=== PATIENT | female | born 1980 ===

== ENCOUNTER 2020-03-09 04:07 | Emergency (ER) | payer MEDICAID, SELFPAY ==
[2020-03-09 04:10] VITALS: BP 115/71; PULSE 85; RESP 16; TEMP 37.2; O2SAT 99; BMI 32.3
--- NOTE | 2020-03-09 04:46 | ED.CHESTPAIN ---
HPI - Chest Pain General Chief Complaint: Weakness Stated Complaint: CHEST PAIN Time Seen by Provider: 03/09/20 04:45 Source: patient Mode of arrival: ambulatory Limitations: no limitations History of Present Illness HPI narrative: patient complaining of mid chest pain which is going on for several months tonight got worse and when she ago woke up she was feeling weak and dizzy. Patient is taking naproxen for the pain and seen by her PCP patient denies any recent illness or fever denies any sick contacts today when she woke up she has barely been able to get out of bed because of pain pain is localized in left 2nd 3rd intercostal space which increases on palpation and movements and deep breaths complaint: chest pain Onset (ago): month(s) Timing of current episode: episodic Prior episodes: Yes Onset: during rest Pain location: substernal and left chest Pain radiation: none Severity: mild Quality: tightness and sharp Relieving factors: nothing Exacerbating factors: exertion and movement Context: recent illness Treatment prior to arrival: none Risk Factors Coronary artery disease risk factors: none Related Data Allergies Allergy/AdvReac Type Severity Reaction Status Date / Time Iodinated Contrast Media Allergy Severe ANAPHYLAXIS Verified 03/09/20 04:20 [IV CONTRAST] gadobutrol [From GAD[facility]] Allergy Unknown UNKNOWN Verified 03/09/20 04:20 Review of Systems Review of Systems: REVIEW OF SYSTEMS: Pertinent positives and negatives are stated above in the history. GEN: no fevers, chills, weakness+ HEENT: no nasal congestion, sore throat, ear pain NEURO: no headache, dizziness, focal weakness PULM: no cough, shortness of breath CV: no palpitations, LE edema ABD: no abdominal pain, nausea, vomiting, diarrhea : no dysuria, urgency, frequency SKIN: no rash ROS otherwise negative x 10 PMFSH Past Medical History Medical History Anxiety Arthritis Asthma Depression Fibromyalgia Migraine Social History Social History Advance Directives: No Advance Directives Information Provided: No Physical Exam Vital Signs: Vital Signs: Last Vital Signs Temp 98.9 F 03/09/20 04:10 Pulse 85 03/09/20 04:10 Resp 16 03/09/20 04:10 BP 115/71 03/09/20 04:10 Pulse Ox 99 03/09/20 04:10 Body Mass Index 32.3 Appearance: Alert. Oriented X3. No acute distress. Eyes: Pupils equal, round and reactive to light. ENT: Pharynx normal. Neck: Normal inspection. Neck supple. CVS: Normal heart rate and rhythm. Pulses normal. Respiratory: No respiratory distress. Breath sounds normal. chest wall tenderness left 2nd and 3rd costochondral junction Abdomen: Soft and nontender. bowel sounds present no hepatosplenomegaly Skin: Skin warm and dry. Normal skin color. Normal skin turgor. Extremities: No lower extremity edema. Good range of movement Neuro: Oriented X 3. No motor deficit. No sensory deficit. MDM - Chest Pain Differential Diagnosis Differential diagnosis: Likely atypical chest pain and costochondritis Medical Records Data Attestation: I reviewed the patient's medical records. Lab Data Attestation: I reviewed the patient's lab results. Result diagrams: 03/09/20 05:12 03/09/20 05:12 Labs: Lab Results 03/09/20 Range/Units 04:50 Urine Test NEGATIVE (NEGATIVE) ECG Data ECG #1: Attestation: I personally reviewed and interpreted this ECG as follows: ECG interpretation date: 03/09/20 Interpretation: normal sinus rhythm normal intervals normal axis heart rate [address] T wave changes impression normal EKG no ischemia
[2020-03-09 05:03] LABS: Glucose Urine UA NEG (NEG); Leukocyte Esterase Urine NEG (NEG); Nitrite Urine NEG (NEG); PH 5.5 (5.0-8.0); Specific Gravity - Urine >= 1.030 (1.005-1.025); Urine Blood 2+ (NEG); Urine Ketones 5 MG/DL (NEG); Urine Protein TRACE MG/DL (NEG-TRACE)
[2020-03-09 05:05] LABS: UPreg QC Valid YES; Urine Pregnancy NEGATIVE (NEGATIVE)
[2020-03-09 05:19] LABS: Basophils Absolute Auto 0.1 X10*3/uL (0.0-0.2); Basophils Percent Auto 0.4 % (0-2); Eosinophils Absolute Auto 0.3 X10*3/uL (0.0-0.4); Eosinophils Percent Auto 2.4 % (0-4); Hematocrit 39.6 % (37-47); Imm Gran Abs Auto 0.04 X10*3/uL (0.00-0.03); Imm Gran Pct Auto 0.4 % (0.0-0.4); Lymphocytes Absolute Auto 3.3 X10*3/uL (1.2-4.9); Lymphocytes Percent Auto 29.5 % (20-40); Mean Corpuscular HGB Conc 32.8 g/dl (31.0-35.0); Mean Corpuscular Hemoglobin 29.8 pg (27.0-33.0); Mean Corpuscular Volume 90.8 fL (80-98); Mean Platelet Volume 12.4 fL (9.4-12.3); Monocytes Absolute Auto 0.6 X10*3/uL (0.1-1.2); Monocytes Percent Auto 5.5 % (2-11); Neutrophils Absolute Auto 6.9 X10*3/uL (2.0-8.3); Neutrophils Percent Auto 61.8 % (45-73); Platelet Count 248 X10*3/uL (160-400); Red Blood Count 4.36 X10*6/uL (4.20-5.50); Red Cell Distribution Width 13.4 % (11.0-16.0); White Blood Count 11.1 X10*3/uL (4.8-10.8)
[2020-03-09 05:20] LABS: MANUAL DIFF FLAG NO
[2020-03-09 05:33] LABS: COVID-19 Test Negative (Negative); IDNOW Serial# 9DD0AD1C
[2020-03-09 05:33] LABS: Appearance Urine HAZY; Color Urine DARK YELLOW
[2020-03-09 05:41] LABS: Bacteria Urine 1+ /LPF; Hyaline Casts Urine 0-2 /LPF; Mucus Urine 3+ /LPF; Squamous Epithelial Cell Urine 3+ /LPF; Uric Acid Crystals Urine TRACE /LPF
[2020-03-09 05:54] LABS: Alanine Aminotransferase 19 U/L (0-31); Alkaline Phosphatase 86 U/L (39-117); Anion Gap 13 (12-20); Aspartate Amino Transferase 18 U/L (5-31); Bilirubin Direct 0.2 mg/dL (0.0-0.5); Bilirubin Total 0.6 mg/dL (0.0-1.0); Blood Urea Nitrogen 12 mg/dL (9-16); Calcium 8.3 mg/dL (8.4-10.2); Carbon Dioxide 22 mmol/L (22-29); Chloride 106 mmol/L (96-108); Creatinine Clr Calc Pharmacy 86.5; Estimated Glomerular Filt Rate > 60; Glucose Random 110 mg/dL (60-115); Potassium 3.9 mmol/l (3.3-5.1); Sodium 137 mmol/L (135-145); Total Protein 7.4 g/dL (6.5-8.0)
[2020-03-09 05:57] LABS: Troponin-I High Sensitivity < 3.5 ng/L (<3.5-17.0)
== END 2020-03-09 07:04 | disposition home or self-care (01) ==
PROVIDERS: Emergency Provider Internal Medicine; PCP Family Medicine
DX: M94.0 Chondrocostal junction syndrome [Tietze] (principal); Z20.828 Contact with and (suspected) exposure to other viral communicable diseases
CPT/HCPCS: 36415; 80048; 80076; 81001; 81003; 81025; 84484; 85025; 87635; 93005; 99283; 99284

== ENCOUNTER 2020-03-11 20:15 | Emergency (ER) | payer MEDICAID, SELFPAY ==
[2020-03-11 20:18] VITALS: BP 123/71; PULSE 79; RESP 16; TEMP 36.8; O2SAT 99; BMI 32.3
[2020-03-11 20:38] LABS: Glucose Urine UA NEG (NEG); Leukocyte Esterase Urine NEG (NEG); Nitrite Urine NEG (NEG); Urine Blood 2+ (NEG); Urine Ketones NEG (NEG); Urine Protein NEG (NEG-TRACE)
[2020-03-11 20:39] LABS: Appearance Urine HAZY; Color Urine YELLOW
[2020-03-11 20:44] LABS: Bacteria Urine 1+ /LPF; Squamous Epithelial Cell Urine 1+ /LPF; WBC Urine 0 /HPF (0-4)
--- NOTE | 2020-03-11 22:52 | ED_ITS ---
HPI - Abdominal Pain General Chief Complaint: Abdominal Pain Stated Complaint: Chest pain Time Seen by Provider: 03/11/20 21:20 Source: patient Mode of arrival: ambulatory Limitations: no limitations History of Present Illness HPI narrative: patient was seen here 2 days ago for costochondritis comes now for left flank pain since evening today which increases on deep breath and never had any kidney stone in the past denies any urinary symptoms no hematuria denies any cough or fever or chills MD elicited complaint: flank pain Pertinent past history: none Onset (ago): hour(s) (5) Pain Consistency: constant Location: L flank Severity: mild Quality: sharp Radiation: none Exacerbating factors: movement Associated symptoms: denies other symptoms Treatments prior to arrival: NSAIDs Related Data Previous Rx's Medication Instructions Recorded naproxen 500 mg PO BID #30 tab 03/09/20 Allergies Allergy/AdvReac Type Severity Reaction Status Date / Time Iodinated Contrast Media Allergy Severe ANAPHYLAXIS Verified 03/09/20 04:20 [IV CONTRAST] gadobutrol [From [facility]] Allergy Unknown UNKNOWN Verified 03/09/20 04:20 Review of Systems Review of Systems REVIEW OF SYSTEMS: Pertinent positives and negatives are stated above in the history. GEN: no fevers, chills, fatigue HEENT: no nasal congestion, sore throat, ear pain NEURO: no headache, dizziness, focal weakness PULM: no cough, shortness of breath CV: no palpitations, LE edema ABD: no abdominal pain, nausea, vomiting, diarrhea : no dysuria, urgency, frequency SKIN: no rash ROS otherwise negative x 10 Physical Exam Vital Signs: Vital Signs: Last Vital Signs Temp 98.3 F 03/11/20 20:18 Pulse 79 03/11/20 20:18 Resp 16 03/11/20 20:18 BP 123/71 03/11/20 20:18 Pulse Ox 99 03/11/20 20:18 Body Mass Index 32.3 Appearance: Alert. Oriented X3. No acute distress. Eyes: Pupils equal, round and reactive to light. ENT: Pharynx normal. Neck: Normal inspection. Neck supple. CVS: Normal heart rate and rhythm. Pulses normal. Respiratory: No respiratory distress. Breath sounds normal. Abdomen: Soft and nontender. mild tenderness left flank area and lower ribs very sensitive to touch seems to be very superficial muscular pain, bowel sounds are present no mass palpable Skin: Skin warm and dry. Normal skin color. Normal skin turgor. Extremities: No lower extremity edema. Good range of movement Neuro: Oriented X 3. No motor deficit. No sensory deficit. MDM - Abdominal Pain Differential Diagnosis Differential diagnosis: Likely renal colic Medical Records Attestation: I reviewed the patient's medical records. Lab Data Attestation: I reviewed the patient's lab results. Labs: Lab Results 03/11/20 Range/Units 20:30 Urine Color YELLOW Urine Appearance HAZY Urine pH 7.0 (5.0-8.0) Ur Specific [place] 1.020 (1.005-1.025) Urine Protein NEG (NEG-TRACE) MG/DL Urine Glucose (UA) NEG (NEG) MG/DL Urine Ketones NEG (NEG) MG/DL Urine Blood 2+ H (NEG) Urine Nitrite NEG (NEG) Ur Leukocyte Esterase NEG (NEG) Urine RBC 5-9 H (0) /HPF Urine WBC 0 (0-4) /HPF Ur Squamous Epith Cells 1+ /LPF Urine Bacteria 1+ /LPF Discharge Plan Discharge Clinical Impression: Musculoskeletal back pain Patient Disposition: Home, Self-Care Instructions: Musculoskeletal Pain (ED) Additional Instructions: drink plenty of fluids and follow-up with PCP continue naproxen Prescriptions: No Action naproxen 500 mg tablet 500 mg PO BID Qty: 30 RF: 0 Interventions: ED Discharge Assessment Last Done: 03/11/20 23:47 Discharge Date/Time: 03/11/20 23:47 [facility] Past Medical History Medical History Anxiety Arthritis Asthma Depression Fibromyalgia Migraine Social History Social History Alcohol intake: unknown Smoking Status: Current every day smoker Advance Directives: No Advance Directives Information Provided: Yes
--- NOTE | 2020-03-11 22:59 | XR_ITS ---
EXAMINATION: XR CHEST CLINICAL INFORMATION: Left lung pain. COMPARISON: Chest x-ray 05/05/2016 TECHNIQUE: Frontal portable view of the chest was obtained. 10:58 PM FINDINGS: No significant abnormality is noted involving the heart, lungs, mediastinum, bony thorax or soft tissues. XR/XR chest 1V IMPRESSION: Unremarkable examination.
[2020-03-11] MEDS: traMADoL HCL 50 MG TABLET PO (23:06)
== END 2020-03-11 23:47 | disposition home or self-care (01) ==
PROVIDERS: Emergency Provider Internal Medicine; PCP Family Medicine
DX: R10.9 Unspecified abdominal pain (principal); M62.830 Muscle spasm of back
CPT/HCPCS: 71045; 81001; 99283

== ENCOUNTER 2020-03-13 10:19 | Outpatient (REF) | payer MEDICAID, SELFPAY ==
[2020-03-13 14:24] LABS: Urine Cytology See Pathology rpt
[2020-03-13 14:32] LABS: Hematocrit 41.3 % (37-47); Hemoglobin 13.5 g/dl (12.0-16.0); Mean Corpuscular HGB Conc 32.7 g/dl (31.0-35.0); Mean Corpuscular Hemoglobin 29.7 pg (27.0-33.0); Mean Platelet Volume 12.4 fL (9.4-12.3); Platelet Count 254 X10*3/uL (160-400); Red Blood Count 4.54 X10*6/uL (4.20-5.50); Red Cell Distribution Width 13.6 % (11.0-16.0); White Blood Count 9.7 X10*3/uL (4.8-10.8)
[2020-03-13 14:46] LABS: Estimated Average Glucose 111 mg/dL; Hemoglobin A1c % 5.5 %
[2020-03-13 15:07] LABS: Alanine Aminotransferase 16 U/L (0-31); Albumin Level 4.2 g/dL (3.5-5.0); Alkaline Phosphatase 91 U/L (39-117); Anion Gap 14 (12-20); Aspartate Amino Transferase 16 U/L (5-31); Bilirubin Direct 0.2 mg/dL (0.0-0.5); Bilirubin Total 0.4 mg/dL (0.0-1.0); Blood Urea Nitrogen 10 mg/dL (9-16); Calcium 8.6 mg/dL (8.4-10.2); Carbon Dioxide 24 mmol/L (22-29); Chloride 103 mmol/L (96-108); Cholesterol 211 mg/dL; Estimated Glomerular Filt Rate > 60; Glucose Random 92 mg/dL (60-115); HDL Cholesterol 53 mg/dL; Iron 75 mcg/dL (30-160); LDL Cholesterol Calculated 141 mg/dl; Percent Iron Saturation 21 % (15-50); Potassium 4.5 mmol/l (3.3-5.1); Sodium 136 mmol/L (135-145); Total Iron Binding Capacity 352 mcg/dL (228-428); Total Protein 7.7 g/dL (6.5-8.0); Triglycerides 86 mg/dL; Unsaturated Iron Binding 277 ug/dL
[2020-03-13 15:34] LABS: Free T4 (Free Thyroxine) 0.97 ng/dL (0.71-1.85); Thyroid Stimulating Hormone 0.98 uIU/mL (0.32-4.0); Vitamin D 25-OH Total 7.9 ng/mL (>30)
[2020-03-13 15:53] LABS: Ferritin 41 ng/mL (10-250)
[2020-03-13 16:01] LABS: Syphilis Screen Nonreactive (Nonreactive)
[2020-03-13 16:13] LABS: Folate 6.1 ng/mL (> or = 4.0); Vitamin B12 192 pg/mL (200-900)
[2020-03-16 06:38] LABS: CT PCR NOT DETECTED (Not Detect.); NG PCR NOT DETECTED (Not Detect.)
[2020-03-16 18:37] LABS: HPV mRNA E6/E7 rflx Not Detected (Not Detected)
== END 2020-03-13 10:20 | disposition home or self-care (01) ==
LOC: HO.LAB 10:19
PROVIDERS: PCP Family Medicine; Visit Provider Advanced Practice Midwife
DX: Z01.419 Encounter for gynecological examination (general) (routine) without abnormal findings (principal); N64.4 Mastodynia; F17.200 Nicotine dependence, unspecified, uncomplicated; Z87.42 Personal history of other diseases of the female genital tract; Z20.2 Contact with and (suspected) exposure to infections with a predominantly sexual mode of transmission
CPT/HCPCS: 36415; 80048; 80061; 80076; 82306; 82607; 82728; 82746; 83036; 83540; 84439; 84443; 85027; 86780; 87491; 87591; 87624; 87625; 88142

== ENCOUNTER 2020-03-13 13:05 | Outpatient (REF) | payer MEDICAID, SELFPAY ==
[2020-03-13 16:00] LABS: Syphilis Screen Nonreactive (Nonreactive)
[2020-03-15 08:46] LABS: ~Hepatitis C Antibody Nonreactive (Nonreactive)
[2020-03-15 09:33] LABS: HIV AB/AG Nonreactive (Nonreactive); HIV Num 1 0.07 S/CO (0.00-0.99); Hepatitis B Surface Antigen Negative (Negative)
== END 2020-03-13 13:06 | disposition home or self-care (01) ==
LOC: HO.LAB 13:05
PROVIDERS: PCP Family Medicine; Visit Provider Advanced Practice Midwife
DX: Z00.00 Encounter for general adult medical examination without abnormal findings (principal); R07.9 Chest pain, unspecified; Z20.2 Contact with and (suspected) exposure to infections with a predominantly sexual mode of transmission
CPT/HCPCS: 86780; 86803; 87340; 87389; 88112

== ENCOUNTER → 2020-03-18 08:06 | Outpatient (BNVA) | payer MEDICAID, SELFPAY | PROVIDERS: PCP Family Medicine; Referring Provider Family Medicine; Visit Provider Nurse Practitioner Family | DX: M22.2X2 Patellofemoral disorders, left knee (principal); M25.562 Pain in left knee; F17.200 Nicotine dependence, unspecified, uncomplicated | CPT/HCPCS: 99202 ==

== ENCOUNTER 2020-03-27 08:00 | Outpatient (REF) | payer MEDICAID, SELFPAY ==
--- NOTE | 2020-03-27 | US_ITS ---
EXAMINATION: US ABDOMEN COMPLETE CLINICAL INFORMATION: Liver disease. COMPARISON: MRI abdomen 10/29/2017. CT abdomen and pelvis 08/29/2017. Ultrasound abdomen report 02/18/2010. TECHNIQUE: Real-time imaging of the abdominal viscera. FINDINGS: PANCREAS: Normal. ABDOMINAL AORTA: The proximal, mid, and distal segments are normal in caliber. INFERIOR VENA CAVA: Visualized portions are normal. LIVER: The liver is normal in size. The liver contour is normal. Parenchymal echogenicity is normal. There is a 3.9 x 3.9 x 3.7 cm hypoechoic mass in the right lobe of the liver near the gallbladder. This appears increased in size from previous CT and MRI when this measured 3 cm. It is uncertain whether measurement differences are due to difference in modality. Old ultrasound from February 2010 is unavailable for comparison however lesion was not described in report and may not have been seen. There is no intrahepatic biliary duct dilatation seen. GALLBLADDER: There are gallstones in the gallbladder. The gallbladder is physiologically distended. Multiple mobile gallstones are present. No evidence of gallbladder wall thickening or pericholecystic fluid. COMMON BILE DUCT: Normal in caliber measuring 0.4 cm in diameter. RIGHT KIDNEY: Normal. No hydronephrosis. No renal calculi or focal parenchymal lesions. The kidney measures 10.6 cm in maximum dimension. LEFT KIDNEY: Normal. No hydronephrosis. No renal calculi or focal parenchymal lesions. The kidney measures 11.4 cm in maximum dimension. SPLEEN: Normal. The spleen measures 10.0 cm in maximum dimension. FREE FLUID: None. US/US abdomen complete IMPRESSION: 3.9 x 3.9 x 3.7 cm hypoechoic lesion in the right lobe of the liver near the gallbladder. Measurement is increased in size from previous MRI and CT most recent from 2017. Measurement differences may be due to difference in modality. Follow-up CT or MRI of the liver should be considered.
--- NOTE | 2020-03-27 08:30 | CA_ITS ---
Transthoracic Echocardiogram Patient (Last, First, Middle): Susanne Milligan, Gender: Female Date of : 1980 Age: 39 Procedure Date: 03/27/2020 Procedure Type: Transthoracic Echocardiogram Location: OP Height: 167.64 cm Weight: 90.72 kg BSA: 2.00 m2 Heart Rate: bpm BP: 110 / 62 mmHg Health Worker: Anibal MD: Lisa Wylie DO Trimmer Operator: Lawson Sebastian MD Symptoms: R07.9 UNSPECIFIED CHEST PAIN Study Quality: Good ECG Rhythm: Sinus Conclusions: - Normal study Findings Left Ventricle Normal left ventricular size, thickness, systolic function, and wall motion. The visually estimated ejection fraction is between 60-65%. Diastolic function is normal for age. Right Ventricle Normal right ventricular cavity size and systolic function. Atria Both atria are normal in size. There is no evidence of interatrial shunt. Aortic Valve Normal aortic valve structure and function. There is no aortic valve stenosis. There is no aortic valve regurgitation. Mitral Valve Normal mitral valve structure and function. There is no mitral valve regurgitation. There is no mitral valve stenosis. Pulmonic Valve The pulmonic valve is likely normal. Tricuspid Valve Normal tricuspid valve structure. There is trace tricuspid valve regurgitation. The right ventricular systolic pressure is normal. The right ventricular systolic pressure is 22 mmHg. Normal right atrial pressure. There is no evidence of pulmonary hypertension. Great Vessels All visible segments of the aorta are normal in size. The pulmonary artery was not well visualized. Venous The inferior vena cava is normal in size and collapses greater than 50% with inspiration. Pericardium/Pleural There is no evidence of pericardial effusion. Prior Study Comparison No prior study available for comparison. Measurements 2D Linear Measurements RVIDd: 2.53 RVIDd Index: 1.27 IVSd: 0.54 0.6-0.9/0.6-1.0 cm LVIDd: 4.85 3.9-5.3/4.2-5.9 cm LVIDd Index: 2.43 2.4-3.2/2.2-3.1 cm/m2 LVIDs: 2.87 2.0-3.6 cm LVPWd: 1.02 0.7-1.1 cm Ao Root: 2.40 2.1-3.5 cm LA Diam: 2.90 2.7-3.8/3.0-4.0 cm LAIDs Index: 1.45 1.5-2.3 cm/m2 LV Mass: 154.62 67-162/88-224 g LV Mass Index: 77.31 43-95/49-115 g/m2 LVOT Diam: 2.00 3.0+(-)1.3 cm 2D Systolic Function EF 4C: 52.30 >55% EF 2C: 63.30 >55% EF BiP: 57.00 >55% Mitral Valve MV Pk E: 0.83 MV PK A: 0.53 MV Decel Time: 184.00 E/A: 1.60 E'Lateral: 12.20 E'Medial: 11.20 E/E' Med: 7.40 E/E' Lat: 6.80 Aortic Valve AoV Pk Ruddy: 1.39 AoV Mn Ruddy: 1.01 AoV VTI: 0.30 AoV Pk Grad: 8.00 Aov Mn Grad: 4.00 ELAINA Cont.VTI: 2.03 LVOT LVOT Pk Ruddy: 0.96 LVOT Mn Ruddy: 0.67 LVOT VTI: 0.19 LVOT Pk Grad: 4.00 LVOT Mn Grad: 2.00 LVOT Diam: 2.00 LVOT Area: 3.14 Diastolic Function MV Pk E: 0.83 MV Pk A: 0.53 E/A: 1.60 E'Medial: 11.20 E/E' Med: 7.40 E' Laterial: 12.20 E/E' Lat: 6.80 Tricuspid Valve TR Pk Ruddy: 2.20 TR Pk Grad: 19.00 RA Press: 3.00 RVSP: 22.00 Great Vessels Aorta Ao Root-2D: 2.40 2.0-3.7 cm Ao Asc: 2.70 2.1-3.4 cm Ao Arch: 2.40 Updated in Other Vendor System with Status of Final Lawson Sebastian MD electronically signed on 03/28/2020 2:18:08 PM with status of Final
--- NOTE | 2020-03-27 09:30 | ECG_ITS ---
Hook-up date: 2020-03-27 10:05:00 Duration: 25:05:00 Test Indications: INTERM. CHEST PAIN, PALPITATIONS Medications: [id number] QRS complexes 4 Ventricular ectopics which represent <1 % of total QRS comp. * Supraventricular ectopics which represent % of total QRS comp. * Paced QRS complexs which represent % of total QRS comp. VENTRICULAR ECTOPY 4 Isolated 0 Bigeminal Cycles 0 Couplets 0 Runs 0 Beats in Runs * Beats LONGEST at * BPM at :: -- * Beats FASTEST at * BPM at :: -- SUPRAVENTRICULAR ECTOPY * Isolated * Couplets * Runs * Beats in Runs * Beats LONGEST at * BPM at :: -- * Beats FASTEST at * BPM at :: -- HEART RATES 52 MIN at 06:23:34 2020-03-28 83 AVG 139 MAX at 07:29:38 2020-03-28 LONGEST RR 1.2880 secs at 19:04:36 2020-03-27 S-T LEVELS Channel 1 - 128 mm at 10:05:00 2020-03-27 - 128 mm at 10:05:00 2020-03-27 Channel 2 - 128 mm at 10:05:00 2020-03-27 - 128 mm at 10:05:00 2020-03-27 Channel 3 - 128 mm at 02:92:41 -- - 128 mm at 02:92:41 Underlying rhythm is sinus; Average ventricular rate 83/min; range 52-139/min; Very rare, isolated ventricular ectopy; No sustained arrhythmias; Patient did not report any symptoms in the diary Referred By: Lisa Wylie Overread By: DAVI HU
== END 2020-03-27 08:01 | disposition home or self-care (01) ==
LOC: HO.US 08:00
PROVIDERS: Visit Provider Family Medicine
DX: R07.9 Chest pain, unspecified (principal); K76.9 Liver disease, unspecified
CPT/HCPCS: 76700; 93225; 93226; 93306

== ENCOUNTER 2020-04-02 05:48 | Outpatient (REF) | payer MEDICAID, SELFPAY ==
--- NOTE | 2020-04-02 10:49 | FL_ITS ---
EXAMINATION: XR FLUOROSCOPY WITH IMAGES CLINICAL INFORMATION: M22.2X2 - Patellofemoral disorders, left knee COMPARISON: MRI left knee 05/11/2018 TECHNIQUE: Fluoroscopy performed by Mary Grace Garcia NP. Fluoroscopy time: 0.3 minutes DAP: 2.02 Gycm2 Images: 3 FINDINGS: There are needles adjacent to the medial lateral aspect distal femur, mid depth. There is also a needle adjacent to medial aspect proximal tibia mid depth. There is a small round artifact, likely spot of contrast also noted on other imaging studies, overlying the images. FL/FL guidance in treatment room IMPRESSION: Fluoroscopy for pain management procedure.
== END 2020-04-02 05:49 | disposition home or self-care (01) ==
LOC: HO.RADIR 05:48
PROVIDERS: Visit Provider Anesthesiology
DX: M22.2X2 Patellofemoral disorders, left knee (principal)
CPT/HCPCS: 64454; J3300

== ENCOUNTER 2020-04-04 12:19 | Outpatient (REF) | payer MEDICAID, SELFPAY ==
--- NOTE | 2020-04-04 12:25 | MM_ITS ---
EXAMINATION: MM DIAGNOSTIC DIGITAL BREAST TOMOSYNTHESIS, BILATERAL US DIAGNOSTIC ULTRASOUND BREAST, LEFT CLINICAL INFORMATION: 39-year-old with several months pain left breast. Also having cardiac workup for symptoms. Family history breast cancer, aunt. Age 39. No prior breast imaging. The lifetime risk of breast cancer based on the Tyrer-Cuzick Model is 12%. COMPARISON: None (current study represents initial baseline exam). TECHNIQUE: Digital breast tomosynthesis is performed in both the craniocaudal and mediolateral oblique views along with computer-aided detection (CAD). Synthesized 2D images are generated from the tomosynthesis. Ultrasound left breast is targeted to the 10:00 through 12:00 position and the area of symptoms inferior left breast. Patient is able to point to area of concern at time of imaging. FINDINGS: Mammography: There are scattered areas of fibroglandular density (ACR BI-RADS breast composition Category b). The right breast is unremarkable. There is no mass or architectural abnormality. The left breast has a 4 mm circumscribed nodule anterior 11:00 position. The axilla and skin contours are unremarkable. There is no skin thickening or coarsening of the Ehsan's ligaments. Ultrasound: Ultrasound left breast demonstrates a 4 mm circumscribed hypoechoic nodule 11:00 position 6 cm from nipple with low level internal echoes. There is no associated increased through-transmission of sound or color flow. No posterior acoustic shadowing. There are no other cystic or solid masses or architectural abnormality. No focal duct ectasia. No skin thickening or edema tracking in the soft tissue planes. Management: Results are discussed with the patient at time of visit. There are no imaging findings to correspond to patient's left breast pain. Patient's symptoms should be managed based on the clinical impression. A follow-up left mammogram in 6 months is recommended to reassess the probable benign nodule anterior 11:00 position. MM/MM tomosynthesis diagnostic BI IMPRESSION: 1. No imaging findings to correspond to patient's left breast pain. Right breast unremarkable. 2. Probable benign circumscribed nodule 4 mm 11:00 position left breast. ASSESSMENT: BI-RADS 3: Probably Benign RECOMMENDATION: 1. Patient's left breast pain should be managed based on the clinical impression. 2. Diagnostic left mammography in 6 months to reassess probable benign circumscribed nodule. This patient's information was entered into a reminder system with a target due date for their next mammogram.
== END 2020-04-04 12:20 | disposition home or self-care (01) ==
LOC: HO.MAMMO 12:19
PROVIDERS: PCP Family Medicine; Visit Provider Advanced Practice Midwife
DX: N64.4 Mastodynia (principal); Z80.3 Family history of malignant neoplasm of breast
CPT/HCPCS: 76642; 77062; 77066

== ENCOUNTER → 2020-04-08 14:49 | Outpatient (BNVA) | payer MEDICAID, SELFPAY | PROVIDERS: PCP Family Medicine; Visit Provider Anesthesiology | DX: Z76.89 Persons encountering health services in other specified circumstances (principal) ==

== ENCOUNTER 2020-04-11 08:00 | Outpatient (RCR) | payer MEDICAID, SELFPAY | END 2020-05-14 14:39 | disposition other institution (70) | LOC: HO.PT 08:00 | PROVIDERS: PCP Family Medicine; Visit Provider Family Medicine | DX: M54.2 Cervicalgia (principal); M54.9 Dorsalgia, unspecified; G89.29 Other chronic pain | CPT/HCPCS: 97110; 97112; 97162 ==

== ENCOUNTER → 2020-04-16 14:31 | Outpatient (BNVA) | payer MEDICAID, SELFPAY | PROVIDERS: PCP Family Medicine; Visit Provider Internal Medicine | DX: R07.2 Precordial pain (principal); R06.02 Shortness of breath | CPT/HCPCS: 93005; 99202 ==

== ENCOUNTER 2020-04-25 11:56 | Outpatient (RCR) | payer OTHER, SELFPAY | END 2020-04-26 07:47 | disposition home or self-care (01) | LOC: HO.PAOS 11:56 | PROVIDERS: Referring Provider Anesthesiology; Visit Provider Counselor | DX: F43.21 Adjustment disorder with depressed mood (principal) | CPT/HCPCS: 90791 ==

== ENCOUNTER → 2020-05-14 08:34 | Outpatient (REF) | payer MEDICAID, SELFPAY ==
--- NOTE | 2020-05-14 08:40 | CA_ITS ---
Acquisition Time: 2020-05-14 09:38:08 Total Exercise Time: 00:06:29 Test Indications: Dyspnea Medications: CLONAZAPAM TRAMADOL BACLOFEN GABAPENTIN NAPROXEN Protocol: DEBBIE Max HR: 166 BPM 92% of Pred: 180 BPM Max BP: 164/058 mmHG Max Work Load: 7.7 METS Exercise stress test Using Debbie protocol total of 6 min 29 sec, METS 7.70 and TAPHR up to 92 %. Pt tolerated well, denies any anginal sx. No ischemic changes seen during exercise or in recovery period. Normotensive response to exercise. Test reviewed with Dr. Spence. Referred By: Tree Spence Overread By: Terence Dickinson
== END ==
LOC: HO.CARD 08:34
PROVIDERS: Visit Provider Internal Medicine
DX: R07.2 Precordial pain (principal); R06.02 Shortness of breath
CPT/HCPCS: 93017

== ENCOUNTER → 2020-05-15 15:21 | Outpatient (BNVA) | payer MEDICAID, SELFPAY | PROVIDERS: PCP Family Medicine; Visit Provider Student in an Organized Health Care Education/Training Program | DX: M25.50 Pain in unspecified joint (principal); M77.12 Lateral epicondylitis, left elbow | CPT/HCPCS: 99202 ==

== ENCOUNTER 2020-05-23 08:28 | Outpatient (REF) | payer MEDICAID, SELFPAY ==
--- NOTE | ~2020-05-23 | MR_ITS ---
EXAMINATION: MR ABDOMEN WITHOUT AND WITH CONTRAST CLINICAL INFORMATION: Increase in liver lesion size on ultrasound, follow-up. COMPARISON: Abdominal ultrasound dated 03/27/2020, MRI of the abdomen dated 10/29/2017. TECHNIQUE: MR abdomen was performed without and with use of 10 mL intravenous Gadavist gadolinium contrast. Postcontrast images are performed in multiphase dynamic sequences. Imaging was performed in 3 planes. FINDINGS: LUNG BASES: The visualized lung bases are unremarkable. LIVER: A nonenhancing, T2 hyperintense cyst is again seen anterosuperiorly in segment 4A measuring 1.0 cm (image 30, series 100). Centrally in the right lobe in segment 8, laterally adjacent to the middle hepatic vein demonstrates gradual peripheral nodular enhancement measuring up to 1.6 cm (previously 1.2 cm), (image 38, series 100). Anteromedially in segment 5 is an enhancing mass with delayed central enhancement measuring approximately 4.1 AP x 3.4 TRV x 3.7 CC cm (previously 3.3 x 2.8 x 2.9 cm), (image 75, series 100; image 7, series 11). GALLBLADDER, AND BILIARY TREE: 0.6 cm gallstone without mural thickening or pericholecystic fluid. PANCREAS: Unremarkable. SPLEEN: Normal. ADRENAL GLANDS: Normal. KIDNEYS AND URETERS: The right kidney again shows a nonenhancing, thinly septated T2 hyperintense cyst posteriorly in the upper pole measuring 1.2 cm without significant change. GASTROINTESTINAL TRACT: There is a small hiatal hernia. The remainder the stomach as well as the visualized small and large bowel are unremarkable. ABDOMINAL WALL: No significant hernia is appreciated. LYMPH NODES: No lymphadenopathy. VASCULAR: Unremarkable. OSSEOUS STRUCTURES: Marrow signal normal. MR/MR abdomen wo/w con IMPRESSION: 1. 3 hepatic lesions as detailed above. The lesion in segment 4 demonstrates features most consistent with a hepatic cyst. The lesion centrally in segment 8 demonstrates features most consistent with a hemangioma and has mildly increased in size. The lesion in segment 5 remains nonspecific, but features favor enlarging focal nodular hyperplasia. Given the interval change the repeat contrast-enhanced MRI of the abdomen in 6 months should be considered. 2. Right upper pole renal cyst demonstrates benign features. 3. Cholelithiasis without evidence for acute cholecystitis. 4. Small hiatal hernia.
== END 2020-05-23 08:29 | disposition home or self-care (01) ==
LOC: HO.MRI 08:28
PROVIDERS: Visit Provider Family Medicine
DX: K76.9 Liver disease, unspecified (principal)
CPT/HCPCS: 74183; A9585

== ENCOUNTER 2020-05-30 11:25 | Outpatient (REF) | payer MEDICAID, SELFPAY ==
[2020-05-30 13:01] LABS: MANUAL DIFF FLAG NO
[2020-05-30 13:11] LABS: Basophils Percent Auto 0.3 % (0-2); Eosinophils Absolute Auto 0.2 X10*3/uL (0.0-0.4); Eosinophils Percent Auto 2.6 % (0-4); Hematocrit 41.1 % (37-47); Hemoglobin 13.5 g/dl (12.0-16.0); Imm Gran Abs Auto 0.04 X10*3/uL (0.00-0.03); Imm Gran Pct Auto 0.4 % (0.0-0.4); Lymphocytes Absolute Auto 2.9 X10*3/uL (1.2-4.9); Lymphocytes Percent Auto 30.9 % (20-40); Mean Corpuscular HGB Conc 32.8 g/dl (31.0-35.0); Mean Corpuscular Hemoglobin 29.7 pg (27.0-33.0); Mean Corpuscular Volume 90.5 fL (80-98); Monocytes Absolute Auto 0.5 X10*3/uL (0.1-1.2); Neutrophils Absolute Auto 5.6 X10*3/uL (2.0-8.3); Neutrophils Percent Auto 60.8 % (45-73); Platelet Count 322 X10*3/uL (160-400); Red Blood Count 4.54 X10*6/uL (4.20-5.50); Red Cell Distribution Width 13.1 % (11.0-16.0); White Blood Count 9.3 X10*3/uL (4.8-10.8)
[2020-05-30 13:35] LABS: Alanine Aminotransferase 32 U/L (0-31); Alkaline Phosphatase 100 U/L (39-117); Anion Gap 12 (12-20); Aspartate Amino Transferase 20 U/L (5-31); Bilirubin Total 0.7 mg/dL (0.0-1.0); Blood Urea Nitrogen 7 mg/dL (9-16); C Reactive Protein 1.04 mg/dL (< or = 0.50); Calcium 8.9 mg/dL (8.4-10.2); Carbon Dioxide 26 mmol/L (22-29); Chloride 106 mmol/L (96-108); Estimated Glomerular Filt Rate > 60; Glucose Random 85 mg/dL (60-115); Potassium 4.5 mmol/L (3.3-5.1); Rheumatoid Factor < 15.0 IU/mL (<15.0); Sodium 139 mmol/L (135-145); Total Protein 7.2 g/dL (6.5-8.0)
[2020-05-30 13:48] LABS: Thyroid Stimulating Hormone 0.59 uIU/mL (0.32-4.0)
[2020-05-30 13:58] LABS: Erythrocyte Sedimentation Rate 34 MM/HR (0-20)
[2020-05-31 13:43] LABS: Beta-2 Microglobulin, Serum 1.82 mg/L (< OR = 2.51)
[2020-05-31 14:52] LABS: Anti Nuclear Antibody Screen NEGATIVE (NEGATIVE)
[2020-05-31 15:17] LABS: Cyclic Citrullinated Peptide <16 UNITS
[2020-06-03 14:22] LABS: PTT (LAC) Screen 31 sec (< OR = 40)
[2020-06-03 15:07] LABS: Vitamin D 25-OH, D2 <4 ng/mL; Vitamin D 25-OH, D3 8 ng/mL; Vitamin D 25-OH, Total 8 ng/mL (30-100)
[2020-06-05 09:46] LABS: Cardiolipin IgG Ab <14 GPL; Cardiolipin IgM Ab <12 MPL
== END 2020-05-30 11:26 | disposition home or self-care (01) ==
LOC: HO.LAB 11:25
PROVIDERS: Visit Provider Student in an Organized Health Care Education/Training Program
DX: M25.50 Pain in unspecified joint (principal)
CPT/HCPCS: 36415; 80053; 82232; 82306; 84443; 85025; 85597; 85613; 85652; 85730; 86038; 86039; 86140; 86147; 86200; 86431

== ENCOUNTER → 2020-06-12 15:20 | Outpatient (BNVA) | payer MEDICAID, SELFPAY | PROVIDERS: PCP Family Medicine; Visit Provider Internal Medicine Gastroenterology ==

== ENCOUNTER 2020-06-14 13:31 | Day surgery (SDC) | payer MEDICAID, SELFPAY ==
[2020-06-10 14:00] VITALS: BMI 35.8
--- NOTE | 2020-06-13 11:00 | HO.ANESPROP2 ---
Documented by User: Simona Blankenship 06/13/20 11:02 [facility] Active Problems Active Problems: All Active Problems (Updated 06/12/20 @ 16:20 by Kassy Roca MD) Abnormal abdominal MRI (Acute) Breast pain, left (Acute) Potential exposure to STD (Acute) Well woman exam with routine gynecological exam (Acute) History of abnormal cervical Pap smear (Acute) Patellofemoral disorder of left knee (Acute) Breast nodule (Acute) Precordial chest pain (Acute) SOB (shortness of breath) (Acute) Polyarthralgia (Acute) Left lateral epicondylitis (Acute) Past Medical History Medical History Abnormal abdominal MRI Anxiety Arthritis Asthma Bipolar 1 disorder Cyst of Bartholin's gland Depression Fibromyalgia Migraine Migraine with aura Family History Family History Mother Diabetes mellitus Asthma Depression Maternal Grandmother Asthma Breast cancer Maternal Aunt Diabetes mellitus HTN (hypertension) Breast cancer Surgical History Surgical History (Updated 06/12/20 @ 15:22 by Juliann Kang) H/O colonoscopy History of loop electrical excision procedure (LEEP) Hx of arthroscopic knee surgery Hx of section Hx of tubal ligation Social History Social History Household Members: Children Alcohol intake: current Alcohol intake frequency: holidays/special occasions only Smoking Status: Never smoker Advance Directives Information Provided: No Gender identity: female Meds Allergies Allergy/AdvReac Type Severity Reaction Status Date / Time Iodinated Contrast Media Allergy Severe ANAPHYLAXIS Verified 06/14/20 07:55 [IV CONTRAST] Home Medications Medication Instructions Recorded Confirmed Last Taken Type baclofen 10 mg tablet 10 mg PO TID 03/18/20 06/12/20 Unknown History gabapentin 400 mg capsule 400 mg PO TID 03/18/20 06/12/20 Unknown History tramadol 50 mg tablet 50 mg PO TID PRN 03/18/20 06/12/20 Unknown History clonazepam 1 mg tablet 1 mg PO BEDTIME 04/16/20 06/12/20 Unknown History zolpidem 10 mg tablet 10 mg PO BEDTIME PRN 04/16/20 06/12/20 Unknown History Exam Exam Date and Time: June 13, 2020 1100 Height,Weight and Vital Signs: Height 5 ft 6 in Weight 100.698 kg Narrative Narrative: 04/2020 EKG shows sinus rhythm at 97/Min without any ischemic findings or other abnormalities. ECHO 03/2020 Conclusions: - Normal study Exercise Stress 05/2020 Protocol: ABNER Max HR: 166 BPM 92% of Pred: 180 BPM Max BP: 164/058 mmHG Max Work Load: 7.7 METS Exercise stress test Using Abner protocol total of 6 min 29 sec, METS 7.70 and TAPHR up to 92 %. Pt tolerated well, denies any anginal sx. No ischemic changes seen during exercise or in recovery period. Normotensive response to exercise. Test reviewed with Dr. Spence. Assessment and Plan Assessment Anesthesia Assessment: Chart Reviewed Documented by User: Je Michele MD 06/14/20 14:34 HPI - Anesthesia Eval Consult details Narrative: 39 F pf saphenous nerve block PMFSH Past Medical History Medical History Abnormal abdominal MRI Anxiety Arthritis Asthma Bipolar 1 disorder Cyst of Bartholin's gland Depression Fibromyalgia Migraine Migraine with aura Family History Family History Mother Diabetes mellitus Asthma Depression Maternal Grandmother Asthma Breast cancer Maternal Aunt Diabetes mellitus HTN (hypertension) Breast cancer Surgical History Surgical History (Updated 06/12/20 @ 15:22 by Juliann Kang) H/O colonoscopy History of loop electrical excision procedure (LEEP) Hx of arthroscopic knee surgery Hx of section Hx of tubal ligation Social History Social History Household Members: Children Alcohol intake: current Alcohol intake frequency: holidays/special occasions only Smoking Status: Never smoker Advance Directives Information Provided: No Gender identity: female Meds Allergies Allergy/AdvReac Type Severity Reaction Status Date / Time Iodinated Contrast Media Allergy Severe ANAPHYLAXIS Verified 06/14/20 07:55 [IV CONTRAST] Home Medications Medication Instructions Recorded Confirmed Last Taken Type baclofen 10 mg tablet 10 mg PO TID 03/18/20 06/12/20 Unknown History gabapentin 400 mg capsule 400 mg PO TID 03/18/20 06/12/20 Unknown History tramadol 50 mg tablet 50 mg PO TID PRN 03/18/20 06/12/20 Unknown History clonazepam 1 mg tablet 1 mg PO BEDTIME 04/16/20 06/12/20 Unknown History zolpidem 10 mg tablet 10 mg PO BEDTIME PRN 04/16/20 06/12/20 Unknown History Exam Airway Mallampati Class: II TM Dist: >3cm Neck ROM: Full Loose/Missing/Broken Teeth: No Heart: RRR Lungs: NL Assessment and Plan Assessment Anesthesia Assessment: Anesthesia Plan Discussed and Chart Reviewed Final Anesthetic Review NPO: Yes ASA Class: III Final Preanesthetic Review: No Changes in Pt Med Stat, Meds/Allgs Chart Reviewed, Consent Obtained/Reviewed and Anes Risks/Benef Reviewed Patient Risk: Intermediate Procedure Risk: Low Anesthetic Plan Anesthetic Plan: MAC: Disposition: Standard PACU
--- NOTE | ~2020-06-14 | FL_ITS ---
EXAMINATION: XR FLUOROSCOPY WITH IMAGES CLINICAL INFORMATION: Left intraoperative injection. COMPARISON: None. TECHNIQUE: Fluoroscopy performed by Dr. Leroy. Fluoroscopy time: less than 1 minute. DAP: 0.481 mGycm2 Images: 2 FINDINGS: Fluoroscopy provided to Dr. Leroy. There is a needle positioned medial to the proximal tibial cortex. FL/FL guidance in OR IMPRESSION: Fluoroscopy was provided to Dr. Pradeep Leroy during the procedure.
[2020-06-14 13:55] VITALS: BP 121/66; PULSE 83; RESP 16; TEMP 36.7; O2SAT 99
[2020-06-14] MEDS: Lactated Ringers 1,000 ML 100 ML IVCONT (14:15)
--- NOTE | 2020-06-14 14:48 | MHC.SHP ---
Pre-Procedural Eval Section B Chief Complaint: Patellofemoral Disorder of Left Knee Details of Present Illness: as above Relevant Family History (Specify if Yes): No Relevant Social History: None Present Medications: see Short Stay Collaborative assessment Medical History: Significant History History of Previous Operations: No relevant previous surgery Allergies: Allergies Allergy/AdvReac Type Severity Reaction Status Date / Time Iodinated Contrast Media Allergy Severe ANAPHYLAXIS Verified 06/14/20 07:55 [IV CONTRAST] Review of Systems Sugical H&P ROS: Negative: Constitution, Cardiovascular, Respiratory, Neurological, Psychiatric, Hem-Onc, Allergic/Immunologic, Gastrointestinal, Genitourinary, Musculoskeletal, Integumentary, Endocrine and Eyes/Ears/Nose/Throat Exam Surgical H&P Exam: Normal: HEENT, Normal: Heart, Normal: Lungs, Normal: Extremities, Normal: Abdomen, Normal: Skin and Normal: Neurological Plan Diagnosis/Plan: Unchanged I have reviewed the history and physical and performed a pertinent physical examination on my patient. No changes have occurred unless specified.
--- NOTE | 2020-06-14 15:11 | PM.OP ---
Brief Operative Note Date of Service: 06/14/20 Pre-op diagnosis: Patellofemoral arthritis left Post-op diagnosis: same Procedure: Infrapatellar saphenous nerve block diagnostic. Implants: None Surgeon: Pradeep Leroy MD Anesthesia: MAC Estimated blood loss (mL): 0 Condition: stable Disposition: PACU
[2020-06-14 15:18] VITALS: BP 95/50; PULSE 97; RESP 12; TEMP 36.1; O2SAT 97
--- NOTE | 2020-06-14 16:29 | P.OP_ITS ---
Operative Note Operative Note Date of Service: 06/14/20 Narrative: Patient came to the operating room after informed consent was obtained. He was positioned supine on the operating table [employer] monitors were applied , patient was sedated. Time-out procedure was performed delineating correct site and side of the injections, patient's name and date of , allergies, need for antibiotics, risk of fire. Patient's left knees as well as anterior surface of lower thigh as well as anterior surface of upper shins were prepped with ChloraPrep and draped with sterile towels. Sterilely draped C-arm was brought over the operating field and sq picture of the patient's left knee was obtained on the screen. The point of interest was delineated as connection of medial border of metaphysis and diaphysis tibial bone. The point of interest projection to the skin were injected with small amount of Lidocaine and after that 22 g. 3&1/2 spinal needle was inserted through the skin . The needle was driven to- the point of interest on anterior posterior and lateral views. When on lateral views the needles were positioned with the tips in the projection of mid shaft of the bone the 1.5 to 2 cc of Marcaine was injected into the needle. Patient tolerated procedure well he was awakened and transferred to PACU for recovery he recovered uneventfully and went home without immediate complications.
== END 2020-06-14 16:35 | disposition home or self-care (01) ==
PROVIDERS: PCP Family Medicine; Visit Provider Anesthesiology
PROC: (CPT 64447; principal; 2020-06-14 14:40)
DX: M22.2X2 Patellofemoral disorders, left knee (principal); M17.12 Unilateral primary osteoarthritis, left knee; M77.12 Lateral epicondylitis, left elbow; E55.9 Vitamin D deficiency, unspecified; Z91.041 Radiographic dye allergy status
CPT/HCPCS: 64447; 99212

== ENCOUNTER 2020-06-19 09:00 | Outpatient (RCR) | payer MEDICAID, SELFPAY ==
--- NOTE | 2020-05-28 09:08 | MHC.OT.OEV ---
[address] [phone] F: [phone] Occupational Therapy Evaluation Diagnosis: Left ulnar and median nerve dysfunction Date of Onset: 04/05/14 Attending Provider: Dr Lee Prescribed Treatment: Kat and Anjana MUÑOZ Follow Up Appointment: 06/14/20 History of Current Condition: Pt has a history of fall over six years agowhile going down stairs, with persistent pain in back and knee, she has been seen in physical therapy, also reporting elbow pain but did not receive treatment. Significant Medical History: Seizures Cardiac work-up Migraines Anxiety Fibromyalgia Back pain (hx of PT services) Precautions/Contraindications: Seizure Patient Goals: Reduce pain Hand Dominance: Right Observations: QuickDASH Score: 43 Prior Level of Function and Occupation Self Care, Employment, Leisure: On disability, spends time watching tv, resting or cooking Living Situation, Family and/or Social Support: Lives w/ children (19, 17, 14 yo twins, 5) Current Level of Function and Occupation Self Care, Employment, Leisure: Kids go to car to bring groceries, pain w/ mopping (back, shoulder, arm) Sleep: Difficulty sleeping due to anxiety Infrequent wake-pups w/ elbow pain Driving: Public transportation or family drives Pain Assessment Pain Score: 7 Pain Scale Used: Pain Location and Description: Pain in lateral elbow at cubital tunnel/ulnar nerve, ache, throb Aggravating Factors: Worse w/ heavy lifting or use, occasional sharp pain at rest Alleviating Factors: Tramadol, gabapenton, heat pack Skin and Soft Tissue Assessment Skin and Soft Tissue: Swelling Comments: Mild localized edema at cubital tunnel Nerve assessment Ulnar Nerve: Left Impaired Median Nerve: Left Impaired Radial Nerve: WNL Comments: Left small finger resting in abduction Sensory Assessment Comments: Pt reports numbness and tingling in D4-D5 at times [place] intact to 3.61, indicates diminished light touch B/L'ly Edema Assessment Upper Extremity: Lower Extremity: Comments: Mild localized edema at left cubital tunnel Dexterity Assessment Dexterity: WNL Comments: Special Tests Comments: (+) Phalen's left (-) Wrist ext test for lat epi (+) Froment's left AROM(PROM) Strength Cervical Cervical Flexion: Cervical Extension: Cervical Lateral Flexion: Cervical Rotation: Comments: Decreased end range rotation w/ discomfort Shoulder Flexion: Extension: Abduction: Internal Rotation: External Rotation: Comments: WNL Flexion: Extension: Abduction: Internal Rotation: External Rotation: Comments: Elbow Flexion: Extension: Pronation: Supination: Comments: WNL Flexion: Extension: Pronation: Supination: Comments: Wrist Flexion: Extension: Ulnar Deviation: Radial Deviation: Comments: WNL Flexion: Extension: Ulnar Deviation: Radial Deviation: Comments: Thumb Thumb CMC Flexion: Thumb MCP Flexion: Thumb IP Flexion: Radial Abduction: Palmar Abduction: [place]annah (Kapandji 0-10): Comments: Digits Index MCP: PIP: DIP: Long MCP: PIP: DIP: Ring MCP: PIP: DIP: Small MCP: PIP: DIP: Comments: WNL Gross Grasp: R 56 L 35 Lateral Pinch: R 6 L 3 Two-Point Pinch: R 3 L 1 Three-Jaw [place]: R 5 L 2 Comments: Patient Education Primary Language: Greek Carpenter Prototype Required: No Current Knowledge: Understands information with skills for self-management Teaching Method: Demonstration Handouts Verbal Education Needs Identified on Evaluation: ADL's Disease Information Equipment Use Exercise Pain Safety How did patient/family demonstrate learning? Patient demonstrates Patient verbalizes Barriers to Learning: None Readiness for Learning: Accepting Who was educated? Patient Comments: Plan of Care Assessment: Susanne presents w/ history of chronic pain after fall more than six years ago. She has attended PT for management of back, neck and knee pain, but continues to have pain and numbness in elbow, forearm and hand and has now been referred to OT. On assessment, she has S/S consistent with ulnar nerve and median nerve dysfunction, likely compressed at cubital tunnel and carpal tunnel. She will benefit from cont'd therapy services for progression of strengthening w/ reduction of pain, edema and improving daily function. STG Duration: 2 weeks Short Term Goals: Ind w/ wrist orthosis wear Ind w/ HEP Ind w/ joint protection Pt to report <5/10 pain w/ light daily activities LTG Duration: 4 weeks Sports Anchor Goals: <2/10 pain at rest QuickDASH score <25 pts Left gross grasp >45lb Pt to report three activity modifcation techniques used in home Frequency and Duration: The patient will be seen 2x/wk for 4 weeks Treatment Plan: Therapeutic Exercise Therapeutic Activity Home Exercise Program Splinting Patient Education Desensitization/Sensory Re-ed Edema Control ADL Training Ultrasound MHP Cold Packs Soft Tissue Mobilization Kinesiotaping Electronically Signed By: Breanna Villegas, OTR/L Please sign and return to therapist, Thank you for your referral.
--- NOTE | 2020-07-16 11:30 | MHC.OT.DC ---
[address] [phone] F: [phone] Occupational Therapy Discharge Note Provider: Dr Lee Diagnosis: Left ulnar and median nerve dysfunction Date of Evaluation: 05/28/20 Date of Discharge: 07/16/20 Treatments to Date: 6 Discharge Status: Patient Elected to Stop Discharge Summary: Continued to have moderate pain and sensitivity related to bursitis and cubital tunnel syndrome, but has not followed up for further appointments over the past month. Electronically Signed By: Breanna Villegas OTR/L Please Sign and return to therapist, thank you for your referral.
== END 2020-07-16 11:31 | disposition other institution (70) ==
LOC: HO.OT 09:00
PROVIDERS: PCP Family Medicine; Visit Provider Student in an Organized Health Care Education/Training Program
DX: M25.522 Pain in left elbow (principal); M77.12 Lateral epicondylitis, left elbow
CPT/HCPCS: 29125; 97033; 97110; 97140; 97166; 97760

== ENCOUNTER → 2020-06-20 15:44 | Outpatient (BNVA) | payer MEDICAID, SELFPAY | PROVIDERS: PCP Family Medicine; Visit Provider Anesthesiology ==

== ENCOUNTER 2020-07-24 21:12 | Emergency (ER) | payer MEDICAID, SELFPAY ==
--- NOTE | ~2020-07-24 | XR_ITS ---
EXAMINATION: RIGHT KNEE, RIGHT ANKLE, RIGHT FOOT CLINICAL INFORMATION: Fall with pain COMPARISON: Bilateral knee films 01/26/2018 TECHNIQUE: 4 views left knee, 2 views left ankle, 3 views left foot FINDINGS: Knee: There is mild narrowing of the medial compartment. No sclerosis osteophytes fractures or joint effusion is present. Ankle: An accessory ossicle is noted at the end of the fibular head. No fracture is present. Ankle mortise appears stable. Right foot: There is mild hallux valgus present. No fractures are seen. No significant degenerative or arthritic changes are present. XR/XR foot RT 2V IMPRESSION: 1. No evidence of an acute traumatic injury. 2. Mild degenerative changes in the narrowing of the medial compartment. 3. Minimal hallux valgus
--- NOTE | ~2020-07-24 | XR_ITS ---
EXAMINATION: RIGHT KNEE, RIGHT ANKLE, RIGHT FOOT CLINICAL INFORMATION: Fall with pain COMPARISON: Bilateral knee films 01/26/2018 TECHNIQUE: 4 views left knee, 2 views left ankle, 3 views left foot FINDINGS: Knee: There is mild narrowing of the medial compartment. No sclerosis osteophytes fractures or joint effusion is present. Ankle: An accessory ossicle is noted at the end of the fibular head. No fracture is present. Ankle mortise appears stable. Right foot: There is mild hallux valgus present. No fractures are seen. No significant degenerative or arthritic changes are present. XR/XR knee LT 2V IMPRESSION: 1. No evidence of an acute traumatic injury. 2. Mild degenerative changes in the narrowing of the medial compartment. 3. Minimal hallux valgus
--- NOTE | ~2020-07-24 | XR_ITS ---
EXAMINATION: RIGHT KNEE, RIGHT ANKLE, RIGHT FOOT CLINICAL INFORMATION: Fall with pain COMPARISON: Bilateral knee films 01/26/2018 TECHNIQUE: 4 views left knee, 2 views left ankle, 3 views left foot FINDINGS: Knee: There is mild narrowing of the medial compartment. No sclerosis osteophytes fractures or joint effusion is present. Ankle: An accessory ossicle is noted at the end of the fibular head. No fracture is present. Ankle mortise appears stable. Right foot: There is mild hallux valgus present. No fractures are seen. No significant degenerative or arthritic changes are present. XR/XR ankle RT min 3V IMPRESSION: 1. No evidence of an acute traumatic injury. 2. Mild degenerative changes in the narrowing of the medial compartment. 3. Minimal hallux valgus
[2020-07-24 21:13] VITALS: BP 133/94; PULSE 78; RESP 18; TEMP 36.8; O2SAT 100; BMI 36.8
--- NOTE | 2020-07-24 23:25 | ED.FALL ---
HPI - Fall General Chief Complaint: Fall Stated Complaint: Fall/ankle pain Time Seen by Provider: 07/24/20 23:15 Source: patient Mode of arrival: ambulatory Limitations: no limitations History of Present Illness HPI Narrative: 39-year-old female presents with right ankle pain and left knee pain after tripping and falling. Patient has stated that she stepped into a pothole while walking, twisted her ankle and landed on her left knee. Patient does not describe any other symptoms, denies loss of conscious, denies dizziness, lightheadedness, chest pain or pressure, palpitations, shortness breath, abdominal pain, abdominal distention, dysuria, hematuria, and any other concerning symptoms. Patient has full range of motion to all extremities and was able to ambulate after the injury. MD complaint: fall Onset (ago): hour(s) (Within the hour of arrival) Fall from: standing Fall witnessed: yes, by family Place fall occurred: street Loss of consciousness: none Context: tripped/slipped Location of injury - extremities: left: ankle and right: knee Severity: moderate Severity scale (1-10): 7 Quality: aching Associated symptoms (after fall): denies Related Data Home Medications Medication Instructions Recorded Confirmed baclofen 10 mg tablet 10 mg PO TID 03/18/20 06/12/20 gabapentin 400 mg capsule 400 mg PO TID 03/18/20 06/12/20 tramadol 50 mg tablet 50 mg PO TID PRN 03/18/20 06/12/20 clonazepam 1 mg tablet 1 mg PO BEDTIME 04/16/20 06/12/20 zolpidem 10 mg tablet 10 mg PO BEDTIME PRN 04/16/20 06/12/20 Previous Rx's Medication Instructions Recorded naproxen 500 mg PO BID #30 tab 03/09/20 cholecalciferol (vitamin D3) 1,250 1,250 mcg PO QWEEK #8 cap 06/04/20 mcg (50,000 unit) capsule Allergies Allergy/AdvReac Type Severity Reaction Status Date / Time Iodinated Contrast Media Allergy Severe ANAPHYLAXIS Verified 06/20/20 15:45 [IV CONTRAST] Review of Systems Review of Systems: Constitutional: No Fever, No Chills ENT/Mouth: No Ear Pain, No Hoarseness, No sore throat Eyes: No Eye Pain, No Swelling, No Redness, No Foreign Body Cardiovascular: No Chest Pain, No SOB Respiratory: No Cough, No Dyspnea Gastrointestinal: No Nausea, No Vomiting, No Diarrhea, No abdominal Pain Genitourinary: No Dysuria, No Hematuria Musculoskeletal: positive left ankle and right knee pain, No Myalgias, No Joint Swelling Skin: No Skin lacerations, No rash Neuro: No Weakness, No Numbness, No Paresthesias, No Loss of Consciousness, No Dizziness, No Headache Psych: No Anxiety/Panic, No Depression Heme/Lymph: no easy bruising, no Lymphadenopathy Endocrine: No Polyuria, No Polydipsia Yes all other systems are reviewed and are negative [facility] Past Medical History Attestation statement: The following information was validated with the patient. Source: old records reviewed Medical History Abnormal abdominal MRI Anxiety Arthritis Asthma Bipolar 1 disorder Cyst of Bartholin's gland Depression Fibromyalgia Migraine Migraine with aura Surgical History H/O colonoscopy History of loop electrical excision procedure (LEEP) Hx of arthroscopic knee surgery Hx of section Hx of tubal ligation Family History Family History Mother Diabetes mellitus Asthma Depression Maternal Grandmother Asthma Breast cancer Maternal Aunt Diabetes mellitus HTN (hypertension) Breast cancer Social History Social History (Updated 06/24/20 @ 10:39 by Kassy Roca MD) Household Members: Children Alcohol intake: current Alcohol intake frequency: holidays/special occasions only Smoking Status: Never smoker Advance Directives: No Advance Directives Information Provided: Yes Gender identity: female Physical Exam Vital Signs: Vital Signs: Last Vital Signs Temp 98.2 F 07/24/20 21:13 Pulse 78 07/24/20 21:13 Resp 18 07/24/20 21:13 BP 133/94 H 07/24/20 21:13 Pulse Ox 100 07/24/20 21:13 Body Mass Index 36.8 Appearance: Alert. Oriented X3. No acute distress. Eyes: Pupils equal, round and reactive to light. ENT: Pharynx normal. Neck: Normal inspection. Neck supple. CVS: Normal heart rate and rhythm. Pulses normal. Respiratory: No respiratory distress. Breath sounds normal. Abdomen: Soft and nontender. Skin: Skin warm and dry. Normal skin color. Normal skin turgor. Extremities: No swelling or bruising noted to right ankle, tenderness to palpation to the malleolar process, full range of motion, strength 5/5, left knee tender to palpation, negative anterior posterior drawer, full range of motion. Neuro: No motor deficit. No sensory deficit. Course Course Course Narrative: 39-year-old female presents with injuries to the left knee and right ankle. Will order x-rays. X-rays negative for acute findings to the knee and ankle. There is an osteophyte to the right lower malleolar process however this is chronic. Patient reports 01/12 pain, which is out of proportion for the level of injury, will treat for suspected sprain. Will apply Chilo wrap and provide crutches. Patient appears dissatisfied with offer Motrin prescription. Patient verbalized understanding of and agrees to plan of care discharge home. MDM - Fall Differential Diagnosis Differential diagnosis: Likely dislocation and fracture Medical Records Attestation: I reviewed the patient's medical records. Imaging Data Left knee: Attestation: I personally reviewed and interpreted this imaging study as follows: Radiologist's impression: EXAMINATION: RIGHT KNEE, RIGHT ANKLE, RIGHT FOOT CLINICAL INFORMATION: Fall with pain COMPARISON: Bilateral knee films 01/26/2018 TECHNIQUE: 4 views left knee, 2 views left ankle, 3 views left foot FINDINGS: Knee: There is mild narrowing of the medial compartment. No sclerosis osteophytes fractures or joint effusion is present. Ankle: An accessory ossicle is noted at the end of the fibular head. No fracture is present. Ankle mortise appears stable. Right foot: There is mild hallux valgus present. No fractures are seen. No significant degenerative or arthritic changes are present. XR/XR knee LT 2V IMPRESSION: 1. No evidence of an acute traumatic injury. 2. Mild degenerative changes in the narrowing of the medial compartment. 3. Minimal hallux valgus Right ankle: Attestation: I personally reviewed and interpreted this imaging study as follows: Radiologist's impression: EXAMINATION: RIGHT KNEE, RIGHT ANKLE, RIGHT FOOT CLINICAL INFORMATION: Fall with pain COMPARISON: Bilateral knee films 01/26/2018 TECHNIQUE: 4 views left knee, 2 views left ankle, 3 views left foot FINDINGS: Knee: There is mild narrowing of the medial compartment. No sclerosis osteophytes fractures or joint effusion is present. Ankle: An accessory ossicle is noted at the end of the fibular head. No fracture is present. Ankle mortise appears stable. Right foot: There is mild hallux valgus present. No fractures are seen. No significant degenerative or arthritic changes are present. XR/XR knee LT 2V IMPRESSION: 1. No evidence of an acute traumatic injury. 2. Mild degenerative changes in the narrowing of the medial compartment. 3. Minimal hallux valgus Discharge Plan Discharge Clinical Impression: Mild sprain of right ankle Qualifiers: Encounter type: initial encounter Qualified Code(s): S93.401A - Sprain of unspecified ligament of right ankle, initial encounter Patient Disposition: Home, Self-Care Instructions: Ankle Sprain (ED), R.I.C.E. Treatment (ED) Additional Instructions: You were evaluated for ankle pain after tripping into a pothole. Your x-rays are negative for fractures. Your presentation is highly suspicious for a mild ankle sprain. Please use crutches as needed, use Chilo wrap for comfort. Please follow RICE instructions. Use Motrin as needed for pain management. Thank you for choosing this emergency department for evaluation. Please follow-up with primary care physician as needed. Return to the emergency department for any new, concerning, or worsening symptoms. Prescriptions: No Action cholecalciferol (vitamin D3) 1,250 mcg (50,000 unit) capsule 1,250 mcg PO QWEEK Qty: 8 RF: 0 naproxen 500 mg tablet 500 mg PO BID Qty: 30 RF: 0 tramadol 50 mg tablet 50 mg PO TID PRN (Reason: Pain) RF: 0 gabapentin 400 mg capsule 400 mg PO TID RF: 0 baclofen 10 mg tablet 10 mg PO TID RF: 0 clonazepam 1 mg tablet 1 mg PO BEDTIME RF: 0 zolpidem [Ambien] 10 mg tablet 10 mg PO BEDTIME PRN (Reason: Insomnia) RF: 0 Stand Alone Forms: Work/School Release Interventions: ED Discharge Assessment Last Done: 07/25/20 02:14 Discharge Date/Time: 07/25/20 01:29
[2020-07-24] MEDS: Ibuprofen 600 MG TABLET PO (23:38)
== END 2020-07-25 01:29 | disposition home or self-care (01) ==
PROVIDERS: Emergency Provider Emergency Medicine Emergency Medical Services; PCP Family Medicine
DX: S93.401A Sprain of unspecified ligament of right ankle, initial encounter (principal); W17.2XXA Fall into hole, initial encounter; M25.562 Pain in left knee; Y93.01 Activity, walking, marching and hiking; Y92.414 Local residential or business street as the place of occurrence of the external cause; Y99.9 Unspecified external cause status
CPT/HCPCS: 73560; 73610; 73620; 99283; 99284

== ENCOUNTER 2020-10-02 14:28 | Outpatient (REF) | payer MEDICAID, SELFPAY ==
--- NOTE | ~2020-10-02 | MM_ITS ---
EXAMINATION: MM DIAGNOSTIC DIGITAL BREAST TOMOSYNTHESIS, LEFT CLINICAL INFORMATION: Density superior inner aspect left breast. The lifetime risk of breast cancer based on the Tyrer-Cuzick Model is 13.8%. COMPARISON: Mammography: April 04, 2020 TECHNIQUE: Digital breast tomosynthesis is performed in both the craniocaudal and mediolateral oblique views along with computer-aided detection (CAD). Synthesized 2D images are generated from the tomosynthesis. FINDINGS: There are scattered areas of fibroglandular density (ACR BI-RADS breast composition Category b). There is a stable 3 mm well-circumscribed density seen about the anterior aspect of the superior medial left breast. No new abnormal dominant mass identified. No suspicious grouping of microcalcifications. Six-month bilateral mammography suggested. Results are provided to the patient at time of visit by the technologist. MM/MM tomosynthesis diagnostic LT IMPRESSION: There are no significant changes from prior study. ASSESSMENT: BI-RADS 3: Probably Benign RECOMMENDATION: Diagnostic mammography in 6 months. This patient's information was entered into a reminder system with a target due date for their next mammogram.
== END 2020-10-02 14:29 | disposition home or self-care (01) ==
LOC: HO.MAMMO 14:28
PROVIDERS: Visit Provider Family Medicine
DX: R92.2 Inconclusive mammogram (principal)
CPT/HCPCS: 77061; 77065

== ENCOUNTER 2020-11-01 07:31 | Day surgery (SDC) | payer MEDICAID, SELFPAY ==
--- NOTE | 2020-10-31 09:04 | HO.ANESPROP2 ---
Documented by User: Simona Blankenship 10/31/20 09:05 HPI - Anesthesia Eval Consult details Narrative: 40yo F for Left Infrapateller Saphenous Nerve Trial s/p saphenous block 06/2020 with T[facility]A PMFSH Active Problems Active Problems: All Active Problems (Updated 10/25/20 @ 09:06 by Debora Menjivar) Breast pain, left (Acute) Potential exposure to STD (Acute) Well woman exam with routine gynecological exam (Acute) History of abnormal cervical Pap smear (Acute) Patellofemoral disorder of left knee (Acute) Breast nodule (Acute) Precordial chest pain (Acute) SOB (shortness of breath) (Acute) Polyarthralgia (Acute) Left lateral epicondylitis (Acute) Vitamin D deficiency (Acute) Abnormal abdominal MRI (Acute) Past Medical History Medical History Abnormal abdominal MRI Anxiety Arthritis Asthma Bipolar 1 disorder Cyst of Bartholin's gland Depression Fibromyalgia Left knee pain Migraine Migraine with aura Family History Family History Mother Diabetes mellitus Asthma Depression Maternal Grandmother Asthma Breast cancer Maternal Aunt Diabetes mellitus HTN (hypertension) Breast cancer Surgical History Surgical History H/O colonoscopy History of loop electrical excision procedure (LEEP) Hx of arthroscopic knee surgery Hx of section Hx of tubal ligation Social History Social History Household Members: Children Household Members Other:: children: 19, 18, fraternal twins-15 and a 5 year old. Alcohol intake: current Alcohol intake frequency: holidays/special occasions only Patient Tobacco Use Status: Former Tobacco user Tobacco use type: Cigarette Smoked in Last 30 Days: No Use of substances other than those prescribed or required for medical reasons: No Are you DNR?: No Advance Directives: No Advance Directives Information Provided: Yes Recently lost weight without trying: No Nutrition Risks: No Nutritional Risk Patient : No Gender identity: female Meds Allergies Allergy/AdvReac Type Severity Reaction Status Date / Time Iodinated Contrast Media Allergy Severe ANAPHYLAXIS Verified 10/25/20 09:21 [IV CONTRAST] Home Medications Medication Instructions Recorded Confirmed Last Taken Type baclofen 10 mg tablet 10 mg PO TID 03/18/20 10/25/20 Unknown History gabapentin 400 mg capsule 400 mg PO TID 03/18/20 10/25/20 Unknown History tramadol 50 mg tablet 50 mg PO TID PRN 03/18/20 10/25/20 Unknown History clonazepam 1 mg tablet 1 mg PO BEDTIME 04/16/20 10/25/20 Unknown History zolpidem 10 mg tablet (Ambien) 10 mg PO BEDTIME PRN 04/16/20 10/25/20 Unknown History acetaminophen 650 mg 1 tab PO Q8H PRN 10/25/20 10/25/20 Unknown History tablet,extended release (Arthritis Pain Relief (acetaminophen) ER) albuterol sulfate 90 mcg/actuation 2 puff PO Q4H PRN 10/25/20 10/25/20 Unknown History aerosol inhaler (ProAir HFA) amitriptyline 25 mg tablet 1 tab PO BEDTIME 10/25/20 10/25/20 Unknown History fluticasone propionate 110 1 puff PO BID 10/25/20 10/25/20 Unknown History mcg/actuation HFA aerosol inhaler (Flovent HFA) omeprazole 20 mg capsule,delayed 1 cap PO DAILY 10/25/20 10/25/20 Unknown History release Exam Exam Date and Time: October 31, 2020 0904 Narrative Narrative: 04/2020 EKG shows sinus rhythm at 97/Min without any ischemic findings or other abnormalities. ECHO 03/2020 Conclusions: - Normal study ? Exercise Stress 05/2020 Protocol: ABNER? Max HR: 166 BPM? 92% of? Pred: 180 BPM Max BP: 164/058 mmHG Max Work Load: 7.7 METS ? Exercise stress test Using Abner protocol total of 6 min 29 sec,? METS 7.70 and TAPHR up to 92 %.? Pt tolerated well, denies any anginal sx.? No ischemic ?changes seen during exercise or in recovery period.? Normotensive response to ?exercise.? Test reviewed with Dr. Spence. Assessment and Plan Assessment Anesthesia Assessment: Chart Reviewed Documented by User: Tamra Meza 11/01/20 08:37 PMFSH Past Medical History Medical History Abnormal abdominal MRI Anxiety Arthritis Asthma Bipolar 1 disorder Cyst of Bartholin's gland Depression Fibromyalgia Left knee pain Migraine Migraine with aura Family History Family History Mother Diabetes mellitus Asthma Depression Maternal Grandmother Asthma Breast cancer Maternal Aunt Diabetes mellitus HTN (hypertension) Breast cancer Family history of problems with anesthesia: No Surgical History Surgical History H/O colonoscopy History of loop electrical excision procedure (LEEP) Hx of arthroscopic knee surgery Hx of section Hx of tubal ligation History of Problems with Anesthesia: No Social History Social History Household Members: Children Household Members Other:: children: 19, 18, fraternal twins-15 and a 5 year old. Alcohol intake: current Alcohol intake frequency: holidays/special occasions only Patient Tobacco Use Status: Former Tobacco user Tobacco use type: Cigarette Smoked in Last 30 Days: No Use of substances other than those prescribed or required for medical reasons: No Are you DNR?: No Advance Directives: No Advance Directives Information Provided: Yes Recently lost weight without trying: No Nutrition Risks: No Nutritional Risk Patient : No Gender identity: female Meds Allergies Allergy/AdvReac Type Severity Reaction Status Date / Time Iodinated Contrast Media Allergy Severe ANAPHYLAXIS Verified 10/25/20 09:21 [IV CONTRAST] Home Medications Medication Instructions Recorded Confirmed Last Taken Type baclofen 10 mg tablet 10 mg PO TID 03/18/20 10/25/20 Unknown History gabapentin 400 mg capsule 400 mg PO TID 03/18/20 10/25/20 Unknown History tramadol 50 mg tablet 50 mg PO TID PRN 03/18/20 10/25/20 Unknown History clonazepam 1 mg tablet 1 mg PO BEDTIME 04/16/20 10/25/20 Unknown History zolpidem 10 mg tablet (Ambien) 10 mg PO BEDTIME PRN 04/16/20 10/25/20 Unknown History acetaminophen 650 mg 1 tab PO Q8H PRN 10/25/20 10/25/20 Unknown History tablet,extended release (Arthritis Pain Relief (acetaminophen) ER) albuterol sulfate 90 mcg/actuation 2 puff PO Q4H PRN 10/25/20 10/25/20 Unknown History aerosol inhaler (ProAir HFA) amitriptyline 25 mg tablet 1 tab PO BEDTIME 10/25/20 10/25/20 Unknown History fluticasone propionate 110 1 puff PO BID 10/25/20 10/25/20 Unknown History mcg/actuation HFA aerosol inhaler (Flovent HFA) omeprazole 20 mg capsule,delayed 1 cap PO DAILY 10/25/20 10/25/20 Unknown History release Exam Airway Mallampati Class: II TM Dist: >3cm Neck ROM: Full Assessment and Plan Assessment Anesthesia Assessment: Anesthesia Plan Discussed Final Anesthetic Review Family History of Problems with Anesthesia: No History of Problems with Anesthesia: No NPO: Yes ASA Class: II Final Preanesthetic Review: No Changes in Pt Med Stat, Meds/Allgs Chart Reviewed, Consent Obtained/Reviewed and Anes Risks/Benef Reviewed Patient Risk: Low Procedure Risk: Low Assessment/Block/Sedation in SS: Assess/Block/Sedation-SS Anesthetic Plan Anesthetic Plan: MAC: Disposition: Standard PACU
[2020-11-01] VITALS (8 sets, daily range): BP systolic 113–131; BP diastolic 72–85; PULSE 69–92; RESP 12–16; TEMP 36.6–36.7; O2SAT 96–100; BMI 34.9
--- NOTE | ~2020-11-01 | FL_ITS ---
EXAMINATION: XR FLUOROSCOPY WITH IMAGES CLINICAL INFORMATION: Infrapatellar saphenous nerve trial COMPARISON: Radiographs left knee 07/25/2020 TECHNIQUE: Fluoroscopy performed by Dr. Pradeep Leroy. Fluoroscopy time: 0.4 minutes DAP: 1.5 Gycm2 Images: 4 FINDINGS: There is a spinal needle residing adjacent to the proximal medial metaphyseal diaphyseal junction. There is a electrode and/or catheter overlying the medial side of the proximal tibia. Mild medial knee joint compartment narrowing is again noted. FL/FL guidance in OR IMPRESSION: Fluoroscopy for pain management procedure.
[2020-11-01] MEDS: Lactated Ringers 1,000 ML 100 ML IVCONT (08:13)
--- NOTE | 2020-11-01 09:26 | MHC.SHP ---
Pre-Procedural Eval Section A Date of Service: 11/01/20 The patient is an INPATIENT: No Changes since office visit: Yes Patient answered all questions The History & Physical has been completed within 30 days and I have reviewed it.: No Section B Chief Complaint: patellofemoral disorder Details of Present Illness: left knee pain Relevant Family History (Specify if Yes): No Relevant Social History: None Present Medications: see Short Stay Collaborative assessment Medical History: No relevant PMH History of Previous Operations: Relevant previous surgery/procedure and date(s) Allergies: Allergies Allergy/AdvReac Type Severity Reaction Status Date / Time Iodinated Contrast Media Allergy Severe ANAPHYLAXIS Verified 10/25/20 09:21 [IV CONTRAST] Review of Systems Sugical H&P ROS: Negative: Constitution, Cardiovascular, Respiratory, Neurological, Psychiatric, Hem-Onc, Allergic/Immunologic, Gastrointestinal, Genitourinary, Musculoskeletal, Integumentary, Endocrine and Eyes/Ears/Nose/Throat Exam Surgical H&P Exam: Normal: HEENT, Normal: Heart, Normal: Lungs, Normal: Extremities, Normal: Abdomen, Normal: Skin and Normal: Neurological Plan Diagnosis/Plan: Unchanged I have reviewed the history and physical and performed a pertinent physical examination on my patient. No changes have occurred unless specified.
--- NOTE | 2020-11-01 10:38 | PM.OP ---
Brief Operative Note Date of Service: 11/01/20 Pre-op diagnosis: patellofemoral arthritis Procedure: stim wave left infrapatellar saphenous nerve stimulation trial Implants: None permanent Surgeon: Pradeep Leroy MD Anesthesia: GLMA Was an Student Teaching Coordinator used for this Procedure?: No Estimated blood loss (mL): 2 Pathology: none sent Condition: stable Disposition: PACU
--- NOTE | 2020-11-01 10:40 | P.OP_ITS ---
Operative Note Operative Note Date of Service: 11/01/20 Narrative: Susanne is very pleasant 40 years old female who is suffering among other things from left knee patellofemoral osteoarthritis. She came today to the operating room for trial of infrapatellar saphenous left peripheral nerve stimulation stim wave technology. Informed consent was obtained from the patient , shashitristin the questions about the procedure were carefully answered to the patient's satisfaction.She came to the operating room and was positioned supine on the operating table with left leg elevated on a gel bin. [place] [employer] monitors were applied and patient was induced with general anesthesia. After that time-out was performed delineating patient's name and date of , correct side of the procedure, risk of fire, risk of DVT , needs for antibiotic prophylaxis. The left lower extremity below the level of mid thigh was prepped with ChloraPrep circumferentially and it was draped with full extremity drape. The foot was protected with foot drape before full extremity drape application.. After that sterilely draped C-arm was brought over the operating field and picture of the tibial bone was demonstrated on the screen. The point of interest was delineated as the connection of the metaphysis of the medial tibial bone silhouette with silhouette of diaphysis of the medial tibial bone. Under x-ray guidance the 22 gauge 3 and half inch spinal Quinke point needle was inserted through the skin and advanced to the point of interest on anterior posterior and lateral views. When needle gently touched the bone the position was deemed appropriate. After that 15 cm below the needle insertion in the projection of the mid shaft of the tibial bone on on the medial side local anesthetic was injected and small izabel of 11 blade scalpel was made in the skin. A 13 gauge introducer needle was inserted through the izabel and advanced along side the mid shaft of the bone toward the point of interest on anterior posterior and lateral views. A little past by the 22 gauge spinal needle position in the point of interest the advancement of the introducer 13 gauge needle was stopped. After that the guitar wire was inserted through the needle and advanced further to the cephalad direction following the curvature of the metaphysisof the tibial bone on the AP view and keeping the wire in the mid shaft of the bone on lateral view. After that the guitar wire was removed and stimulating catheter (with guidance stylets removed and replaced with stimulating copper wire) was inserted through the needle and advanced alongside the medial side mid- shaft of the tibial bone overlapping the point of interest. It was 8 contacts stimulating wire. After that the introducer needle was withdrawn with care taken to keep the stimulating wire in place. Steri-Strips and Dermabond were used to fix the stimulating wire to the skin. Sterile dressing was applied. After that sterile dressing was applied using Tegaderm and Medipore tape. The patient tolerated procedure well she was taking outside of the operating room to recovery room where she recovered uneventfully. She will be given oral antibiotics for 7 days of the trial prescribed with [id number] probiotics.
[2020-11-01] MEDS: oxyCODONE HCl Immed Release 5 MG TABLET PO (10:50)
[2020-11-01] MEDS: Acetaminophen 325 MG TABLET 650 MG PO (10:50)
== END 2020-11-01 12:57 | disposition home or self-care (01) ==
LOC: HO.SSS 07:31
PROVIDERS: PCP Family Medicine; Visit Provider Anesthesiology
PROC: (CPT 64555; principal; 2020-11-01 09:00)
DX: M22.2X2 Patellofemoral disorders, left knee (principal); G89.29 Other chronic pain; M25.562 Pain in left knee; M54.5 Low back pain; Z91.81 History of falling; Z91.041 Radiographic dye allergy status
CPT/HCPCS: 64555; C1816; J0690; J2250; J3010

== ENCOUNTER → 2020-11-07 10:04 | Outpatient (BNVA) | payer MEDICAID, SELFPAY | PROVIDERS: PCP Family Medicine; Visit Provider Anesthesiology | DX: M22.2X2 Patellofemoral disorders, left knee (principal) | CPT/HCPCS: 99212 ==

== ENCOUNTER 2020-11-19 10:48 | Outpatient (REF) | payer MEDICAID, SELFPAY ==
--- NOTE | ~2020-11-19 | MR_ITS ---
EXAMINATION: MR ABDOMEN WITHOUT AND WITH CONTRAST CLINICAL INFORMATION: Probable benign hepatic lesion, possibly FNH. Follow-up. COMPARISON: MR abdomen 05/23/2020, 10/29/2017, ultrasound abdomen 03/27/2020. TECHNIQUE: MR abdomen was performed without and with use of 10 mL intravenous Gadavist gadolinium contrast. Postcontrast images are performed in multiphase dynamic sequences. Imaging was performed in 3 planes. FINDINGS: LUNG BASES: The visualized lung bases are unremarkable. LIVER, GALLBLADDER, AND BILIARY TREE: The liver is normal in size and smooth in contour. There is no significant signal loss on out of phase imaging to suggest hepatic steatosis. There are 3 stable hepatic parenchymal lesions as detailed below. There are no new hepatic parenchymal lesions. Gallbladder has a stone approximately 0.7 cm. No gallbladder wall thickening or pericholecystic inflammatory changes. No intrahepatic or extrahepatic biliary ductal dilatation. The 3 hepatic lesions are stable from prior MR 05/23/2020 as follows: -Simple cyst subcapsular segment 4A left lobe 1.2 x 1.0 cm. Prior measurement 1.0 cm; baseline measurement 2018, 0.8 cm. -Benign hepatic hemangioma, central segment 8 just posterior to the middle hepatic vein measuring 1.6 x 1.3 cm. Prior measurement 1.6 cm. Baseline measurement 2018 approximately 1.5 x 1.1 cm. This is geographic, circumscribed, high signal T2, with peripheral globular enhancement and centripetal hyperenhancement on subsequent phases. -Probable focal nodular hyperplasia, subcapsular segment 5 measuring 3.7 x 3.3 cm. Prior measurement 3.7 x 3.4 cm. Baseline measurement 2018 approximately 3.3 x 2.8 cm. The lesion is circumscribed, T1 iso/mild hypo, T2 iso/mild hyper, and with arterial phase hyperenhancement and later phase enhancement closer to background liver. There is a central scar low signal T1, high signal T2 and with scar enhancement which persists. No steatosis of lesion on out of phase imaging. PANCREAS: Unremarkable. SPLEEN: Normal. ADRENAL GLANDS: Unremarkable. KIDNEYS AND URETERS: The kidneys are normal in size, shape, and enhance symmetrically. No hydronephrosis. No perinephric stranding. There is a cyst posterior lateral medial right upper pole 1.4 cm. No additional follow-up required. GASTROINTESTINAL TRACT: No bowel obstruction. No ascites or fluid collection. ABDOMINAL WALL: No significant hernia is appreciated. LYMPH NODES: No lymphadenopathy. VASCULAR: Unremarkable. OSSEOUS STRUCTURES: Marrow signal normal. ADDITIONAL: Large [id number]-[id number] sagittal images suggest cyst posterior to uterus just right of midline 2.6 x 5.0 cm. This is beyond the [id number] on postcontrast images. MR/MR abdomen wo/w con IMPRESSION: 1. Probable hepatic focal nodular hyperplasia 3.7 x 3.3 cm without significant change (prior measurements 3.7 x 3.4 cm 05/23/2020 and 3.3 x 2.8 cm on baseline exam 10/29/2017). 2. Small hepatic hemangioma, stable (1.6 cm). Incidental cyst 1.2 cm. 3. Gallstone. No gallbladder wall thickening or ductal dilatation. 4. Probable right adnexal pelvic cyst 2.6 x 5.0 cm, partially imaged on large [id number] sequence. This may be further assessed with pelvic ultrasound.
== END 2020-11-19 10:49 | disposition home or self-care (01) ==
LOC: HO.MRI 10:48
PROVIDERS: Visit Provider Internal Medicine Gastroenterology
DX: R93.5 Abnormal findings on diagnostic imaging of other abdominal regions, including retroperitoneum (principal)
CPT/HCPCS: 74183; A9585

== ENCOUNTER → 2020-12-16 09:23 | Outpatient (BNVA) | payer MEDICAID, SELFPAY | PROVIDERS: PCP Family Medicine | DX: R31.29 Other microscopic hematuria (principal); F41.8 Other specified anxiety disorders; Z87.891 Personal history of nicotine dependence; Z91.041 Radiographic dye allergy status | CPT/HCPCS: 99202 ==

== ENCOUNTER 2021-01-09 09:13 | Outpatient (REF) | payer MEDICAID, SELFPAY ==
--- NOTE | ~2021-01-09 | US_ITS ---
EXAMINATION: US RETROPERITONEAL LIMITED (RENAL ONLY) CLINICAL INFORMATION: Hematuria, unspecified. COMPARISON: Renal ultrasound 10/10/2014. Ultrasound abdomen complete 03/27/2020. MRI abdomen 11/19/2020. TECHNIQUE: Real-time imaging of the kidneys. FINDINGS: RIGHT KIDNEY: 10.9 x 4.7 x 4.6 cm (SAG x AP x TRV). The kidney is normal in size, contour, and echogenicity. Renal cortical thickness is normal. There is a 1.5 x 1.3 x 1.2 cm cyst in the upper pole No renal calculi or hydronephrosis. LEFT KIDNEY: 11.2 x 5.0 x 3.4 cm (SAG x AP x TRV). The kidney is normal in size, contour, and echogenicity. Renal cortical thickness is normal. No calculi or focal parenchymal lesions. No hydronephrosis. US/US renal BI IMPRESSION: Small right renal cyst otherwise unremarkable exam.
== END 2021-01-09 09:14 | disposition home or self-care (01) ==
LOC: HO.US 09:13
PROVIDERS: PCP Family Medicine
DX: R31.9 Hematuria, unspecified (principal)
CPT/HCPCS: 76775

== ENCOUNTER 2021-01-13 12:36 | Outpatient (REF) | payer MEDICAID, SELFPAY ==
--- NOTE | ~2021-01-13 | XR_ITS ---
EXAMINATION: CERVICAL, DORSAL AND LUMBAR SPINE. LEFT ELBOW. CLINICAL INFORMATION: Back pain, neck pain. COMPARISON: None TECHNIQUE: 3 views lumbar spine, 3 views dorsal spine, 4 views cervical spine and 3 views left elbow. FINDINGS: Cervical spine: There is normal cervical lordosis. The vertebral heights, alignment and disc heights are normal. There is no visible acute fracture, dislocation or lytic process seen. The prevertebral soft tissues are normal. Dorsal spine: There is normal thoracic kyphosis. The vertebral heights, alignment and disc heights are normal. No visible acute fracture, dislocation or lytic process seen. The paravertebral soft tissues are normal. Cervical spine: There is mild straightening of cervical lordosis. The vertebral heights, alignment and disc heights are normal. No visible acute fracture, dislocation or lytic process seen. The prevertebral and paravertebral soft tissues are normal. Left elbow: There is no visible acute fracture, dislocation or subluxation seen. The soft tissues are normal. XR/XR thoracic spine 2V IMPRESSION: Unremarkable cervical, dorsal and lumbar spine. Unremarkable left elbow exam.
--- NOTE | ~2021-01-13 | XR_ITS ---
EXAMINATION: CERVICAL, DORSAL AND LUMBAR SPINE. LEFT ELBOW. CLINICAL INFORMATION: Back pain, neck pain. COMPARISON: None TECHNIQUE: 3 views lumbar spine, 3 views dorsal spine, 4 views cervical spine and 3 views left elbow. FINDINGS: Cervical spine: There is normal cervical lordosis. The vertebral heights, alignment and disc heights are normal. There is no visible acute fracture, dislocation or lytic process seen. The prevertebral soft tissues are normal. Dorsal spine: There is normal thoracic kyphosis. The vertebral heights, alignment and disc heights are normal. No visible acute fracture, dislocation or lytic process seen. The paravertebral soft tissues are normal. Cervical spine: There is mild straightening of cervical lordosis. The vertebral heights, alignment and disc heights are normal. No visible acute fracture, dislocation or lytic process seen. The prevertebral and paravertebral soft tissues are normal. Left elbow: There is no visible acute fracture, dislocation or subluxation seen. The soft tissues are normal. XR/XR cervical spine 3V IMPRESSION: Unremarkable cervical, dorsal and lumbar spine. Unremarkable left elbow exam.
--- NOTE | ~2021-01-13 | XR_ITS ---
EXAMINATION: CERVICAL, DORSAL AND LUMBAR SPINE. LEFT ELBOW. CLINICAL INFORMATION: Back pain, neck pain. COMPARISON: None TECHNIQUE: 3 views lumbar spine, 3 views dorsal spine, 4 views cervical spine and 3 views left elbow. FINDINGS: Cervical spine: There is normal cervical lordosis. The vertebral heights, alignment and disc heights are normal. There is no visible acute fracture, dislocation or lytic process seen. The prevertebral soft tissues are normal. Dorsal spine: There is normal thoracic kyphosis. The vertebral heights, alignment and disc heights are normal. No visible acute fracture, dislocation or lytic process seen. The paravertebral soft tissues are normal. Cervical spine: There is mild straightening of cervical lordosis. The vertebral heights, alignment and disc heights are normal. No visible acute fracture, dislocation or lytic process seen. The prevertebral and paravertebral soft tissues are normal. Left elbow: There is no visible acute fracture, dislocation or subluxation seen. The soft tissues are normal. XR/XR elbow LT 2V IMPRESSION: Unremarkable cervical, dorsal and lumbar spine. Unremarkable left elbow exam.
--- NOTE | ~2021-01-13 | XR_ITS ---
EXAMINATION: CERVICAL, DORSAL AND LUMBAR SPINE. LEFT ELBOW. CLINICAL INFORMATION: Back pain, neck pain. COMPARISON: None TECHNIQUE: 3 views lumbar spine, 3 views dorsal spine, 4 views cervical spine and 3 views left elbow. FINDINGS: Cervical spine: There is normal cervical lordosis. The vertebral heights, alignment and disc heights are normal. There is no visible acute fracture, dislocation or lytic process seen. The prevertebral soft tissues are normal. Dorsal spine: There is normal thoracic kyphosis. The vertebral heights, alignment and disc heights are normal. No visible acute fracture, dislocation or lytic process seen. The paravertebral soft tissues are normal. Cervical spine: There is mild straightening of cervical lordosis. The vertebral heights, alignment and disc heights are normal. No visible acute fracture, dislocation or lytic process seen. The prevertebral and paravertebral soft tissues are normal. Left elbow: There is no visible acute fracture, dislocation or subluxation seen. The soft tissues are normal. XR/XR lumbar spine 2-3V IMPRESSION: Unremarkable cervical, dorsal and lumbar spine. Unremarkable left elbow exam.
[2021-01-13 13:40] LABS: Hematocrit 38.4 % (37-47); Hemoglobin 12.8 g/dl (12.0-16.0); Mean Corpuscular HGB Conc 33.3 g/dl (31.0-35.0); Mean Corpuscular Hemoglobin 29.1 pg (27.0-33.0); Mean Corpuscular Volume 87.3 fL (80-98); Mean Platelet Volume 12.3 fL (9.4-12.3); Platelet Count 257 X10*3/uL (160-400); Red Cell Distribution Width 13.2 % (11.0-16.0); White Blood Count 8.5 X10*3/uL (4.8-10.8)
[2021-01-13 13:53] LABS: Estimated Average Glucose 105 mg/dL; Hemoglobin A1c % 5.3 %
[2021-01-13 14:03] LABS: Alanine Aminotransferase 12 U/L (0-31); Alkaline Phosphatase 93 U/L (39-117); Anion Gap 10 (12-20); Aspartate Amino Transferase 15 U/L (5-31); Bilirubin Direct 0.3 mg/dL (0.0-0.5); Bilirubin Total 0.8 mg/dL (0.0-1.0); Blood Urea Nitrogen 10 mg/dL (9-16); Calcium 8.9 mg/dL (8.4-10.2); Carbon Dioxide 23 mmol/L (22-29); Chloride 109 mmol/L (96-108); Cholesterol 157 mg/dL; Estimated Glomerular Filt Rate > 60; Glucose Random 93 mg/dL (60-115); HDL Cholesterol 43 mg/dL; LDL Cholesterol Calculated 101 mg/dl; Potassium 4.1 mmol/L (3.3-5.1); Sodium 138 mmol/L (135-145); Triglycerides 69 mg/dL
[2021-01-13 14:19] LABS: Syphilis Screen Nonreactive (Nonreactive)
[2021-01-13 14:25] LABS: Free T4 (Free Thyroxine) 0.99 ng/dL (0.71-1.85); Thyroid Stimulating Hormone 0.66 uIU/mL (0.32-4.0)
[2021-01-14 01:22] LABS: CT PCR NOT DETECTED (Not Detect.); NG PCR NOT DETECTED (Not Detect.)
[2021-01-14 08:58] LABS: HIV AB/AG Nonreactive (Nonreactive); HIV Num 1 0.07 S/CO (0.00-0.99)
== END 2021-01-13 12:37 | disposition home or self-care (01) ==
LOC: HO.XRAY 12:36
PROVIDERS: PCP Family Medicine; Visit Provider Family Medicine
DX: Z00.00 Encounter for general adult medical examination without abnormal findings (principal); M25.522 Pain in left elbow; M54.2 Cervicalgia; F33.9 Major depressive disorder, recurrent, unspecified; K76.9 Liver disease, unspecified
CPT/HCPCS: 72040; 72070; 72100; 73070; 80048; 80061; 80076; 82306; 83036; 84439; 84443; 85027; 86780; 87389; 87491; 87591

== ENCOUNTER 2021-01-31 07:47 | Day surgery (SDC) | payer MEDICAID, SELFPAY ==
[2021-01-24 12:54] VITALS: BMI 37.0
--- NOTE | 2021-01-30 10:08 | P.CONAN_ITS ---
Documented by User: Simona Blankenship NP 01/30/21 10:09 HPI - Anesthesia Eval Consult details Narrative: 40yo F for Left Infrapatellar Saphenous Nerve Stimulator Implant s/p trial 10/2020 with MAC PMFSH Active Problems Active Problems: All Active Problems (Updated 01/24/21 @ 12:52 by Irasema Cesar RN) Breast pain, left (Acute) Potential exposure to STD (Acute) Well woman exam with routine gynecological exam (Acute) History of abnormal cervical Pap smear (Acute) Patellofemoral disorder of left knee (Acute) Breast nodule (Acute) Precordial chest pain (Acute) SOB (shortness of breath) (Acute) Polyarthralgia (Acute) Left lateral epicondylitis (Acute) Vitamin D deficiency (Acute) Allergy to contrast media (used for diagnostic x-rays) (Acute) Hematuria (Acute) Abnormal abdominal MRI (Acute) Past Medical History Medical History Abnormal abdominal MRI Anxiety Arthritis Asthma Bipolar 1 disorder COVID-19 vaccine series completed Cyst of Bartholin's gland Depression Fibromyalgia Hematuria Left knee pain Microscopic hematuria Migraine Migraine with aura Status post insertion of nerve stimulator Family History Family History Mother Diabetes mellitus Asthma Depression Maternal Grandmother Asthma Breast cancer Maternal Aunt Diabetes mellitus HTN (hypertension) Breast cancer Family history of problems with anesthesia: No Surgical History Surgical History H/O colonoscopy History of loop electrical excision procedure (LEEP) Hx of arthroscopic knee surgery Hx of section Hx of tubal ligation History of Problems with Anesthesia: No Social History Social History Household Members: Children Household Members Other:: children: 19, 18, fraternal twins-15 and a 5 year old. 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 at home: Yes (child) Do you presently have visiting nurse or other home services: No Alcohol intake: current Alcohol intake frequency: holidays/special occasions only Patient Tobacco Use Status: Former Tobacco user Tobacco use type: Cigarette Use of substances other than those prescribed or required for medical reasons: No Are you DNR?: No Advance Directives: No Advance Directives Information Provided: Yes (informational brochure mailed) Advance Directives on File: No Recently lost weight without trying: No Eating poorly because of decreased appetite: No Nutrition Risks: No Nutritional Risk Gender identity: Female Meds Allergies Allergy/AdvReac Type Severity Reaction Status Date / Time Iodinated Contrast Media Allergy Severe ANAPHYLAXIS Verified 12/16/20 09:32 [IV CONTRAST] Home Medications Medication Instructions Recorded Confirmed Last Taken Type baclofen 10 mg tablet 10 mg PO TID 03/18/20 01/24/21 Unknown History gabapentin 400 mg capsule 400 mg PO TID 03/18/20 01/24/21 Unknown History tramadol 50 mg tablet 50 mg PO TID PRN 03/18/20 01/24/21 Unknown History clonazepam 1 mg tablet 1 mg PO BEDTIME 04/16/20 01/24/21 Unknown History zolpidem 10 mg tablet (Ambien) 10 mg PO BEDTIME PRN 04/16/20 01/24/21 Unknown History acetaminophen 650 mg 1 tab PO Q8H PRN 10/25/20 01/24/21 Unknown History tablet,extended release (Arthritis Pain Relief (acetaminophen) ER) albuterol sulfate 90 mcg/actuation 2 puff PO Q4H PRN 10/25/20 01/24/21 Unknown History aerosol inhaler (ProAir HFA) amitriptyline 25 mg tablet 1 tab PO BEDTIME 10/25/20 01/24/21 Unknown History fluticasone propionate 110 1 puff PO BID 10/25/20 01/24/21 Unknown History mcg/actuation HFA aerosol inhaler (Flovent HFA) omeprazole 20 mg capsule,delayed 1 cap PO DAILY 10/25/20 01/24/21 Unknown History release cholecalciferol (vitamin D3) 1,250 1,250 mcg PO QWEEK 12/16/20 01/24/21 Unknown History mcg (50,000 unit) capsule Exam Exam Date and Time: January 30, 2021 1008 Height,Weight and Vital Signs: Height 5 ft 5 in Weight 101.151 kg Pertinent Lab Results Pertinent Lab Results: Laboratory Tests 01/13/21 01/13/21 13:00 13:00 WBC 8.5 Hgb 12.8 Hct 38.4 Plt Count 257 Sodium 138 Potassium 4.1 Chloride 109 H Carbon Dioxide 23 BUN 10 Creatinine 0.79 Narrative Narrative: 04/2020 EKG shows sinus rhythm at 97/Min without any ischemic findings or other abnormalities. ECHO 03/2020 Conclusions: - Normal study ? Exercise Stress 05/2020 Protocol: ABNER? Max HR: 166 BPM? 92% of? Pred: 180 BPM Max BP: 164/058 mmHG Max Work Load: 7.7 METS ? Exercise stress test Using Abner protocol total of 6 min 29 sec,? METS 7.70 and TAPHR up to 92 %.? Pt tolerated well, denies any anginal sx.? No ischemic ?changes seen during exercise or in recovery period.? Normotensive response to ?exercise.? Test reviewed with Dr. Spence. Assessment and Plan Assessment Anesthesia Assessment: Chart Reviewed Final Anesthetic Review Family History of Problems with Anesthesia: No History of Problems with Anesthesia: No Documented by User: Iveth Montoya MD 01/31/21 08:34 [facility] Past Medical History Medical History Abnormal abdominal MRI Anxiety Arthritis Asthma Bipolar 1 disorder COVID-19 vaccine series completed Cyst of Bartholin's gland Depression Fibromyalgia Hematuria Left knee pain Microscopic hematuria Migraine Migraine with aura Status post insertion of nerve stimulator Family History Family History Mother Diabetes mellitus Asthma Depression Maternal Grandmother Asthma Breast cancer Maternal Aunt Diabetes mellitus HTN (hypertension) Breast cancer Surgical History Surgical History H/O colonoscopy History of loop electrical excision procedure (LEEP) Hx of arthroscopic knee surgery Hx of section Hx of tubal ligation Social History Social History Household Members: Children Household Members Other:: children: 19, 18, fraternal twins-15 and a 5 year old. 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 at home: Yes (child) Do you presently have visiting nurse or other home services: No Alcohol intake: current Alcohol intake frequency: holidays/special occasions only Patient Tobacco Use Status: Former Tobacco user Tobacco use type: Cigarette Use of substances other than those prescribed or required for medical reasons: No Are you DNR?: No Advance Directives: No Advance Directives Information Provided: Yes (informational brochure mailed) Advance Directives on File: No Recently lost weight without trying: No Eating poorly because of decreased appetite: No Nutrition Risks: No Nutritional Risk Gender identity: Female Meds Allergies Allergy/AdvReac Type Severity Reaction Status Date / Time Iodinated Contrast Media Allergy Severe ANAPHYLAXIS Verified 12/16/20 09:32 [IV CONTRAST] Home Medications Medication Instructions Recorded Confirmed Last Taken Type baclofen 10 mg tablet 10 mg PO TID 03/18/20 01/24/21 Unknown History gabapentin 400 mg capsule 400 mg PO TID 03/18/20 01/24/21 Unknown History tramadol 50 mg tablet 50 mg PO TID PRN 03/18/20 01/24/21 Unknown History clonazepam 1 mg tablet 1 mg PO BEDTIME 04/16/20 01/24/21 Unknown History zolpidem 10 mg tablet (Ambien) 10 mg PO BEDTIME PRN 04/16/20 01/24/21 Unknown History acetaminophen 650 mg 1 tab PO Q8H PRN 10/25/20 01/24/21 Unknown History tablet,extended release (Arthritis Pain Relief (acetaminophen) ER) albuterol sulfate 90 mcg/actuation 2 puff PO Q4H PRN 10/25/20 01/24/21 Unknown History aerosol inhaler (ProAir HFA) amitriptyline 25 mg tablet 1 tab PO BEDTIME 10/25/20 01/24/21 Unknown History fluticasone propionate 110 1 puff PO BID 10/25/20 01/24/21 Unknown History mcg/actuation HFA aerosol inhaler (Flovent HFA) omeprazole 20 mg capsule,delayed 1 cap PO DAILY 10/25/20 01/24/21 Unknown History release cholecalciferol (vitamin D3) 1,250 1,250 mcg PO QWEEK 12/16/20 01/24/21 Unknown History mcg (50,000 unit) capsule Exam Airway Mallampati Class: II TM Dist: >3cm Neck ROM: Full Loose/Missing/Broken Teeth: No Heart: RRR Lungs: CTA Assessment and Plan Assessment Anesthesia Assessment: Anesthesia Plan Discussed Final Anesthetic Review NPO: Yes ASA Class: II Final Preanesthetic Review: Meds/Allgs Chart Reviewed, Consent Obtained/Reviewed and Anes Risks/Benef Reviewed Patient Risk: Low Procedure Risk: Low Anesthetic Plan Anesthetic Plan: GA Disposition: Standard PACU
--- NOTE | 2021-01-30 13:21 | MHC.SHP ---
Pre-Procedural Eval Section A Date of Service: 01/30/21 The patient is an INPATIENT: No Changes since office visit: Yes Patient answered all questions The History & Physical has been completed within 30 days and I have reviewed it.: No Section B Chief Complaint: Patellofemoral disorder of left knee Details of Present Illness: as above Relevant Family History (Specify if Yes): No Relevant Social History: None Present Medications: see Short Stay Collaborative assessment Medical History: No relevant PMH History of Previous Operations: No relevant previous surgery Allergies: Allergies Allergy/AdvReac Type Severity Reaction Status Date / Time Iodinated Contrast Media Allergy Severe ANAPHYLAXIS Verified 12/16/20 09:32 [IV CONTRAST] Review of Systems Sugical H&P ROS: Negative: Constitution, Cardiovascular, Respiratory, Neurological, Psychiatric, Hem-Onc, Allergic/Immunologic, Gastrointestinal, Genitourinary, Musculoskeletal, Integumentary, Endocrine and Eyes/Ears/Nose/Throat Exam Surgical H&P Exam: Normal: HEENT, Normal: Heart, Normal: Lungs, Normal: Extremities, Normal: Abdomen, Normal: Skin and Normal: Neurological Plan Diagnosis/Plan: Unchanged I have reviewed the history and physical and performed a pertinent physical examination on my patient. No changes have occurred unless specified.
--- NOTE | ~2021-01-31 | FL_ITS ---
EXAMINATION: XR FLUOROSCOPY WITH IMAGES CLINICAL INFORMATION: Left infrapatellar saphenous nerve stim implant COMPARISON: Fluoroscopic spot view 11/01/2020 TECHNIQUE: Fluoroscopy performed by Dr. Pradeep Leroy. Fluoroscopy time: 0.8 minutes DAP: 1.82 Gycm2 Images: 3 FINDINGS: There are 2 stimulator electrode seen ascending the left lower leg along the medial side tibia with electrode tips at level of the proximal tibial metaphysis. FL/FL guidance in OR IMPRESSION: Fluoroscopy for pain management procedure.
[2021-01-31 07:49] VITALS: BP 119/79; PULSE 92; RESP 19; TEMP 36.8; O2SAT 98
[2021-01-31] MEDS: Lactated Ringers 1,000 ML 100 ML IVCONT (08:08)
--- NOTE | 2021-01-31 08:47 | W.PM.OPN ---
Operative Note Operative Note Date of Service: 01/31/21 Narrative: ?Genicular nerve stimulation implant infrapatellar saphenous nerve stimulation. After obtaining informed consent patient was brought to the operating room, she was positioned supine on the operating table, Citizen Of [place] [employer] monitors were applied and patient was deeply sedated. ?? Time-out was performed delineating correct site, side, the nature of the procedure, patient's allergy, preoperative antibiotic.? All operating room staff was participating in OR time-out procedure.? The patient received cefazolin 2 g mg intravenously 30 minutes before the procedure The patient was positioned supine on the operating table with left leg elevated on a gel bin.? General anesthesia was induced and LMA was inserted. The entire left leg from the mid thigh all the way down to the toes was prepped with ChloraPrep twice.? The foot was protected with the sterile foot cover and after that fenestrated full extremity drape was applied to the leg. attention was concentrated on the?left?INFRAPATELLAR SAPHENOUS NERVE.? Sterilely draped C-arm was brought over the operating field and sq picture of tibial bone was demonstrated on the screen.? The point of interest was delineated as the connection between metaphysis and diaphysis of the medial site of the tibial bone.? 22 gauge 3-1/2 inch needle was driven to the point of interest where the advancement of the medial line of the shaft of the tibial bone changed its direction and formed an angle.? The position of the needle in the projection of mid shaft of the bone was verified on the lateral view.? 8 cm below that needle in the projection of the medial shaft of the tibial bone local anesthetic was injected bupivacaine 0.5 % mixture with lidocaine 2% into the skin.? 2 cm incision with 11 blade scalpel was made in the local anesthetic infiltrate.? The insertion of the 14 gauge introducer was performed through the skin incision and advanced cephalad toward the projection of the 22 gauge needle in the plane corresponding to mid shaft of the tibial bone on lateral view and following silhouette of the medial tibial bone on the AP view.? When the introducer reached the vicinity of 22 gauge needle guitar wire was inserted into the introducer needle and spread on anterior posterior and lateral views alongside the medial border of the tibial bone on anterior posterior view and in the projection of the mid shaft of the bone on the lateral view.? Upon completion of the advancement of the guitar wire it was removed and permanent stimulator catheter was inserted and advanced in the same fashion.? When the catheter reached adequate position following curvature of the medial metaphysis of the tibial bone on anterior posterior view and position in midline of the shaft of the tibial bone in lateral view the introducer was gently removed and thins of the stimulating catheter were freed. After that to improve further coverage 1 more stimulating lead was inserted 4 mm more posterior to the existing lead in the same very fashion which is described above. After that 8 cm below the 1st incision on the medial surface of the left lower leg above medial malleolar area another local anesthetic infiltrate was made and 3 cm incision was performed.? The tunneling device was used to connect both wounds. Both the stimulating leads were dislodged from upper wound into the lower wound. Care was taken to make sure that 1st and 2nd case of the stimulating catheter were he had been under the skin.? The copper stimulating wire was inserted into the catheter and a tie was made below the level of the 2nd amarilys on both stimulating leads. After that they were tied together. After that a coil was done below the knot and it was fixed with 2 0 silk sutures.? The coil was inserted under the skin and subcutaneous tissues and both wounds were irrigated with vancomycin containing irrigation solution. The wounds were closed using 1-0 Polysorb sutures, skin was approximated using 2-0 Polysorb suture, 1 6 suture was applied to the lower wound very in the Polysorb suture knot. After that skin glue was applied to the skin. Sterile dressing was applied to both wounds and stimulating pad was applied to the area of the antenna of the device.? The patient was awaken and moved outside of the operating room to the recovery room where she recovered uneventfully.
--- NOTE | 2021-01-31 10:41 | P.BOP_ITS ---
Brief Operative Note Date of Service: 01/31/21 Pre-op diagnosis: Femoral patellar osteoarthritis Post-op diagnosis: same Procedure: Implantation of stim wave peripheral nerve stimulator leads x2 Implants: To stim wave peripheral nerve stimulation leads. Surgeon: Pradeep Leroy MD Anesthesia: GLMA Was an Cyber Security Consultant used for this Procedure?: No Estimated blood loss (mL): 7 Pathology: none sent Condition: stable Disposition: PACU
[2021-01-31 10:45] VITALS: BP 113/64; PULSE 74; RESP 16; TEMP 36.4; O2SAT 99
[2021-01-31 10:50] VITALS: BP 110/75; PULSE 76; RESP 16; O2SAT 99
[2021-01-31 10:55] VITALS: BP 112/72; PULSE 84; RESP 16; O2SAT 99
[2021-01-31 11:00] VITALS: BP 113/73; PULSE 78; RESP 16; O2SAT 99
[2021-01-31 11:15] VITALS: BP 113/72; PULSE 78; RESP 16; O2SAT 99
== END 2021-01-31 11:50 | disposition home or self-care (01) ==
PROVIDERS: PCP Family Medicine; Visit Provider Anesthesiology
PROC: (CPT 64555; principal; 2021-01-31 09:00)
DX: M22.2X2 Patellofemoral disorders, left knee (principal); G89.29 Other chronic pain; M25.562 Pain in left knee; Z91.041 Radiographic dye allergy status; Z87.891 Personal history of nicotine dependence
CPT/HCPCS: 64555; C1816; J0690; J2250; J2765; J3010; J3370

== ENCOUNTER → 2021-02-06 10:23 | Outpatient (BNVA) | payer MEDICAID, SELFPAY | PROVIDERS: PCP Family Medicine; Visit Provider Anesthesiology | DX: M22.2X2 Patellofemoral disorders, left knee (principal) | CPT/HCPCS: 99212 ==

== ENCOUNTER → 2021-02-13 10:08 | Outpatient (BNVA) | payer MEDICAID, SELFPAY | PROVIDERS: PCP Family Medicine; Visit Provider Anesthesiology | DX: M22.2X2 Patellofemoral disorders, left knee (principal) | CPT/HCPCS: 99212 ==

== ENCOUNTER 2021-02-15 18:26 | Emergency (ER) | payer MEDICAID, SELFPAY ==
[2021-02-15 18:43] VITALS: BP 128/80; PULSE 84; RESP 18; TEMP 37.1; O2SAT 98; BMI 32.3
--- NOTE | 2021-02-15 19:35 | ED.WOUNDLAC ---
HPI - Wound/Laceration General Chief Complaint: Wound/Laceration Stated Complaint: wound check Time Seen by Provider: 02/15/21 19:14 Source: patient Mode of arrival: ambulatory Limitations: no limitations History of Present Illness HPI narrative: 40-year-old female here with complaints of redness, swelling, pain, itching, purulent drainage coming from her surgical incision sites the left lower extremity. Patient tells me that she had a nerve stimulator placed by pain management on 01/31/21 to the right lower extremity for patellofemoral disorder of the left knee unrelieved with other treatments. No fevers or chills. Patient was seen by pain management on February 13 and had 1 suture removal from the lower incision site. Related Data Home Medications Medication Instructions Recorded Confirmed baclofen 10 mg tablet 10 mg PO TID 03/18/20 01/24/21 gabapentin 400 mg capsule 400 mg PO TID 03/18/20 01/24/21 tramadol 50 mg tablet 50 mg PO TID PRN 03/18/20 01/24/21 clonazepam 1 mg tablet 1 mg PO BEDTIME 04/16/20 01/24/21 zolpidem 10 mg tablet (Ambien) 10 mg PO BEDTIME PRN 04/16/20 01/24/21 acetaminophen 650 mg 1 tab PO Q8H PRN 10/25/20 01/24/21 tablet,extended release (Arthritis Pain Relief (acetaminophen) ER) albuterol sulfate 90 mcg/actuation 2 puff PO Q4H PRN 10/25/20 01/24/21 aerosol inhaler (ProAir HFA) amitriptyline 25 mg tablet 1 tab PO BEDTIME 10/25/20 01/24/21 fluticasone propionate 110 1 puff PO BID 10/25/20 01/24/21 mcg/actuation HFA aerosol inhaler (Flovent HFA) omeprazole 20 mg capsule,delayed 1 cap PO DAILY 10/25/20 01/24/21 release cholecalciferol (vitamin D3) 1,250 1,250 mcg PO QWEEK 12/16/20 01/24/21 mcg (50,000 unit) capsule Previous Rx's Medication Instructions Recorded naproxen 500 mg tablet 500 mg PO BID #30 tab 03/09/20 cholecalciferol (vitamin D3) 50 50 mcg PO DAILY #30 cap 08/27/20 mcg (2,000 unit) capsule cephalexin 500 mg tablet 1,000 mg PO Q8H 7 Days #42 tab 11/01/20 diphenhydramine HCl 25 mg capsule 50 mg PO TID PRN 1 Days #2 cap 11/18/20 (Benadryl) prednisone 10 mg tablet 50 mg PO DAILY 1 Days #15 tab 11/18/20 doxycycline monohydrate 100 mg 100 mg PO BID #14 tab 02/15/21 tablet Allergies Allergy/AdvReac Type Severity Reaction Status Date / Time Iodinated Contrast Media Allergy Severe ANAPHYLAXIS Verified 02/15/21 18:43 [IV CONTRAST] Review of Systems Review of Systems: Yes all other systems are reviewed and are negative Constitutional: Constitutional: Reports no additional constitutional complaints, Denies body ache(s), Denies chills, Denies fever(s), Denies headache(s) and Denies weakness Eyes: Eyes: Reports no additional eye complaints and Denies change in vision ENT: Reports system reviewed and no additional complaints, except as documented, Denies dizziness, Denies headache(s), Denies nasal congestion, Denies nasal discharge and Denies neck pain Cardiovascular: Cardiovascular: Reports no additional cardiovascular complaints, Denies chest pain, Denies leg edema and Denies dyspnea Respiratory: Respiratory: Reports no additional respiratory complaints, Denies cough and Denies dyspnea Gastrointestinal: Gastrointestinal: Reports no additional gastrointestinal complaints, Denies abdominal pain, Denies diarrhea, Denies nausea and Denies vomiting Genitourinary: Genitourinary: Reports no additional female genitourinary complaints and Denies urinary incontinence Musculoskeletal: Musculoskeletal: Reports no additional musculoskeletal complaints, Denies back pain, Denies arthralgias, Denies joint swelling, Denies neck pain, Denies numbness and Denies tingling Integumentary/Breasts: Skin/Breast: Reports system reviewed and no additional complaints, except as docu, Reports swelling, Reports erythema and Denies rash Neurologic: Reports system reviewed and no additional complaints, except as documented, Denies Abnormal speech present, Denies dizziness, Denies headache(s), Denies numbness, Denies tingling and Denies weakness PMFSH Past Medical History Attestation statement: The following information was validated with the patient. Source: old records reviewed and nursing notes reviewed Medical History Abnormal abdominal MRI Anxiety Arthritis Asthma Bipolar 1 disorder COVID-19 vaccine series completed Cyst of Bartholin's gland Depression Fibromyalgia Hematuria Left knee pain Microscopic hematuria Migraine Migraine with aura Status post insertion of nerve stimulator Surgical History H/O colonoscopy History of loop electrical excision procedure (LEEP) Hx of arthroscopic knee surgery Hx of section Hx of tubal ligation Family History Family History Mother Diabetes mellitus Asthma Depression Maternal Grandmother Asthma Breast cancer Maternal Aunt Diabetes mellitus HTN (hypertension) Breast cancer Social History Social History Household Members: Children Household Members Other:: children: 19, 18, fraternal twins-15 and a 5 year old. 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) Do you presently have visiting nurse or other home services: No Alcohol intake: current Alcohol intake frequency: holidays/special occasions only Patient Tobacco Use Status: Former Tobacco user Tobacco use type: Cigarette Advance Directives: No Advance Directives Information Provided: No Patient : No Gender identity: Female Physical Exam Vital Signs: Vital Signs: Last Vital Signs Temp 98.8 F 02/15/21 18:43 Pulse 84 02/15/21 18:43 Resp 18 02/15/21 18:43 BP 128/80 02/15/21 18:43 Pulse Ox 98 02/15/21 18:43 Body Mass Index 32.3 Const: General: cooperative, healthy appearing, comfortable and no acute distress Orientation/consciousness: patient oriented x3 Limitations: no limitations HENMT: Head: Yes normal to inspection Ears: hearing grossly normal bilaterally General nose exam: Normal external nose present Face and sinus: Yes normal facial exam Mouth: Normal oral and palatal mucosa present Throat: Yes posterior oropharynx normal Eyes: General: appearance normal, both eyes and all related structures Pupils: Equal, round and reactive pupils present Neck: Neck: Yes normal visual inspection Chest: Chest palpation & inspection: normal inspection of the chest Resp: Effort & Inspection: normal respiratory effort Auscultation: clear to auscultation bilaterally Cardio: Rate: regular rate Rhythm: regular rhythm Peripheral pulses: Peripheral pulses 2+ throughout GI: Inspection: Yes normal to inspection Palpation (GI): Soft to palpation and nontender Auscultation: normal bowel sounds Back/Spine/Pelvis: Thoracic/Lumbar Spine: thoracic and lumbar spine normal to inspection Skin: General skin exam: no rashes or lesions noted Neuro: General: patient oriented x3, no focal motor deficits and normal sensation to monofilament Cranial nerves: Yes Equal, round and reactive pupils present Cognition (Neuro): normal cognition Speech: No Abnormal speech present Gait exam (Neuro): Normal gait present Motor exam (neuro): 5/5 motor strength present throughout Extrem: Other: I pressed on both incision sites of the anterior left lower extremity and was able to express a small amount on of serous drainage but no purulent drainage noted. There is mild tenderness but no fluctuance or induration or warmth General: Yes normal to inspection Course Course Course Narrative: 40-year-old female here with concern of possible infected surgical incision sites. On my exam the sites do not appear acutely infected. There is some small amounts of serous drainage coming from the wounds but she did have the suture removed 2 days ago and so this may be part of normal healing. There is also some slight tenderness and erythema just around the wound edges but I also think that this is normal. The patient tells me quite we mainly that she had purulence drainage expressed from the site earlier today and yesterday as well as having a lot of discomfort, itching and burning around the site. She is quite insistent that she needs oral antibiotics. Therefore I will start her on a brief course and she can follow with pain management on Wednesday who can discontinued and the they feel it is no longer appropriate. Meanwhile we discussed worrisome signs and symptoms such as fever, increasing redness or swelling and when to return to the emergency department. Comfortable with discharge home.. MDM - Wound/Laceration Medical Records Attestation: I reviewed the patient's medical records. Lab Data Attestation: I reviewed the patient's lab results. Discharge Plan Discharge Clinical Impression: Infected surgical wound Patient Disposition: Home, Self-Care Instructions: Wound Infection (ED) Additional Instructions: Your all surgical sites actually look pretty good but you are quite concerned that you are having drainage from them and that there may be an infection. Therefore after discussion we have decided to place you on a brief course of antibiotics. On Wednesday you need to call your surgeon and have him see you In the meantime return for fever, increasing redness or swelling Take Motrin or Tylenol [id number] as needed Prescriptions: New doxycycline monohydrate 100 mg tablet 100 mg PO BID Qty: 14 RF: 0 No Action cholecalciferol (vitamin D3) 50 mcg (2,000 unit) capsule 50 mcg PO DAILY Qty: 30 RF: 5 cephalexin 500 mg tablet 1,000 mg PO Q8H 7 Days Qty: 42 RF: 0 diphenhydramine HCl [Benadryl] 25 mg capsule 50 mg PO TID PRN (Reason: itching) 1 Days Qty: 2 RF: 0 prednisone 10 mg tablet 50 mg PO DAILY 1 Days Qty: 15 RF: 0 naproxen 500 mg tablet 500 mg PO BID Qty: 30 RF: 0 acetaminophen [Arthritis Pain Relief (acetam)] 650 mg tablet extended release 1 tab PO Q8H PRN (Reason: fever) RF: 0 amitriptyline 25 mg tablet 1 tab PO BEDTIME RF: 0 omeprazole 20 mg capsule,delayed release(DR/EC) 1 cap PO DAILY RF: 0 albuterol sulfate [ProAir HFA] 90 mcg/actuation HFA aerosol inhaler 2 puff PO Q4H PRN (Reason: wheezing) RF: 0 Flovent HFA 110 mcg/actuation HFA aerosol inhaler 1 puff PO BID RF: 0 tramadol 50 mg tablet 50 mg PO TID PRN (Reason: Pain) RF: 0 gabapentin 400 mg capsule 400 mg PO TID RF: 0 baclofen 10 mg tablet 10 mg PO TID RF: 0 clonazepam 1 mg tablet 1 mg PO BEDTIME RF: 0 zolpidem [Ambien] 10 mg tablet 10 mg PO BEDTIME PRN (Reason: Insomnia) RF: 0 Referrals: Pradeep Leroy MD [Physician] - 2 days
== END 2021-02-15 19:55 | disposition home or self-care (01) ==
PROVIDERS: Emergency Provider Internal Medicine; PCP Family Medicine
DX: T81.41XA Infection following a procedure, superficial incisional surgical site, initial encounter (principal); Y83.9 Surgical procedure, unspecified as the cause of abnormal reaction of the patient, or of later complication, without mention of misadventure at the time of the procedure; Y92.9 Unspecified place or not applicable; Z87.891 Personal history of nicotine dependence; Z79.899 Other long term (current) drug therapy
CPT/HCPCS: 99283

== ENCOUNTER → 2021-02-17 13:00 | Outpatient (BNVA) | payer MEDICAID, SELFPAY | PROVIDERS: PCP Family Medicine; Visit Provider Anesthesiology | DX: M22.2X2 Patellofemoral disorders, left knee (principal) | CPT/HCPCS: 99212 ==

== ENCOUNTER → 2021-02-20 15:21 | Outpatient (BNVA) | payer MEDICAID, SELFPAY | PROVIDERS: PCP Family Medicine; Referring Provider Family Medicine; Visit Provider Internal Medicine | DX: R07.2 Precordial pain (principal); Z87.891 Personal history of nicotine dependence; Z96.82 Presence of neurostimulator; Z91.041 Radiographic dye allergy status; Z79.899 Other long term (current) drug therapy | CPT/HCPCS: 93005; 99212 ==

== ENCOUNTER → 2021-02-21 09:10 | Outpatient (BNVA) | payer MEDICAID, SELFPAY | PROVIDERS: PCP Family Medicine; Visit Provider Anesthesiology ==

== ENCOUNTER 2021-03-05 11:26 | Outpatient (REF) | payer MEDICAID, SELFPAY ==
--- NOTE | ~2021-03-05 | US_ITS ---
EXAMINATION: US PELVIS CLINICAL INFORMATION: Follow-up adnexal cyst COMPARISON: Ultrasound 11/22/2018 TECHNIQUE: Ultrasound of the pelvis is performed using both transabdominal and transvaginal transducers along with Doppler. Transvaginal imaging is performed due to inadequate visualization transabdominally. FINDINGS: UTERUS: The uterus is anteverted, anteflexed and measures 11.2 cm in length, 5.4 cm in AP and and 6.7 cm wide. The double wall endometrial thickness is 0.7 mm. There is an IUD located in lower uterine segment. There are several nabothian cysts in the cervix. The uterus is smooth in contour and has heterogenous myometrium. There is a hypoechoic lesion in the body of the right uterus measuring 2.9 x 1.9 x 3.4 cm. Previously measured 2.1 x 1.8 x 2.9 cm. ADNEXA: Both ovaries are visualized. There is normal color flow to the adnexa. There is no ovarian torsion. There is no pelvic ascites or fluid collection. Right ovary measures 3.4 x 1.9 x 2.0 cm. Volume 6.8 mL. There is an anechoic cyst measuring 2.2 x 1.5 x 1.1 cm and has echogenic debris within. There is a solid echogenic area within the cyst measuring 0.7 x 0.4 x 0.5 cm. Left ovary measures 3.9 x 2.8 x 2.9 cm. 16.6 mL volume. There is a complex anechoic cyst measuring 2.5 x 2.0 x 1.8 cm. There is small amount of free fluid in the cul-de-sac. US/US pelvic and transvaginal IMPRESSION: 1. Low lying IUD within lower uterine segment. Several nabothian cysts in the cervix. 2. The myometrium is heterogeneous with a solitary fibroid, essentially stable. 3. Complex right ovarian cyst with a solid lesion within the right ovary. Previously there was a simple cyst in the right ovary measuring 2.3 cm. 4. Complex cyst left ovary.
== END 2021-03-05 11:27 | disposition home or self-care (01) ==
LOC: HO.US 11:26
PROVIDERS: PCP Family Medicine; Visit Provider Family Medicine
DX: N94.9 Unspecified condition associated with female genital organs and menstrual cycle (principal)
CPT/HCPCS: 76830; 76856

== ENCOUNTER 2021-03-06 01:48 | Emergency (ER) | payer MEDICAID, SELFPAY ==
--- NOTE | 2021-03-06 01:52 | ED.GENADULT ---
HPI - General Adult General Stated complaint: COVID test? Time Seen by Provider: 03/06/21 01:52 Source: patient Mode of arrival: ambulatory Limitations: no limitations History of Present Illness complaint: wants COVID test Onset (ago): day(s) (1) Severity: mild Relieving factors: none Exacerbating factors: none Associated symptoms: denies other symptoms Treatments prior to arrival: none Related Data Home Medications Medication Instructions Recorded Confirmed baclofen 10 mg tablet 10 mg PO TID 03/18/20 02/20/21 gabapentin 400 mg capsule 400 mg PO TID 03/18/20 02/20/21 tramadol 50 mg tablet 50 mg PO TID PRN 03/18/20 02/20/21 clonazepam 1 mg tablet 1 mg PO BEDTIME 04/16/20 02/20/21 zolpidem 10 mg tablet (Ambien) 10 mg PO BEDTIME PRN 04/16/20 02/20/21 albuterol sulfate 90 mcg/actuation 2 puff PO Q4H PRN 10/25/20 02/20/21 aerosol inhaler (ProAir HFA) amitriptyline 25 mg tablet 1 tab PO BEDTIME 10/25/20 02/20/21 omeprazole 20 mg capsule,delayed 1 cap PO DAILY 10/25/20 02/20/21 release cholecalciferol (vitamin D3) 1,250 1,250 mcg PO QWEEK 12/16/20 02/20/21 mcg (50,000 unit) capsule Previous Rx's Medication Instructions Recorded naproxen 500 mg tablet 500 mg PO BID #30 tab 03/09/20 doxycycline monohydrate 100 mg 100 mg PO BID #14 tab 02/15/21 tablet Allergies Allergy/AdvReac Type Severity Reaction Status Date / Time Iodinated Contrast Media Allergy Severe ANAPHYLAXIS Verified 02/21/21 09:24 [IV CONTRAST] Review of Systems Review of Systems: Constitutional : no Fever, no Chills, no fatigue, no Malaise ENT/Mouth : no sore throat, no runny nose Eyes: No Discharge Cardiovascular : No Chest Pain, No SOB Respiratory : No Cough, No Sputum Gastrointestinal : No Nausea, No Vomiting, No Diarrhea Genitourinary : No Dysuria, No Urinary Frequency Musculoskeletal : no Myalgia Skin : No rash Neuro : No Headache PMFSH Past Medical History Attestation statement: The following information was validated with the patient. Medical History Abnormal abdominal MRI Anxiety Arthritis Asthma Bipolar 1 disorder COVID-19 vaccine series completed Cyst of Bartholin's gland Depression Fibromyalgia Hematuria Left knee pain Microscopic hematuria Migraine Migraine with aura Status post insertion of nerve stimulator Surgical History H/O colonoscopy History of loop electrical excision procedure (LEEP) Hx of arthroscopic knee surgery Hx of section Hx of tubal ligation Family History Family History Mother Diabetes mellitus Asthma Depression Maternal Grandmother Asthma Breast cancer Maternal Aunt Diabetes mellitus HTN (hypertension) Breast cancer Social History Social History Household Members: Children Household Members Other:: children: 19, 18, fraternal twins-15 and a 5 year old. 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 Oriented X3. No acute distress. Eyes: Pupils equal, round and reactive to light. ENT: Pharynx normal. Neck: Normal inspection. Neck supple. CVS: Normal heart rate and rhythm. Pulses normal. Respiratory: No respiratory distress. Breath sounds normal. Skin: Skin warm and dry. Normal skin color. Neuro: Oriented X 3. No motor deficit. No sensory deficit. Medical Decision Making MDM Narrative Medical decision making narrative: asymptomatic wants covid test she is vaccinated. her son dx with COVID today but he has been with his father instructed her to get tested again in 2 days Lab Data Labs: Lab Results 03/06/21 Range/Units 01:57 COVID-19 ([facility]) Negative (Negative) COVID-19 Clin Com See Note Discharge Plan Discharge Clinical Impression: Close exposure to 2019-nCoV Patient Disposition: Home, Self-Care Instructions: COVID-19 (Coronavirus Disease 2019) (ED) Additional Instructions: return to ED for any worsening symptoms or concerns repeat covid test in 2 days wear a mask, quarantine, protect others COVID negative Prescriptions: No Action naproxen 500 mg tablet 500 mg PO BID Qty: 30 RF: 0 amitriptyline 25 mg tablet 1 tab PO BEDTIME RF: 0 omeprazole 20 mg capsule,delayed release(DR/EC) 1 cap PO DAILY RF: 0 albuterol sulfate [ProAir HFA] 90 mcg/actuation HFA aerosol inhaler 2 puff PO Q4H PRN (Reason: wheezing) RF: 0 doxycycline monohydrate 100 mg tablet 100 mg PO BID Qty: 14 RF: 0 tramadol 50 mg tablet 50 mg PO TID PRN (Reason: Pain) RF: 0 gabapentin 400 mg capsule 400 mg PO TID RF: 0 baclofen 10 mg tablet 10 mg PO TID RF: 0 clonazepam 1 mg tablet 1 mg PO BEDTIME RF: 0 zolpidem [Ambien] 10 mg tablet 10 mg PO BEDTIME PRN (Reason: Insomnia) RF: 0 cholecalciferol (vitamin D3) 1,250 mcg (50,000 unit) capsule 1,250 mcg PO QWEEK RF: 0
[2021-03-06 02:16] LABS: COVID-19 Test Negative (Negative); IDNOW Serial# 9DD0AD1C
[2021-03-06 02:44] VITALS: BP 123/80; PULSE 82; RESP 18; TEMP 36.6; O2SAT 100; BMI 32.3
== END 2021-03-06 02:52 | disposition home or self-care (01) ==
PROVIDERS: Emergency Provider Emergency Medicine
DX: Z20.822 Contact with and (suspected) exposure to COVID-19 (principal)
CPT/HCPCS: 36415; 87635; 99283

== ENCOUNTER 2021-03-08 18:50 | Emergency (ER) | payer MEDICAID, SELFPAY ==
--- NOTE | ~2021-03-08 | XR_ITS ---
EXAMINATION: XR CHEST CLINICAL INFORMATION: Chest wall pain. COMPARISON: Chest radiograph from 03/11/2020. TECHNIQUE: Single PA radiograph of the chest. FINDINGS: The lungs are well expanded. No evidence of focal consolidation, pleural effusion, pulmonary edema, or pneumothorax. The cardiomediastinal silhouette is within normal limits. No acute osseous abnormalities. XR/XR chest 1V IMPRESSION: No acute pulmonary abnormalities.
[2021-03-08 20:00] VITALS: BP 121/72; PULSE 75; RESP 16; TEMP 37.2; O2SAT 100; BMI 32.3
[2021-03-08 20:59] LABS: COVID-19 Test Negative (Negative)
--- NOTE | 2021-03-08 22:13 | ED_ITS ---
HPI - General Adult General Chief complaint: Upper Respiratory Symptoms Stated complaint: Headache/Chest pain Time Seen by Provider: 03/08/21 22:01 Source: patient Mode of arrival: ambulatory Limitations: no limitations History of Present Illness HPI narrative: Patient already been vaccinated against COVID her child her sick with COVID 3 days ago patient been tested 2 days ago was negative comes again as she feeling body aches headache chest wall pain no shortness of breath no fever Related Data Home Medications Medication Instructions Recorded Confirmed baclofen 10 mg tablet 10 mg PO TID 03/18/20 02/20/21 gabapentin 400 mg capsule 400 mg PO TID 03/18/20 02/20/21 tramadol 50 mg tablet 50 mg PO TID PRN 03/18/20 02/20/21 clonazepam 1 mg tablet 1 mg PO BEDTIME 04/16/20 02/20/21 zolpidem 10 mg tablet (Ambien) 10 mg PO BEDTIME PRN 04/16/20 02/20/21 albuterol sulfate 90 mcg/actuation 2 puff PO Q4H PRN 10/25/20 02/20/21 aerosol inhaler (ProAir HFA) amitriptyline 25 mg tablet 1 tab PO BEDTIME 10/25/20 02/20/21 omeprazole 20 mg capsule,delayed 1 cap PO DAILY 10/25/20 02/20/21 release cholecalciferol (vitamin D3) 1,250 1,250 mcg PO QWEEK 12/16/20 02/20/21 mcg (50,000 unit) capsule Previous Rx's Medication Instructions Recorded naproxen 500 mg tablet 500 mg PO BID #30 tab 03/09/20 doxycycline monohydrate 100 mg 100 mg PO BID #14 tab 02/15/21 tablet Allergies Allergy/AdvReac Type Severity Reaction Status Date / Time Iodinated Contrast Media Allergy Severe ANAPHYLAXIS Verified 02/21/21 09:24 [IV CONTRAST] Review of Systems Review of Systems: Yes all other systems are reviewed and are negative PMFSH Past Medical History Medical History Abnormal abdominal MRI Anxiety Arthritis Asthma Bipolar 1 disorder COVID-19 vaccine series completed Cyst of Bartholin's gland Depression Fibromyalgia Hematuria Left knee pain Microscopic hematuria Migraine Migraine with aura Status post insertion of nerve stimulator Surgical History H/O colonoscopy History of loop electrical excision procedure (LEEP) Hx of arthroscopic knee surgery Hx of section Hx of tubal ligation Family History Family History Mother Diabetes mellitus Asthma Depression Maternal Grandmother Asthma Breast cancer Maternal Aunt Diabetes mellitus HTN (hypertension) Breast cancer Social History Social History Household Members: Children Household Members Other:: children: 19, 18, fraternal twins-15 and a 5 year old. 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 Oriented X3. No acute distress. ENT: Pharynx normal. Oral Mucosa moist Neck: Normal inspection. Neck supple. CVS: Normal heart rate and rhythm. Pulses normal. Respiratory: No respiratory distress. Equal air entry bilateral, no wheezing/rales/rhonchi Abdomen: Soft and nontender. Bowel sounds are present, Skin: Skin warm and dry. Normal skin color. Normal skin turgor. Extremities: No lower extremity edema. No calf tenderness Neuro: Oriented X 3. Medical Decision Making Lab Data Lab results reviewed: Yes I reviewed the patient's lab results. Labs: Lab Results 03/08/21 Range/Units 20:06 COVID-19 ([facility]) Negative (Negative) COVID-19 Clin Com See Note Discharge Plan Discharge Clinical Impression: Close exposure to COVID-19 virus Patient Disposition: Home, Self-Care Instructions: COVID-19 (Coronavirus Disease 2019) (ED) Additional Instructions: your COVID test is negative symptoms likely with mild/early COVID, symptoms are mild as you already been vaccinated Report to PCP/ ER if increased shortness of breath Tylenol/Motrin for pain Prescriptions: No Action naproxen 500 mg tablet 500 mg PO BID Qty: 30 RF: 0 amitriptyline 25 mg tablet 1 tab PO BEDTIME RF: 0 omeprazole 20 mg capsule,delayed release(DR/EC) 1 cap PO DAILY RF: 0 albuterol sulfate [ProAir HFA] 90 mcg/actuation HFA aerosol inhaler 2 puff PO Q4H PRN (Reason: wheezing) RF: 0 doxycycline monohydrate 100 mg tablet 100 mg PO BID Qty: 14 RF: 0 tramadol 50 mg tablet 50 mg PO TID PRN (Reason: Pain) RF: 0 gabapentin 400 mg capsule 400 mg PO TID RF: 0 baclofen 10 mg tablet 10 mg PO TID RF: 0 clonazepam 1 mg tablet 1 mg PO BEDTIME RF: 0 zolpidem [Ambien] 10 mg tablet 10 mg PO BEDTIME PRN (Reason: Insomnia) RF: 0 cholecalciferol (vitamin D3) 1,250 mcg (50,000 unit) capsule 1,250 mcg PO QWEEK RF: 0
== END 2021-03-08 22:27 | disposition home or self-care (01) ==
PROVIDERS: Emergency Provider Internal Medicine; PCP Family Medicine
DX: R51.9 Headache, unspecified (principal); Z20.822 Contact with and (suspected) exposure to COVID-19
CPT/HCPCS: 36415; 71045; 87635; 99283

== ENCOUNTER 2021-04-09 13:18 | Outpatient (REF) | payer MEDICAID, SELFPAY ==
--- NOTE | ~2021-04-09 | MM_ITS ---
EXAMINATION: MM DIAGNOSTIC DIGITAL BREAST TOMOSYNTHESIS, BILATERAL CLINICAL INFORMATION: Due for yearly. Probable benign circumscribed nodule anterior 11:00 left breast. The lifetime risk of breast cancer based on the Tyrer-Cuzick Model is 13%. COMPARISON: Mammography: 10/02/2020, 04/04/2020 (baseline, diagnostic), targeted left breast ultrasound 04/04/2020. TECHNIQUE: Digital breast tomosynthesis is performed in both the craniocaudal and mediolateral oblique views along with computer-aided detection (CAD). Synthesized 2D images are generated from the tomosynthesis. Additional exaggerated left CC view and additional right MLO view are provided. FINDINGS: There are scattered areas of fibroglandular density (ACR BI-RADS breast composition Category b). There are no significant masses, abnormal calcifications, or other abnormalities. Parenchymal pattern is similar to prior studies. Skin contours are smooth. Small circumscribed nodule anterior 11:00 left breast is stable. No developing density. Finding will be reassessed again at next bilateral annual mammography to conclude long-term surveillance. Results are provided to the patient at time of visit by the technologist. MM/MM tomosynthesis diagnostic BI IMPRESSION: No mammographic evidence of malignancy. Stable small circumscribed nodule anterior 11:00 left breast. ASSESSMENT: BI-RADS 3: Probably Benign RECOMMENDATION: Diagnostic mammography at time of next annual exam, due in 12 months. This patient's information was entered into a reminder system with a target due date for their next mammogram.
== END 2021-04-09 13:19 | disposition home or self-care (01) ==
LOC: HO.MAMMO 13:18
PROVIDERS: Visit Provider Family Medicine
DX: N63.22 Unspecified lump in the left breast, upper inner quadrant (principal)
CPT/HCPCS: 77062; 77066

== ENCOUNTER 2021-07-04 21:18 | Emergency (ER) | payer MEDICAID, SELFPAY ==
--- NOTE | ~2021-07-04 | US_ITS ---
EXAMINATION: US PELVIS CLINICAL INFORMATION: Left pelvic pain for one week. COMPARISON: 03/05/2021 TECHNIQUE: Ultrasound of the pelvis is performed using both transabdominal and transvaginal transducers along with Doppler. Transvaginal imaging is performed due to inadequate visualization transabdominally. FINDINGS: Uterus: The uterus is anteverted and measures 11.8 x 5.4 x 7.8 cm. The myometrium heterogeneous echogenicity containing a single fibroid measuring 3.5 cm which is stable from prior. The double wall endometrial thickness is 9 mm. IUD present within the endometrial canal, lower uterine segment. Adnexa: Both ovaries are visualized. There is normal color flow to the adnexa. There is no ovarian torsion. There is no pelvic ascites or fluid collection. Right ovary measures 3.5 x 2.6 x 2.8 cm. Physiologic follicles present. Left ovary measures 4.2 x 2.6 x 2.6 cm. Physiologic follicles present. US/US pelvic and transvaginal IMPRESSION: Stable exam demonstrating a stable solitary uterine fibroid in heterogeneity of the uterine myometrial echotexture, nonspecific.
--- NOTE | ~2021-07-04 | US_ITS ---
EXAMINATION: US PELVIS CLINICAL INFORMATION: Left pelvic pain for one week. COMPARISON: 03/05/2021 TECHNIQUE: Ultrasound of the pelvis is performed using both transabdominal and transvaginal transducers along with Doppler. Transvaginal imaging is performed due to inadequate visualization transabdominally. FINDINGS: Uterus: The uterus is anteverted and measures 11.8 x 5.4 x 7.8 cm. The myometrium heterogeneous echogenicity containing a single fibroid measuring 3.5 cm which is stable from prior. The double wall endometrial thickness is 9 mm. IUD present within the endometrial canal, lower uterine segment. Adnexa: Both ovaries are visualized. There is normal color flow to the adnexa. There is no ovarian torsion. There is no pelvic ascites or fluid collection. Right ovary measures 3.5 x 2.6 x 2.8 cm. Physiologic follicles present. Left ovary measures 4.2 x 2.6 x 2.6 cm. Physiologic follicles present. US/US pelvic ovarian doppler IMPRESSION: Stable exam demonstrating a stable solitary uterine fibroid in heterogeneity of the uterine myometrial echotexture, nonspecific.
[2021-07-04 22:39] VITALS: BP 126/77; PULSE 82; RESP 16; TEMP 36.8; O2SAT 100; BMI 35.8
[2021-07-05 02:21] VITALS: PULSE 81; O2SAT 99
[2021-07-05 02:34] LABS: Appearance Urine HAZY; Color Urine YELLOW; Glucose Urine UA NEG (NEG); Leukocyte Esterase Urine NEG (NEG); Nitrite Urine NEG (NEG); Specific Gravity - Urine >= 1.030 (1.005-1.025); UACC Culture Trigger NO; Urine Blood 2+ (NEG); Urine Ketones NEG (NEG); Urine Protein TRACE MG/DL (NEG-TRACE)
[2021-07-05 02:35] LABS: UPreg QC Valid YES; Urine Pregnancy NEGATIVE (NEGATIVE)
[2021-07-05 02:39] LABS: Bacteria Urine 2+ /LPF; Mucus Urine 2+ /LPF; Squamous Epithelial Cell Urine 2+ /LPF
--- NOTE | 2021-07-05 03:34 | ED_ITS ---
HPI - Abdominal Pain General Chief Complaint: Abdominal Pain Stated Complaint: Rib pain Time Seen by Provider: 07/04/21 22:39 Source: patient Mode of arrival: ambulatory History of Present Illness HPI narrative: 40-year-old female with history of depression, history of ovarian cyst, fibromyalgia presents with 1 week of left pelvic discomfort that radiates upwards into her back without associated nausea, vomiting, fevers, chills, difficulty with defecation, nausea, vomiting, or trauma. Patient also denies any urinary pain/burning/frequency. And has known hematuria gum otherwise patient denies any unexplained weight loss or night sweats. Related Data Home Medications Medication Instructions Recorded Confirmed gabapentin 400 mg capsule 400 mg PO TID 03/18/20 07/05/21 tramadol 50 mg tablet 50 mg PO TID PRN 03/18/20 07/05/21 clonazepam 1 mg tablet 1 mg PO BEDTIME 04/16/20 07/05/21 zolpidem 10 mg tablet (Ambien) 10 mg PO BEDTIME PRN 04/16/20 07/05/21 albuterol sulfate 90 mcg/actuation 2 puff PO Q4H PRN 10/25/20 07/05/21 aerosol inhaler (ProAir HFA) amitriptyline 25 mg tablet 1 tab PO BEDTIME PRN 10/25/20 07/05/21 omeprazole 20 mg capsule,delayed 1 cap PO DAILY 10/25/20 07/05/21 release cholecalciferol (vitamin D3) 1,250 1,250 mcg PO QWEEK 12/16/20 07/05/21 mcg (50,000 unit) capsule Previous Rx's Medication Instructions Recorded naproxen 500 mg tablet 500 mg PO BID #30 tab 03/09/20 Allergies Allergy/AdvReac Type Severity Reaction Status Date / Time Iodinated Contrast Media Allergy Severe ANAPHYLAXIS Verified 02/21/21 09:24 [IV CONTRAST] Review of Systems Review of Systems Pertinent positives and negatives as stated in HPI 10 point review of systems is otherwise negative. PMFSH Past Medical History Source: nursing notes reviewed Medical History Abnormal abdominal MRI Anxiety Arthritis Asthma Bipolar 1 disorder COVID-19 vaccine series completed Cyst of Bartholin's gland Depression Fibromyalgia Hematuria Left knee pain Microscopic hematuria Migraine Migraine with aura Status post insertion of nerve stimulator Surgical History H/O colonoscopy History of loop electrical excision procedure (LEEP) Hx of arthroscopic knee surgery Hx of section Hx of tubal ligation Family History Family History Mother Diabetes mellitus Asthma Depression Maternal Grandmother Asthma Breast cancer Maternal Aunt Diabetes mellitus HTN (hypertension) Breast cancer Social History Social History Household Members: Children Household Members Other:: children: 19, 18, fraternal twins-15 and a 5 year old. 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 (child) Do you presently have visiting nurse or other home services: No Alcohol intake: current Alcohol intake frequency: a few times a month Patient Tobacco Use Status: Never used Tobacco Tobacco use type: Cigarette Use of substances other than those prescribed or required for medical reasons: No Advance Directives: No Advance Directives Information Provided: No Patient : No Gender identity: Female Physical Exam ED Vital Signs: Vital Signs - 24 hr 07/04/21 22:39 07/05/21 02:21 07/05/21 04:58 Temperature 98.2 F 98.2 F Pulse Rate 82 81 96 Respiratory Rate 16 16 Blood Pressure 126/77 107/58 L Pulse Oximetry 100 99 98 BMI result Body Mass Index 35.8 VITAL SIGNS: Reviewed. GENERAL: Well developed, well nourished, in no acute distress. HEAD: Normocephalic/atraumatic EYES: PERRLA, EOMI EARS: Ext canals without abnormality OROPHARYNX: no oral lesions noted, posterior pharynx clear LUNGS: Normal breath sounds. No adventitious sounds or accessory muscle use. SpO2<100> CARDIOVASCULAR: Regular rate and rhythm without noted murmurs ABDOMEN: Soft, mild tenderness on deep palpation without rebound to left lower abdomen, distended with bowel sounds, no CVA tenderness SKIN: Inspection of the skin reveals no rashes NEUROLOGIC: Alert and oriented x 4. Strength and sensation to light touch were grossly intact x 4. Course Course Course Narrative: 40-year-old female with history and clinical presentation suggestive of possible fibromyalgia flare with which the patient agrees as there is no evidence within the history or on clinical findings to suggest infectious etiologies. Will obtain ovarian Doppler and pelvic ultrasound to evaluate for possible torsion. Will not proceed with CT of abdomen/pelvis as no clinical suspicion for renal colic or diverticulitis. Review of all investigations otherwise negative for acute findings an ultrasound shows uterine fibroid but no ovarian cysts. On re-evaluation patient reports feeling much improved, and she was discharged home in stable condition. MDM - Abdominal Pain Lab Data Labs: Lab Results 07/05/21 07/05/21 Range/Units 02:27 02:28 Urine Color YELLOW Urine Appearance HAZY Urine pH 6.0 (5.0-8.0) Ur Specific [place] >= 1.030 H (1.005-1.025) Urine Protein TRACE (NEG-TRACE) MG/DL Urine Glucose (UA) NEG (NEG) MG/DL Urine Ketones NEG (NEG) MG/DL Urine Blood 2+ H (NEG) Urine Nitrite NEG (NEG) Ur Leukocyte Esterase NEG (NEG) Urine RBC 5-9 H (0) /HPF Urine WBC 1-4 (0-4) /HPF Ur Squamous Epith Cells 2+ /LPF Urine Bacteria 2+ /LPF Urine Mucus 2+ /LPF Urine Test NEGATIVE (NEGATIVE) Discharge Plan Discharge Clinical Impression: Pelvic pain, Uterine fibroid Patient Disposition: Home, Self-Care Instructions: Pelvic Pain in Women (ED) Additional Instructions: 1. Resume all home medications as prescribed. 2. On ultrasound there is evidence of uterine fibroid but no evidence of ovarian cysts. 3. Follow-up with your primary care provider on Wednesday morning. Return to the ER for worsening symptoms. Prescriptions: No Action naproxen 500 mg tablet 500 mg PO BID Qty: 30 0RF amitriptyline 25 mg tablet 1 tab PO BEDTIME PRN (Reason: insomnia ) 0RF omeprazole 20 mg capsule,delayed release(DR/EC) 1 cap PO DAILY 0RF albuterol sulfate [ProAir HFA] 90 mcg/actuation HFA aerosol inhaler 2 puff PO Q4H PRN (Reason: wheezing) 0RF tramadol 50 mg tablet 50 mg PO TID PRN (Reason: Pain) 0RF gabapentin 400 mg capsule 400 mg PO TID 0RF clonazepam 1 mg tablet 1 mg PO BEDTIME 0RF Rx Instructions: administer 30 minutes before bedtime zolpidem [Ambien] 10 mg tablet 10 mg PO BEDTIME PRN (Reason: Insomnia) 0RF cholecalciferol (vitamin D3) 1,250 mcg (50,000 unit) capsule 1,250 mcg PO QWEEK 0RF Referrals: Lisa Wylie DO [Primary Care Provider] - 2 days
[2021-07-05] MEDS: Acetaminophen 325 MG TABLET 975 MG PO (03:47)
[2021-07-05] MEDS: Ketorolac Tromethamine 15 MG/ML VIAL IM (03:47)
[2021-07-05 04:58] VITALS: BP 107/58; PULSE 96; RESP 16; TEMP 36.8; O2SAT 98
== END 2021-07-05 06:09 | disposition home or self-care (01) ==
PROVIDERS: Emergency Provider Student in an Organized Health Care Education/Training Program; PCP Family Medicine
DX: R10.2 Pelvic and perineal pain (principal); D25.9 Leiomyoma of uterus, unspecified
CPT/HCPCS: 76830; 76856; 81001; 81025; 93975; 96372; 99284; 99285; J1885

== ENCOUNTER 2021-07-29 00:23 | Emergency (ER) | payer MEDICAID, SELFPAY ==
[2021-07-29 01:04] VITALS: BP 158/83; PULSE 72; RESP 20; TEMP 36.7; O2SAT 100; BMI 32.3
[2021-07-29 01:13] LABS: Basophils Absolute Auto 0.1 X10*3/uL (0.0-0.2); Basophils Percent Auto 0.4 % (0-2); Eosinophils Absolute Auto 0.3 X10*3/uL (0.0-0.4); Eosinophils Percent Auto 2.1 % (0-4); Hematocrit 37.9 % (37.0-47.0); Hemoglobin 12.4 g/dl (12.0-16.0); Imm Gran Abs Auto 0.04 X10*3/uL (0.00-0.03); Imm Gran Pct Auto 0.3 % (0.0-0.4); Lymphocytes Absolute Auto 3.2 X10*3/uL (1.2-4.9); Lymphocytes Percent Auto 26.4 % (20-40); MANUAL DIFF FLAG NO; Mean Corpuscular HGB Conc 32.7 g/dl (31.0-35.0); Mean Corpuscular Hemoglobin 29.1 pg (27.0-33.0); Mean Platelet Volume 12.5 fL (9.4-12.3); Monocytes Absolute Auto 0.7 X10*3/uL (0.1-1.2); Monocytes Percent Auto 5.4 % (2-11); Neutrophils Absolute Auto 7.9 x10*3/uL (2.0-8.3); Neutrophils Percent Auto 65.4 % (45-73); Platelet Count 260 X10*3/uL (160-400); Red Blood Count 4.26 X10*6/uL (4.20-5.50); Red Cell Distribution Width 13.5 % (11.0-16.0); White Blood Count 12.2 X10*3/uL (4.8-10.8)
--- NOTE | 2021-07-29 01:15 | ED.CHESTPAIN ---
HPI - Chest Pain General Chief Complaint: Chest Pain Stated Complaint: rib pain Time Seen by Provider: 07/29/21 01:15 Source: patient Mode of arrival: ambulatory Limitations: no limitations History of Present Illness HPI narrative: Patient with no significant risk factors coronary disease comes here for chest pain sharp left-sided started about 30 minutes radiating to the back left arm no shortness of breath no cough no palpitation no dizziness or diaphoresis nausea vomiting pain gets worse on movements and palpation and worsen with deep inspiration no relation of the pain with exertion patient had a stress test in 05/26 for similar pain which was negative had echocardiogram in 03/24 also normal been followed by imaging system administrator who cleared from the cardiac point of view Related Data Home Medications Medication Instructions Recorded Confirmed gabapentin 400 mg capsule 400 mg PO TID 03/18/20 07/05/21 tramadol 50 mg tablet 50 mg PO TID PRN 03/18/20 07/05/21 clonazepam 1 mg tablet 1 mg PO BEDTIME 04/16/20 07/05/21 zolpidem 10 mg tablet (Ambien) 10 mg PO BEDTIME PRN 04/16/20 07/05/21 albuterol sulfate 90 mcg/actuation 2 puff PO Q4H PRN 10/25/20 07/05/21 aerosol inhaler (ProAir HFA) amitriptyline 25 mg tablet 1 tab PO BEDTIME PRN 10/25/20 07/05/21 omeprazole 20 mg capsule,delayed 1 cap PO DAILY 10/25/20 07/05/21 release cholecalciferol (vitamin D3) 1,250 1,250 mcg PO QWEEK 12/16/20 07/05/21 mcg (50,000 unit) capsule Previous Rx's Medication Instructions Recorded naproxen 500 mg tablet 500 mg PO BID #30 tab 03/09/20 ibuprofen 600 mg tablet 600 mg PO Q6H PRN #20 tab 07/29/21 Allergies Allergy/AdvReac Type Severity Reaction Status Date / Time Iodinated Contrast Media Allergy Severe ANAPHYLAXIS Verified 02/21/21 09:24 [IV CONTRAST] Review of Systems Review of Systems: Yes all other systems are reviewed and are negative PMFSH Past Medical History Medical History Abnormal abdominal MRI Anxiety Arthritis Asthma Bipolar 1 disorder COVID-19 vaccine series completed Cyst of Bartholin's gland Depression Fibromyalgia Hematuria Left knee pain Microscopic hematuria Migraine Migraine with aura Status post insertion of nerve stimulator Surgical History H/O colonoscopy History of loop electrical excision procedure (LEEP) Hx of arthroscopic knee surgery Hx of section Hx of tubal ligation Family History Family History Mother Diabetes mellitus Asthma Depression Maternal Grandmother Asthma Breast cancer Maternal Aunt Diabetes mellitus HTN (hypertension) Breast cancer Social History Social History Household Members: Children Household Members Other:: children: 19, 18, fraternal twins-15 and a 5 year old. Are you a primary toddler caregiver to a significant other at home: Yes (child) Do you presently have visiting nurse or other home services: No Alcohol intake: current Alcohol intake frequency: a few times a month Patient Tobacco Use Status: Never used Tobacco Tobacco use type: Cigarette Patient : No Gender identity: Female Physical Exam Vital Signs: Vital Signs: Last Vital Signs Temp 98.1 F 07/29/21 01:04 Pulse 72 07/29/21 01:04 Resp 20 07/29/21 01:04 BP 158/83 H 07/29/21 01:04 Pulse Ox 100 07/29/21 01:04 BMI result Body Mass Index 32.3 Appearance: Alert. Oriented X3. No acute distress. Eyes: No pallor or icterus ENT: Pharynx normal. Oral Mucosa moist Neck: Normal inspection. Neck supple. CVS: Normal heart rate and rhythm. Pulses normal. Respiratory: No respiratory distress. Equal air entry bilateral, no wheezing/rales/rhonchi left chest wall tenderness+ Abdomen: Soft and nontender. Bowel sounds are present, no mass palpable, no CVA tenderness Skin: Skin warm and dry. Normal skin color. Normal skin turgor. Extremities: No lower extremity edema. No calf tenderness Neuro: Oriented X 3. MDM - Chest Pain MDM Narrative Medical decision making narrative: Patient's atypical chest pain increases on palpation left costal cartilage likely costochondritis normal EKG waiting for troponin Medical Records Data Attestation: I reviewed the patient's medical records. Lab Data Attestation: I reviewed the patient's lab results. Result diagrams: 07/29/21 01:07 07/29/21 01:07 Labs: Lab Results 07/29/21 07/29/21 07/29/21 Range/Units 01:07 01:07 01:07 WBC 12.2 H (4.8-10.8) X10*3/uL RBC 4.26 (4.20-5.50) X10*6/uL Hgb 12.4 (12.0-16.0) g/dl Hct 37.9 (37.0-47.0) % MCV 89.0 (80.0-98.0) fL MCH 29.1 (27.0-33.0) pg MCHC 32.7 (31.0-35.0) g/dl RDW 13.5 (11.0-16.0) % Plt Count 260 (160-400) X10*3/uL MPV 12.5 H (9.4-12.3) fL Immature Gran % (Auto) 0.3 (0.0-0.4) % Neut % (Auto) 65.4 (45-73) % Lymph % (Auto) 26.4 (20-40) % [place] % (Auto) 5.4 (2-11) % Eos % (Auto) 2.1 (0-4) % Baso % (Auto) 0.4 (0-2) % Lymph # (Auto) 3.2 (1.2-4.9) X10*3/uL [place] # (Auto) 0.7 (0.1-1.2) X10*3/uL Eos # (Auto) 0.3 (0.0-0.4) X10*3/uL Baso # (Auto) 0.1 (0.0-0.2) X10*3/uL Abs Immat Gran (auto) 0.04 H (0.00-0.03) X10*3/uL Absolute Neuts (auto) 7.9 (2.0-8.3) x10*3/uL Absolute Nucleated RBC 0.000 (0.0-0.012) X10*3/uL Nucleated RBC % (auto) 0.0 (0.0-0.2) /100WBC Sodium 136 (135-145) mmol/L Potassium 4.1 (3.3-5.1) mmol/L Chloride 105 (96-108) mmol/L Carbon Dioxide 24 (22-29) mmol/L Anion Gap 11 L (12-20) BUN 14 (9-16) mg/dL Creatinine 0.93 (0.5-1.4) mg/dL Estim Creat Clear Calc 90.3 Estimated GFR > 60 Random Glucose 110 (60-115) mg/dL Calcium 8.8 (8.4-10.2) mg/dL Troponin I High Sens < 3.5 (<3.5-17.0) ng/L COVID-19 (EMILIE) (Negative) COVID-19 Clin Com 07/29/21 Range/Units 01:07 WBC (4.8-10.8) X10*3/uL RBC (4.20-5.50) X10*6/uL Hgb (12.0-16.0) g/dl Hct (37.0-47.0) % MCV (80.0-98.0) fL MCH (27.0-33.0) pg MCHC (31.0-35.0) g/dl RDW (11.0-16.0) % Plt Count (160-400) X10*3/uL MPV (9.4-12.3) fL Immature Gran % (Auto) (0.0-0.4) % Neut % (Auto) (45-73) % Lymph % (Auto) (20-40) % [place] % (Auto) (2-11) % Eos % (Auto) (0-4) % Baso % (Auto) (0-2) % Lymph # (Auto) (1.2-4.9) X10*3/uL [place] # (Auto) (0.1-1.2) X10*3/uL Eos # (Auto) (0.0-0.4) X10*3/uL Baso # (Auto) (0.0-0.2) X10*3/uL Abs Immat Gran (auto) (0.00-0.03) X10*3/uL Absolute Neuts (auto) (2.0-8.3) x10*3/uL Absolute Nucleated RBC (0.0-0.012) X10*3/uL Nucleated RBC % (auto) (0.0-0.2) /100WBC Sodium (135-145) mmol/L Potassium (3.3-5.1) mmol/L Chloride (96-108) mmol/L Carbon Dioxide (22-29) mmol/L Anion Gap (12-20) BUN (9-16) mg/dL Creatinine (0.5-1.4) mg/dL Estim Creat Clear Calc Estimated GFR Random Glucose (60-115) mg/dL Calcium (8.4-10.2) mg/dL Troponin I High Sens (<3.5-17.0) ng/L COVID-19 (EMILIE) Negative (Negative) COVID-19 Clin Com See Note ECG Data ECG #1: Attestation: I personally reviewed and interpreted this ECG as follows: Interpretation: Normal sinus rhythm heart rate 63 beats per minute normal intervals normal axis no acute ST wave change no acute ischemia Discharge Plan Discharge Clinical Impression: Acute costochondritis Patient Disposition: Home, Self-Care Instructions: Costochondritis (ED) Additional Instructions: Take pain medication as prescribed Follow with PCP if not better Prescriptions: New ibuprofen 600 mg tablet 600 mg PO Q6H PRN (Reason: pain) Qty: 20 0RF No Action naproxen 500 mg tablet 500 mg PO BID Qty: 30 0RF amitriptyline 25 mg tablet 1 tab PO BEDTIME PRN (Reason: insomnia ) 0RF omeprazole 20 mg capsule,delayed release(DR/EC) 1 cap PO DAILY 0RF albuterol sulfate [ProAir HFA] 90 mcg/actuation HFA aerosol inhaler 2 puff PO Q4H PRN (Reason: wheezing) 0RF tramadol 50 mg tablet 50 mg PO TID PRN (Reason: Pain) 0RF gabapentin 400 mg capsule 400 mg PO TID 0RF clonazepam 1 mg tablet 1 mg PO BEDTIME 0RF Rx Instructions: administer 30 minutes before bedtime zolpidem [Ambien] 10 mg tablet 10 mg PO BEDTIME PRN (Reason: Insomnia) 0RF cholecalciferol (vitamin D3) 1,250 mcg (50,000 unit) capsule 1,250 mcg PO QWEEK 0RF
[2021-07-29 01:26] LABS: COVID-19 Test Negative (Negative)
[2021-07-29 01:29] LABS: Anion Gap 11 (12-20); Blood Urea Nitrogen 14 mg/dL (9-16); Calcium 8.8 mg/dL (8.4-10.2); Carbon Dioxide 24 mmol/L (22-29); Chloride 105 mmol/L (96-108); Creatinine Clr Calc Pharmacy 90.3; Estimated Glomerular Filt Rate > 60; Glucose Random 110 mg/dL (60-115); Potassium 4.1 mmol/L (3.3-5.1); Sodium 136 mmol/L (135-145)
[2021-07-29 01:32] LABS: Troponin-I High Sensitivity < 3.5 ng/L (<3.5-17.0)
[2021-07-29] MEDS: Ibuprofen 600 MG TABLET PO (01:41)
[2021-07-29 01:47] LABS: UPreg QC Valid YES; Urine Pregnancy NEGATIVE (NEGATIVE)
--- NOTE | 2021-07-29 08:06 | ECG_ITS ---
Test Reason : CHEST PAIN Blood Pressure : / mmHG Vent. Rate : 063 BPM Atrial Rate : 063 BPM P-R Int : 100 ms QRS Dur : 088 ms QT Int : 370 ms P-R-T Axes : 081 066 055 degrees QTc Int : 378 ms Sinus rhythm with short [place] with Premature atrial complexes Otherwise normal ECG No significant changes when compared with the previous EKG of 29 july 2021 Referred By: Gage Cabrera Electronically Signed By:DAVI HU
--- NOTE | 2021-07-29 08:07 | ECG_ITS ---
Test Reason : CHEST PAIN Blood Pressure : / mmHG Vent. Rate : 077 BPM Atrial Rate : 077 BPM P-R Int : 136 ms QRS Dur : 094 ms QT Int : 366 ms P-R-T Axes : 051 042 029 degrees QTc Int : 414 ms Normal sinus rhythm Normal ECG When compared with ECG of 09-MAR-2020 04:36, No significant change was found Referred By: Gage Cabrera Electronically Signed By:DAVI HU
== END 2021-07-29 01:52 | disposition home or self-care (01) ==
LOC: HO.ED 01:47
PROVIDERS: Emergency Provider Internal Medicine; PCP Family Medicine
DX: M94.0 Chondrocostal junction syndrome [Tietze] (principal); J45.909 Unspecified asthma, uncomplicated; Z20.822 Contact with and (suspected) exposure to COVID-19
CPT/HCPCS: 36415; 80048; 81025; 84484; 85025; 87635; 93005; 99283

== ENCOUNTER 2021-07-30 12:49 | Emergency (ER) | payer MEDICAID, SELFPAY ==
--- NOTE | 2021-07-30 | ECG_ITS ---
Test Reason : chest pain Blood Pressure : / mmHG Vent. Rate : 082 BPM Atrial Rate : 082 BPM P-R Int : 132 ms QRS Dur : 088 ms QT Int : 356 ms P-R-T Axes : 077 061 045 degrees QTc Int : 415 ms Normal sinus rhythm with sinus arrhythmia Normal ECG When compared with ECG of 29-JUL-2021 01:21, No significant changes seen Referred By: Generic ED Physician Electronically Signed By:DAVI HU
[2021-07-30 12:54] VITALS: BP 108/72; PULSE 79; RESP 16; TEMP 36.6; O2SAT 99; BMI 32.3
--- NOTE | 2021-07-30 14:05 | ED.CHESTPAIN ---
HPI - Chest Pain General Chief Complaint: Chest Pain Stated Complaint: chest pains/numbness on L arm Time Seen by Provider: 07/30/21 14:04 Source: patient and old records reviewed Mode of arrival: ambulatory Limitations: no limitations History of Present Illness HPI narrative: seen on 07/29 dx with costochondritis MD complaint: chest pain Pertinent past history: other (fibromyalgia) Onset (ago): day(s) (2) Timing of current episode: constant Prior episodes: No Onset: during rest Pain location: substernal, left chest and right chest Pain radiation: left arm Severity: moderate Quality: tightness and aching Relieving factors: nothing Exacerbating factors: palpation and movement Associated symptoms: other (feels her L arm is tingling in upper arm) Treatment prior to arrival: other (no relief with NSAIDs) Related Data Home Medications Medication Instructions Recorded Confirmed gabapentin 400 mg capsule 400 mg PO TID 03/18/20 07/05/21 tramadol 50 mg tablet 50 mg PO TID PRN 03/18/20 07/05/21 clonazepam 1 mg tablet 1 mg PO BEDTIME 04/16/20 07/05/21 zolpidem 10 mg tablet (Ambien) 10 mg PO BEDTIME PRN 04/16/20 07/05/21 albuterol sulfate 90 mcg/actuation 2 puff PO Q4H PRN 10/25/20 07/05/21 aerosol inhaler (ProAir HFA) amitriptyline 25 mg tablet 1 tab PO BEDTIME PRN 10/25/20 07/05/21 omeprazole 20 mg capsule,delayed 1 cap PO DAILY 10/25/20 07/05/21 release cholecalciferol (vitamin D3) 1,250 1,250 mcg PO QWEEK 12/16/20 07/05/21 mcg (50,000 unit) capsule Previous Rx's Medication Instructions Recorded naproxen 500 mg tablet 500 mg PO BID #30 tab 03/09/20 ibuprofen 600 mg tablet 600 mg PO Q6H PRN #20 tab 07/29/21 cyclobenzaprine 10 mg tablet 10 mg PO TID PRN #14 tab 07/30/21 lidocaine 4 % topical patch 1 patch TOPICAL DAILY PRN #10 ea 07/30/21 prednisone 20 mg tablet 40 mg PO DAILY 4 Days #8 tab 07/30/21 Allergies Allergy/AdvReac Type Severity Reaction Status Date / Time Iodinated Contrast Media Allergy Severe ANAPHYLAXIS Verified 02/21/21 09:24 [IV CONTRAST] Review of Systems Review of Systems: Constitutional : No Weight loss, No Fever, No Chills ENT/Mouth : No sore throat, No Rhinorrhea Eyes: No Eye Pain, No Swelling Cardiovascular : pos Chest Pain, no SOB, no Dyspnea on Exertion, No Orthopnea, No Edema, No Palpitations Respiratory : No Cough, No Sputum Gastrointestinal : no Nausea, No Vomiting, No Diarrhea, No abdominal Pain, No Hematochezia, No Melena Genitourinary : No Dysuria, No Urinary Frequency Musculoskeletal : No joint pain, No Myalgias, No Joint Swelling Skin : No Skin Lesions, No rash Neuro : No Weakness, pos Numbness, No Dizziness, No Headache Psych : No Anxiety/Panic, No Depression Heme/Lymph: No Bruising, No Lymphadenopathy Endocrine : No Polyuria, No Polydipsia All other systems reviewed and are negative PMFSH Past Medical History Attestation statement: The following information was validated with the patient. Medical History Abnormal abdominal MRI Anxiety Arthritis Asthma Bipolar 1 disorder COVID-19 vaccine series completed Cyst of Bartholin's gland Depression Fibromyalgia Hematuria Left knee pain Microscopic hematuria Migraine Migraine with aura Status post insertion of nerve stimulator Surgical History H/O colonoscopy History of loop electrical excision procedure (LEEP) Hx of arthroscopic knee surgery Hx of section Hx of tubal ligation Family History Family History Mother Diabetes mellitus Asthma Depression Maternal Grandmother Asthma Breast cancer Maternal Aunt Diabetes mellitus HTN (hypertension) Breast cancer Social History Social History Household Members: Children Household Members Other:: children: 19, 18, fraternal twins-15 and a 5 year old. 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 Oriented X3. No acute distress. Eyes: Pupils equal, round and reactive to light. ENT: Pharynx normal. Neck: Normal inspection. Neck supple. CVS: Normal heart rate and rhythm. Pulses normal. Chest: ttp along chest wall and into L upper arm, neuro intact, reproduces pain along costochondral border - no axiall LAD in L axilla Respiratory: No respiratory distress. Breath sounds normal. Abdomen: Soft and non-tender. Skin: Skin warm and dry. Normal skin color. Normal skin turgor. Extremities: No lower extremity edema. No calf ttp symmetric distal pulses intacta Neuro: Oriented X 3. No motor deficit. No sensory deficit. MDM - Chest Pain MDM Narrative Medical decision making narrative: 40 yo female with hx of fibromyalgia, no ACS risk factors, PERC negative, symmetric distal pulses - doubt PE, doubt dissection - just had negative troponin yesterday. All pain is reproduceable she is neurologically intact no neuro deficits will treat as costochondritis and DC home. EKG nonischemic ECG Data ECG #1: Attestation: I personally reviewed and interpreted this ECG as follows: ECG interpretation date: 07/30/21 ECG interpretation time: 14:18 Interpretation: Rate: 82 Rhythm: NSR [place]: normal Normal P waves. Normal SHANIQUA. Normal QRS complex. ST T wave : normal no ANGELINA qTC: normal prior studies: no acute ischemia The study has been interpreted contemporaneously by me. Discharge Plan Discharge Clinical Impression: Acute costochondritis Patient Disposition: Home, Self-Care Instructions: Costochondritis (ED) Additional Instructions: return to ED for any worsening symptoms or concerns EKG nonischemic reproduceable chest wall pain, heart markers negative yesterday Prescriptions: New cyclobenzaprine 10 mg tablet 10 mg PO TID PRN (Reason: muscle spasm) Qty: 14 0RF lidocaine 4 % adhesive patch,medicated 1 patch topical DAILY PRN (Reason: pain) Qty: 10 0RF Rx Instructions: may leave on for up to 12 hrs prednisone 20 mg tablet 40 mg PO DAILY 4 Days Qty: 8 0RF No Action naproxen 500 mg tablet 500 mg PO BID Qty: 30 0RF amitriptyline 25 mg tablet 1 tab PO BEDTIME PRN (Reason: insomnia ) 0RF omeprazole 20 mg capsule,delayed release(DR/EC) 1 cap PO DAILY 0RF albuterol sulfate [ProAir HFA] 90 mcg/actuation HFA aerosol inhaler 2 puff PO Q4H PRN (Reason: wheezing) 0RF ibuprofen 600 mg tablet 600 mg PO Q6H PRN (Reason: pain) Qty: 20 0RF tramadol 50 mg tablet 50 mg PO TID PRN (Reason: Pain) 0RF gabapentin 400 mg capsule 400 mg PO TID 0RF clonazepam 1 mg tablet 1 mg PO BEDTIME 0RF Rx Instructions: administer 30 minutes before bedtime zolpidem [Ambien] 10 mg tablet 10 mg PO BEDTIME PRN (Reason: Insomnia) 0RF cholecalciferol (vitamin D3) 1,250 mcg (50,000 unit) capsule 1,250 mcg PO QWEEK 0RF Referrals: Lisa Wylie, DO [Primary Care Provider] - 2 days (if not better )
[2021-07-30 14:39] VITALS: BP 117/75; PULSE 70; RESP 16; O2SAT 98
[2021-07-30] MEDS: Lidocaine 4 % Patch ADH..PATCH 1 PATCH TRANSDERMA (14:40)
[2021-07-30] MEDS: predniSONE 20 MG TABLET 40 MG PO (14:40)
[2021-07-30] MEDS: Cyclobenzaprine HCl 10 MG TABLET PO (14:40)
--- NOTE | 2021-07-30 14:46 | PC.NURSE ---
1st encounter with patient for dc purposes. Pt awake, alert and oriented x3. skin warm and dry. resp unlabored. pt sitting up on stretcher, dressed. no acute distress noted. plan is for dc home. pt agreeable to plan. c/o left side chest wall pain worse with deep inspiration, cough
== END 2021-07-30 14:50 | disposition home or self-care (01) ==
PROVIDERS: Emergency Provider Emergency Medicine; PCP Family Medicine
DX: M94.0 Chondrocostal junction syndrome [Tietze] (principal); J45.909 Unspecified asthma, uncomplicated
CPT/HCPCS: 93005; 99283; 99284

== ENCOUNTER 2021-08-07 21:32 | Emergency (ER) | payer MEDICAID, SELFPAY ==
--- NOTE | 2021-08-07 | ECG_ITS ---
Test Reason : CHEST PAIN Blood Pressure : / mmHG Vent. Rate : 082 BPM Atrial Rate : 082 BPM P-R Int : 132 ms QRS Dur : 088 ms QT Int : 358 ms P-R-T Axes : 047 050 040 degrees QTc Int : 418 ms Normal sinus rhythm Normal ECG When compared with ECG of 30-JUL-2021 12:52, No significant change was found Referred By: Generic ED Physician Electronically Signed By:GILBERTO ALEMAN MD
[2021-08-07 21:39] VITALS: BP 123/78; PULSE 88; RESP 14; TEMP 36.8; O2SAT 96; BMI 35.5
--- NOTE | 2021-08-07 21:53 | PC.NURSE ---
pt has chest pain with inspiration with a pre condition.
[2021-08-07 22:05] LABS: MANUAL DIFF FLAG NO
[2021-08-07 22:06] LABS: Basophils Percent Auto 0.2 % (0-2); Eosinophils Absolute Auto 0.3 X10*3/uL (0.0-0.4); Eosinophils Percent Auto 1.7 % (0-4); Hematocrit 38.6 % (37.0-47.0); Hemoglobin 12.3 g/dl (12.0-16.0); Imm Gran Abs Auto 0.09 X10*3/uL (0.00-0.03); Imm Gran Pct Auto 0.6 % (0.0-0.4); Lymphocytes Absolute Auto 3.8 X10*3/uL (1.2-4.9); Lymphocytes Percent Auto 23.8 % (20-40); Mean Corpuscular HGB Conc 31.9 g/dl (31.0-35.0); Mean Corpuscular Hemoglobin 28.6 pg (27.0-33.0); Mean Corpuscular Volume 89.8 fL (80.0-98.0); Mean Platelet Volume 11.6 fL (9.4-12.3); Monocytes Absolute Auto 0.7 X10*3/uL (0.1-1.2); Monocytes Percent Auto 4.4 % (2-11); Neutrophils Absolute Auto 10.9 x10*3/uL (2.0-8.3); Neutrophils Percent Auto 69.3 % (45-73); Platelet Count 263 X10*3/uL (160-400); Red Cell Distribution Width 13.7 % (11.0-16.0); White Blood Count 15.8 X10*3/uL (4.8-10.8)
[2021-08-07 22:23] LABS: Alanine Aminotransferase 44 U/L (0-31); Albumin Level 3.6 g/dL (3.5-5.0); Alkaline Phosphatase 95 U/L (39-117); Anion Gap 12 (12-20); Aspartate Amino Transferase 15 U/L (5-31); Bilirubin Total 0.6 mg/dL (0.0-1.0); Blood Urea Nitrogen 13 mg/dL (9-16); Calcium 8.4 mg/dL (8.4-10.2); Carbon Dioxide 26 mmol/L (22-29); Chloride 103 mmol/L (96-108); Creatinine Clr Calc Pharmacy 95.9; Estimated Glomerular Filt Rate > 60; Glucose Random 87 mg/dL (60-115); Potassium 3.6 mmol/L (3.3-5.1); Sodium 137 mmol/L (135-145); Total Protein 6.8 g/dL (6.5-8.0)
[2021-08-07 22:27] LABS: Troponin-I High Sensitivity < 3.5 ng/L (<3.5-17.0)
[2021-08-07 22:37] VITALS: BP 130/74; PULSE 88; PULSE 89; RESP 19; O2SAT 99
--- NOTE | 2021-08-07 22:55 | ED.CHESTPAIN ---
HPI - Chest Pain General Chief Complaint: Chest Pain Stated Complaint: abscess Time Seen by Provider: 08/07/21 22:14 Source: patient Mode of arrival: ambulatory Limitations: no limitations History of Present Illness HPI narrative: 40-year-old female who presents emergency department for evaluation of chest pain and an abscess under her right arm and on the right lower abdominal wall. The patient complains of chest pain x1 month. She states that the pain is intermittent and she gets that daily. She states that the pain will last all day long. She points to her anterior chest and left lower chest when asked to localize the pain. She describes the pain is a sharp pain which is worse with breathing worse with movement. She states she has had similar pain in the past. She was seen 2 times in the emergency department on 07/29 and 07/30 for similar pain and she was diagnosed with costochondritis. She was treated with NSAIDs and then prednisone with no improvement of her pain. She states that her PCP recently started her on baclofen which is helped in the past and she has been taking it for 1-2 days with no relief for symptoms. She states that she is also taking tramadol that sometimes helps with her pain as well. She states that her pain is currently 8/10. She denied fever, chills, rhinorrhea, sore throat, cough. She states she has some mild shortness of breath. She denied dyspnea on exertion, nausea or vomiting. Patient also states that she has an abscess in her right axilla that is draining pus she also has an abscess in her right lower abdomen which is draining pus as well. Related Data Home Medications Medication Instructions Recorded Confirmed gabapentin 400 mg capsule 400 mg PO TID 03/18/20 07/05/21 tramadol 50 mg tablet 50 mg PO TID PRN 03/18/20 07/05/21 clonazepam 1 mg tablet 1 mg PO BEDTIME 04/16/20 07/05/21 zolpidem 10 mg tablet (Ambien) 10 mg PO BEDTIME PRN 04/16/20 07/05/21 albuterol sulfate 90 mcg/actuation 2 puff PO Q4H PRN 10/25/20 07/05/21 aerosol inhaler (ProAir HFA) amitriptyline 25 mg tablet 1 tab PO BEDTIME PRN 10/25/20 07/05/21 omeprazole 20 mg capsule,delayed 1 cap PO DAILY 10/25/20 07/05/21 release cholecalciferol (vitamin D3) 1,250 1,250 mcg PO QWEEK 12/16/20 07/05/21 mcg (50,000 unit) capsule Previous Rx's Medication Instructions Recorded naproxen 500 mg tablet 500 mg PO BID #30 tab 03/09/20 ibuprofen 600 mg tablet 600 mg PO Q6H PRN #20 tab 07/29/21 cyclobenzaprine 10 mg tablet 10 mg PO TID PRN #14 tab 07/30/21 lidocaine 4 % topical patch 1 patch TOPICAL DAILY PRN #10 ea 07/30/21 prednisone 20 mg tablet 40 mg PO DAILY 4 Days #8 tab 07/30/21 cephalexin 500 mg capsule 500 mg PO QID 5 Days #20 cap 08/07/21 meloxicam 7.5 mg tablet 7.5 mg PO DAILY #30 tab 08/07/21 Allergies Allergy/AdvReac Type Severity Reaction Status Date / Time Iodinated Contrast Media Allergy Severe ANAPHYLAXIS Verified 02/21/21 09:24 [IV CONTRAST] Review of Systems Review of Systems: Yes all other systems are reviewed and are negative PMFSH Past Medical History Medical History Abnormal abdominal MRI Anxiety Arthritis Asthma Bipolar 1 disorder COVID-19 vaccine series completed Cyst of Bartholin's gland Depression Fibromyalgia Hematuria Left knee pain Microscopic hematuria Migraine Migraine with aura Status post insertion of nerve stimulator Surgical History H/O colonoscopy History of loop electrical excision procedure (LEEP) Hx of arthroscopic knee surgery Hx of section Hx of tubal ligation Family History Family History Mother Diabetes mellitus Asthma Depression Maternal Grandmother Asthma Breast cancer Maternal Aunt Diabetes mellitus HTN (hypertension) Breast cancer Social History Social History Household Members: Children Household Members Other:: children: 19, 18, fraternal twins-15 and a 5 year old. 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 (child) Do you presently have visiting nurse or other home services: No Alcohol intake: never Patient Tobacco Use Status: Never used Tobacco Tobacco use type: Cigarette Use of substances other than those prescribed or required for medical reasons: No Advance Directives: No Patient : No Gender identity: Female Physical Exam Vital Signs: Vital Signs: Last Vital Signs Temp 98.2 F 08/07/21 21:39 Pulse 89 08/07/21 22:37 Resp 19 08/07/21 22:37 BP 130/74 08/07/21 22:37 Pulse Ox 99 08/07/21 22:37 BMI result Body Mass Index 35.5 Const: General: cooperative and no acute distress Orientation/consciousness: oriented to person and oriented to place Limitations: no limitations HEENT: Head: Yes normal to inspection, Yes normocephalic and Yes atraumatic Ears: external ears normal General nose exam: Normal external nose present Face and sinus: Yes normal facial exam Mouth: Normal oral and palatal mucosa present Throat: Yes posterior oropharynx normal Eyes: General: appearance normal, both eyes and all related structures Pupils: Equal, round and reactive pupils present Neck: Neck: Yes normal visual inspection, Yes no lymphadenopathy, Yes trachea midline and Yes supple Chest: Chest palpation & inspection: normal inspection of the chest and tenderness costochondral junction (Left and right anterior chest) Resp: Effort & Inspection: normal respiratory effort and able to speak in complete sentences Auscultation: clear to auscultation bilaterally Cardio: Rate: regular rate Rhythm: regular rhythm Heart sounds: S1 normal heart sound present, S2 normal heart sound present and no murmurs GI: Inspection: Yes normal to inspection Palpation (GI): Soft to palpation, nontender and no guarding Auscultation: normal bowel sounds : General: Yes no CVA tenderness Back/Spine/Pelvis: Back: no CVA tenderness Skin: Other: Small, erythematous abscess with small amount of purulent drainage in the right axilla. There also is a small erythematous, indurated abscess to the right lower abdominal wall. General skin exam: no rashes or lesions noted Neuro: General: oriented to person and oriented to place Cranial nerves: Yes CN's II-XII intact bilaterally and Yes Equal, round and reactive pupils present Cognition (Neuro): normal cognition Motor exam (neuro): 5/5 motor strength present throughout Extrem: General: Yes normal to inspection Psych: Appearance: grossly normal Speech and movement: Normal speech and movement present Affect: normal affect Attitude: cooperative Thought process: Normal thought process present Thought content: Normal thought content present Course Course Course Narrative: 40-year-old female who presents emergency department for evaluation anterior chest pain x1 month, this is the patient's 3rd ED visit for this pain. The patient also has a small draining abscess to her right axilla and a small indurated abscess to her right lower abdominal wall. Patient's vital signs were normal. Patient chest exam did reveal anterior chest wall tenderness in the area of the costochondral joints. Laboratory evaluation [place] [id number]. The patient's troponin was below detectable limits. Patient's 12 EKG was unremarkable. The patient was started on Keflex 500 mg 4 times a day for 5 days for her skin infections. The patient was advised to continue taking tramadol and I did prescribe meloxicam 5 mg daily to see if this improves turned costochondritis. She was given printed and verbal instructions and discharged home. MDM - Chest Pain Lab Data Result diagrams: 08/07/21 22:01 08/07/21 22:01 Labs: Lab Results 08/07/21 08/07/21 08/07/21 Range/Units 22:01 22:01 22:01 WBC 15.8 H (4.8-10.8) X10*3/uL RBC 4.30 (4.20-5.50) X10*6/uL Hgb 12.3 (12.0-16.0) g/dl Hct 38.6 (37.0-47.0) % MCV 89.8 (80.0-98.0) fL MCH 28.6 (27.0-33.0) pg MCHC 31.9 (31.0-35.0) g/dl RDW 13.7 (11.0-16.0) % Plt Count 263 (160-400) X10*3/uL MPV 11.6 (9.4-12.3) fL Immature Gran % (Auto) 0.6 H (0.0-0.4) % Neut % (Auto) 69.3 (45-73) % Lymph % (Auto) 23.8 (20-40) % [place] % (Auto) 4.4 (2-11) % Eos % (Auto) 1.7 (0-4) % Baso % (Auto) 0.2 (0-2) % Lymph # (Auto) 3.8 (1.2-4.9) X10*3/uL [place] # (Auto) 0.7 (0.1-1.2) X10*3/uL Eos # (Auto) 0.3 (0.0-0.4) X10*3/uL Baso # (Auto) 0.0 (0.0-0.2) X10*3/uL Abs Immat Gran (auto) 0.09 H (0.00-0.03) X10*3/uL Absolute Neuts (auto) 10.9 H (2.0-8.3) x10*3/uL Absolute Nucleated RBC 0.000 (0.0-0.012) X10*3/uL Nucleated RBC % (auto) 0.0 (0.0-0.2) /100WBC Sodium 137 (135-145) mmol/L Potassium 3.6 (3.3-5.1) mmol/L Chloride 103 (96-108) mmol/L Carbon Dioxide 26 (22-29) mmol/L Anion Gap 12 (12-20) BUN 13 (9-16) mg/dL Creatinine 0.92 (0.5-1.4) mg/dL Estim Creat Clear Calc 95.9 Estimated GFR > 60 Random Glucose 87 (60-115) mg/dL Calcium 8.4 (8.4-10.2) mg/dL Total Bilirubin 0.6 (0.0-1.0) mg/dL AST 15 (5-31) U/L ALT 44 H (0-31) U/L Alkaline Phosphatase 95 (39-117) U/L Troponin I High Sens < 3.5 (<3.5-17.0) ng/L Total Protein 6.8 (6.5-8.0) g/dL Albumin 3.6 (3.5-5.0) g/dL ECG Data ECG #1: Interpretation: 2148: Normal sinus rhythm with a rate of 82, normal NC interval, QRS duration QTC interval, no ST segment elevation, no ST segment depression, no PACs, no PVCs, no T-wave abnormalities. This EKG is unchanged compared to EKG dated 07/30/2021. Discharge Plan Discharge Clinical Impression: Acute costochondritis, Abscess Patient Disposition: Home, Self-Care Instructions: Costochondritis (ED), Abscess (ED) Additional Instructions: Take Keflex (cephalexin) 500 mg pills, 1 pill 4 times a day for 5 days. Take meloxicam 7.5 mg once a day for your chest pain. This is a strong anti-inflammatory pain medications. Use a warm compress or heating pad on low for 15 minutes on the abscess under your arm in on the right side of your abdomen, this will help the abscess heal. Continue taking your baclofen as prescribed by your doctor Continue taking your tramadol as prescribed by your doctor Follow-up with your doctor in 2 days. Please return to the emergency department if your symptoms get worse or if you develop any symptoms that are concerning to you. Prescriptions: New cephalexin 500 mg capsule 500 mg PO QID 5 Days Qty: 20 0RF meloxicam 7.5 mg tablet 7.5 mg PO DAILY Qty: 30 0RF No Action naproxen 500 mg tablet 500 mg PO BID Qty: 30 0RF amitriptyline 25 mg tablet 1 tab PO BEDTIME PRN (Reason: insomnia ) 0RF omeprazole 20 mg capsule,delayed release(DR/EC) 1 cap PO DAILY 0RF albuterol sulfate [ProAir HFA] 90 mcg/actuation HFA aerosol inhaler 2 puff PO Q4H PRN (Reason: wheezing) 0RF cyclobenzaprine 10 mg tablet 10 mg PO TID PRN (Reason: muscle spasm) Qty: 14 0RF lidocaine 4 % adhesive patch,medicated 1 patch topical DAILY PRN (Reason: pain) Qty: 10 0RF Rx Instructions: may leave on for up to 12 hrs prednisone 20 mg tablet 40 mg PO DAILY 4 Days Qty: 8 0RF ibuprofen 600 mg tablet 600 mg PO Q6H PRN (Reason: pain) Qty: 20 0RF tramadol 50 mg tablet 50 mg PO TID PRN (Reason: Pain) 0RF gabapentin 400 mg capsule 400 mg PO TID 0RF clonazepam 1 mg tablet 1 mg PO BEDTIME 0RF Rx Instructions: administer 30 minutes before bedtime zolpidem [Ambien] 10 mg tablet 10 mg PO BEDTIME PRN (Reason: Insomnia) 0RF cholecalciferol (vitamin D3) 1,250 mcg (50,000 unit) capsule 1,250 mcg PO QWEEK 0RF
[2021-08-07] MEDS: cephALEXin 500 MG CAPSULE PO (23:16)
== END 2021-08-07 23:19 | disposition home or self-care (01) ==
PROVIDERS: Emergency Provider Emergency Medicine Emergency Medical Services; PCP Family Medicine
DX: L02.411 Cutaneous abscess of right axilla (principal); L02.211 Cutaneous abscess of abdominal wall; R07.89 Other chest pain; Z79.899 Other long term (current) drug therapy
CPT/HCPCS: 10060; 36415; 80053; 84484; 85025; 93005; 99283; 99285

== ENCOUNTER 2021-08-11 13:28 | Emergency (ER) | payer OTHER, MEDICAID, SELFPAY ==
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
--- NOTE | ~2021-08-11 | XR_ITS ---
EXAMINATION: CHEST 2 VIEWS CLINICAL INFORMATION: anterior chest wall pain . COMPARISON: 03/08/2021. TECHNIQUE: PA and lateral views of the chest obtained. FINDINGS: The lungs are well expanded. No focal infiltrate, effusion, edema, or pneumothorax. Cardiac and mediastinal silhouettes are within normal limits for technique. No acute bony abnormality seen XR/XR chest 2V IMPRESSION: No evidence of acute disease
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
[2021-08-11 14:23] VITALS: BP 132/85; PULSE 89; RESP 16; TEMP 36.3; O2SAT 98; BMI 32.3
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
[2021-08-11] MEDS: Acetaminophen 325 MG TABLET 975 MG PO (17:31)
[2021-08-11] MEDS: Cyclobenzaprine HCl 10 MG TABLET PO (17:31)
[2021-08-11] MEDS: Bacitracin Oint 14 GM TUBE 1 APPL TOPICAL (17:31)
== END 2021-08-11 17:48 | disposition home or self-care (01) ==
PROVIDERS: Emergency Provider Emergency Medicine; PCP Family Medicine
DX: S29.011A Strain of muscle and tendon of front wall of thorax, initial encounter (principal); S83.92XA Sprain of unspecified site of left knee, initial encounter; S63.91XA Sprain of unspecified part of right wrist and hand, initial encounter; S63.501A Unspecified sprain of right wrist, initial encounter; T23.191A Burn of first degree of multiple sites of right wrist and hand, initial encounter; T22.111A Burn of first degree of right forearm, initial encounter; T23.101A Burn of first degree of right hand, unspecified site, initial encounter; T31.0 Burns involving less than 10% of body surface; J45.909 Unspecified asthma, uncomplicated; V49.40XA Driver injured in collision with unspecified motor vehicles in traffic accident, initial encounter; W22.11XA Striking against or struck by driver side automobile airbag, initial encounter; Y93.9 Activity, unspecified; Y92.410 Unspecified street and highway as the place of occurrence of the external cause; Y99.9 Unspecified external cause status
CPT/HCPCS: 16000; 71046; 73090; 73110; 73130; 73564; 99283

== ENCOUNTER 2021-11-13 13:55 | Outpatient (REF) | payer MEDICAID, SELFPAY ==
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
--- NOTE | ~2021-11-13 | US_ITS ---
EXAMINATION: US PELVIS COMPLETE CLINICAL INFORMATION: Check IUD position COMPARISON: None TECHNIQUE: Transabdominal and transvaginal imaging was performed. FINDINGS: The uterus is of normal size and echogenicity measuring 9.5 x 5.5 x 6.1 cm. A regular homogeneous endometrium is identified measuring 1.0 cm. A 2.9 x 1.8 x 3.5 cm subserosal myoma is noted in the fundus, previously 3.5 x 2.0 x 3.5 cm slightly decreased from prior. The intrauterine device appears malpositioned and low lying, largely within the endocervical canal and proximal aspect of the lower uterine segment, with the top of the IUD approximately 2.5 cm from the uterine fundus. Both ovaries are of normal size and echogenicity. The right measures 2.2 x 1.8 x 1.5 cm for a volume of 3.2 mL. The left measures 2.7 x 3.4 x 2.7 cm for a volume of 9.1 mL. There is no pelvic free fluid. US/US pelvic and transvaginal IMPRESSION: The intrauterine device appears malpositioned and low lying, largely within the endocervical canal and proximal aspect of the lower uterine segment, with the top of the IUD approximately 2.5 cm from the uterine fundus. This can compromise the efficacy of the device.
== END 2021-11-13 13:56 | disposition home or self-care (01) ==
LOC: HO.US 13:55
PROVIDERS: Visit Provider Internal Medicine
DX: R10.32 Left lower quadrant pain (principal); R31.29 Other microscopic hematuria
CPT/HCPCS: 76770; 76830; 76856

== ENCOUNTER → 2021-11-14 10:18 | Outpatient (BNVA) | payer MEDICAID, SELFPAY | PROVIDERS: PCP Family Medicine; Visit Provider Advanced Practice Midwife | DX: Z30.432 Encounter for removal of intrauterine contraceptive device (principal) | CPT/HCPCS: 99212 ==

== ENCOUNTER 2021-11-17 14:29 | Outpatient (REF) | payer MEDICAID, SELFPAY ==
[2021-11-17 20:29] LABS: CT PCR NOT DETECTED (Not Detect.); NG PCR NOT DETECTED (Not Detect.)
== END 2021-11-17 14:30 | disposition home or self-care (01) ==
LOC: HO.LAB 14:29
PROVIDERS: PCP Family Medicine; Visit Provider Obstetrics & Gynecology
DX: Z30.432 Encounter for removal of intrauterine contraceptive device (principal); Z32.02 Encounter for pregnancy test, result negative; Z20.2 Contact with and (suspected) exposure to infections with a predominantly sexual mode of transmission
CPT/HCPCS: 58301; 81025; 87491; 87591

== ENCOUNTER → 2021-11-20 14:09 | Outpatient (BNVA) | payer MEDICAID, SELFPAY | PROVIDERS: PCP Family Medicine; Visit Provider Surgery | DX: L73.2 Hidradenitis suppurativa (principal) | CPT/HCPCS: 99202 ==

== ENCOUNTER 2021-12-03 16:40 | Emergency (ER) | payer MEDICAID, SELFPAY ==
[2021-12-03 16:59] VITALS: BP 129/71; PULSE 73; RESP 18; TEMP 36.9; O2SAT 100; BMI 33.9
--- NOTE | 2021-12-03 18:19 | ED.GENADULT ---
HPI - General Adult General Chief complaint: Extremity Problem Stated complaint: left arm pain Time Seen by Provider: 12/03/21 17:22 Source: patient Mode of arrival: ambulatory Limitations: no limitations History of Present Illness HPI narrative: Patient is a 41 year old female presenting to the emergency department today with left arm pain. Patient states that the pain starts in her left elbow and goes up her left arm and down her left forearm. Patient states that it has been like that for the last 3 days and does not seem to be improving. Patient states it is better when her arm is straight. Patient denies any dizziness, lightheadedness, abdominal pain, nausea, vomiting, fever, chills, blurry vision, double vision, loss of vision, chest pain, difficulty breathing, shortness of breath, back pain, night sweats, pain with urination, increased urinary frequency, increased urinary urgency, blood in her urine or stool, syncope or a near syncopal episode, recent trauma or falls, bowel incontinence, bladder incontinence, bowel retention, bladder retention, or any other complaints at this time. Onset (ago): day(s) (3) Location: left and upper extremity Severity: mild Severity scale (1-10): 3 Relieving factors: none Exacerbating factors: none Associated symptoms: denies other symptoms Treatments prior to arrival: none Related Data Home Medications Medication Instructions Recorded Confirmed gabapentin 400 mg capsule 400 mg PO TID 03/18/20 11/21/21 tramadol 50 mg tablet 50 mg PO TID PRN Pain 03/18/20 11/21/21 clonazepam 1 mg tablet 1 mg PO BEDTIME 04/16/20 11/21/21 zolpidem 10 mg tablet (Ambien) 10 mg PO BEDTIME PRN Insomnia 04/16/20 11/21/21 albuterol sulfate 90 mcg/actuation 2 puff PO Q4H PRN wheezing 10/25/20 11/21/21 aerosol inhaler (ProAir HFA) amitriptyline 25 mg tablet 1 tab PO BEDTIME PRN insomnia 10/25/20 11/21/21 omeprazole 20 mg capsule,delayed 1 cap PO DAILY 10/25/20 11/21/21 release Previous Rx's Medication Instructions Recorded naproxen 500 mg tablet 500 mg PO BID #30 tabs 03/09/20 ibuprofen 600 mg tablet 600 mg PO Q6H PRN pain #20 tabs 07/29/21 lidocaine 4 % topical patch 1 patch topical DAILY PRN pain #10 07/30/21 ea acetaminophen 500 mg tablet 1,000 mg PO QID PRN fever or pain 08/11/21 (Tylenol Extra Strength) #14 tabs prednisone 20 mg tablet 20 mg PO DAILY 12 days #26 tabs 12/03/21 Allergies Allergy/AdvReac Type Severity Reaction Status Date / Time Iodinated Contrast Media Allergy Severe ANAPHYLAXIS Verified 11/20/21 14:21 [IV CONTRAST] Review of Systems Constitutional: Constitutional: Reports no additional constitutional complaints, Denies chills, Denies fever(s) and Denies night sweats Eyes: Eyes: Reports no additional eye complaints, Denies blurry vision, Denies change in vision, Denies diplopia, Denies eye discharge, Denies loss of vision and Denies eye pain ENT: Denies dizziness Cardiovascular: Cardiovascular: Reports no additional cardiovascular complaints, Denies chest pain, Denies lightheadedness, Denies Loss of Consciousness and Denies dyspnea Respiratory: Respiratory: Reports no additional respiratory complaints and Denies dyspnea Gastrointestinal: Gastrointestinal: Reports no additional gastrointestinal complaints, Denies abdominal pain, Denies melena, Denies hematochezia, Denies change in bowel habits and Denies change in stool character Genitourinary: Genitourinary: Denies hematuria, Denies urinary frequency, Denies dysuria, Denies urinary incontinence, Denies urinary hesitancy and Denies urinary urgency Musculoskeletal: Musculoskeletal: Reports no additional musculoskeletal complaints, Denies numbness and Denies tingling Comments: left elbow pain Neurologic: Denies dizziness, Denies loss of vision, Denies numbness and Denies tingling Psychiatric: Psychiatric: Reports no additional psychiatric complaints Endocrine: Endocrine: Reports no additional endocrine complaints Hematologic/Lymphatic: Hematologic/Lymphatic: Reports no additional hematologic/lymphatic complaints Allergic/Immunologic: Allergic/Immunologic: Reports no additional allergic/immunologic complaints PMFSH Past Medical History Attestation statement: The following information was validated with the patient. Source: old records reviewed Medical History Abnormal abdominal MRI Anxiety Arthritis Asthma Bipolar 1 disorder COVID-19 vaccine series completed Cyst of Bartholin's gland Depression Fibromyalgia Hematuria Left knee pain Microscopic hematuria Migraine with aura Status post insertion of nerve stimulator Surgical History H/O colonoscopy History of loop electrical excision procedure (LEEP) Hx of arthroscopic knee surgery Hx of section Hx of tubal ligation Family History Family History Mother Diabetes mellitus Asthma Depression Maternal Grandmother Asthma Breast cancer Maternal Aunt Diabetes mellitus HTN (hypertension) Breast cancer Social History Social History Household Members: Children Household Members Other:: children: 19, 18, fraternal twins-15 and a 5 year old. 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) Do you presently have visiting nurse or other home services: No Alcohol intake: never Patient Tobacco Use Status: Never used Tobacco Tobacco use type: Cigarette Advance Directives: No Advance Directives Information Provided: No Gender identity: Female Physical Exam ED Vital Signs: Vital Signs - 24 hr 12/03/21 16:59 Temperature 98.4 F Pulse Rate 73 Respiratory Rate 18 Blood Pressure 129/71 Pulse Oximetry 100 Oxygen Delivery Method Room Air BMI result Body Mass Index 33.9 Const General: cooperative, no acute distress, alert and awake Nutritional Appearance: well nourished Orientation/consciousness: patient oriented x3 Limitations: no limitations HENMT Head: Yes normal to inspection and Yes atraumatic Ears: hearing grossly normal bilaterally and external ears normal General nose exam: Normal external nose present, no nasal discharge noted and no epistaxis Face and sinus: Yes normal facial exam, No abrasion and No laceration Mouth: Normal oral and palatal mucosa present, no drooling and no muffled voice Eyes General: appearance normal, both eyes and all related structures Periorbital: periorbital findings normal Eyelids: Yes eyelids normal Conjunctivae: conjunctivae normal Pupils: Equal, round and reactive pupils present EOM: EOMs intact bilaterally Neck Neck: Yes normal visual inspection, Yes full ROM and Yes no lymphadenopathy Chest Chest palpation & inspection: normal inspection of the chest Resp Effort & Inspection: normal respiratory effort and able to speak in complete sentences Auscultation: clear to auscultation bilaterally Cardio Rate: regular rate Rhythm: regular rhythm GI Inspection: Yes normal to inspection Neuro General: patient oriented x3 and moves all extremities Cranial nerves: Yes Equal, round and reactive pupils present Cognition (Neuro): normal cognition Motor exam (neuro): 5/5 motor strength present throughout Sensory Exam: Normal double simultaneous stimulation for sensation Coordination: [id number] test normal Extrem General: Yes normal to inspection, Yes full ROM and Yes capillary refill normal Psych Appearance: grossly normal Mental Status: mental status grossly normal Affect: normal affect Attitude: cooperative Thought process: Normal thought process present Thought content: Normal thought content present Insight: Good insight present (Psych) Medical Decision Making MDM Narrative Medical decision making narrative: Patient is a 41 year old female presenting to the emergency department today with left sided elbow and arm pain. Patient's triage note is incorrect - it is the LEFT arm that the patient is complaining about, NOT the right. Patient's physical exam was unremarkable. I explained my physical exam findings to the patient. I answered all questions asked by the patient. I explained to the patient that her clinical presentation is most consistent with cubital tunnel syndrome. I recommended the patient keep her left arm extended as much as possible over the next 7 days to calm down the inflammation in the cubital tunnel. I stressed the importance of the patient taking her medication as prescribed. I stressed the importance of the patient following up with her primary care provider and an orthopedic provider. I stressed the importance of the patient returning to the emergency department immediately if her symptoms were to worsen or if she were to develop any dizziness, shortness of breath, difficulty breathing, chest pain, blurry vision, loss of vision, nausea, vomiting, abdominal pain, fever, chills, back pain, or any other complaints. Patient verbalized agreement and understanding with this treatment plan and discharge. Differential Diagnosis Differential Diagnosis: cubital tunnel syndrome Medical Records Medical records reviewed: Yes I reviewed the patient's medical records. Discharge Plan Discharge Clinical Impression: Cubital tunnel syndrome Patient Disposition: Home, Self-Care Instructions: Cubital Tunnel Syndrome (ED) Additional Instructions: Keep left elbow extended as much as possible over the next 7 days to allow inflammation in the cubital tunnel to decrease. Follow up with your primary care provider. Return to the emergency department immediately if your symptoms worsen or if you develop any dizziness, shortness of breath, difficulty breathing, chest pain, blurry vision, loss of vision, nausea, vomiting, abdominal pain, fever, chills, back pain, or any other complaints. Prescriptions: New prednisone 20 mg tablet 20 mg PO DAILY 12 Days Qty: 26 0RF Rx Instructions: Take 3 tablets for 5 days THEN; Take 2 tablets for 4 days THEN; Take 1 tablet for 3 days No Action naproxen 500 mg tablet 500 mg PO BID Qty: 30 0RF amitriptyline 25 mg tablet 1 tab PO BEDTIME PRN (Reason: insomnia ) omeprazole 20 mg capsule,delayed release(DR/EC) 1 cap PO DAILY albuterol sulfate [ProAir HFA] 90 mcg/actuation HFA aerosol inhaler 2 puff PO Q4H PRN (Reason: wheezing) lidocaine 4 % adhesive patch,medicated 1 patch topical DAILY PRN (Reason: pain) Qty: 10 0RF Rx Instructions: may leave on for up to 12 hrs acetaminophen [Tylenol Extra Strength] 500 mg tablet 1,000 mg PO QID PRN (Reason: fever or pain) Qty: 14 0RF ibuprofen 600 mg tablet 600 mg PO Q6H PRN (Reason: pain) Qty: 20 0RF tramadol 50 mg tablet 50 mg PO TID PRN (Reason: Pain) gabapentin 400 mg capsule 400 mg PO TID clonazepam 1 mg tablet 1 mg PO BEDTIME Rx Instructions: administer 30 minutes before bedtime zolpidem [Ambien] 10 mg tablet 10 mg PO BEDTIME PRN (Reason: Insomnia) Referrals: Lisa Wylie DO [Primary Care Provider] - (Follow up with your primary care provider. ) [facility] [place] [facility] [place] [facility] [Provider Group] (Call to establish and follow up with an orthopedic provider. ) Print Language: Turkmen
== END 2021-12-03 18:48 | disposition home or self-care (01) ==
PROVIDERS: Emergency Provider Emergency Medicine; PCP Family Medicine
DX: G56.23 Lesion of ulnar nerve, bilateral upper limbs (principal); M79.602 Pain in left arm; Z79.899 Other long term (current) drug therapy
CPT/HCPCS: 99281; 99283

== ENCOUNTER 2021-12-05 14:49 | Outpatient (REF) | payer MEDICAID, SELFPAY ==
[2021-12-06 06:06] LABS: CT PCR NOT DETECTED (Not Detect.); NG PCR NOT DETECTED (Not Detect.)
[2021-12-06 11:45] LABS: BV Int Neg Control Negative (Negative); BV Int Pos Control Positive (Positive)
[2021-12-12 04:02] LABS: HPV mRNA E6/E7 rflx Not Detected (Not Detected)
== END 2021-12-05 14:50 | disposition home or self-care (01) ==
LOC: HO.LNP 14:49
PROVIDERS: Visit Provider Advanced Practice Midwife
DX: Z01.419 Encounter for gynecological examination (general) (routine) without abnormal findings (principal); Z11.51 Encounter for screening for human papillomavirus (HPV); Z11.3 Encounter for screening for infections with a predominantly sexual mode of transmission
CPT/HCPCS: 87480; 87491; 87510; 87591; 87624; 87660; 88142

== ENCOUNTER 2021-12-19 12:51 | Outpatient (REF) | payer MEDICAID, SELFPAY ==
--- NOTE | ~2021-12-19 | XR_ITS ---
EXAMINATION: XR ELBOW, LEFT CLINICAL INFORMATION: Pain COMPARISON: Left elbow radiograph from 01/13/2021 TECHNIQUE: AP, lateral, and oblique views of the left elbow. FINDINGS: No acute visible fracture or dislocation. Joint spaces and alignment are maintained. No large elbow joint effusion. Soft tissues are unremarkable. XR/XR elbow LT min 3V IMPRESSION: No acute visible fracture or dislocation.
== END 2021-12-19 12:52 | disposition home or self-care (01) ==
LOC: HO.XRAY 12:51
PROVIDERS: PCP Family Medicine; Visit Provider Emergency Medicine
DX: M25.522 Pain in left elbow (principal)
CPT/HCPCS: 73080

== ENCOUNTER 2022-01-21 09:57 | Outpatient (REF) | payer MEDICAID, SELFPAY ==
--- NOTE | ~2022-01-21 | XR_ITS ---
EXAMINATION: X-RAY RIGHT HAND X-RAY LEFT HAND CLINICAL INFORMATION: Bilateral pain. COMPARISON: Radiograph of the right hand 08/11/2021 and radiograph of the left hand 03/08/2017. TECHNIQUE: 3 views of each hand. FINDINGS: No acute fractures or malalignment. No significant degenerative changes. No erosions. No abnormal soft tissue calcifications. No unexpected radiopaque foreign bodies. XR/XR hand LT min 3V IMPRESSION: 1. No acute fractures or malalignment. 2. No significant degenerative changes.
--- NOTE | ~2022-01-21 | XR_ITS ---
EXAMINATION: X-RAY RIGHT HAND X-RAY LEFT HAND CLINICAL INFORMATION: Bilateral pain. COMPARISON: Radiograph of the right hand 08/11/2021 and radiograph of the left hand 03/08/2017. TECHNIQUE: 3 views of each hand. FINDINGS: No acute fractures or malalignment. No significant degenerative changes. No erosions. No abnormal soft tissue calcifications. No unexpected radiopaque foreign bodies. XR/XR hand RT min 3V IMPRESSION: 1. No acute fractures or malalignment. 2. No significant degenerative changes.
[2022-01-21 11:57] LABS: Hematocrit 37.4 % (37.0-47.0); Hemoglobin 12.1 g/dl (12.0-16.0); Mean Corpuscular HGB Conc 32.4 g/dl (31.0-35.0); Mean Corpuscular Hemoglobin 28.7 pg (27.0-33.0); Mean Corpuscular Volume 88.6 fL (80.0-98.0); Mean Platelet Volume 12.3 fL (9.4-12.3); Platelet Count 260 X10*3/uL (160-400); Red Blood Count 4.22 X10*6/uL (4.20-5.50); Red Cell Distribution Width 13.6 % (11.0-16.0); White Blood Count 9.7 X10*3/uL (4.8-10.8)
[2022-01-21 12:02] LABS: Estimated Average Glucose 108 mg/dL; Hemoglobin A1c % 5.4 %
[2022-01-21 12:30] LABS: Alanine Aminotransferase 45 U/L (0-31); Albumin Level 3.8 g/dL (3.5-5.0); Alkaline Phosphatase 87 U/L (39-117); Anion Gap 16 (12-20); Aspartate Amino Transferase 47 U/L (5-31); Bilirubin Direct 0.2 mg/dL (0.0-0.5); Bilirubin Total 0.4 mg/dL (0.0-1.0); Blood Urea Nitrogen 11 mg/dL (9-16); Calcium 8.4 mg/dL (8.4-10.2); Carbon Dioxide 22 mmol/L (22-29); Chloride 106 mmol/L (96-108); Cholesterol 186 mg/dL; Estimated Glomerular Filt Rate > 60; Glucose Random 85 mg/dL (60-115); HDL Cholesterol 56 mg/dL; LDL Cholesterol Calculated 109 mg/dl; Potassium 4.5 mmol/L (3.3-5.1); Sodium 139 mmol/L (135-145); Total Protein 6.8 g/dL (6.5-8.0); Triglycerides 108 mg/dL
[2022-01-21 12:48] LABS: Syphilis Screen Nonreactive (Nonreactive)
[2022-01-21 12:53] LABS: Free T4 (Free Thyroxine) 0.88 ng/dL (0.71-1.85); Thyroid Stimulating Hormone 0.72 uIU/mL (0.32-4.0); Vitamin D 25-OH Total 8.4 ng/mL (>30)
[2022-01-21 13:01] LABS: CT PCR NOT DETECTED (Not Detect.); NG PCR NOT DETECTED (Not Detect.)
[2022-01-22 08:34] LABS: ~HepC Num1 0.06 S/CO (0.00-0.79); ~Hepatitis C Antibody Nonreactive (Nonreactive)
[2022-01-22 08:37] LABS: HBS Num1 39.65 mIU/mL (0-7.99); HBsAGNum1 0.24 S/CO (0.00-0.99); HIV AB/AG Nonreactive (Nonreactive); HIV Num 1 0.09 S/CO (0.00-0.99); Hepatitis B Surface Antigen Negative (Negative); ~Hepatitis B Surface Antibody REACTIVE (Nonreactive)
== END 2022-01-21 09:58 | disposition home or self-care (01) ==
LOC: HO.XRAY 09:57
PROVIDERS: PCP Family Medicine; Visit Provider Family Medicine
DX: Z00.00 Encounter for general adult medical examination without abnormal findings (principal); Z11.4 Encounter for screening for human immunodeficiency virus [HIV]; Z11.3 Encounter for screening for infections with a predominantly sexual mode of transmission; M79.641 Pain in right hand; M79.642 Pain in left hand; L73.2 Hidradenitis suppurativa; K76.9 Liver disease, unspecified; R31.29 Other microscopic hematuria
CPT/HCPCS: 73130; 80048; 80061; 80076; 82306; 83036; 84439; 84443; 85027; 86706; 86780; 86803; 87340; 87389; 87491; 87591

== ENCOUNTER 2022-01-23 09:00 | Outpatient (RCR) | payer MEDICAID, SELFPAY | END 2022-03-11 16:00 | disposition home or self-care (01) | LOC: HO.OT 09:00 | PROVIDERS: PCP Family Medicine; Visit Provider Emergency Medicine | DX: M25.522 Pain in left elbow (principal) | CPT/HCPCS: 97035; 97110; 97140; 97166 ==

== ENCOUNTER 2022-03-03 | Outpatient (REF) | payer MEDICAID, SELFPAY ==
--- NOTE | ~2022-03-03 | XR_ITS ---
EXAMINATION: XR HAND, RIGHT CLINICAL INFORMATION: Right hand pain. COMPARISON: 01/21/2022 right hand radiographs. TECHNIQUE: PA, lateral, and oblique views of the right hand. FINDINGS: The bones and soft tissues are normal. No fracture. Alignment is anatomic. Joint spaces are maintained. No erosions or soft tissue calcifications. XR/XR hand RT min 3V IMPRESSION: Unremarkable right hand.
== END 2022-03-03 00:01 | disposition home or self-care (01) ==
LOC: HO.HOSX
PROVIDERS: Visit Provider Orthopaedic Surgery
DX: M79.641 Pain in right hand (principal)
CPT/HCPCS: 73130; 99202

== ENCOUNTER → 2022-03-03 10:31 | Outpatient (BNVA) | payer MEDICAID, SELFPAY | PROVIDERS: PCP Family Medicine; Visit Provider Orthopaedic Surgery | DX: M79.642 Pain in left hand (principal); M79.641 Pain in right hand; R20.0 Anesthesia of skin | CPT/HCPCS: 73130; 99202 ==

== ENCOUNTER → 2022-03-19 09:24 | Outpatient (BNVA) | payer MEDICAID, SELFPAY | PROVIDERS: PCP Family Medicine; Visit Provider Anesthesiology | DX: M22.2X2 Patellofemoral disorders, left knee (principal) | CPT/HCPCS: 99212 ==

== ENCOUNTER 2022-04-13 12:29 | Outpatient (REF) | payer MEDICAID, SELFPAY ==
--- NOTE | ~2022-04-13 | MM_ITS ---
EXAMINATION: MM DIAGNOSTIC DIGITAL BREAST TOMOSYNTHESIS, BILATERAL CLINICAL INFORMATION: Due for yearly. Also follow-up probable benign circumscribed nodule anterior 11:00 left breast initially noted on baseline diagnostic exam. The lifetime risk of breast cancer based on the Tyrer-Cuzick Model is 13%. COMPARISON: Mammography: 04/09/2021, 10/02/2020, 04/04/2020 (BI-RADS 3, diagnostic), targeted left breast ultrasound 04/04/2020. TECHNIQUE: Digital breast tomosynthesis is performed in both the craniocaudal and mediolateral oblique views along with computer-aided detection (CAD). Synthesized 2D images are generated from the tomosynthesis. FINDINGS: There are scattered areas of fibroglandular density (ACR BI-RADS breast composition Category b). The small circumscribed nodule anterior 11:00 left breast is decreased in size. Margins are smooth. Finding is now considered to be benign. The remainder of the breasts show no developing density or interval significant mass or architectural abnormality. No abnormal calcifications. The axilla and skin contours are unremarkable. Results are provided to the patient at time of visit by the technologist. MM/MM tomosynthesis diagnostic BI IMPRESSION: -No mammographic evidence of malignancy. -Circumscribed left breast nodule for follow-up, decreased. ASSESSMENT: BI-RADS 2: Benign RECOMMENDATION: Routine annual mammography screening. This patient's information was entered into a reminder system with a target due date for their next mammogram.
== END 2022-04-13 12:30 | disposition home or self-care (01) ==
LOC: HO.MAMMO 12:29
PROVIDERS: PCP Family Medicine; Visit Provider Family Medicine
DX: N63.22 Unspecified lump in the left breast, upper inner quadrant (principal)
CPT/HCPCS: 77062; 77066

== ENCOUNTER 2022-05-05 22:15 | Emergency (ER) | payer MEDICAID, SELFPAY ==
[2022-05-05 22:22] VITALS: BP 144/84; PULSE 82; RESP 18; TEMP 36.3; O2SAT 100; BMI 33.3
[2022-05-05 22:41] LABS: Hematocrit 36.1 % (37.0-47.0); Hemoglobin 11.7 g/dl (12.0-16.0); Mean Corpuscular HGB Conc 32.4 g/dl (31.0-35.0); Mean Corpuscular Hemoglobin 28.6 pg (27.0-33.0); Mean Corpuscular Volume 88.3 fL (80.0-98.0); Mean Platelet Volume 11.9 fL (9.4-12.3); Platelet Count 246 X10*3/uL (160-400); Red Blood Count 4.09 X10*6/uL (4.20-5.50); White Blood Count 7.1 X10*3/uL (4.8-10.8)
[2022-05-05 23:02] LABS: Alanine Aminotransferase 15 U/L (0-31); Albumin Level 3.9 g/dL (3.5-5.0); Alkaline Phosphatase 91 U/L (39-117); Anion Gap 11 (12-20); Aspartate Amino Transferase 16 U/L (5-31); Bilirubin Total 0.5 mg/dL (0.0-1.0); Blood Urea Nitrogen 10 mg/dL (9-16); Calcium 8.5 mg/dL (8.4-10.2); Carbon Dioxide 25 mmol/L (22-29); Chloride 105 mmol/L (96-108); Creatinine Clr Calc Pharmacy 81.5; Estimated Glomerular Filt Rate > 60; Glucose Random 95 mg/dL (60-115); Potassium 3.7 mmol/L (3.3-5.1); Sodium 137 mmol/L (135-145); Total Protein 7.1 g/dL (6.5-8.0)
--- NOTE | 2022-05-05 23:10 | ED.BACK ---
HPI - Back Pain/Injury General Chief Complaint: Back Pain/Injury Stated Complaint: lower back pain Time Seen by Provider: 05/05/22 22:57 Source: patient Mode of arrival: ambulatory Limitations: no limitations History of Present Illness HPI Narrative: Patient with History of fibromyalgia chronic back pain was doing good for last few years taking gabapentin for fibromyalgia for last 3 days noticed pain more so in the low back with pain radiating to the lower back and the left similar to that in the past patient able to ambulate. Also patient has IUD removed 3 months ago and still having vaginal spotting followed by medical receptionist medical assistant noticed some blood in the urine she is not sure whether it is from the vagina or the bladder Related Data Home Medications Medication Instructions Recorded Confirmed gabapentin 400 mg capsule 400 mg PO TID 03/18/20 12/05/21 tramadol 50 mg tablet 50 mg PO TID PRN Pain 03/18/20 12/05/21 clonazepam 1 mg tablet 1 mg PO BEDTIME 04/16/20 12/05/21 zolpidem 10 mg tablet (Ambien) 10 mg PO BEDTIME PRN Insomnia 04/16/20 12/05/21 albuterol sulfate 90 mcg/actuation 2 puff PO Q4H PRN wheezing 10/25/20 12/05/21 aerosol inhaler (ProAir HFA) amitriptyline 25 mg tablet 1 tab PO BEDTIME PRN insomnia 10/25/20 12/05/21 omeprazole 20 mg capsule,delayed 1 cap PO DAILY 10/25/20 12/05/21 release baclofen 10 mg tablet 10 mg PO BID PRN muscle spasm 03/03/22 fluticasone propionate 110 1 puff inhalation BID 03/03/22 mcg/actuation HFA aerosol inhaler (Flovent HFA) Previous Rx's Medication Instructions Recorded ibuprofen 600 mg tablet 600 mg PO Q6H PRN pain #20 tabs 07/29/21 lidocaine 4 % topical patch 1 patch topical DAILY PRN pain #10 07/30/21 ea acetaminophen 500 mg tablet 1,000 mg PO QID PRN fever or pain 08/11/21 (Tylenol Extra Strength) #14 tabs cyclobenzaprine 10 mg tablet 10 mg PO Q8H #20 tabs 05/06/22 tramadol 50 mg tablet 50 mg PO Q6H PRN pain #20 tabs 05/06/22 Allergies Allergy/AdvReac Type Severity Reaction Status Date / Time Iodinated Contrast Media Allergy Severe ANAPHYLAXIS Verified 05/05/22 22:27 [IV CONTRAST] Review of Systems Review of Systems: Yes all other systems are reviewed and are negative [facility] Past Medical History Medical History Abnormal abdominal MRI Anxiety Arthritis Asthma Bipolar 1 disorder COVID-19 vaccine series completed Cyst of Bartholin's gland Depression Fibromyalgia Hematuria Left knee pain Microscopic hematuria Migraine with aura Surgical History H/O colonoscopy History of loop electrical excision procedure (LEEP) Hx of arthroscopic knee surgery Hx of section Hx of tubal ligation Status post insertion of nerve stimulator Family History Family History Mother Diabetes mellitus Asthma Depression Maternal Grandmother Asthma Breast cancer Maternal Aunt Diabetes mellitus HTN (hypertension) Breast cancer Social History Social History Household Members: Children Household Members Other:: children: 19, 18, fraternal twins-15 and a 5 year old. 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) Do you presently have visiting nurse or other home services: No Alcohol intake: current Alcohol intake frequency: holidays/special occasions only Patient Tobacco Use Status: Never used Tobacco Tobacco use type: Cigarette Smoked in Last 30 Days: No Use of substances other than those prescribed or required for medical reasons: No Advance Directives: No Advance Directives Information Provided: Yes Patient : No Current occupational status: unemployed Current occupation: rt hand Gender identity: Female Physical Exam Vital Signs: Vital Signs: Last Vital Signs Temp 98.0 F 05/05/22 23:56 Pulse 79 05/05/22 23:56 Resp 16 05/05/22 23:56 BP 119/76 05/05/22 23:56 Pulse Ox 100 05/05/22 23:56 O2 Del Method 05/05/22 22:22 BMI result Body Mass Index 33.3 Appearance: Alert. Oriented X3. No acute distress. Eyes: No pallor icterus ENT: Pharynx normal. Oral Mucosa moist Neck: Normal inspection. Neck supple. CVS: Normal heart rate and rhythm. Pulses normal. Respiratory: No respiratory distress. Equal air entry bilateral, no wheezing/rales/rhonchi Abdomen: Soft and nontender. Bowel sounds are present, no mass palpable, no CVA tenderness back: Diffuse tenderness paraspinal no focal spinal tenderness SLR negative bilaterally Skin: Skin warm and dry. Normal skin color. Normal skin turgor. Extremities: No lower extremity edema. No calf tenderness Neuro: Oriented X 3. No motor deficit. No sensory deficit. Medications Administered Discontinued Medications Generic Name Dose Route Start Last Admin Trade Name Freq PRN Reason Stop Dose Admin Cyclobenzaprine HCl 10 mg 05/05/22 23:30 05/05/22 23:47 Cyclobenzaprine Hcl 10 Mg Tablet PO 05/05/22 23:31 10 mg ONCE ONE Administration Tramadol HCl 50 mg 05/05/22 23:30 05/05/22 23:47 Tramadol Hcl 50 Mg Tablet PO 05/05/22 23:31 50 mg ONCE ONE Administration Medical Decision Making Medical Decision Making [facility] Narrative: Patient with history of fibromyalgia with diffuse lower back pain no focal deficits no midline tenderness SLR negative patient ambulating steady gait discharge patient home on tramadol and Flexeril Lab Data [facility] Lab Attestation statement: I reviewed the patient's lab results. 05/05/22 22:36 05/05/22 22:36 Labs: Lab Results 05/05/22 05/05/22 05/05/22 Range/Units 22:36 22:36 23:52 WBC 7.1 (4.8-10.8) X10*3/uL RBC 4.09 L (4.20-5.50) X10*6/uL Hgb 11.7 L (12.0-16.0) g/dl Hct 36.1 L (37.0-47.0) % MCV 88.3 (80.0-98.0) fL MCH 28.6 (27.0-33.0) pg MCHC 32.4 (31.0-35.0) g/dl RDW 13.0 (11.0-16.0) % Plt Count 246 (160-400) X10*3/uL MPV 11.9 (9.4-12.3) fL Absolute Nucleated RBC 0.000 (0.0-0.012) X10*3/uL Nucleated RBC % (auto) 0.0 (0.0-0.2) /100WBC Sodium 137 (135-145) mmol/L Potassium 3.7 (3.3-5.1) mmol/L Chloride 105 (96-108) mmol/L Carbon Dioxide 25 (22-29) mmol/L Anion Gap 11 L (12-20) BUN 10 (9-16) mg/dL Creatinine 1.00 (0.5-1.4) mg/dL Estim Creat Clear Calc 81.5 Estimated GFR > 60 Random Glucose 95 (60-115) mg/dL Calcium 8.5 (8.4-10.2) mg/dL Total Bilirubin 0.5 (0.0-1.0) mg/dL AST 16 (5-31) U/L ALT 15 (0-31) U/L Alkaline Phosphatase 91 (39-117) U/L Total Protein 7.1 (6.5-8.0) g/dL Albumin 3.9 (3.5-5.0) g/dL Urine Color Brown A Urine Appearance Turbid Urine pH 5.5 (5.0-9.0) Ur Specific [place] 1.025 (1.005-1.025) Urine Protein 100 (2+) H (Neg-Trace) mg/dL Urine Glucose (UA) Negative (Negative) mg/dL Urine Ketones Negative (Negative) mg/dL Urine Blood Large (3+) H (Negative) Urine Nitrite Negative (Negative) Ur Leukocyte Esterase Trace H (Negative) Urine RBC >20 H (0-2) /HPF Urine WBC 0-5 (0-5) /HPF Ur Squamous Epith Cells 3-5 (0-2) /HPF Urine Bacteria None Seen (None Seen) Hyaline Casts 0-2 (0-2) /LPF Discharge Plan Discharge Clinical Impression: Back pain Patient Disposition: Home, Self-Care Instructions: Back Pain (ED) Additional Instructions: Take pain medication and muscle relaxant as prescribed Follow-up with medical receptionist medical assistant about vaginal bleeding Prescriptions: New cyclobenzaprine 10 mg tablet 10 mg PO Q8H Qty: 20 0RF tramadol 50 mg tablet 50 mg PO Q6H PRN (Reason: pain) Qty: 20 0RF No Action amitriptyline 25 mg tablet 1 tab PO BEDTIME PRN (Reason: insomnia ) omeprazole 20 mg capsule,delayed release(DR/EC) 1 cap PO DAILY albuterol sulfate [ProAir HFA] 90 mcg/actuation HFA aerosol inhaler 2 puff PO Q4H PRN (Reason: wheezing) lidocaine 4 % adhesive patch,medicated 1 patch topical DAILY PRN (Reason: pain) Qty: 10 0RF Rx Instructions: may leave on for up to 12 hrs acetaminophen [Tylenol Extra Strength] 500 mg tablet 1,000 mg PO QID PRN (Reason: fever or pain) Qty: 14 0RF ibuprofen 600 mg tablet 600 mg PO Q6H PRN (Reason: pain) Qty: 20 0RF tramadol 50 mg tablet 50 mg PO TID PRN (Reason: Pain) gabapentin 400 mg capsule 400 mg PO TID clonazepam 1 mg tablet 1 mg PO BEDTIME Rx Instructions: administer 30 minutes before bedtime zolpidem [Ambien] 10 mg tablet 10 mg PO BEDTIME PRN (Reason: Insomnia) baclofen 10 mg tablet 10 mg PO BID PRN (Reason: muscle spasm) fluticasone propionate [Flovent HFA] 110 mcg/actuation HFA aerosol inhaler 1 puff inhalation BID
[2022-05-05] MEDS: traMADoL HCL 50 MG TABLET PO (23:47)
[2022-05-05] MEDS: Cyclobenzaprine HCl 10 MG TABLET PO (23:47)
[2022-05-05 23:56] VITALS: BP 119/76; PULSE 79; RESP 16; TEMP 36.7; O2SAT 100
[2022-05-06 00:07] LABS: Appearance Urine Turbid; Glucose Urine UA Negative (Negative); Leukocyte Esterase Urine Trace (Negative); Nitrite Urine Negative (Negative); PH 5.5 (5.0-9.0); Specific Gravity - Urine 1.025 (1.005-1.025); UMIC TRIGGER UACC YES; Urine Blood Large (3+) (Negative); Urine Ketones Negative (Negative); Urine Protein 100 (2+) mg/dL (Neg-Trace)
[2022-05-06 00:08] LABS: Bacteria Urine None Seen (None Seen); Color Urine Brown; Hyaline Casts Urine 0-2 /LPF (0-2); RBC Urine >20 /HPF (0-2); WBC Urine 0-5 /HPF (0-5)
== END 2022-05-06 00:35 | disposition home or self-care (01) ==
PROVIDERS: Emergency Provider Internal Medicine; PCP Family Medicine
DX: M54.50 Low back pain, unspecified (principal); M79.7 Fibromyalgia; Z98.51 Tubal ligation status; Z87.42 Personal history of other diseases of the female genital tract; Z79.899 Other long term (current) drug therapy
CPT/HCPCS: 36415; 80053; 81001; 85027; 99283; 99284

== ENCOUNTER 2022-05-20 12:35 | Outpatient (REF) | payer MEDICAID, SELFPAY ==
--- NOTE | 2022-05-20 08:30 | EMG_ITS ---
Please see scanned EMG / Nerve Conduction Report. MTDD
== END 2022-05-20 12:36 | disposition home or self-care (01) ==
LOC: HO.NEURO 12:35
PROVIDERS: Absent Provider Orthopaedic Surgery; PCP Family Medicine; Visit Provider Family Medicine
DX: R20.0 Anesthesia of skin (principal); R20.2 Paresthesia of skin
CPT/HCPCS: 95885; 95913

== ENCOUNTER 2022-08-28 08:49 | Emergency (ER) | payer MEDICAID, SELFPAY ==
--- NOTE | ~2022-08-28 | XR_ITS ---
EXAMINATION: XR CHEST CLINICAL INFORMATION: 2 weeks anterior chest pain. COMPARISON: None available. TECHNIQUE: 2 views of the chest were obtained. FINDINGS: No significant abnormality is noted involving the heart, lungs, mediastinum, bony thorax or soft tissues. XR/XR chest 2V IMPRESSION: Unremarkable chest examination.
--- NOTE | 2022-08-28 08:51 | ECG_ITS ---
Test Reason : chest pain Blood Pressure : / mmHG Vent. Rate : 070 BPM Atrial Rate : 070 BPM P-R Int : 140 ms QRS Dur : 086 ms QT Int : 370 ms P-R-T Axes : 073 050 036 degrees QTc Int : 399 ms Normal sinus rhythm with sinus arrhythmia Normal ECG When compared with ECG of 07-AUG-2021 21:49, No significant change was found Referred By: Generic ED Physician Electronically Signed By:DAVI HU
[2022-08-28 09:08] VITALS: BP 135/72; PULSE 72; RESP 20; TEMP 36.2; O2SAT 100; BMI 37.9
[2022-08-28 09:25] VITALS: BP 136/80; PULSE 64; RESP 15; TEMP 36.7
--- NOTE | 2022-08-28 10:13 | ED.CHESTPAIN ---
HPI - Chest Pain General Chief Complaint: Chest Pain Stated Complaint: chest pain Time Seen by Provider: 08/28/22 09:00 Source: patient Mode of arrival: ambulatory Limitations: no limitations History of Present Illness MD complaint: chest pain Pertinent past history: other (fibromyalgia) Onset (ago): week(s) (2) Timing of current episode: episodic and daily Prior episodes: Yes Onset: during rest and during exertion Pain location: substernal Pain radiation: left arm Severity: severe Pain scale (0-10): 8 Quality: sharp Relieving factors: nothing Exacerbating factors: exertion, palpation and movement Associated symptoms: other (dizziness) Treatment prior to arrival: none Related Data Home Medications Medication Instructions Recorded Confirmed gabapentin 400 mg capsule 400 mg PO TID 03/18/20 12/05/21 tramadol 50 mg tablet 50 mg PO TID PRN Pain 03/18/20 12/05/21 clonazepam 1 mg tablet 1 mg PO BEDTIME 04/16/20 12/05/21 zolpidem 10 mg tablet (Ambien) 10 mg PO BEDTIME PRN Insomnia 04/16/20 12/05/21 albuterol sulfate 90 mcg/actuation 2 puff PO Q4H PRN wheezing 10/25/20 12/05/21 aerosol inhaler (ProAir HFA) amitriptyline 25 mg tablet 1 tab PO BEDTIME PRN insomnia 10/25/20 12/05/21 omeprazole 20 mg capsule,delayed 1 cap PO DAILY 10/25/20 12/05/21 release baclofen 10 mg tablet 10 mg PO BID PRN muscle spasm 03/03/22 fluticasone propionate 110 1 puff inhalation BID 03/03/22 mcg/actuation HFA aerosol inhaler (Flovent HFA) Previous Rx's Medication Instructions Recorded ibuprofen 600 mg tablet 600 mg PO Q6H PRN pain #20 tabs 07/29/21 lidocaine 4 % topical patch 1 patch topical DAILY PRN pain #10 07/30/21 ea acetaminophen 500 mg tablet 1,000 mg PO QID PRN fever or pain 08/11/21 (Tylenol Extra Strength) #14 tabs cyclobenzaprine 10 mg tablet 10 mg PO Q8H #20 tabs 05/06/22 tramadol 50 mg tablet 50 mg PO Q6H PRN pain #20 tabs 05/06/22 gabapentin 300 mg capsule 300 mg PO BID #14 caps 08/28/22 meloxicam 15 mg tablet 15 mg PO DAILY #14 tabs 08/28/22 Allergies Allergy/AdvReac Type Severity Reaction Status Date / Time Iodinated Contrast Media Allergy Severe ANAPHYLAXIS Verified 08/28/22 09:11 [IV CONTRAST] [facility] Past Medical History Medical History Abnormal abdominal MRI Anxiety Arthritis Asthma Bipolar 1 disorder COVID-19 vaccine series completed Cyst of Bartholin's gland Depression Fibromyalgia Hematuria Left knee pain Microscopic hematuria Migraine with aura Surgical History H/O colonoscopy History of loop electrical excision procedure (LEEP) Hx of arthroscopic knee surgery Hx of section Hx of tubal ligation Status post insertion of nerve stimulator Family History Family History Mother Diabetes mellitus Asthma Depression Maternal Grandmother Asthma Breast cancer Maternal Aunt Diabetes mellitus HTN (hypertension) Breast cancer Social History Social History Household Members: Children Household Members Other:: children: 19, 18, fraternal twins-15 and a 5 year old. 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 other at home: Yes (child) Do you presently have visiting nurse or other home services: No Alcohol intake: current Alcohol intake frequency: holidays/special occasions only Patient Tobacco Use Status: Never used Tobacco Tobacco use type: Cigarette Advance Directives: No Advance Directives Information Provided: Yes Current occupational status: unemployed Current occupation: rt hand Gender identity: Female Physical Exam Vital Signs: Vital Signs: Last Vital Signs Temp 98.1 F 08/28/22 09:25 Pulse 64 08/28/22 09:25 Resp 15 08/28/22 09:25 BP 136/80 08/28/22 09:25 Pulse Ox 100 08/28/22 09:08 O2 Del Method Room Air 08/28/22 09:25 BMI result Body Mass Index 37.9 GEN: Well developed, no acute distress, alert, oriented HEENT: Normocephalic, atraumatic, normal external ears, nose appears normal, no oropharyngeal edema or exudates Eyes: Normal to appearance Neck: Supple, no lymphadenopathy Respiratory: Talks in complete sentences, no respiratory distress, clear to auscultation bilaterally Cardiovascular: Regular rate and rhythm, no murmurs rubs or gallops Abdomen: Soft, nontender, nondistended, no guarding, no rebound Back: No CVA tenderness Extremities: No clubbing cyanosis or edema Neurologic: No focal neurologic deficits, cranial nerves 2-12 intact, strength is 5/5 bilaterally Skin: No rash CHEST: reproducible anterior chest wall tenderness Course Course Course Narrative: 41-year-old female with history of fibromyalgia, no coronary artery disease, PE or DVT, no family history of sudden cardiac presents with anterior chest wall pain which is reproducible on examination. She has no lower extremity edema I suspect this could be a fibromyalgia flare up and/or costochondritis. Will treat patient with NSAIDs. Will also obtain chest x-ray, troponin additional laboratory analysis. Her PERC score is 0. No indication for CT angiogram of the chest. EKG shows no acute ischemic changes. Reevaluation(s) Reevaluation #1: Patient is feeling moderately improved. Her diagnosis is most likely combination of fibromyalgia associated possible costochondritis or chest wall pain. Place patient on NSAIDs. She can continue her baclofen as needed. Additionally, will start patient on gabapentin twice daily. Time: 11:59 Medications Administered Discontinued Medications Generic Name Dose Route Start Last Admin Trade Name Freq PRN Reason Stop Dose Admin Sodium Chloride 1,000 mls @ 999 mls/hr 08/28/22 10:15 08/28/22 10:48 Ns IV 08/28/22 11:15 999 mls/hr .Q1H1M PAPO Administration Ketorolac Tromethamine 15 mg 08/28/22 10:09 08/28/22 10:48 Ketorolac Tromethamine 15 Mg/Ml Vial IVPUSH 08/28/22 10:10 15 mg ONCE ONE Administration Meclizine HCl 25 mg 08/28/22 10:09 08/28/22 10:48 Meclizine Hcl 25 Mg Tablet PO 08/28/22 10:10 25 mg ONCE ONE Administration Medical Decision Making Medical Decision Making [facility] Narrative: Patient presents with chest pain. Reproducible on examination. She is otherwise hemodynamically stable. EKG is nonischemic. Doubt PE. Perc score is 0. She is not hypoxic. There is no evidence of right heart strain on EKG. The reproducible nature suggest that this could be musculoskeletal, fibromyalgia or costochondritis. Doubt pneumonia, pneumothorax. Will obtain chest x-ray and laboratory analysis Differential Diagnosis Differential Diagnoses: The differential diagnosis associated with the presentation includes (See above) Admission/Observation Consideration of admission/observation: Escalation of care including admission/observation considered Lab Data MDM Lab Attestation statement: I reviewed the patient's lab results. 08/28/22 11:08 08/28/22 11:08 Labs: Lab Results 08/28/22 08/28/22 08/28/22 Range/Units 11:08 11:08 11:08 WBC 7.8 (4.8-10.8) X10*3/uL RBC 4.87 (4.20-5.50) X10*6/uL Hgb 11.7 L (12.0-16.0) g/dl Hct 39.5 (37.0-47.0) % MCV 81.1 (80.0-98.0) fL MCH 24.0 L (27.0-33.0) pg MCHC 29.6 L (31.0-35.0) g/dl RDW 15.9 (11.0-16.0) % Plt Count 291 (160-400) X10*3/uL MPV 11.7 (9.4-12.3) fL Immature Gran % (Auto) 0.3 (0.0-0.4) % Neut % (Auto) 54.4 (45-73) % Lymph % (Auto) 37.9 (20-40) % Wetzel % (Auto) 4.2 (2-11) % Eos % (Auto) 2.7 (0-4) % Baso % (Auto) 0.5 (0-2) % Lymph # (Auto) 3.0 (1.2-4.9) X10*3/uL Wetzel # (Auto) 0.3 (0.1-1.2) X10*3/uL Eos # (Auto) 0.2 (0.0-0.4) X10*3/uL Baso # (Auto) 0.0 (0.0-0.2) X10*3/uL Abs Immat Gran (auto) 0.02 (0.00-0.03) X10*3/uL Absolute Neuts (auto) 4.2 (2.0-8.3) x10*3/uL Absolute Nucleated RBC 0.000 (0.0-0.012) X10*3/uL Nucleated RBC % (auto) 0.0 (0.0-0.2) /100WBC Sodium 140 (135-145) mmol/L Potassium 4.2 (3.3-5.1) mmol/L Chloride 111 H (96-108) mmol/L Carbon Dioxide 20 L (22-29) mmol/L Anion Gap 13 (12-20) BUN 9 (9-16) mg/dL Creatinine 0.84 (0.5-1.4) mg/dL Estim Creat Clear Calc 107.7 Estimated GFR > 60 Random Glucose 83 (60-115) mg/dL Calcium 9.1 D (8.4-10.2) mg/dL Troponin I High Sens < 2.7 (<3.5-17.0) ng/L TSH 0.54 (0.32-4.0) uIU/mL Independent Interpretation I performed an independent interpretation of an: EKG (Normal sinus rhythm heart rate 70, normal intervals, no acute ST elevations depressions) and Plain X-Ray Prescription Management I considered prescription management with: Pain Medication Discharge Plan Discharge Clinical Impression: Chest pain Patient Disposition: Home, Self-Care Instructions: Chest Pain (DC), Costochondritis (ED), Fibromyalgia (ED) Prescriptions: New meloxicam 15 mg tablet 15 mg PO DAILY Qty: 14 0RF gabapentin 300 mg capsule 300 mg PO BID Qty: 14 0RF No Action amitriptyline 25 mg tablet 1 tab PO BEDTIME PRN (Reason: insomnia ) omeprazole 20 mg capsule,delayed release(DR/EC) 1 cap PO DAILY albuterol sulfate [ProAir HFA] 90 mcg/actuation HFA aerosol inhaler 2 puff PO Q4H PRN (Reason: wheezing) lidocaine 4 % adhesive patch,medicated 1 patch topical DAILY PRN (Reason: pain) Qty: 10 0RF Rx Instructions: may leave on for up to 12 hrs acetaminophen [Tylenol Extra Strength] 500 mg tablet 1,000 mg PO QID PRN (Reason: fever or pain) Qty: 14 0RF ibuprofen 600 mg tablet 600 mg PO Q6H PRN (Reason: pain) Qty: 20 0RF cyclobenzaprine 10 mg tablet 10 mg PO Q8H Qty: 20 0RF tramadol 50 mg tablet 50 mg PO Q6H PRN (Reason: pain) Qty: 20 0RF tramadol 50 mg tablet 50 mg PO TID PRN (Reason: Pain) gabapentin 400 mg capsule 400 mg PO TID clonazepam 1 mg tablet 1 mg PO BEDTIME Rx Instructions: administer 30 minutes before bedtime zolpidem [Ambien] 10 mg tablet 10 mg PO BEDTIME PRN (Reason: Insomnia) baclofen 10 mg tablet 10 mg PO BID PRN (Reason: muscle spasm) fluticasone propionate [Flovent HFA] 110 mcg/actuation HFA aerosol inhaler 1 puff inhalation BID Referrals: Lisa Wylie DO [Primary Care Provider] - 3 days
[2022-08-28] MEDS: Ketorolac Tromethamine 15 MG/ML VIAL IVPUSH (10:48)
[2022-08-28] MEDS: Meclizine HCl 25 MG TABLET PO (10:48)
[2022-08-28] MEDS: 0.9 % Sodium Chloride 1,000 ML 999 ML IV (10:48)
[2022-08-28 11:12] LABS: MANUAL DIFF FLAG NO
[2022-08-28 11:16] LABS: Basophils Percent Auto 0.5 % (0-2); Eosinophils Absolute Auto 0.2 X10*3/uL (0.0-0.4); Eosinophils Percent Auto 2.7 % (0-4); Hematocrit 39.5 % (37.0-47.0); Hemoglobin 11.7 g/dl (12.0-16.0); Imm Gran Abs Auto 0.02 X10*3/uL (0.00-0.03); Imm Gran Pct Auto 0.3 % (0.0-0.4); Lymphocytes Percent Auto 37.9 % (20-40); Mean Corpuscular HGB Conc 29.6 g/dl (31.0-35.0); Mean Corpuscular Volume 81.1 fL (80.0-98.0); Mean Platelet Volume 11.7 fL (9.4-12.3); Monocytes Absolute Auto 0.3 X10*3/uL (0.1-1.2); Monocytes Percent Auto 4.2 % (2-11); Neutrophils Absolute Auto 4.2 x10*3/uL (2.0-8.3); Neutrophils Percent Auto 54.4 % (45-73); Platelet Count 291 X10*3/uL (160-400); Red Blood Count 4.87 X10*6/uL (4.20-5.50); Red Cell Distribution Width 15.9 % (11.0-16.0); White Blood Count 7.8 X10*3/uL (4.8-10.8)
[2022-08-28 11:38] LABS: Anion Gap 13 (12-20); Blood Urea Nitrogen 9 mg/dL (9-16); Calcium 9.1 mg/dL (8.4-10.2); Carbon Dioxide 20 mmol/L (22-29); Chloride 111 mmol/L (96-108); Creatinine Clr Calc Pharmacy 107.7; Estimated Glomerular Filt Rate > 60; Glucose Random 83 mg/dL (60-115); Potassium 4.2 mmol/L (3.3-5.1); Sodium 140 mmol/L (135-145)
[2022-08-28 11:47] LABS: Troponin-I High Sensitivity < 2.7 ng/L (<3.5-17.0)
[2022-08-28 11:50] LABS: TSH reflex Free T4 0.54 uIU/mL (0.32-4.0)
== END 2022-08-28 12:21 | disposition home or self-care (01) ==
PROVIDERS: Emergency Provider Emergency Medicine; PCP Family Medicine
DX: R07.9 Chest pain, unspecified (principal)
CPT/HCPCS: 36415; 71046; 80048; 84443; 84484; 85025; 93005; 96361; 96374; 99284; J1885

== ENCOUNTER 2022-11-15 19:14 | Emergency (ER) | payer MEDICAID, SELFPAY ==
--- NOTE | ~2022-11-15 | XR_ITS ---
EXAMINATION: XR HAND, RIGHT CLINICAL INFORMATION: Limited range of motion, pain. COMPARISON: Radiograph right hand 03/03/2022. TECHNIQUE: Three views of the right hand. FINDINGS: No acute fractures or subluxation. No significant soft tissue abnormality. No unexpected radiopaque foreign bodies. XR/XR hand RT min 3V IMPRESSION: No significant osseous or soft tissue abnormality.
[2022-11-15 19:24] VITALS: BP 119/83; PULSE 87; RESP 18; TEMP 36.3; O2SAT 100; BMI 37.4
--- NOTE | 2022-11-15 21:08 | ED.EXTPRO ---
HPI - Extremity Problem General Chief complaint: Extremity Injury, Upper Stated complaint: left hand finger injury Time Seen by Provider: 11/15/22 21:08 Source: patient Mode of arrival: ambulatory Limitations: no limitations History of Present Illness HPI Narrative: Patient is a 42 year old assigned female at with a history of asthma, anxiety, and polyarthralgia presenting to the emergency department today with right thumb pain. Patient states that she was at her friend's house when a canvas wall hanging picture fell and landed on the patient's right thumb. Patient states that she has significant pain with right thumb movement now. Patient denies any dizziness, lightheadedness, abdominal pain, nausea, vomiting, fever, chills, blurry vision, double vision, loss of vision, chest pain, difficulty breathing, shortness of breath, back pain, night sweats, pain with urination, increased urinary frequency, increased urinary urgency, blood in her urine or stool, syncope or a near syncopal episode, bowel incontinence, bladder incontinence, bowel retention, bladder retention, or any other complaints at this time. MD Complaint: extremity pain Onset (ago): minute(s) (30) Pain Consistency: constant Location: right and upper extremity Severity scale (1-10): 4 Quality: aching and dull Radiation: none Relieving factors: immobilization Exacerbating factors: range of motion Associated symptoms: denies other symptoms Related Data Home Medications Medication Instructions Recorded Confirmed gabapentin 400 mg capsule 400 mg PO TID 03/18/20 12/05/21 tramadol 50 mg tablet 50 mg PO TID PRN Pain 03/18/20 12/05/21 clonazepam 1 mg tablet 1 mg PO BEDTIME 04/16/20 12/05/21 zolpidem 10 mg tablet (Ambien) 10 mg PO BEDTIME PRN Insomnia 04/16/20 12/05/21 albuterol sulfate 90 mcg/actuation 2 puff PO Q4H PRN wheezing 10/25/20 12/05/21 aerosol inhaler (ProAir HFA) amitriptyline 25 mg tablet 1 tab PO BEDTIME PRN insomnia 10/25/20 12/05/21 omeprazole 20 mg capsule,delayed 1 cap PO DAILY 10/25/20 12/05/21 release baclofen 10 mg tablet 10 mg PO BID PRN muscle spasm 03/03/22 fluticasone propionate 110 1 puff inhalation BID 03/03/22 mcg/actuation HFA aerosol inhaler (Flovent HFA) Previous Rx's Medication Instructions Recorded ibuprofen 600 mg tablet 600 mg PO Q6H PRN pain #20 tabs 07/29/21 lidocaine 4 % topical patch 1 patch topical DAILY PRN pain #10 07/30/21 ea acetaminophen 500 mg tablet 1,000 mg PO QID PRN fever or pain 08/11/21 (Tylenol Extra Strength) #14 tabs cyclobenzaprine 10 mg tablet 10 mg PO Q8H #20 tabs 05/06/22 tramadol 50 mg tablet 50 mg PO Q6H PRN pain #20 tabs 05/06/22 gabapentin 300 mg capsule 300 mg PO BID #14 caps 08/28/22 meloxicam 15 mg tablet 15 mg PO DAILY #14 tabs 08/28/22 prednisone 20 mg tablet 20 mg PO DAILY 7 days #7 tabs 11/15/22 Allergies Allergy/AdvReac Type Severity Reaction Status Date / Time Iodinated Contrast Media Allergy Severe ANAPHYLAXIS Verified 11/15/22 19:24 [IV CONTRAST] Review of Systems Constitutional: Constitutional: Reports no additional constitutional complaints, Denies chills, Denies fever(s) and Denies night sweats Eyes: Eyes: Reports no additional eye complaints, Denies blurry vision, Denies change in vision, Denies diplopia, Denies eye discharge, Denies loss of vision and Denies eye pain ENT: Denies dizziness Cardiovascular: Cardiovascular: Reports no additional cardiovascular complaints, Denies chest pain, Denies lightheadedness, Denies Loss of Consciousness and Denies dyspnea Respiratory: Respiratory: Reports no additional respiratory complaints and Denies dyspnea Gastrointestinal: Gastrointestinal: Reports no additional gastrointestinal complaints, Denies abdominal pain, Denies melena, Denies hematochezia, Denies change in bowel habits and Denies change in stool character Genitourinary: Genitourinary: Denies hematuria, Denies urinary frequency, Denies dysuria, Denies urinary incontinence, Denies urinary hesitancy and Denies urinary urgency Musculoskeletal: Musculoskeletal: Reports no additional musculoskeletal complaints, Denies numbness and Denies tingling Comments: right thumb pain Neurologic: Denies dizziness, Denies loss of vision, Denies numbness and Denies tingling Psychiatric: Psychiatric: Reports no additional psychiatric complaints Endocrine: Endocrine: Reports no additional endocrine complaints Hematologic/Lymphatic: Hematologic/Lymphatic: Reports no additional hematologic/lymphatic complaints Allergic/Immunologic: Allergic/Immunologic: Reports no additional allergic/immunologic complaints [facility] Past Medical History Attestation statement: The following information was validated with the patient. Source: old records reviewed and nursing notes reviewed Medical History Abnormal abdominal MRI Allergy to contrast media (used for diagnostic x-rays) Anxiety Arthritis Asthma Bilateral hand numbness Bipolar 1 disorder Breast nodule Breast pain, left Close exposure to 2019-nCoV Close exposure to COVID-19 virus COVID-19 vaccine series completed Cyst of Bartholin's gland Depression Encounter for intrauterine device placement Encounter for removal of intrauterine contraceptive device (IUD) Fibromyalgia Hematuria History of abnormal cervical Pap smear Left knee pain Left lateral epicondylitis Microscopic hematuria Migraine with aura Patellofemoral disorder of left knee Potential exposure to STD Precordial chest pain Right hand pain SOB (shortness of breath) Well woman exam with routine gynecological exam Surgical History H/O colonoscopy History of loop electrical excision procedure (LEEP) Hx of arthroscopic knee surgery Hx of section Hx of tubal ligation Status post insertion of nerve stimulator Family History Family History Mother Diabetes mellitus Asthma Depression Maternal Grandmother Asthma Breast cancer Maternal Aunt Diabetes mellitus HTN (hypertension) Breast cancer Social History Social History Household Members: Children Household Members Other:: children: 19, 18, fraternal twins-15 and a 5 year old. 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 (child) Do you presently have visiting nurse or other home services: No Alcohol intake: current Alcohol intake frequency: holidays/special occasions only Patient Tobacco Use Status: Never used Tobacco Tobacco use type: Cigarette Advance Directives: No Advance Directives Information Provided: No Current occupational status: unemployed Current occupation: rt hand Gender identity: Female Physical Exam Vital Signs: Vital Signs: Last Vital Signs Temp 98.4 F 11/15/22 21:26 Pulse 74 11/15/22 21:26 Resp 18 11/15/22 21:26 BP 119/75 11/15/22 21:26 Pulse Ox 99 11/15/22 21:26 O2 Del Method Room Air 11/15/22 21:26 BMI result Body Mass Index 37.4 Const: General: cooperative, no acute distress, alert and awake Nutritional Appearance: well nourished Orientation/consciousness: patient oriented x3 Limitations: no limitations HEENT: Head: Yes normal to inspection and Yes atraumatic Ears: hearing grossly normal bilaterally and external ears normal General nose exam: Normal external nose present, no nasal discharge noted and no epistaxis Face and sinus: Yes normal facial exam, No abrasion and No laceration Mouth: Normal oral and palatal mucosa present, no drooling and no muffled voice Eyes: General: appearance normal, both eyes and all related structures Periorbital: periorbital findings normal Eyelids: Yes eyelids normal Conjunctivae: conjunctivae normal Pupils: Equal, round and reactive pupils present EOM: EOMs intact bilaterally Neck: Neck: Yes normal visual inspection, Yes full ROM and Yes no lymphadenopathy Chest: Chest palpation & inspection: normal inspection of the chest Resp: Effort & Inspection: normal respiratory effort and able to speak in complete sentences GI: Inspection: Yes normal to inspection Neuro: General: patient oriented x3 and moves all extremities Cranial nerves: Yes Equal, round and reactive pupils present Cognition (Neuro): normal cognition Motor exam (neuro): 5/5 motor strength present throughout Sensory Exam: Normal double simultaneous stimulation for sensation Coordination: [id number] test normal Extrem: Other: patient able to touch right thumb to all finger tips but the right 5th finger, patient has pain with all right thumb ROM General: Yes normal to inspection and Yes capillary refill normal Psych: Appearance: grossly normal Mental Status: mental status grossly normal Affect: normal affect Attitude: cooperative Thought process: Normal thought process present Thought content: Normal thought content present Insight: Good insight present (Psych) Medical Decision Making Medical Decision Making MDM Narrative: Patient is a 42 year old assigned female at with a history of asthma, anxiety, and polyarthralgia presenting to the emergency department today with right thumb pain. Patient's physical exam was as noted in the physical exam portion of this note. Patient's right hand x-ray showed no acute process. Patient's clinical presentation is most consistent with a right radial collateral ligament injury of the right thumb. Patient was placed in a Velcro thumb Spica splint, without incident. Patient's PMS was intact prior to and after splint placement. I explained my physical exam findings as well as all test results to the patient. I answered all questions asked by the patient. I stressed the importance of the patient taking her medication as prescribed. I stressed the importance of the patient following up with her primary care provider and an orthopedic provider. I stressed the importance of the patient returning to the emergency department immediately if her symptoms were to worsen or if she were to develop any dizziness, shortness of breath, difficulty breathing, chest pain, blurry vision, loss of vision, nausea, vomiting, abdominal pain, fever, chills, back pain, or any other complaints. Patient verbalized agreement and understanding with this treatment plan and discharge. Differential Diagnosis Differential Diagnoses: The differential diagnosis associated with the presentation includes Right thumb sprain Right thumb strain Right radial collateral ligament of the thumb injury Independent Interpretation I performed an independent interpretation of an: Plain X-Ray Interpretation: My interpretation is in agreement with the radiologist's impression of this imaging study. EXAMINATION: XR HAND, RIGHT CLINICAL INFORMATION: Limited range of motion, pain.? COMPARISON: Radiograph right hand 03/03/2022.? TECHNIQUE: Three views of the right hand. FINDINGS: No acute fractures or subluxation. No significant soft tissue abnormality. No unexpected radiopaque foreign bodies.? XR/XR hand RT min 3V IMPRESSION: No significant osseous or soft tissue abnormality. Dictated By: Emelia Pardo Signed By: Electronically signed by Emelia?Edvin 11/15/222036 Radiology Impression Discussion of test interpretation with radiology: I have reviewed the radiologist's reading. Prescription Management I considered prescription management with: Other (patient prescribed prednisone) Procedures Orthopedic Splinting/Casting Injury #1: Side: right Upper Extremity Injury Location: finger (thumb) Upper Extremity Immobilizer: thumb spica Discharge Plan Discharge Clinical Impression: Crush injury to thumb, Radial collateral ligament sprain Patient Disposition: Home, Self-Care Instructions: Crush Injury (ED) Additional Instructions: Follow up with your primary care provider and an orthopedic provider. Wear your splint as much as tolerated. Return to the emergency department immediately if your symptoms worsen or if you develop any dizziness, shortness of breath, difficulty breathing, chest pain, blurry vision, loss of vision, nausea, vomiting, abdominal pain, fever, chills, back pain, or any other complaints. Prescriptions: New prednisone 20 mg tablet 20 mg PO DAILY 7 Days Qty: 7 0RF No Action amitriptyline 25 mg tablet 1 tab PO BEDTIME PRN (Reason: insomnia ) omeprazole 20 mg capsule,delayed release(DR/EC) 1 cap PO DAILY albuterol sulfate [ProAir HFA] 90 mcg/actuation HFA aerosol inhaler 2 puff PO Q4H PRN (Reason: wheezing) lidocaine 4 % adhesive patch,medicated 1 patch topical DAILY PRN (Reason: pain) Qty: 10 0RF Rx Instructions: may leave on for up to 12 hrs acetaminophen [Tylenol Extra Strength] 500 mg tablet 1,000 mg PO QID PRN (Reason: fever or pain) Qty: 14 0RF ibuprofen 600 mg tablet 600 mg PO Q6H PRN (Reason: pain) Qty: 20 0RF cyclobenzaprine 10 mg tablet 10 mg PO Q8H Qty: 20 0RF tramadol 50 mg tablet 50 mg PO Q6H PRN (Reason: pain) Qty: 20 0RF meloxicam 15 mg tablet 15 mg PO DAILY Qty: 14 0RF gabapentin 300 mg capsule 300 mg PO BID Qty: 14 0RF tramadol 50 mg tablet 50 mg PO TID PRN (Reason: Pain) gabapentin 400 mg capsule 400 mg PO TID clonazepam 1 mg tablet 1 mg PO BEDTIME Rx Instructions: administer 30 minutes before bedtime zolpidem [Ambien] 10 mg tablet 10 mg PO BEDTIME PRN (Reason: Insomnia) baclofen 10 mg tablet 10 mg PO BID PRN (Reason: muscle spasm) fluticasone propionate [Flovent HFA] 110 mcg/actuation HFA aerosol inhaler 1 puff inhalation BID Referrals: [facility] [place] [facility] [Provider Group] (Call to establish and follow up with an orthopedic provider.) Lisa Wylie DO [Primary Care Provider] - Interventions: ED Discharge Assessment Last Done: 11/15/22 22:27 Discharge Date/Time: 11/15/22 22:27 Print Language: Greek
[2022-11-15 21:26] VITALS: BP 119/75; PULSE 74; RESP 18; TEMP 36.9; O2SAT 99
== END 2022-11-15 22:27 | disposition home or self-care (01) ==
PROVIDERS: Emergency Provider Internal Medicine; PCP Family Medicine
DX: S67.01XA Crushing injury of right thumb, initial encounter (principal); S63.681A Other sprain of right thumb, initial encounter; W20.8XXA Other cause of strike by thrown, projected or falling object, initial encounter; Y92.019 Unspecified place in single-family (private) house as the place of occurrence of the external cause; Y93.9 Activity, unspecified; Y99.9 Unspecified external cause status; Z79.899 Other long term (current) drug therapy
CPT/HCPCS: 29125; 29130; 73130; 99283

== ENCOUNTER 2023-01-25 09:18 | Outpatient (REF) | payer MEDICAID, SELFPAY ==
[2023-01-25 09:53] LABS: MANUAL DIFF FLAG NO
[2023-01-25 10:51] LABS: Urine Cytology See Pathology rpt
[2023-01-25 11:01] LABS: Appearance Urine Turbid; Color Urine Yellow; Glucose Urine UA Negative (Negative); Leukocyte Esterase Urine Trace (Negative); Nitrite Urine Negative (Negative); PH 5.5 (5.0-9.0); Specific Gravity - Urine 1.025 (1.005-1.025); UMIC TRIGGER UA YES; Urine Blood Trace (Negative); Urine Ketones Negative (Negative); Urine Protein Trace mg/dL (Neg-Trace)
[2023-01-25 11:05] LABS: Basophils Absolute Auto 0.1 X10*3/uL (0.0-0.2); Basophils Percent Auto 0.7 % (0-2); Eosinophils Absolute Auto 0.2 X10*3/uL (0.0-0.4); Eosinophils Percent Auto 3.2 % (0-4); Imm Gran Abs Auto 0.03 X10*3/uL (0.00-0.03); Imm Gran Pct Auto 0.4 % (0.0-0.4); Lymphocytes Absolute Auto 2.7 X10*3/uL (1.2-4.9); Lymphocytes Percent Auto 37.4 % (20-40); Mean Corpuscular HGB Conc 28.1 g/dl (31.0-35.0); Mean Corpuscular Hemoglobin 19.8 pg (27.0-33.0); Mean Corpuscular Volume 70.3 fL (80.0-98.0); Mean Platelet Volume 11.4 fL (9.4-12.3); Monocytes Absolute Auto 0.4 X10*3/uL (0.1-1.2); Monocytes Percent Auto 4.9 % (2-11); Neutrophils Absolute Auto 3.8 x10*3/uL (2.0-8.3); Neutrophils Percent Auto 53.4 % (45-73); Platelet Count 342 X10*3/uL (160-400); Red Blood Count 4.55 X10*6/uL (4.20-5.50); Red Cell Distribution Width 16.1 % (11.0-16.0)
[2023-01-25 11:06] LABS: Bacteria Urine 4+ (None Seen); Squamous Epithelial Cell Urine >20 /HPF (0-2)
[2023-01-25 11:06] LABS: White Blood Count 7.2 X10*3/uL (4.8-10.8)
[2023-01-25 11:18] LABS: Estimated Average Glucose 111 mg/dL; Hemoglobin A1c % 5.5 % (<6.0)
[2023-01-25 11:34] LABS: Alanine Aminotransferase 18 U/L (0-31); Alkaline Phosphatase 100 U/L (39-117); Anion Gap 14 (12-20); Aspartate Amino Transferase 29 U/L (5-31); Bilirubin Direct 0.1 mg/dL (0.0-0.5); Bilirubin Total 0.3 mg/dL (0.0-1.0); Blood Urea Nitrogen 10 mg/dL (9-16); Calcium 9.3 mg/dL (8.4-10.2); Carbon Dioxide 21 mmol/L (22-29); Chloride 106 mmol/L (96-108); Cholesterol 190 mg/dL (<200); Estimated Glomerular Filt Rate > 60; Glucose Random 98 mg/dL (60-115); HDL Cholesterol 57 mg/dL (>40); LDL Cholesterol Calculated 117 mg/dL (<100); Potassium 3.9 mmol/L (3.3-5.1); Sodium 137 mmol/L (135-145); Total Protein 7.9 g/dL (6.5-8.0); Triglycerides 84 mg/dL (<150)
[2023-01-25 11:41] LABS: ~HepC Num1 0.09 S/CO (0.00-0.79); ~Hepatitis C Antibody Nonreactive (Nonreactive)
[2023-01-25 11:43] LABS: Free T4 (Free Thyroxine) 0.75 ng/dL (0.71-1.85); Thyroid Stimulating Hormone 0.63 uIU/mL (0.32-4.0); Vitamin D 25-OH Total 11.3 ng/mL (>30)
[2023-01-25 13:21] LABS: CT PCR NOT DETECTED (Not Detect.); NG PCR NOT DETECTED (Not Detect.)
[2023-01-27 09:43] LABS: RPR Rapid Plasma Reagin NON-REACTIVE (NON-REACTIVE)
[2023-01-28 14:19] LABS: HIV RNA PCR Qn Copies Not Detected Copies/mL; HIV RNA PCR Qn Log Copies Not Detected Log cps/mL
== END 2023-01-25 09:19 | disposition home or self-care (01) ==
LOC: HO.LAB 09:18
PROVIDERS: PCP Family Medicine; Visit Provider Family Medicine
DX: R31.29 Other microscopic hematuria (principal)
CPT/HCPCS: 0353U; 80048; 80061; 80076; 81001; 81003; 82306; 83036; 84439; 84443; 85025; 86592; 86803; 87536; 87900; 88112

== ENCOUNTER 2023-02-15 10:04 | Outpatient (REF) | payer MEDICAID, SELFPAY ==
--- NOTE | ~2023-02-15 | US_ITS ---
EXAMINATION: US PELVIS CLINICAL INFORMATION: Follow up ovarian adnexal cysts. Last menstrual period 1 month ago. COMPARISON: Pelvic ultrasound 11/13/2021. TECHNIQUE: Ultrasound of the pelvis is performed using both transabdominal and transvaginal transducers along with Doppler. Transvaginal imaging is performed due to inadequate visualization transabdominally. FINDINGS: The uterus is anteverted, heterogeneous and measures 14.9 x 6.0 x 8.5 cm. A 4.9 x 5.8 x 5.1 cm fundal fibroid previously measured 2.9 x 1.8 x 3.5 cm. Endometrial thickness is 0.9 cm. Endometrium appears heterogeneous. There is no significant free fluid. Nabothian cysts present. Right ovary measures 5.3 x 3.6 x 3.3 cm, 32.6 mL. Right ovarian multiseptated cyst appears complex with increased vascularity and measures 5.1 x 3.1 x 3.0 cm and was not identified on the prior exam. The left ovary was difficult to visualize due to bowel gas. Structure felt to possibly represent the left ovary measures approximately 2.4 x 2.3 x 1.8 cm, volume 5.1 mm and contains a 2.6 x 1.3 x 1.9 cm simple cyst. Ultrasound images of 11/13/2021 demonstrated a 3.0 cm cyst. US/US pelvic and transvaginal IMPRESSION: 1. Fibroid uterus. 2. Endometrial thickness of 0.9 cm. 3. Left ovary difficult to visualize with certainty. Structure felt to possibly represent the left ovary contains a 2.6 cm cyst, likely simple. Previous exam demonstrated a 3.0 cm left ovarian cyst. 4. Right ovarian complex multiseptated cyst with increased vascularity was not identified on prior exam of 11/13/2021. Gynecologic consultation and follow-up ultrasound in 4-6 weeks recommended.
--- NOTE | ~2023-02-15 | US_ITS ---
EXAMINATION: US ABDOMEN COMPLETE CLINICAL INFORMATION: Liver lesion. COMPARISON: Ultrasound retroperitoneal complete 11/13/2021. Ultrasound retroperitoneal limited 01/09/2021. MR abdomen without and with contrast 11/19/2020. CT abdomen and pelvis 08/29/2017. TECHNIQUE: Real-time imaging of the abdominal viscera. Limited visualization due to bowel gas. FINDINGS: PANCREAS: Limited visualization of pancreatic tail and head. Imaged portion of pancreatic body is unremarkable. ABDOMINAL AORTA: Nonaneurysmal. INFERIOR VENA CAVA: Visualized portions are normal. LIVER: Increased hepatic parenchymal heterogeneity and echogenicity which could be associated with hepatic steatosis or hepatocellular disease and substantially limits visualization. Right hepatic 1.3 x 1.6 x 1.1 cm cyst is difficult to characterize due to limited visualization. Hypoechoic 3.1 x 2.9 x 3.3 cm lesion with internal vascularity and echogenic foci characteristic of calcifications in the right hepatic lobe, near the gallbladder measured 3.9 x 3.9 x 3.7 cm on ultrasound of 03/28/2020. MR abdomen of 11/19/2020 demonstrated a 3.7 x 3.3 cm area felt to probably represent focal nodular hyperplasia. The hemangioma identified on MRI is not clearly visualized today, likely due to technical limitations. GALLBLADDER: Gallstone. No gallbladder wall thickening. COMMON BILE DUCT: Normal in caliber measuring 0.5 cm in diameter. RIGHT KIDNEY: No hydronephrosis. No renal calculi. Limited visualization. The kidney measures 10.0 cm in maximum dimension. LEFT KIDNEY: No hydronephrosis. No renal calculi. Limited visualization. The kidney measures 11.9 cm in maximum dimension. SPLEEN: Normal. The spleen measures 11.7 cm in maximum dimension. FREE FLUID: None. US/US abdomen complete IMPRESSION: 1. Increased hepatic parenchymal heterogeneity and echogenicity which could be associated with hepatic steatosis or hepatocellular disease and substantially limits visualization. 2. Right hepatic 1.6 cm cyst is difficult to characterize due to limited visualization. 3. Hypoechoic 3.1 x 2.9 x 3.3 cm lesion with internal vascularity and echogenic foci characteristic of calcifications in the right hepatic lobe, near the gallbladder measured 3.9 x 3.9 x 3.7 cm on ultrasound of 03/28/2020. MR abdomen of 11/19/2020 demonstrated a 3.7 x 3.3 cm area felt to probably represent focal nodular hyperplasia. Given the interval increase in size, MRI recommended for further characterization. 4. The hemangioma identified on MRI is not clearly visualized today, likely due to technical limitations. 5. Cholelithiasis. 6. Limited visualization.
== END 2023-02-15 10:05 | disposition home or self-care (01) ==
LOC: HO.US 10:04
PROVIDERS: PCP Family Medicine; Visit Provider Family Medicine
DX: K76.9 Liver disease, unspecified (principal); N94.9 Unspecified condition associated with female genital organs and menstrual cycle
CPT/HCPCS: 76700; 76830; 76856

== ENCOUNTER 2023-02-20 22:40 | Emergency (ER) | payer MEDICAID, SELFPAY ==
--- NOTE | ~2023-02-20 | XR_ITS ---
EXAMINATION: XR CHEST CLINICAL INFORMATION: Reason for Exam left sided chest pain COMPARISON: Chest radiograph 08/28/2022 TECHNIQUE: One view of the chest FINDINGS: Lines and tubes: None. Clear lungs. No pleural effusion. No pneumothorax. Unchanged cardiomediastinal silhouette. XR/XR chest 1V IMPRESSION: * Clear lungs.
[2023-02-20 22:52] VITALS: BP 125/71; PULSE 79; RESP 18; TEMP 36.7; O2SAT 97; BMI 33.9
--- NOTE | 2023-02-20 23:05 | ECG_ITS ---
Test Reason : CHEST PAIN Blood Pressure : / mmHG Vent. Rate : 079 BPM Atrial Rate : 079 BPM P-R Int : 132 ms QRS Dur : 094 ms QT Int : 374 ms P-R-T Axes : 072 041 031 degrees QTc Int : 428 ms Normal sinus rhythm Normal ECG When compared with ECG of 28-AUG-2022 09:01, No significant change was found Referred By: Generic ED Physician Electronically Signed By:MATI JONES MD
[2023-02-20 23:28] LABS: Basophils Absolute Auto 0.1 X10*3/uL (0.0-0.2); Basophils Percent Auto 0.4 % (0-2); Eosinophils Absolute Auto 0.3 X10*3/uL (0.0-0.4); Eosinophils Percent Auto 2.7 % (0-4); Hemoglobin 8.5 g/dl (12.0-16.0); Imm Gran Abs Auto 0.04 X10*3/uL (0.00-0.03); Imm Gran Pct Auto 0.3 % (0.0-0.4); Lymphocytes Absolute Auto 4.2 X10*3/uL (1.2-4.9); Lymphocytes Percent Auto 35.7 % (20-40); MANUAL DIFF FLAG NO; Mean Corpuscular HGB Conc 28.3 g/dl (31.0-35.0); Mean Corpuscular Hemoglobin 19.5 pg (27.0-33.0); Mean Platelet Volume 10.8 fL (9.4-12.3); Monocytes Absolute Auto 0.7 X10*3/uL (0.1-1.2); Monocytes Percent Auto 6.2 % (2-11); Neutrophils Absolute Auto 6.5 x10*3/uL (2.0-8.3); Neutrophils Percent Auto 54.7 % (45-73); Platelet Count 354 X10*3/uL (160-400); Red Blood Count 4.35 X10*6/uL (4.20-5.50); Red Cell Distribution Width 17.3 % (11.0-16.0); White Blood Count 11.8 X10*3/uL (4.8-10.8)
[2023-02-20 23:30] LABS: Appearance Urine Clear; Color Urine Yellow; Glucose Urine UA Negative (Negative); Leukocyte Esterase Urine Negative (Negative); Nitrite Urine Negative (Negative); Specific Gravity - Urine <= 1.005 (1.005-1.025); Urine Blood Negative (Negative); Urine Ketones Negative (Negative); Urine Protein Negative (Neg-Trace)
[2023-02-20 23:44] LABS: Alanine Aminotransferase 15 U/L (0-31); Albumin Level 3.8 g/dL (3.5-5.0); Alkaline Phosphatase 95 U/L (39-117); Anion Gap 12 (12-20); Aspartate Amino Transferase 15 U/L (5-31); Bilirubin Total 0.2 mg/dL (0.0-1.0); Blood Urea Nitrogen 9 mg/dL (9-16); Calcium 8.7 mg/dL (8.4-10.2); Carbon Dioxide 22 mmol/L (22-29); Chloride 106 mmol/L (96-108); Creatinine Clr Calc Pharmacy 105.4; Estimated Glomerular Filt Rate > 60; Glucose Random 89 mg/dL (60-115); Potassium 3.5 mmol/L (3.3-5.1); Sodium 136 mmol/L (135-145); Total Protein 7.4 g/dL (6.5-8.0)
--- NOTE | 2023-02-21 01:00 | ED.GENADULT ---
HPI - General Adult General Chief complaint: General Medical Stated complaint: Left side back pain when breathing Time Seen by Provider: 02/21/23 00:58 Source: patient, RN notes reviewed and old records reviewed Mode of arrival: ambulatory Limitations: no limitations History of Present Illness HPI narrative: 42-year-old female presents for evaluation left mid back pain. She denies any specific injury but states the pain started about 1 week ago and has been getting progressively worse. She reports a history of muscle spasms. Her pain is worse with movement, standing, twisting Her pain is also worse with taking a deep breath pain She denies any shortness of breath Her pain occasionally radiates through to her chest Denies any coughing No fevers or chills pain Patient denies any abdominal pain, nausea vomiting, diarrhea, burning with urination or blood melany Related Data Home Medications Medication Instructions Recorded Confirmed gabapentin 400 mg capsule 400 mg PO TID 03/18/20 12/05/21 tramadol 50 mg tablet 50 mg PO TID PRN Pain 03/18/20 12/05/21 clonazepam 1 mg tablet 1 mg PO BEDTIME 04/16/20 12/05/21 zolpidem 10 mg tablet (Ambien) 10 mg PO BEDTIME PRN Insomnia 04/16/20 12/05/21 albuterol sulfate 90 mcg/actuation 2 puff PO Q4H PRN wheezing 10/25/20 12/05/21 aerosol inhaler (ProAir HFA) amitriptyline 25 mg tablet 1 tab PO BEDTIME PRN insomnia 10/25/20 12/05/21 omeprazole 20 mg capsule,delayed 1 cap PO DAILY 10/25/20 12/05/21 release baclofen 10 mg tablet 10 mg PO BID PRN muscle spasm 03/03/22 fluticasone propionate 110 1 puff inhalation BID 03/03/22 mcg/actuation HFA aerosol inhaler (Flovent HFA) Previous Rx's Medication Instructions Recorded ibuprofen 600 mg tablet 600 mg PO Q6H PRN pain #20 tabs 07/29/21 lidocaine 4 % topical patch 1 patch topical DAILY PRN pain #10 07/30/21 ea acetaminophen 500 mg tablet 1,000 mg (2 x 500 mg) PO QID PRN 08/11/21 (Tylenol Extra Strength) fever or pain #14 tabs cyclobenzaprine 10 mg tablet 10 mg PO Q8H #20 tabs 05/06/22 tramadol 50 mg tablet 50 mg PO Q6H PRN pain #20 tabs 05/06/22 gabapentin 300 mg capsule 300 mg PO BID #14 caps 08/28/22 meloxicam 15 mg tablet 15 mg PO DAILY #14 tabs 08/28/22 prednisone 20 mg tablet 20 mg PO DAILY 7 days #7 tabs 11/15/22 cyclobenzaprine 10 mg tablet 10 mg PO TID PRN muscle spasm #15 02/21/23 tabs ibuprofen 600 mg tablet 600 mg PO Q6H PRN pain #20 tabs 02/21/23 Allergies Allergy/AdvReac Type Severity Reaction Status Date / Time Iodinated Contrast Media Allergy Severe ANAPHYLAXIS Verified 11/15/22 19:24 [IV CONTRAST] Review of Systems Constitutional: Constitutional: Denies chills and Denies fever(s) Eyes: Eyes: Denies blurry vision Cardiovascular: Cardiovascular: Reports chest pain and Denies dyspnea Respiratory: Respiratory: Denies cough and Denies dyspnea Gastrointestinal: Gastrointestinal: Denies abdominal pain, Denies nausea and Denies vomiting Genitourinary: Genitourinary: Denies difficulty voiding Musculoskeletal: Musculoskeletal: Reports back pain PMFSH Past Medical History Medical History Abnormal abdominal MRI Allergy to contrast media (used for diagnostic x-rays) Anxiety Arthritis Asthma Bilateral hand numbness Bipolar 1 disorder Breast nodule Breast pain, left Close exposure to 2019-nCoV Close exposure to COVID-19 virus COVID-19 vaccine series completed Cyst of Bartholin's gland Depression Encounter for intrauterine device placement Encounter for removal of intrauterine contraceptive device (IUD) Fibromyalgia Hematuria History of abnormal cervical Pap smear Left knee pain Left lateral epicondylitis Microscopic hematuria Migraine with aura Patellofemoral disorder of left knee Potential exposure to STD Precordial chest pain Right hand pain SOB (shortness of breath) Well woman exam with routine gynecological exam Surgical History H/O colonoscopy History of loop electrical excision procedure (LEEP) Hx of arthroscopic knee surgery Hx of section Hx of tubal ligation Status post insertion of nerve stimulator Family History Family History Mother Diabetes mellitus Asthma Depression Maternal Grandmother Asthma Breast cancer Maternal Aunt Diabetes mellitus HTN (hypertension) Breast cancer Social History Social History Household Members: Children Household Members Other:: children: 19, 18, fraternal twins-15 and a 5 year old. 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 (child) Do you presently have visiting nurse or other home services: No Alcohol intake: current Alcohol intake frequency: holidays/special occasions only Patient Tobacco Use Status: Never used Tobacco Tobacco use type: Cigarette Smoked in Last 30 Days: No Use of substances other than those prescribed or required for medical reasons: No Advance Directives: No Advance Directives Information Provided: No Patient : No Current occupational status: unemployed Current occupation: rt hand Gender identity: Female Physical Exam ED Vital Signs: Vital Signs - 24 hr 02/20/23 22:52 Temperature 98.0 F Pulse Rate 79 Respiratory Rate 18 Blood Pressure 125/71 Pulse Oximetry 97 Oxygen Delivery Method Room Air BMI result Body Mass Index 33.9 Const General: healthy appearing, comfortable, no acute distress, alert and awake Nutritional Appearance: well nourished Orientation/consciousness: patient oriented x3 HENMT Head: Yes normocephalic and Yes atraumatic Eyes Eyelids: Yes eyelids normal Conjunctivae: conjunctivae normal Sclerae: sclerae normal Corneas: corneas normal Pupils: Equal, round and reactive pupils present EOM: EOMs intact bilaterally Neck Neck: Yes full ROM Resp Effort & Inspection: normal respiratory effort, able to speak in complete sentences, no audible wheezes and not labored Auscultation: clear to auscultation bilaterally GI Inspection: No distended Palpation (GI): Soft to palpation, not firm, nontender, no guarding and not rigid Back/Spine/Pelvis Other: Patient is tender to palpation in the left thoracic paraspinous region. No vertebral tenderness. No lumbar paraspinous muscle tenderness. Skin General skin exam: no rashes or lesions noted and elasticity normal Neuro General: patient oriented x3 Cranial nerves: Yes Equal, round and reactive pupils present and Yes Bilaterally intact EOM present Cognition (Neuro): normal cognition Extrem Other: Moving all extremities well without any obvious deformities Medications Administered Discontinued Medications Generic Name Dose Route Start Last Admin Trade Name Freq PRN Reason Stop Dose Admin Ibuprofen 800 mg 02/21/23 01:08 02/21/23 01:11 Ibuprofen 800 Mg Tablet PO 02/21/23 01:09 800 mg ONCE ONE Administration Medical Decision Making Medical Decision Making [facility] Narrative: 42-year-old female presents for evaluation of left midback pain. She has a history of back pain. Denies any specific injury. Her pain does radiate to her chest. She has no risk factors for ACS. Her workup included labs, chest x-ray, EKG all of which was reassuring. Her pain is very reproducible exam is most consistent musculoskeletal pain. Will treat as a muscle strain. There is no abdominal pain, GI symptoms. No urine is clear. Less likely to be obstructive uropathy. Differential Diagnosis Differential Diagnoses: The differential diagnosis associated with the presentation includes Muscle strain Back pain Contusion Radiculopathy Sciatic Lab Data [facility] Lab Attestation statement: I reviewed the patient's lab results. Patient has a mild leukocytosis to 11.8k. She has chronic anemia and her hemoglobin is just below her baseline of 9 at 8.5. Denies any black or bloody stool today. No active bleeding. No significant electrolyte abnormalities. Normal renal function troponin negative 02/20/23 23:23 02/20/23 23:23 Labs: Lab Results 02/20/23 Range/Units 23:23 WBC 11.8 H (4.8-10.8) X10*3/uL RBC 4.35 (4.20-5.50) X10*6/uL Hgb 8.5 L (12.0-16.0) g/dl Hct 30.0 L (37.0-47.0) % MCV 69.0 L (80.0-98.0) fL MCH 19.5 L (27.0-33.0) pg MCHC 28.3 L (31.0-35.0) g/dl RDW 17.3 H (11.0-16.0) % Plt Count 354 (160-400) X10*3/uL MPV 10.8 (9.4-12.3) fL Immature Gran % (Auto) 0.3 (0.0-0.4) % Neut % (Auto) 54.7 (45-73) % Lymph % (Auto) 35.7 (20-40) % [place] % (Auto) 6.2 (2-11) % Eos % (Auto) 2.7 (0-4) % Baso % (Auto) 0.4 (0-2) % Lymph # (Auto) 4.2 (1.2-4.9) X10*3/uL [place] # (Auto) 0.7 (0.1-1.2) X10*3/uL Eos # (Auto) 0.3 (0.0-0.4) X10*3/uL Baso # (Auto) 0.1 (0.0-0.2) X10*3/uL Abs Immat Gran (auto) 0.04 H (0.00-0.03) X10*3/uL Absolute Neuts (auto) 6.5 (2.0-8.3) x10*3/uL Absolute Nucleated RBC 0.000 (0.0-0.012) X10*3/uL Nucleated RBC % (auto) 0.0 (0.0-0.2) /100WBC Sodium 136 (135-145) mmol/L Potassium 3.5 (3.3-5.1) mmol/L Chloride 106 (96-108) mmol/L Carbon Dioxide 22 (22-29) mmol/L Anion Gap 12 (12-20) BUN 9 (9-16) mg/dL Creatinine 0.80 (0.5-1.4) mg/dL Estim Creat Clear Calc 105.4 Estimated GFR > 60 Random Glucose 89 (60-115) mg/dL Calcium 8.7 D (8.4-10.2) mg/dL Total Bilirubin 0.2 (0.0-1.0) mg/dL AST 15 (5-31) U/L ALT 15 (0-31) U/L Alkaline Phosphatase 95 (39-117) U/L Total Protein 7.4 (6.5-8.0) g/dL Albumin 3.8 (3.5-5.0) g/dL Urine Color Yellow Urine Appearance Clear Urine pH 6.0 (5.0-9.0) Ur Specific [place] <= 1.005 (1.005-1.025) Urine Protein Negative (Neg-Trace) mg/dL Urine Glucose (UA) Negative (Negative) mg/dL Urine Ketones Negative (Negative) mg/dL Urine Blood Negative (Negative) Urine Nitrite Negative (Negative) Ur Leukocyte Esterase Negative (Negative) Independent Interpretation I performed an independent interpretation of an: EKG (Normal sinus rhythm at a rate of 79 beats per minute. No ectopy or ischemic change) and Plain X-Ray (No infiltrate) Radiology Impression Discussion of test interpretation with radiology: I have reviewed the radiologist's reading. (Clear chest) Discharge Plan Discharge Clinical Impression: Mid back pain on left side Patient Disposition: Home, Self-Care Instructions: Back Pain (ED) Additional Instructions: Your workup in the emergency department today was reassuring. This includes your blood work, chest x-ray, EKG, urinalysis. Your pain is most likely related to muscle spasms Use ibuprofen as needed for pain. Use cyclobenzaprine as needed for muscle spasms This may make you sleepy, did not drink alcohol or drive after taking Prescriptions: New ibuprofen 600 mg tablet 600 mg PO Q6H PRN (Reason: pain) Qty: 20 0RF cyclobenzaprine 10 mg tablet 10 mg PO TID PRN (Reason: muscle spasm) Qty: 15 0RF No Action amitriptyline 25 mg tablet 1 tab PO BEDTIME PRN (Reason: insomnia ) omeprazole 20 mg capsule,delayed release(DR/EC) 1 cap PO DAILY albuterol sulfate [ProAir HFA] 90 mcg/actuation HFA aerosol inhaler 2 puff PO Q4H PRN (Reason: wheezing) lidocaine 4 % adhesive patch,medicated 1 patch topical DAILY PRN (Reason: pain) Qty: 10 0RF Rx Instructions: may leave on for up to 12 hrs acetaminophen [Tylenol Extra Strength] 500 mg tablet 1,000 mg PO QID PRN (Reason: fever or pain) Qty: 14 0RF ibuprofen 600 mg tablet 600 mg PO Q6H PRN (Reason: pain) Qty: 20 0RF cyclobenzaprine 10 mg tablet 10 mg PO Q8H Qty: 20 0RF tramadol 50 mg tablet 50 mg PO Q6H PRN (Reason: pain) Qty: 20 0RF meloxicam 15 mg tablet 15 mg PO DAILY Qty: 14 0RF gabapentin 300 mg capsule 300 mg PO BID Qty: 14 0RF prednisone 20 mg tablet 20 mg PO DAILY 7 Days Qty: 7 0RF tramadol 50 mg tablet 50 mg PO TID PRN (Reason: Pain) gabapentin 400 mg capsule 400 mg PO TID clonazepam 1 mg tablet 1 mg PO BEDTIME Rx Instructions: administer 30 minutes before bedtime zolpidem [Ambien] 10 mg tablet 10 mg PO BEDTIME PRN (Reason: Insomnia) baclofen 10 mg tablet 10 mg PO BID PRN (Reason: muscle spasm) fluticasone propionate [Flovent HFA] 110 mcg/actuation HFA aerosol inhaler 1 puff inhalation BID Interventions: ED Discharge Assessment Last Done: 02/21/23 01:15 Discharge Date/Time: 02/21/23 01:16
[2023-02-21] MEDS: Ibuprofen 800 MG TABLET PO (01:11)
== END 2023-02-21 01:16 | disposition home or self-care (01) ==
PROVIDERS: Emergency Provider Emergency Medicine; PCP Family Medicine
DX: M54.50 Low back pain, unspecified (principal); R07.89 Other chest pain; Z79.899 Other long term (current) drug therapy
CPT/HCPCS: 36415; 71045; 80053; 81003; 85025; 93005; 99284

== ENCOUNTER 2023-02-22 09:06 | Outpatient (AMB) | payer MEDICAID, SELFPAY ==
--- OUTSIDE RECORDS SUMMARY | 2023-02-22 09:08 | XMS_ITS | Patient Health Record ---
Author Name Unknown Organization [facility] Address [address], [place] [id number] Support Name Relationship Address Phone Susanne Dahl Guarantor Unknown [phone] REASON FOR REFERRAL No Information MEDICATIONS Medication SIG (Take, Route, Fr equency, Duration) Notes Start Date End Date Status ferrous sulfate 325 mg 1 tab(s) orally T ID for 30 day(s) 04/05/2022 Active ibuprofen 600 mg 1 tab(s) orally QID for 30 day(s) 04/05/2022 Active SOCIAL HISTORY Sex Assigned At : Social History Observation Description Sex Assigned At Unknown PROBLEMS Problem Type ICD Code Onset Dates Problem Status W/U Status Risk SNOMED Code Notes Problem Depressive Disorder NOS (311) Active confirmed Depressive disorder (18391254) Problem Anemia due to iron deficiency (280.9) Active confirmed Iron deficiency anemia (94647307) PLAN OF TREATMENT No Information Insurance Providers Payer Name Payer Address Payer Phone Subscriber Number Group Number Insured Name Patient Relationship to Insured Coverage Start Date Coverage End Date [place] [address] [place] [address] [id number] Susanne Dahl Self - patient is the insured MEDICAL (GENERAL) HISTORY Medical History History ICD Code Client with hx of anemia for a few years, reports that when she becomes very anemic, she has lower abd.pain.
--- NOTE | 2023-02-22 09:09 | MHC.OFFVIS ---
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 Required: No Information Interpreted: non-clinical & clinical Emergency Veterinary Assistant: Emergency Veterinary Assistant Present (Aidyn) Allergies Iodinated Contrast Media [IV CONTRAST] Allergy (Severe, Verified 02/22/23 09:12) ANAPHYLAXIS Medication List - Last Reconciled 02/22/23 by Kassy Sanchez CNM acetaminophen (Tylenol Extra Strength) 1,000 mg (2 x 500 mg) PO QID PRN albuterol sulfate 90 mcg/actuation (ProAir HFA) 2 puffs PO Q4H PRN amitriptyline 1 tab PO BEDTIME PRN baclofen 10 mg PO BID PRN clonazepam 1 mg PO BEDTIME cyclobenzaprine 10 mg PO TID PRN fluticasone propionate 110 mcg/actuation (Flovent HFA) 1 puff inhalation BID gabapentin 300 mg PO BID ibuprofen 600 mg PO Q6H PRN lidocaine 4% 1 patch topical DAILY PRN meloxicam 15 mg PO DAILY omeprazole 1 cap PO DAILY prednisone 20 mg PO DAILY 7 days tramadol 50 mg PO Q6H PRN zolpidem (Ambien) 10 mg PO BEDTIME PRN Is last menstrual period known: No (not sure) Post menopausal: No HPI 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 In reviewing the chart it appears she had a pelvic ultrasound done last week the patient says that her primary ordered it to checkup on her ovaries that she has been getting regular ultrasounds the previous ultrasound found in system was from a year ago when the IUD was being explored. The ultrasound from last week cites a new ovarian cyst and has a recommendation from Radiology to repeat in 4-6 weeks and have anatomic pathology manager follow-up there is no referral or appointment in the system other than this annual exam today. Patient says she has lots of medical problems and is being referred by her primary to lots of different doctors but she is not exactly sure who they all are she did not know why she had had extra urine tests. She does say she is anemic she says her periods are irregular but they have always been a regular she did not get 1 in January but this often happens where she might skip a month. She had an abnormal Pap smear in the past but she does not remember exactly when records were reviewed and previous abnormals were found and the patient had a LEEP for SELENE 2 in 2018 Pap smears were normal after that in 2019 and 2021. She says her periods are normal when they come and they are not heavy like they were years ago which is why she had the Mirena in the past. [facility] Medical History (Updated 02/22/23 @ 11:24 by Kassy Sanchez CNM) Right hand pain Bilateral hand numbness Close exposure to COVID-19 virus Close exposure to 2019-nCoV COVID-19 vaccine series completed Hematuria Microscopic hematuria Allergy to contrast media (used for diagnostic x-rays) Left knee pain Abnormal abdominal MRI Left lateral epicondylitis SOB (shortness of breath) Precordial chest pain Breast nodule Patellofemoral disorder of left knee History of abnormal cervical Pap smear Breast pain, left Cyst of Bartholin's gland Bipolar 1 disorder Migraine with aura Anxiety Depression Fibromyalgia Arthritis Asthma Surgical History Status post insertion of nerve stimulator H/O colonoscopy Hx of arthroscopic knee surgery Hx of tubal ligation History of loop electrical excision procedure (LEEP) Hx of section Family History Mother Diabetes mellitus Asthma Depression Maternal Grandmother Asthma Breast cancer Maternal Aunt Diabetes mellitus HTN (hypertension) Breast cancer Social History Household Members: Children Household Members Other:: children: 19, 18, fraternal twins-15 and a 5 year old. 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: Yes (child) Do you presently have visiting nurse or other home services: No Alcohol intake: current Alcohol intake frequency: holidays/special occasions only Patient Tobacco Use Status: Never used Tobacco Tobacco use type: Cigarette Current occupational status: unemployed Current occupation: rt hand Gender identity: Female Female Reproductive History Menstrual Age of Menarche: 11 Duration of menses: other control method: other (tubal ligation) Total pregnancies: 7 Full term: 1 Premature: 3 Ab spontaneous: 3 Multiple births: 1 Date of last pap smear: 09/06/22 (negative) History of abnormal pap smear: Yes (2017 2016 2011 ASCUS, 2011 2010 2008 CIN1, 2008 CIN2) Date of Mammogram: 04/13/22 Physical Exam Vital Signs: Last Vital Signs BP 124/78 02/22/23 09:10 BMI result Body Mass Index 37.0 Const General: healthy appearing, comfortable, no acute distress, well developed and alert Nutritional Appearance: average body habitus Orientation/consciousness: patient oriented x3 Limitations: no limitations HEENT Head: Yes normocephalic Neck Neck: Yes normal visual inspection Chest Chest palpation & inspection: normal inspection of the chest Breast/axilla inspection: normal inspection of the breasts and normal inspection of the axillae Breast/axilla palpation: normal palpation of the breasts and normal palpation of the axillae Resp Effort & Inspection: normal respiratory effort GI Inspection: Yes normal to inspection, No Abdominal wall edema and No distended Palpation (GI): Soft to palpation and nontender Other: External exam within normal limits vagina pink and moist cervix multiparous pink smooth status post LEEP. Uterus feels bulky and enlarged consistent with fibroids mobile nontender adnexa nontender good tone with Kegel. General: Yes bladder normal to palpation External Female Exam: normal external appearance and normal appearance of the urethra Speculum Exam - Vagina: normal appearance of the vagina, normal palpation and normal vaginal discharge Speculum Exam - Cervix: normal appearance of the cervix, normal palpation and nontender Bimanual exam- vagina & uterus: normal bimanual exam, normal palpation, uterine size normal, bladder normal to palpation, consistency normal, normal palpation, uterine mobility normal, uterine shape normal, No Cervical tenderness present, non-tender and no cervical motion tenderness Bimanual Exam- Adnexa, other: normal adnexae, no masses, normal and No adnexal tenderness Neuro General: patient oriented x3 Results Reviewed Results Reviewed: Patient: Susanne Milligan MR#: [id number] : 1980 Acct:[id number] Age/Sex: 42 / F ADM Date: 02/15/23 Loc: HO.US Attending Dr: Lisa Wylie DO Ordering Physician: Lisa Wylie DO Date of Service: 02/15/23 Procedure(s): US pelvic and transvaginal Accession Number(s): [id number] cc: Lisa Wylie DO~ EXAMINATION: US PELVIS CLINICAL INFORMATION: Follow up ovarian adnexal cysts. Last menstrual period 1 month ago. COMPARISON: Pelvic ultrasound 11/13/2021. TECHNIQUE: Ultrasound of the pelvis is performed using both transabdominal and transvaginal transducers along with Doppler. Transvaginal imaging is performed due to inadequate visualization transabdominally. FINDINGS: The uterus is anteverted, heterogeneous and measures 14.9 x 6.0 x 8.5 cm. A 4.9 x 5.8 x 5.1 cm fundal fibroid previously measured 2.9 x 1.8 x 3.5 cm. Endometrial thickness is 0.9 cm. Endometrium appears heterogeneous. There is no significant free fluid. Nabothian cysts present. Right ovary measures 5.3 x 3.6 x 3.3 cm, 32.6 mL. Right ovarian multiseptated cyst appears complex with increased vascularity and measures 5.1 x 3.1 x 3.0 cm and was not identified on the prior exam. The left ovary was difficult to visualize due to bowel gas. Structure felt to possibly represent the left ovary measures approximately 2.4 x 2.3 x 1.8 cm, volume 5.1 mm and contains a 2.6 x 1.3 x 1.9 cm simple cyst. Ultrasound images of 11/13/2021 demonstrated a 3.0 cm cyst. US/US pelvic and transvaginal IMPRESSION: 1. Fibroid uterus. 2. Endometrial thickness of 0.9 cm. 3. Left ovary difficult to visualize with certainty. Structure felt to possibly represent the left ovary contains a 2.6 cm cyst, likely simple. Previous exam demonstrated a 3.0 cm left ovarian cyst. 4. Right ovarian complex multiseptated cyst with increased vascularity was not identified on prior exam of 11/13/2021. Gynecologic consultation and follow-up ultrasound in 4-6 weeks recommended. Dictated By: Luann Slater MD Signed By: <Electronically signed by Luann Slater MD in OV> 02/17/23 1913 DD/ 1106 TD/TT: Review Appraiser: Assessment & Plan Assessment & Plan (1) History of abnormal uterine bleeding: Comment: Had a Mirena for 5 years that was removed because it was low in the uterus, removed 11/17/2021. Code(s): Z87.42 - Personal history of other diseases of the female genital tract (2) Ovarian cyst: Comment: Follow-up ultrasound ordered will have follow-up visit and plan after that... Code(s): N83.209 - Unspecified ovarian cyst, unspecified side (3) Fibroids: Code(s): D21.9 - Benign neoplasm of connective and other soft tissue, unspecified (4) Anemia: Comment: Patient states she is being referred by her doctor too many specialists but she is not exactly sure who, and if Hematology is 1 of the specialties.... Code(s): D64.9 - Anemia, unspecified Plan Patient is here for anatomic pathology manager annual exam she did not offer any concerns to the medical staff services coordinator. In reviewing the chart it appears she had a pelvic ultrasound done last week the patient says that her primary ordered it to checkup on her ovaries that she has been getting regular ultrasounds the previous ultrasound found in system was from a year ago when the IUD was being explored. The ultrasound from last week cites a new ovarian cyst and has a recommendation from Radiology to repeat in 4-6 weeks and have anatomic pathology manager follow-up there is no referral or appointment in the system other than this annual exam today. Patient says she has lots of medical problems and is being referred by her primary to lots of different doctors but she is not exactly sure who they all are she did not know why she had had extra urine tests. She does say she is anemic she says her periods are irregular but they have always been a regular she did not get 1 in January but this often happens where she might skip a month. She had an abnormal Pap smear in the past but she does not remember exactly when records were reviewed and previous abnormals were found and the patient had a LEEP for ESLENE 2 in 2017 Pap smears were normal after that in 2019 and 2021. Pap smear was done because of her history of abnormals testing for STIs done in case there is any intervention needed in the future Pelvic ultrasound is being ordered for 6 weeks follow-up she and I will have an appointment after if there is still something abnormal that needs follow-up I will refer her to Dr. Seth. I encouraged the patient to have conversations with her doctor so that she is a participant in her own care and understands where she is being referred to and why. Encouraged movement to deal with muscle pains and her fibromyalgia. I asked her specifically if she was being sent to Hematology for her anemia and she said she was not sure. Her last CBC indicated anemia with a hemoglobin of 8.5. Orders: Orders Pap Smear Today Z12.4 - Encounter for screening for malignant neoplasm of cervix Bacterial Vaginosis Panel Today Z20.2 - Contact with and (suspected) exposure to infections with a predominantly sexual mode of transmission CT NG by PCR Today Z20.2 - Contact with and (suspected) exposure to infections with a predominantly sexual mode of transmission US pelvic and transvaginal 6 Weeks D21.9 - Benign neoplasm of connective and other soft tissue, unspecified, N83.209 - Unspecified ovarian cyst, unspecified side, Z87.42 - Personal history of other diseases of the female genital tract Coding Level of Care Code Est Pt Prev Care 40-64y(49187) Diagnoses History of abnormal uterine bleeding Z87.42 Ovarian cyst N83.209 Fibroids D21.9 Anemia D64.9
[2023-02-22 09:10] VITALS: BP 124/78; BMI 37.0
== END 2023-02-22 09:59 | disposition home or self-care (01) ==
LOC: HO.HWS 09:06
PROVIDERS: PCP Family Medicine; Visit Provider Advanced Practice Midwife
DX: Z87.42 Personal history of other diseases of the female genital tract (principal); N83.209 Unspecified ovarian cyst, unspecified side; D21.9 Benign neoplasm of connective and other soft tissue, unspecified; D64.9 Anemia, unspecified
CPT/HCPCS: 99396

== ENCOUNTER 2023-02-22 09:06 | Outpatient (REF) | payer MEDICAID, SELFPAY ==
[2023-02-22 15:12] LABS: CT PCR NOT DETECTED (Not Detect.); NG PCR NOT DETECTED (Not Detect.)
[2023-02-23 12:49] LABS: BV Int Neg Control Negative (Negative); BV Int Pos Control Positive (Positive)
[2023-02-26 08:53] LABS: HPV mRNA E6/E7 rflx Not Detected (Not Detected)
== END 2023-02-22 09:07 | disposition home or self-care (01) ==
LOC: HO.LNP 09:06
PROVIDERS: PCP Family Medicine; Visit Provider Advanced Practice Midwife
DX: Z12.4 Encounter for screening for malignant neoplasm of cervix (principal); Z11.51 Encounter for screening for human papillomavirus (HPV); Z20.2 Contact with and (suspected) exposure to infections with a predominantly sexual mode of transmission; N83.209 Unspecified ovarian cyst, unspecified side; D64.9 Anemia, unspecified; D21.9 Benign neoplasm of connective and other soft tissue, unspecified; Z87.42 Personal history of other diseases of the female genital tract
CPT/HCPCS: 0353U; 87480; 87510; 87624; 87660; 88142

== ENCOUNTER 2023-04-06 10:47 | Outpatient (REF) | payer MEDICAID, SELFPAY | END 2023-04-06 10:48 | disposition home or self-care (01) | LOC: HO.US 10:47 | PROVIDERS: PCP Family Medicine; Visit Provider Advanced Practice Midwife | DX: N83.209 Unspecified ovarian cyst, unspecified side (principal); D21.9 Benign neoplasm of connective and other soft tissue, unspecified; Z87.42 Personal history of other diseases of the female genital tract | CPT/HCPCS: 76830; 76856 ==

== ENCOUNTER 2023-04-15 12:48 | Outpatient (REF) | payer MEDICAID, SELFPAY | END 2023-04-15 12:49 | disposition home or self-care (01) | LOC: HO.MAMMO 12:48 | PROVIDERS: PCP Family Medicine; Visit Provider Family Medicine | DX: Z12.31 Encounter for screening mammogram for malignant neoplasm of breast (principal) | CPT/HCPCS: 77063; 77067 ==

== ENCOUNTER → 2023-04-15 13:00 | Outpatient (BNV) | payer MEDICAID, SELFPAY | PROVIDERS: PCP Family Medicine; Visit Provider Radiology Diagnostic Radiology | DX: Z12.31 Encounter for screening mammogram for malignant neoplasm of breast (principal) | CPT/HCPCS: 77063; 77067 ==

== ENCOUNTER 2023-04-20 09:15 | Outpatient (AMB) | payer MEDICAID, SELFPAY ==
[2023-04-20 09:16] VITALS: BP 120/76; BMI 37.0
--- NOTE | 2023-04-20 09:16 | A.OFFVIS_ITS ---
Intake Vital Signs 04/20/23 09:16 Height 5 ft 6 in Weight 229 lb BMI 37.0 BP 120/76 Intake Visit Reasons: US follow up Applications Support Lead Required: No Allergies Iodinated Contrast Media [IV CONTRAST] Allergy (Severe, Verified 04/20/23 09:17) ANAPHYLAXIS Post menopausal: No HPI US follow up HPI Details Patient is here to review her ultrasound that was done for follow-up of ovarian cysts and fibroids. She has been anemic but she says she has always been anemic all her life though there has a trend to lowering hemoglobin noted in the chart the patient takes iron but sometimes she says she does not take it because she says it makes her feel tired and dizzy but when she does not take the medicine she feels better. She says her periods are not exceedingly heavy and February she missed her. But other than that they have not been that abnormal. [facility] Medical History Right hand pain Bilateral hand numbness Close exposure to COVID-19 virus Close exposure to 2019-nCoV COVID-19 vaccine series completed Hematuria Microscopic hematuria Allergy to contrast media (used for diagnostic x-rays) Left knee pain Abnormal abdominal MRI Left lateral epicondylitis SOB (shortness of breath) Precordial chest pain Breast nodule Patellofemoral disorder of left knee History of abnormal cervical Pap smear Breast pain, left Cyst of Bartholin's gland Bipolar 1 disorder Migraine with aura Anxiety Depression Fibromyalgia Arthritis Asthma Surgical History Status post insertion of nerve stimulator H/O colonoscopy Hx of arthroscopic knee surgery Hx of tubal ligation History of loop electrical excision procedure (LEEP) Hx of section Family History Mother Diabetes mellitus Asthma Depression Maternal Grandmother Asthma Breast cancer Maternal Aunt Diabetes mellitus HTN (hypertension) Breast cancer Social History Household Members: Children Household Members Other:: children: 19, 18, fraternal twins-15 and a 5 year old. Are you a primary child care director to a significant other at home: Yes (child) Do you presently have visiting nurse or other home services: No Alcohol intake: current Alcohol intake frequency: holidays/special occasions only Patient Tobacco Use Status: Never used Tobacco Tobacco use type: Cigarette Current occupational status: unemployed Current occupation: rt hand Gender identity: Female Female Reproductive History Menstrual Age of Menarche: 11 control method: other (tubal ligation) Physical Exam Vital Signs: Last Vital Signs BP 120/76 04/20/23 09:16 BMI result Body Mass Index 37.0 Results Reviewed Results Reviewed: Interpretation General Category: Negative for intraepithelial lesion/malignancy. Adequacy: Endocervical component present. Interpretation: Inflammation with associated cellular changes. HPV mRNA E6/E7: Not detected This assay detects E6/E7 viral messenger RNA (mRNA) from 14 high-risk HPV types (16, 18, 31, 33, 35, 39, 45, 51, 52, 56, 58, 59, 66, 68) HPV testing performed by [facility], [place], [place]. See reference laboratory portion of the EMR for entire report. Clinical Information LMP: Unknown date Previous PAP test: 12/09/21, WNL Material Received ThinPrep-Cervical Copies To Lisa Wylie DO [address] [place] [address] Romano [address] [place] [id number] Electronically Signed By: Chante Lazo MD 03/08/232049 The Pap Test is a screening procedure with the inherent possibility of both false negative and false positive results. Results should be interpreted in the context of historic and current clinical findings. Reliability of the Pap Test is enhanced by performing the test on a regular repetitive basis. Patient: Susanne Milligan Age/Sex: 42/F MR#: [id number] Page 1 of 1 Patient: Susanne Milligan MR#: [id number] : 1980 Acct:[id number] Age/Sex: 42 / F ADM Date: 04/06/23 Loc: HO.US Attending Dr: Kassy Sanchez CNM Ordering Physician: Kassy Sanchez CNM Date of Service: 04/06/23 Procedure(s): US pelvic and transvaginal Accession Number(s): [id number] cc: Lisa Wylie DO; Kassy Sanchez CNM~ EXAMINATION: US PELVIS COMPLETE CLINICAL INFORMATION: Cysts COMPARISON: Pelvic ultrasound 02/15/2023 TECHNIQUE: Transabdominal and transvaginal imaging was performed. FINDINGS: The uterus is of normal size and echogenicity measuring 10.0 x 6.6 x 6.7 cm. A regular homogeneous endometrium is identified measuring 1.1 cm. A 4.3 cm subserosal fundal myoma, previously 5.8 cm decreased in size. Nabothian cysts in the cervix. Both ovaries echogenicity. The right measures 8 x 2.0 x 2.8 cm for a volume of 14.1 mL. The left measures 2.8 x 1.7 x 2.6 cm for a volume of 6.5 mL. A 2.3 cm unilocular left ovarian follicle, no follow-up imaging recommended. Again seen is a right ovarian cyst measuring 2.7 cm with multiple thin septations, previously 4.9 cm decreased from prior. A 3.4 cm new right adnexal cyst which appears to demonstrate an avascular mural nodule measuring 0.7 cm though is suboptimally evaluated as no cine images were obtained. There is no pelvic free fluid. US/US pelvic and transvaginal IMPRESSION: 1. A 3.4 cm new indeterminate right adnexal cyst which appears to demonstrate an avascular mural nodule measuring 0.7 cm though is suboptimally evaluated as no cine images were obtained. Recommend further evaluation with contrast-enhanced MR pelvis or surgical evaluation. 2. Again seen is a 2.7 cm indeterminate right ovarian cyst with multiple thin septations, decreased from prior, recommend surgical evaluation. 3. A 4.3 cm subserosal fundal myoma decreased in size from prior. Dictated By: Erica Machuca MD Signed By: <Electronically signed by Erica Machuca MD in OV> 04/08/23 1737 DD/ 1130 TD/TT: Assessment & Plan Assessment & Plan (1) Cervical cancer screening: Comment: 02/22/2023 Pap is negative with negative HPV. Code(s): Z12.4 - Encounter for screening for malignant neoplasm of cervix (2) Anemia: Comment: Patient states she is being referred by her doctor too many specialists but she is not exactly sure who, and if Hematology is 1 of the specialties.... Code(s): D64.9 - Anemia, unspecified (3) Fibroids: Code(s): D21.9 - Benign neoplasm of connective and other soft tissue, unspecified (4) Ovarian cyst: Comment: Follow-up ultrasound ordered will have follow-up visit and plan after that... Code(s): N83.209 - Unspecified ovarian cyst, unspecified side Plan Reviewed her bleeding history and her history of fibroids which have according to the ultrasound gotten little smaller as well as the ovarian cyst that were noted with changes including adnexal cyst on the right. Per previously made plan the patient will be having a follow-up visit with Dr. Seth to consider management from this point forward ultrasound radiologist recommend consideration to an MRI with contrast versus surgical evaluation. I also reviewed patient's diet and possible increased sources of iron. She did not remember if she had ever been referred to Hematology for iron transfusions patient will see Dr. Seth on May 10. Coding Level of Care Code Est Pt Level 3 (91190) Diagnoses Cervical cancer screening Z12.4 Anemia D64.9 Fibroids D21.9 Ovarian cyst N83.209
== END 2023-04-20 09:49 | disposition home or self-care (01) ==
LOC: HO.HWSM 09:15
PROVIDERS: PCP Family Medicine; Visit Provider Advanced Practice Midwife
DX: Z12.4 Encounter for screening for malignant neoplasm of cervix (principal); D64.9 Anemia, unspecified; D21.9 Benign neoplasm of connective and other soft tissue, unspecified; N83.209 Unspecified ovarian cyst, unspecified side
CPT/HCPCS: 99213

== ENCOUNTER → 2023-04-20 09:15 | Outpatient (BNVA) | payer MEDICAID, SELFPAY | PROVIDERS: PCP Family Medicine; Visit Provider Advanced Practice Midwife | DX: D64.9 Anemia, unspecified (principal); D21.9 Benign neoplasm of connective and other soft tissue, unspecified; N83.209 Unspecified ovarian cyst, unspecified side | CPT/HCPCS: 99212 ==

== ENCOUNTER 2023-05-10 09:25 | Outpatient (REF) | payer MEDICAID, SELFPAY ==
[2023-05-11 09:32] LABS: CT PCR NOT DETECTED (Not Detect.); NG PCR NOT DETECTED (Not Detect.)
== END 2023-05-10 09:26 | disposition home or self-care (01) ==
LOC: HO.LNP 09:25
PROVIDERS: PCP Family Medicine; Visit Provider Obstetrics & Gynecology
DX: N93.9 Abnormal uterine and vaginal bleeding, unspecified (principal); N83.291 Other ovarian cyst, right side; D25.9 Leiomyoma of uterus, unspecified; Z32.00 Encounter for pregnancy test, result unknown
CPT/HCPCS: 0353U; 81025; 99212

== ENCOUNTER 2023-05-10 09:25 | Outpatient (AMB) | payer MEDICAID, SELFPAY ==
--- NOTE | 2023-05-10 09:49 | MHC.OFFVIS ---
Intake Vital Signs 05/10/23 09:54 Height 5 ft 6 in Weight 227 lb 1.218 oz BMI 36.6 BP 110/70 Intake Visit Reasons: ovarian cyst follow up per Kassy Hays Allergies Iodinated Contrast Media [IV CONTRAST] Allergy (Severe, Verified 04/20/23 09:17) ANAPHYLAXIS HPI HPI Comments History of Present Illness Details Presenting referred from Liseth Sanchez CNM regarding abnormal pelvic ultrasound which showed the following: The uterus is of normal size and echogenicity measuring 10.0 x 6.6 x 6.7 cm. A regular homogeneous endometrium is identified measuring 1.1 cm. A 4.3 cm subserosal fundal myoma, previously 5.8 cm decreased in size. Nabothian cysts in the cervix. Both ovaries echogenicity. The right measures 8 x 2.0 x 2.8 cm for a volume of 14.1 mL. The left measures 2.8 x 1.7 x 2.6 cm for a volume of 6.5 mL. A 2.3 cm unilocular left ovarian follicle, no follow-up imaging recommended. Again seen is a right ovarian cyst measuring 2.7 cm with multiple thin septations, previously 4.9 cm decreased from prior. A 3.4 cm new right adnexal cyst which appears to demonstrate an avascular mural nodule measuring 0.7 cm though is suboptimally evaluated as no cine images were obtained. There is no pelvic free fluid. The patient is complaining of irregular menstrual cycles associated with passage of blood clots for the last few months. Last co testing was in 02/25 was negative Last mammogram was BI-RADS 1 in 04/28 [facility] Medical History Right hand pain Bilateral hand numbness Close exposure to COVID-19 virus Close exposure to 2019-nCoV COVID-19 vaccine series completed Hematuria Microscopic hematuria Allergy to contrast media (used for diagnostic x-rays) Left knee pain Abnormal abdominal MRI Left lateral epicondylitis SOB (shortness of breath) Precordial chest pain Breast nodule Patellofemoral disorder of left knee History of abnormal cervical Pap smear Breast pain, left Cyst of Bartholin's gland Bipolar 1 disorder Migraine with aura Anxiety Depression Fibromyalgia Arthritis Asthma Surgical History Status post insertion of nerve stimulator H/O colonoscopy Hx of arthroscopic knee surgery Hx of tubal ligation History of loop electrical excision procedure (LEEP) Hx of section Family History Mother Diabetes mellitus Asthma Depression Maternal Grandmother Asthma Breast cancer Maternal Aunt Diabetes mellitus HTN (hypertension) Breast cancer Social History Household Members: Children Household Members Other:: children: 19, 18, fraternal twins-15 and a 5 year old. 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) Do you presently have visiting nurse or other home services: No Alcohol intake: current Alcohol intake frequency: holidays/special occasions only Patient Tobacco Use Status: Never used Tobacco Tobacco use type: Cigarette Current occupational status: unemployed Current occupation: rt hand Gender identity: Female Female Reproductive History Menstrual Age of Menarche: 11 Review of Systems Const All systems reviewed & are unremarkable except as noted in HPI and below Card Reports as per HPI Resp Reports as per HPI GI Reports as per HPI and Reports no additional complaints Reports as per HPI Physical Exam Vital Signs: Last Vital Signs BP 110/70 05/10/23 09:54 BMI result Body Mass Index 36.6 Const General: cooperative, healthy appearing and comfortable Chest Chest palpation & inspection: normal inspection of the chest and normal palpation of entire chest wall Breast/axilla inspection: normal inspection of the breasts and normal inspection of the axillae Breast/axilla palpation: normal palpation of the breasts, normal palpation of the axillae and no axillary lymphadenopathy Resp Effort & Inspection: normal respiratory effort Auscultation: clear to auscultation bilaterally Percussion: percussion normal Cardio Palpation: normal PMI Rate: regular rate Rhythm: regular rhythm Heart sounds: no murmurs and no rubs Peripheral pulses: Peripheral pulses 2+ throughout GI Inspection: Yes normal to inspection Palpation (GI): Soft to palpation, nontender, no guarding, not rigid and No hepatosplenomegaly present Percussion: Yes normal to percussion Auscultation: normal bowel sounds Rectal Exam - Female: deferred General: Yes bladder normal to palpation External Female Exam: No lesion Speculum Exam - Vagina: normal appearance of the vagina, normal palpation, normal vaginal discharge and not erythematous Speculum Exam - Cervix: normal appearance of the cervix and normal palpation Bimanual exam- vagina & uterus: normal bimanual exam, normal palpation, uterine size normal, bladder normal to palpation, consistency normal and normal palpation Bimanual Exam- Adnexa, other: normal adnexae, no masses and no tenderness Assessment & Plan Assessment & Plan (1) Complex ovarian cyst: Comment: 2 complex ovarian cyst on the right side Code(s): N83.299 - Other ovarian cyst, unspecified side Plan: Discussed with the patient the complex ovarian cyst by ultrasound. Discussed with the patient the Ultrasound findings, the main limitation of transvaginal ultrasonography alone as a diagnostic tool to distinguish benign from malignant masses relates to its lack of specificity and low positive predictive value for cancer. The differential diagnosis discussed with the patient includes the following but not limited to: benign and malignant gynecological and non-gynecological causes. Since the patient has allergy to IV contrast for a pelvic MRI for further evaluation of both right complex cysts and last ultrasound was 4 weeks ago will order repeat ultrasound in 2 weeks, check the results and treat accordingly Instructions given the patient to schedule a 2 week follow-up ultrasound appointment. All questions were answered & the patient verbalized understanding and agreed with the plan. (2) Abnormal uterine bleeding (AUB): Code(s): N93.9 - Abnormal uterine and vaginal bleeding, unspecified Plan: UPT done in the office was negative. GC and chlamydia taken CBC, prolactin, TSH, HCG, and pelvic ultrasound ordered. Discussed with the patient the different causes of abnormal bleeding including thyroid disorders, uterine and ovarian pathology, endometrial hyperplasia, carcinoma and other potential causes. Discussed with the patient the work up including CBC (to r/o anemia), TSH, pelvic Ultrasound, endometrial biopsy to r/o endometrial pathology. All questions answered and the patient verbalized understanding. Instructed the patient to schedule an appointment for an endometrial biopsy in 2 weeks. (3) Uterine fibroid: Code(s): D25.9 - Leiomyoma of uterus, unspecified Plan: Discussed with the patient the results of the ultrasound and the size of the myomas. Discussed with the patient risk of myosarcoma and symptoms that are caused by myomas including but not limited to pelvic pain, pressure symptoms, abnormal uterine bleeding. In addition discussed with the patient options of treatment for myomas including: Serial ultrasounds periodically to follow-up on the size of the myoma while targeting the treatment against fibroids related symptoms ( control pills, Mirena IUD, progesterone treatment, GnRH agonist/antagonist, uterine artery embolization or endometrial ablation) versus surgical treatment including hysterectomy and or myomectomy. All pros and cons, risks and benefits of all options were discussed with the patient. The patient understands that delay in surgical treatment in case of myosarcoma can affect her prognosis, after further discussion, the patient decided to think about it and get back to us next visit. Orders: Orders Complete Blood Count no Diff Today N93.9 - Abnormal uterine and vaginal bleeding, unspecified TSH reflex Free T4 Today N93.9 - Abnormal uterine and vaginal bleeding, unspecified Prolactin Today N93.9 - Abnormal uterine and vaginal bleeding, unspecified US pelvic and transvaginal 2 Weeks N83.299 - Other ovarian cyst, unspecified side HCG Quantitative Today N93.9 - Abnormal uterine and vaginal bleeding, unspecified Coding Level of Care Code Est Pt Level 3 (62149) Diagnoses Complex ovarian cyst N83.299 Abnormal uterine bleeding (AUB) N93.9 Uterine fibroid D25.9
[2023-05-10 09:54] VITALS: BP 110/70; BMI 36.6
== END 2023-05-10 10:18 | disposition home or self-care (01) ==
LOC: HO.HWS 09:25
PROVIDERS: PCP Family Medicine; Visit Provider Obstetrics & Gynecology
DX: N83.291 Other ovarian cyst, right side (principal); N93.9 Abnormal uterine and vaginal bleeding, unspecified; D25.9 Leiomyoma of uterus, unspecified
CPT/HCPCS: 99213

== ENCOUNTER 2023-06-10 10:52 | Outpatient (REF) | payer MEDICAID, SELFPAY ==
--- NOTE | ~2023-06-10 | US_ITS ---
EXAMINATION: US PELVIS CLINICAL INFORMATION: Left ovarian cyst. COMPARISON: Multiple prior pelvic ultrasounds most recently 04/06/2023 and 02/15/2023. TECHNIQUE: Ultrasound of the pelvis is performed using both transabdominal and transvaginal transducers along with Doppler. Transvaginal imaging is performed due to inadequate visualization transabdominally. FINDINGS: Uterus: The uterus is anteverted and measures 12.7 x 6.3 x 6.9 cm. The double wall endometrial thickness is 15 mm. The endometrium appears abnormal with cystic and solid areas, significantly different than prior when it measured 10 mm in thickness. The uterus is smooth in contour and has normal myometrial echogenicity. A fundal fibroid is present which has decreased in size, now measuring 2.6 x 2.3 x 3.5 cm (previously 4.3 x 2.2 x 4.4 cm). Nabothian cysts are present in the cervix. Adnexa: Both ovaries are visualized. There is normal color flow to the adnexa. There is no ovarian torsion. There is no pelvic ascites or fluid collection. Right ovary measures 3.0 x 2.4 x 1.8 cm for a volume of 6.8 mL and contains a 1.2 cm benign cyst. At the time of the prior study, the ovary was significantly larger and contained a complex 2.7 cm cyst with multiple septations along with an additional cyst with a 7 mm mural nodule. These findings are no longer seen. Left ovary measures 5.0 x 3.7 x 3.0 cm for a volume of 29 mL which includes a 4.0 x 2.3 x 2.8 cm benign simple cyst. US/US pelvic and transvaginal IMPRESSION: 1. Abnormal endometrium with cystic and solid areas. Further evaluation is recommended. As the exam was relatively normal in April, recommend repeat study in 1-2 months. 2. Bilateral benign ovarian cysts. No follow-up is needed. 3. Decrease in size of fundal fibroid.
[2023-06-10 12:32] LABS: Hematocrit 26.7 % (37.0-47.0); Hemoglobin 7.6 g/dl (12.0-16.0); Mean Corpuscular HGB Conc 28.5 g/dl (31.0-35.0); Mean Corpuscular Hemoglobin 19.6 pg (27.0-33.0); Mean Corpuscular Volume 68.8 fL (80.0-98.0); Platelet Count 326 X10*3/uL (160-400); Red Blood Count 3.88 X10*6/uL (4.20-5.50); Red Cell Distribution Width 16.7 % (11.0-16.0); White Blood Count 10.7 X10*3/uL (4.8-10.8)
[2023-06-10 13:42] LABS: HCG Quantitative < 2 mIU/mL; TSH reflex Free T4 0.89 uIU/mL (0.32-4.0)
[2023-06-11 18:18] LABS: Prolactin 11.3 ng/mL
== END 2023-06-10 10:53 | disposition home or self-care (01) ==
LOC: HO.US 10:52
PROVIDERS: PCP Family Medicine; Visit Provider Obstetrics & Gynecology
DX: N83.299 Other ovarian cyst, unspecified side (principal); N93.9 Abnormal uterine and vaginal bleeding, unspecified
CPT/HCPCS: 36415; 76830; 76856; 84146; 84443; 84702; 85027

== ENCOUNTER 2023-06-10 19:50 | Emergency (ER) | payer MEDICAID, SELFPAY ==
--- NOTE | ~2023-06-10 | CT_ITS ---
EXAMINATION: CT HEAD WITHOUT CONTRAST CLINICAL INFORMATION: Headache. COMPARISON: None available. TECHNIQUE: Contiguous axial imaging was performed from the skull base to vertex without intravenous administration of contrast. This CT examination was performed using dose optimization techniques as appropriate, variously including the following: *Automated exposure control *Adjustment of mA and/or kV according to patient size (this includes techniques or standardized protocols for targeted exams where dose is matched to indication/reason for exam; i.e. extremities or head) *Use of iterative reconstruction technique DLP: 552 mGy-cm FINDINGS: There is no intracranial hemorrhage. There is no evidence of acute/subacute cerebral or cerebellar infarction. There is no midline shift or mass effect. There is no extra-axial fluid collection. No hydrocephalus. The orbits are symmetric and within normal limits. The calvarium is intact. The mastoid air cells are clear. The paranasal sinuses are well aerated. CT/CT head/brain wo IV con IMPRESSION: No acute intracranial pathology.
[2023-06-10 20:04] VITALS: BP 134/68; PULSE 81; RESP 16; TEMP 36.9; O2SAT 100; BMI 35.5
--- NOTE | 2023-06-10 20:04 | ED.GENADULT ---
HPI - General Adult General Chief complaint: Headache Stated complaint: headache,lower back pain Time Seen by Provider: 06/10/23 21:22 Source: patient Mode of arrival: ambulatory Limitations: no limitations History of Present Illness HPI narrative: Patient is a 42-year-old female presenting to the emergency department with complaint of headache for one hour, and lower back pain for a few hours. States low back pain is worse with inspiration. Has labs drawn today, states she has had ongoing vaginal bleeding, was recommended to have a biopsy of ovarian cyst by Dr. Seth. Complains of fatigue. H&H from earlier today 7.6/.7. No photophobia, no pleural effusion, no nausea, no vomiting. Patient also declined heavy vaginal bleed today was spotting in the morning that is stopped now patient used 1 pad all day today. Related Data Home Medications Medication Instructions Recorded Confirmed clonazepam 1 mg tablet 1 mg PO BEDTIME 04/16/20 02/22/23 zolpidem 10 mg tablet (Ambien) 10 mg PO BEDTIME PRN Insomnia 04/16/20 02/22/23 albuterol sulfate 90 mcg/actuation 2 puff PO Q4H PRN wheezing 10/25/20 02/22/23 aerosol inhaler (ProAir HFA) amitriptyline 25 mg tablet 1 tab PO BEDTIME PRN insomnia 10/25/20 02/22/23 omeprazole 20 mg capsule,delayed 1 cap PO DAILY 10/25/20 02/22/23 release baclofen 10 mg tablet 10 mg PO BID PRN muscle spasm 03/03/22 02/22/23 fluticasone propionate 110 1 puff inhalation BID 03/03/22 02/22/23 mcg/actuation HFA aerosol inhaler (Flovent HFA) Previous Rx's Medication Instructions Recorded lidocaine 4 % topical patch 1 patch topical DAILY PRN pain #10 07/30/21 ea acetaminophen 500 mg tablet 1,000 mg (2 x 500 mg) PO QID PRN 08/11/21 (Tylenol Extra Strength) fever or pain #14 tabs tramadol 50 mg tablet 50 mg PO Q6H PRN pain #20 tabs 05/06/22 gabapentin 300 mg capsule 300 mg PO BID #14 caps 08/28/22 meloxicam 15 mg tablet 15 mg PO DAILY #14 tabs 08/28/22 prednisone 20 mg tablet 20 mg PO DAILY 7 days #7 tabs 11/15/22 cyclobenzaprine 10 mg tablet 10 mg PO TID PRN muscle spasm #15 02/21/23 tabs ibuprofen 600 mg tablet 600 mg PO Q6H PRN pain #20 tabs 02/21/23 Allergies Allergy/AdvReac Type Severity Reaction Status Date / Time Iodinated Contrast Media Allergy Severe ANAPHYLAXIS Verified 04/20/23 09:17 [IV CONTRAST] Review of Systems Review of Systems: All other systems are reviewed and are negative Constitutional: Reports as per HPI and Reports no additional constitutional complaints Eyes: Reports as per HPI and Reports no additional eye complaints Reports system reviewed and no additional complaints, except as documented Cardiovascular: Reports as per HPI and Reports no additional cardiovascular complaints Respiratory: Reports as per HPI and Reports no additional respiratory complaints Gastrointestinal: Reports as per HPI and Reports no additional gastrointestinal complaints Genitourinary: Reports no additional female genitourinary complaints Musculoskeletal: Reports no additional musculoskeletal complaints Skin/Breast: Reports system reviewed and no additional complaints, except as docu Psychiatric: Reports no additional psychiatric complaints Endocrine: Reports no additional endocrine complaints Hematologic/Lymphatic: Reports no additional hematologic/lymphatic complaints Allergic/Immunologic: Reports no additional allergic/immunologic complaints Reports system reviewed and no additional complaints, except as documented and Reports Abnormal speech present [facility] Past Medical History Medical History Right hand pain Bilateral hand numbness Close exposure to COVID-19 virus Close exposure to 2019-nCoV COVID-19 vaccine series completed Hematuria Microscopic hematuria Allergy to contrast media (used for diagnostic x-rays) Left knee pain Abnormal abdominal MRI Left lateral epicondylitis SOB (shortness of breath) Precordial chest pain Breast nodule Patellofemoral disorder of left knee History of abnormal cervical Pap smear Breast pain, left Cyst of Bartholin's gland Bipolar 1 disorder Migraine with aura Anxiety Depression Fibromyalgia Arthritis Asthma Surgical History Status post insertion of nerve stimulator H/O colonoscopy Hx of arthroscopic knee surgery Hx of tubal ligation History of loop electrical excision procedure (LEEP) Hx of section Family History Family History Mother Diabetes mellitus Asthma Depression Maternal Grandmother Asthma Breast cancer Maternal Aunt Diabetes mellitus HTN (hypertension) Breast cancer Social History Social History Household Members: Children Household Members Other:: children: 19, 18, fraternal twins-15 and a 5 year old. 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) Do you presently have visiting nurse or other home services: No Unable to assess alcohol history related to: Unknown Alcohol intake: current Alcohol intake frequency: holidays/special occasions only Patient Tobacco Use Status: Never used Tobacco Tobacco use type: Cigarette Smoked in Last 30 Days: No Use of substances other than those prescribed or required for medical reasons: Unknown Advance Directives: No Advance Directives Information Provided: No Patient : No Current occupational status: unemployed Current occupation: rt hand Gender identity: Female Physical Exam ED Vital Signs: Vital Signs - 24 hr 06/10/23 20:04 06/10/23 21:16 06/10/23 22:00 Temperature 98.4 F 98.1 F 98.2 F Pulse Rate 81 88 82 Respiratory Rate 16 14 16 Blood Pressure 134/68 114/77 118/72 Pulse Oximetry 100 100 99 Oxygen Delivery Method Room Air Room Air Room Air 06/10/23 23:51 Temperature 97.9 F Pulse Rate 77 Respiratory Rate 18 Blood Pressure 121/66 Pulse Oximetry 97 Oxygen Delivery Method Room Air BMI result Body Mass Index 35.5 Vital signs have been reviewed and appear to be correct. Blood pressure elevated. Heart rate normal. Respiratory rate normal. Temperature normal. Oxygen saturation normal. Appearance: Alert. Oriented X3. No acute distress. Head: Normal external exam. Normocephalic. Atraumatic. No Vasquez signs noted. No raccoon eyes noted Eyes: PERRLA. EOMI. Conjunctiva and sclera normal. Eyelids normal. ENT: TM's Normal. Pharynx normal. Uvula midline. Moist mucous membranes. No trismus noted. No drooling noted. No muffled voice noted. Neck: Normal inspection. Neck supple. FROM. No adenopathy. Thyroid Normal. No meningeal signs. No neck mass noted. CVS: Normal heart rate and rhythm. Heart sound normal. No murmurs noted. Pulses normal throughout. Respiratory: No respiratory distress. Painless inspiration. Breath sounds normal. No wheezes/rales/rhonchi noted. Chest nontender. No accessory muscle usage noted or decreased air movement noted. Abdomen: Soft and nontender. Bowel sounds normal in all 4 quadrants. No distention noted. No organomegaly noted. No visible injury noted. Back: No CVA tenderness. Full range of motion noted. Skin: Skin warm and dry. Normal skin color. Normal skin turgor. No rashes/lesions/lacerations noted. Extremities: No lower extremity edema. Extremities exhibit normal range of motion. Extremities nontender. Neuro: Oriented X 3. Cranial nerve exam: II-XII are grossly intact No motor deficit. No sensory deficit. Reflexes normal. Course Course Course Narrative: This is a rapid medical exam: Additional HPI, ROS, PE not included below will be deferred to primary provider. Patient is a 42-year-old female presenting to the emergency department with complaint of headache for one hour, and lower back pain for a few hours. States low back pain is worse with inspiration. Has labs drawn today, states she has had ongoing vaginal bleeding, was recommended to have a biopsy of ovarian cyst by Dr. Seth. Complains of fatigue. H&H from earlier today 7.6/26.7. Plan: labs, UA Reevaluation(s) Reevaluation #1: 42-year-old female with vaginal bleed that is. Today came in with fatigue and headache which is likely secondary to anemia patient is receiving blood transfusion of 1 unit. Improvement of headache with Tylenol, normal neuro exam, head CT is unremarkable. Patient can be discharged after finish blood transfusion. Patient reports no vaginal bleeding that she only had some spotting early today and she used only 1 picked the whole day patient was seen and evaluated by Dr. Seth early today and scheduled to see him early next week. Time: 23:59 Medications Administered Discontinued Medications Generic Name Dose Route Start Last Admin Trade Name Darrellq PRN Reason Stop Dose Admin Acetaminophen 650 mg 06/10/23 21:46 06/10/23 22:44 Acetaminophen 325 Mg Tablet PO 06/10/23 21:47 650 mg ONCE ONE Administration Sodium Chloride 100 mls @ 100 mls/hr 06/10/23 21:40 06/10/23 22:46 Ns IV 06/10/23 22:39 Not Given ONCE ONE Medical Decision Making Differential Diagnosis Differential Diagnoses: The differential diagnosis associated with the presentation includes (Severe anemia, electrolyte derangement, intracranial pathology, tension headache, , UTI.) Admission/Observation Consideration of admission/observation: Escalation of care including admission/observation considered Lab Data MDM Lab Attestation statement: I reviewed the patient's lab results. 06/10/23 20:23 06/10/23 20:23 Labs: Lab Results 06/10/23 Range/Units 20:23 WBC 13.2 H (4.8-10.8) X10*3/uL RBC 3.79 L (4.20-5.50) X10*6/uL Hgb 7.5 L (12.0-16.0) g/dl Hct 26.1 L (37.0-47.0) % MCV 68.9 L (80.0-98.0) fL MCH 19.8 L (27.0-33.0) pg MCHC 28.7 L (31.0-35.0) g/dl RDW 16.5 H (11.0-16.0) % Plt Count 314 (160-400) X10*3/uL MPV 10.5 (9.4-12.3) fL Immature Gran % (Auto) 0.5 H (0.0-0.4) % Neut % (Auto) 67.6 (45-73) % Lymph % (Auto) 24.5 (20-40) % [place] % (Auto) 5.4 (2-11) % Eos % (Auto) 1.6 (0-4) % Baso % (Auto) 0.4 (0-2) % Lymph # (Auto) 3.2 (1.2-4.9) X10*3/uL [place] # (Auto) 0.7 (0.1-1.2) X10*3/uL Eos # (Auto) 0.2 (0.0-0.4) X10*3/uL Baso # (Auto) 0.1 (0.0-0.2) X10*3/uL Abs Immat Gran (auto) 0.06 H (0.00-0.03) X10*3/uL Absolute Neuts (auto) 9.0 H (2.0-8.3) x10*3/uL Absolute Nucleated RBC 0.000 (0.0-0.012) X10*3/uL Nucleated RBC % (auto) 0.0 (0.0-0.2) /100WBC Sodium 137 (135-145) mmol/L Potassium 3.6 (3.3-5.1) mmol/L Chloride 105 (96-108) mmol/L Carbon Dioxide 24 (22-29) mmol/L Anion Gap 12 (12-20) BUN 12 (9-16) mg/dL Creatinine 0.82 (0.5-1.4) mg/dL Estim Creat Clear Calc 105.3 Estimated GFR > 60 Random Glucose 90 (60-115) mg/dL Calcium 8.9 (8.4-10.2) mg/dL Total Bilirubin 0.3 (0.0-1.0) mg/dL AST 14 (5-31) U/L ALT 14 (0-31) U/L Alkaline Phosphatase 94 (39-117) U/L Total Protein 7.8 (6.5-8.0) g/dL Albumin 3.9 (3.5-5.0) g/dL Beta HCG, Quant < 2 mIU/mL Urine Color Yellow Urine Appearance Clear Urine pH 6.0 (5.0-9.0) Ur Specific [place] 1.010 (1.005-1.025) Urine Protein Negative (Neg-Trace) mg/dL Urine Glucose (UA) Negative (Negative) mg/dL Urine Ketones Negative (Negative) mg/dL Urine Blood Moderate (2+) H (Negative) Urine Nitrite Negative (Negative) Ur Leukocyte Esterase Negative (Negative) Urine RBC 0-2 (0-2) /HPF Urine WBC 0-5 (0-5) /HPF Ur Squamous Epith Cells 0-2 (0-2) /HPF Urine Bacteria Trace (None Seen) Hyaline Casts 0-2 (0-2) /LPF Blood Type O Positive Antibody Screen POSITIVE Antibody Identification Anti-E Crossmatch See Detail Crossmatch (AHG) See Detail Independent Interpretation I performed an independent interpretation of an: CT Scan (Head CT: No acute intracranial pathology.) Radiology Impression Discussion of test interpretation with radiology: I have reviewed the radiologist's reading. Chronic Conditions Patient?s care impacted by: Other (Anemia) Discharge Plan Discharge Clinical Impression: Anemia, Headache Patient Disposition: Still a Patient Instructions: Anemia (ED) Prescriptions: No Action amitriptyline 25 mg tablet 1 tab PO BEDTIME PRN (Reason: insomnia ) omeprazole 20 mg capsule,delayed release(DR/EC) 1 cap PO DAILY albuterol sulfate [ProAir HFA] 90 mcg/actuation HFA aerosol inhaler 2 puff PO Q4H PRN (Reason: wheezing) lidocaine 4 % adhesive patch,medicated 1 patch topical DAILY PRN (Reason: pain) Qty: 10 0RF Rx Instructions: may leave on for up to 12 hrs acetaminophen [Tylenol Extra Strength] 500 mg tablet 1,000 mg PO QID PRN (Reason: fever or pain) Qty: 14 0RF tramadol 50 mg tablet 50 mg PO Q6H PRN (Reason: pain) Qty: 20 0RF meloxicam 15 mg tablet 15 mg PO DAILY Qty: 14 0RF gabapentin 300 mg capsule 300 mg PO BID Qty: 14 0RF prednisone 20 mg tablet 20 mg PO DAILY 7 Days Qty: 7 0RF ibuprofen 600 mg tablet 600 mg PO Q6H PRN (Reason: pain) Qty: 20 0RF cyclobenzaprine 10 mg tablet 10 mg PO TID PRN (Reason: muscle spasm) Qty: 15 0RF clonazepam 1 mg tablet 1 mg PO BEDTIME Rx Instructions: administer 30 minutes before bedtime zolpidem [Ambien] 10 mg tablet 10 mg PO BEDTIME PRN (Reason: Insomnia) baclofen 10 mg tablet 10 mg PO BID PRN (Reason: muscle spasm) fluticasone propionate [Flovent HFA] 110 mcg/actuation HFA aerosol inhaler 1 puff inhalation BID Referrals: Lisa Wylie DO [Primary Care Provider] - Isma Seth MD [Physician] -
[2023-06-10 20:30] LABS: MANUAL DIFF FLAG NO
[2023-06-10 20:31] LABS: Basophils Absolute Auto 0.1 X10*3/uL (0.0-0.2); Basophils Percent Auto 0.4 % (0-2); Eosinophils Absolute Auto 0.2 X10*3/uL (0.0-0.4); Eosinophils Percent Auto 1.6 % (0-4); Hematocrit 26.1 % (37.0-47.0); Hemoglobin 7.5 g/dl (12.0-16.0); Imm Gran Abs Auto 0.06 X10*3/uL (0.00-0.03); Imm Gran Pct Auto 0.5 % (0.0-0.4); Lymphocytes Absolute Auto 3.2 X10*3/uL (1.2-4.9); Lymphocytes Percent Auto 24.5 % (20-40); Mean Corpuscular HGB Conc 28.7 g/dl (31.0-35.0); Mean Corpuscular Hemoglobin 19.8 pg (27.0-33.0); Mean Corpuscular Volume 68.9 fL (80.0-98.0); Mean Platelet Volume 10.5 fL (9.4-12.3); Monocytes Absolute Auto 0.7 X10*3/uL (0.1-1.2); Monocytes Percent Auto 5.4 % (2-11); Neutrophils Percent Auto 67.6 % (45-73); Platelet Count 314 X10*3/uL (160-400); Red Blood Count 3.79 X10*6/uL (4.20-5.50); Red Cell Distribution Width 16.5 % (11.0-16.0); White Blood Count 13.2 X10*3/uL (4.8-10.8)
[2023-06-10 20:32] LABS: Appearance Urine Clear; Color Urine Yellow; Glucose Urine UA Negative (Negative); Leukocyte Esterase Urine Negative (Negative); Nitrite Urine Negative (Negative); UMIC TRIGGER UACC YES; Urine Blood Moderate (2+) (Negative); Urine Ketones Negative (Negative); Urine Protein Negative (Neg-Trace)
[2023-06-10 20:43] LABS: Bacteria Urine Trace (None Seen); Hyaline Casts Urine 0-2 /LPF (0-2); RBC Urine 0-2 /HPF (0-2); Squamous Epithelial Cell Urine 0-2 /HPF (0-2); WBC Urine 0-5 /HPF (0-5)
[2023-06-10 20:55] LABS: Alanine Aminotransferase 14 U/L (0-31); Albumin Level 3.9 g/dL (3.5-5.0); Alkaline Phosphatase 94 U/L (39-117); Anion Gap 12 (12-20); Aspartate Amino Transferase 14 U/L (5-31); Bilirubin Total 0.3 mg/dL (0.0-1.0); Blood Urea Nitrogen 12 mg/dL (9-16); Calcium 8.9 mg/dL (8.4-10.2); Carbon Dioxide 24 mmol/L (22-29); Chloride 105 mmol/L (96-108); Creatinine Clr Calc Pharmacy 105.3; Estimated Glomerular Filt Rate > 60; Glucose Random 90 mg/dL (60-115); Potassium 3.6 mmol/L (3.3-5.1); Sodium 137 mmol/L (135-145); Total Protein 7.8 g/dL (6.5-8.0)
[2023-06-10 21:02] LABS: HCG Quantitative < 2 mIU/mL
[2023-06-10 21:16] VITALS: BP 114/77; PULSE 88; RESP 14; TEMP 36.7; O2SAT 100
[2023-06-10 22:00] VITALS: BP 118/72; PULSE 82; RESP 16; TEMP 36.8; O2SAT 99
[2023-06-10] MEDS: Acetaminophen 325 MG TABLET 650 MG PO (22:44)
--- NOTE | 2023-06-10 23:10 | PC.NURSE ---
Awaiting 1u PRBC from blood bank, patient states that she has had multiple blood transfusions in the past. x2 IV access obtained. VSS. Pt A&Ox3. Medicated per MAR. Resting quietly on stretcher. Call rodriguez placed within reach. Handoff to overnight RN, care transferred at this time.
[2023-06-10 23:51] VITALS: BP 121/66; PULSE 77; RESP 18; TEMP 36.6; O2SAT 97
--- NOTE | 2023-06-10 23:54 | PC.NURSE ---
8714 BLOOD INFUSION STARTED DOWNTIME PAPERWORK COMPLETED BLOOD VERIFICATION WITH HALEY CHAVIS. VSS AFEBRILE LUNG SOUNDS CTA RESP EVEN AND UNLABORED.
[2023-06-11 00:05] VITALS: BP 104/63; PULSE 85; RESP 17; TEMP 36.6
--- NOTE | 2023-06-11 00:05 | PC.NURSE ---
TIMING OF TAR OFF BLOOD INFUSION INITIALLY BEGAN ON DOWNTIME PAPERWORK.
--- NOTE | 2023-06-11 00:06 | PC.NURSE ---
INITIAL 15 MIN COMPLETE OF BLOOD TRANSFUSION. VSS. NAD. RESP EVEN AND UNLABORED. LUNG SOUNDS CTA. NO REACTION NOTED AT THIS TIME. BLOOD CONTINUES INFUSING.
[2023-06-11 01:47] VITALS: BP 117/64; PULSE 88; RESP 15; TEMP 36.5; O2SAT 100
--- NOTE | 2023-06-11 02:40 | PC.NURSE ---
blood transfusion complete- pt tolerated well.
[2023-06-11 02:43] VITALS: BP 107/66; PULSE 75; RESP 17; TEMP 36.5
== END 2023-06-11 03:41 | disposition home or self-care (01) ==
PROVIDERS: Registered Nurse Emergency; Emergency Provider Emergency Medicine; PCP Family Medicine
DX: R51.9 Headache, unspecified (principal); M54.50 Low back pain, unspecified; D64.9 Anemia, unspecified; Z79.899 Other long term (current) drug therapy
CPT/HCPCS: 36415; 36430; 70450; 80053; 81001; 84702; 85025; 86850; 86870; 86900; 86901; 86902; 86920; 86922; 99285; P9016

== ENCOUNTER 2023-06-14 11:36 | Outpatient (AMB) | payer MEDICAID, SELFPAY ==
[2023-06-14 11:38] VITALS: BP 110/66; BMI 36.6
--- NOTE | 2023-06-14 11:38 | MHC.OFFVIS ---
Intake Vital Signs 06/14/23 11:38 Height 5 ft 6 in Weight 227 lb BMI 36.6 BP 110/66 Intake Visit Reasons: EMB Assembly Technician Required: No Information Interpreted: non-clinical & clinical Over Short And Damage Clerk: Over Short And Damage Clerk Present (Heidi BATES) Accompanied by: Self / Same As Patient Allergies Iodinated Contrast Media [IV CONTRAST] Allergy (Severe, Verified 06/14/23 11:49) ANAPHYLAXIS Is last menstrual period known: No HPI HPI Comments History of Present Illness Details Presenting for EMB. The patient received 1 unit of packed RBCs in the emergency room on 06/09 [facility] Medical History Right hand pain Bilateral hand numbness Close exposure to COVID-19 virus Close exposure to 2019-nCoV COVID-19 vaccine series completed Hematuria Microscopic hematuria Allergy to contrast media (used for diagnostic x-rays) Left knee pain Abnormal abdominal MRI Left lateral epicondylitis SOB (shortness of breath) Precordial chest pain Breast nodule Patellofemoral disorder of left knee History of abnormal cervical Pap smear Breast pain, left Cyst of Bartholin's gland Bipolar 1 disorder Migraine with aura Anxiety Depression Fibromyalgia Arthritis Asthma Surgical History Status post insertion of nerve stimulator H/O colonoscopy Hx of arthroscopic knee surgery Hx of tubal ligation History of loop electrical excision procedure (LEEP) Hx of section Family History Mother Diabetes mellitus Asthma Depression Maternal Grandmother Asthma Breast cancer Maternal Aunt Diabetes mellitus HTN (hypertension) Breast cancer Social History Household Members: Children Household Members Other:: children: 19, 18, fraternal twins-15 and a 5 year old. Are you a primary physician locums urgent care to a significant other at home: Yes (child) Do you presently have visiting nurse or other home services: No Unable to assess alcohol history related to: Unknown Alcohol intake: current Alcohol intake frequency: holidays/special occasions only Patient Tobacco Use Status: Never used Tobacco Tobacco use type: Cigarette Current occupational status: unemployed Current occupation: rt hand Gender identity: Female Female Reproductive History Menstrual Age of Menarche: 11 Review of Systems Const All systems reviewed & are unremarkable except as noted in HPI and below Reports as per HPI and Reports no additional complaints GI Reports no additional complaints Reports no additional complaints Physical Exam Vital Signs: Last Vital Signs BP 110/66 06/14/23 11:38 BMI result Body Mass Index 36.6 Office Procedures Endometrial Biopsy Details: The patient was counseled regarding the indication and benefits of endometrial sampling to rule out endometrial pathology including not limited to endometrial hyperplasia or endometrial cancer and others; The alternatives (Either do nothing vs. hysteroscopy D&C) & the risks were discussed with the patient including but not limited: pain, uterine perforation, bleeding, infection, possible injury to bladder, bowel, ureter, possible need for blood transfusion with all its possible risks. The patient verbalized understanding all questions answered and signed consent. Urine test done in the office was negative The patient was placed into the dorsal lithotomy position; a speculum was inserted in the vagina. Using aseptic technique for the procedure, the cervix was cleansed with Betadine. The anterior lip of the cervix was grasped with a single tooth tenaculum. The uterus was sounded to 7 cm with a 4 mm Pipelle was used. Tissues samples were obtained and placed in formalin, in a patient labeled container and sent to the pathology department. At the end of the procedure, there was minimal bleeding noted The patient tolerated the procedure well and was discharged in good condition with the following instructions: Nothing in the vagina until the bleeding stops. No sex until the bleeding stops, to call if any of the following occurs: fever (>100.4), flu-like symptoms, abdominal pain, heavy bleeding, four smelling vaginal discharge. The patient was instructed to schedule a Follow up appointment in 2 weeks to discuss pathology results of the biopsy and treatment options. This note was generated with a voice recognition program. Some errors may have been overlooked during the review of this note. Sometimes these errors may affect the content or meaning of a given sentence. [id number] Biopsy Results AMB Test Urine AMB Test Urine Negative Last Edit by Heidi Jeffries CMA on 06/14/23 11:52 Assessment & Plan Assessment & Plan (1) Abnormal uterine bleeding (AUB): Comment: With anemia status post 1 unit of packed RBC Code(s): N93.9 - Abnormal uterine and vaginal bleeding, unspecified Plan: Repeat CBC, EMB done, see procedure note. Instructions given the patient to follow-up in 3 days to discuss options of treatment and to call or go to emergency room in case of heavy vaginal bleeding Orders: Orders AMB HCG Urine Test Today Z32.02 - Encounter for test, result negative Complete Blood Count no Diff Today N93.9 - Abnormal uterine and vaginal bleeding, unspecified AMB Endometrial Biopsy Today N93.9 - Abnormal uterine and vaginal bleeding, unspecified Coding Level of Care Code Procedure Only Diagnoses Abnormal uterine bleeding (AUB) N93.9 CPT Codes Endometrial Biopsy - CPT: 89572-Kivagoibunc Biopsy ([id number])
== END 2023-06-14 12:57 | disposition home or self-care (01) ==
LOC: HO.HWS 11:36
PROVIDERS: PCP Family Medicine; Visit Provider Obstetrics & Gynecology
DX: N93.9 Abnormal uterine and vaginal bleeding, unspecified (principal); Z32.02 Encounter for pregnancy test, result negative
CPT/HCPCS: 58100

== ENCOUNTER 2023-06-14 11:36 | Outpatient (REF) | payer MEDICAID, SELFPAY | END 2023-06-14 11:37 | disposition home or self-care (01) | LOC: HO.LNP 11:36 | PROVIDERS: PCP Family Medicine; Visit Provider Obstetrics & Gynecology | DX: N93.9 Abnormal uterine and vaginal bleeding, unspecified (principal) | CPT/HCPCS: 36415; 58100; 81025; 85027; 88305 ==

== ENCOUNTER 2023-06-14 12:10 | Outpatient (REF) | payer MEDICAID, SELFPAY ==
[2023-06-14 12:36] LABS: Hematocrit 28.2 % (37.0-47.0); Hemoglobin 8.1 g/dl (12.0-16.0); Mean Corpuscular HGB Conc 28.7 g/dl (31.0-35.0); Mean Corpuscular Hemoglobin 20.7 pg (27.0-33.0); Mean Corpuscular Volume 72.1 fL (80.0-98.0); Mean Platelet Volume 10.6 fL (9.4-12.3); Platelet Count 312 X10*3/uL (160-400); Red Blood Count 3.91 X10*6/uL (4.20-5.50); Red Cell Distribution Width 18.3 % (11.0-16.0); White Blood Count 10.6 X10*3/uL (4.8-10.8)
== END 2023-06-14 12:11 | disposition home or self-care (01) ==
LOC: HO.LAB 12:10
PROVIDERS: PCP Family Medicine; Visit Provider Obstetrics & Gynecology
DX: N93.9 Abnormal uterine and vaginal bleeding, unspecified (principal)
CPT/HCPCS: 36415; 85027

== ENCOUNTER 2023-06-16 13:14 | Outpatient (AMB) | payer MEDICAID, SELFPAY ==
--- NOTE | 2023-06-16 13:29 | A.OFFVIS_ITS ---
Intake Vital Signs 06/16/23 13:32 Height 5 ft 6 in Weight 224 lb 13.944 oz BMI 36.3 BP 116/70 Intake Visit Reasons: EMB results Allergies Iodinated Contrast Media [IV CONTRAST] Allergy (Severe, Verified 06/14/23 11:49) ANAPHYLAXIS HPI HPI Comments History of Present Illness Details The patient is presenting for follow-up to discuss the results of her abnormal uterine bleeding workup and options of treatment. The following workup was done.: H&H= 8.1/28.2 after 1 unit of blood transfusion TSH, prolactin, hCG, GC and chlamydia were negative. Endometrial biopsy pathology showed no evidence of hyperplasia and/or malignancy. Co testing was done was negative. Mammogram was BI-RADS 1. Pelvic ultrasound showed the following: Uterus: The uterus is anteverted and measures 12.7 x 6.3 x 6.9 cm. The double wall endometrial thickness is 15 mm. The endometrium appears abnormal with cystic and solid areas, significantly different than prior when it measured 10 mm in thickness. The uterus is smooth in contour and has normal myometrial echogenicity. A fundal fibroid is present which has decreased in size, now measuring 2.6 x 2.3 x 3.5 cm (previously 4.3 x 2.2 x 4.4 cm). Nabothian cysts are present in the cervix. Adnexa: Both ovaries are visualized. There is normal color flow to the adnexa. There is no ovarian torsion. There is no pelvic ascites or fluid collection. Right ovary measures 3.0 x 2.4 x 1.8 cm for a volume of 6.8 mL and contains a 1.2 cm benign cyst. At the time of the prior study, the ovary was significantly larger and contained a complex 2.7 cm cyst with multiple septations along with an additional cyst with a 7 mm mural nodule. These findings are no longer seen. Left ovary measures 5.0 x 3.7 x 3.0 cm for a volume of 29 mL which includes a 4.0 x 2.3 x 2.8 cm benign simple cyst. [facility] Medical History Right hand pain Bilateral hand numbness Close exposure to COVID-19 virus Close exposure to 2018- COVID-19 vaccine series completed Hematuria Microscopic hematuria Allergy to contrast media (used for diagnostic x-rays) Left knee pain Abnormal abdominal MRI Left lateral epicondylitis SOB (shortness of breath) Precordial chest pain Breast nodule Patellofemoral disorder of left knee History of abnormal cervical Pap smear Breast pain, left Cyst of Bartholin's gland Bipolar 1 disorder Migraine with aura Anxiety Depression Fibromyalgia Arthritis Asthma Surgical History Status post insertion of nerve stimulator H/O colonoscopy Hx of arthroscopic knee surgery Hx of tubal ligation History of loop electrical excision procedure (LEEP) Hx of section Family History Mother Diabetes mellitus Asthma Depression Maternal Grandmother Asthma Breast cancer Maternal Aunt Diabetes mellitus HTN (hypertension) Breast cancer Social History Household Members: Children Household Members Other:: children: 19, 18, fraternal twins-15 and a 5 year old. Are you a primary care professionals to a significant other at home: Yes (child) Do you presently have visiting nurse or other home services: No Unable to assess alcohol history related to: Unknown Alcohol intake: current Alcohol intake frequency: holidays/special occasions only Patient Tobacco Use Status: Never used Tobacco Tobacco use type: Cigarette Current occupational status: unemployed Current occupation: rt hand Gender identity: Female Female Reproductive History Menstrual Age of Menarche: 11 Review of Systems Const All systems reviewed & are unremarkable except as noted in HPI and below Reports as per HPI and Reports no additional complaints GI Reports no additional complaints Reports no additional complaints Physical Exam Vital Signs: Last Vital Signs BP 116/70 06/16/23 13:32 BMI result Body Mass Index 36.3 Office Procedures IUD Insert/Removal Details Details: The patient is presenting for Mirena IUD insertion Urine test was done in the office and was negative; All the contraindications were excluded. The following possible complications were discussed with the patient: Intrauterine , Ectopic , Sepsis, Pelvic Infection, Irregular Bleeding and Amenorrhea, Perforation, Expulsion, Ovarian Cysts, Breast Cancer, The following adverse effects were discussed with the patient: alteration of menstrual bleeding pattern, including: unscheduled uterine bleeding decreased uterine bleeding increased scheduled uterine bleeding female genital tract bleeding ,amenorrhea , genital discharge , vulvovaginitis , breast pain , benign ovarian cyst and associated complications , dysmenorrhea , Gastrointestinal disorders abdominal/pelvic pain, headache/migraine , back pain , acne , depression Alternative options were discussed with the patient including but not limited: control pills, patch, NuvaRing, Depo-medroxyprogesterone acetate, Nexplanon, copper IUD, sterilization, vasectomy, others The procedure was explained in detail to patient , at the end patient signed the informed consent obtained. A no touch technique was used throughout the procedure. A speculum was placed into vagina and cervix was cleaned with betadine). A tenaculum was placed. A plastic sound was advanced through the external and internal os until it reached the fundus of the uterus, the depth was 8 cm. The sound was then withdrawn. The IUD was loaded in a sterile manner and advanced into position. The string was visualized and cut to 3 cm. Tenaculum site hemostatic. All instruments removed from vagina. Patient tolerated the procedure well. NO complications were noted. Patient was instructed to call for fever over 100.4, significant pain unrelieved by Motrin, IUD expulsion, heavy bleeding, or abnormal discharge. In addition, the following clinical considerations were discussed with the patient to call for removal: A stroke or heart attack ,Very severe or migraine headaches ,Unexplained fever ,Yellowing of the skin or whites of the eyes, as these may be signs of serious liver problems , or suspected , Pelvic pain or pain during sex ,HIV positive seroconversion in herself or her partner , Possible exposure to sexually transmitted infections Unusual vaginal discharge or genital sores , severe vaginal bleeding or bleeding that lasts a long time, or if she misses a menstrual period, Inability to feel Mirena's threads Counseled the patient that the IUD does not protect against STI's, recommended use of condoms for the first 7 days post insertion and explained to the patient that condoms are recommended for patients at risk for sexually transmitted infections. In for the patient that Mirena IUD is FDA approved for 8 years for contraception for 5 years for the treatment of heavy menses Instructed the patient to schedule a Follow up appointment in 4 to 6 weeks following insertion. This note was generated with a voice recognition program. Some errors may have been overlooked during the review of this note. Sometimes these errors may affect the content or meaning of a given sentence. [id number] Insertion Procedure code (CPT) selection complete Office Meds Mirena 21 mcg/24 hours (8 yrs) 52 mg intrauterine device Performing Provider: Isma Seth MD Performing Location: [facility] Documented (not given) by: Isam Seth MD on 06/16/23 13:49 Dose Route Admin Location Dispensed Lot Number Expiration Date NDC Architecture Manager 1 device intrauterine ea Assessment & Plan Assessment & Plan (1) Abnormal uterine bleeding (AUB): Comment: With anemia status post 1 unit of packed RBC Code(s): N93.9 - Abnormal uterine and vaginal bleeding, unspecified Plan: Discussed with the patient the results of the work up done and options of treatment including Lysteda, control pills, Mirena IUD, endometrial ablation and hysterectomy. All pros, cons, risks and benefits if each option was discussed with the patient and the patient decided to go ahead with Mirena IUD so a more detailed discussion about it was conducted including mechanism of action, risks (uterine perforation, infection, injury to bladder, bowel, displacement, and others) benefits (hypo menorrhea, amenorrhea, ...). GC/CT were taken and were negative, IUD inserted, see procedure . All questions answered, the patient verbalized understanding Orders: Orders AMB IUD Insertion/Removal - Practice Supplied Today N93.9 - Abnormal uterine and vaginal bleeding, unspecified Medications: New Mirena (levonorgestrel) 1 device intrauterine ONCE 1 ea 0RF IUD insertion NS N93.9 - Abnormal uterine and vaginal bleeding, unspecified Coding Level of Care Code Est Pt Level 3 (08862) Procedure Only Diagnoses Abnormal uterine bleeding (AUB) N93.9 CPT Codes Details - CPT: 66540-YAI Insertion ([id number])
[2023-06-16 13:32] VITALS: BP 116/70; BMI 36.3
== END 2023-06-16 14:17 | disposition home or self-care (01) ==
PROVIDERS: PCP Family Medicine; Visit Provider Obstetrics & Gynecology
DX: N93.9 Abnormal uterine and vaginal bleeding, unspecified (principal); Z30.430 Encounter for insertion of intrauterine contraceptive device; Z32.02 Encounter for pregnancy test, result negative
CPT/HCPCS: 58300; 99213

== ENCOUNTER → 2023-06-16 13:14 | Outpatient (BNVA) | payer MEDICAID, SELFPAY | PROVIDERS: PCP Family Medicine; Visit Provider Obstetrics & Gynecology | DX: Z30.430 Encounter for insertion of intrauterine contraceptive device (principal); N93.9 Abnormal uterine and vaginal bleeding, unspecified; D64.9 Anemia, unspecified | CPT/HCPCS: 58300; 81025; 99212; J7298 ==

== ENCOUNTER 2023-06-24 09:53 | Outpatient (REF) | payer MEDICAID, SELFPAY | END 2023-06-24 09:54 | disposition home or self-care (01) | LOC: HO.MRI 09:53 | PROVIDERS: PCP Family Medicine; Visit Provider Family Medicine | DX: Z13.89 Encounter for screening for other disorder (principal) ==

== ENCOUNTER → 2023-06-30 11:20 | Outpatient (BNV) | payer MEDICAID, SELFPAY | PROVIDERS: PCP Family Medicine; Referring Provider Family Medicine; Visit Provider Internal Medicine Medical Oncology | DX: D64.9 Anemia, unspecified (principal) | CPT/HCPCS: 99204; 99213 ==

== ENCOUNTER 2023-07-05 10:52 | Outpatient (AMB) | payer MEDICAID, SELFPAY ==
--- NOTE | 2023-07-05 10:58 | MHC.OFFVIS ---
Intake Vital Signs 07/05/23 11:12 Height 5 ft 6 in Weight 217 lb 6.012 oz BMI 35.1 BP 135/75 Blood Pressure Location Rt brachial Position Sitting Pulse 77 Intake Visit Reasons: Liver lesions Intake Note: Susanne presents to in office visit today for liver lesions. CC: Patient reports pain from left mid back, and occasional heartburn. She denies having any other GI symptom today. Director Phone Required: No Accompanied by: Self / Same As Patient Allergies gadobutrol Allergy (Severe, Verified 07/05/23 11:19) Difficulty Breathing Iodinated Contrast Media [IV CONTRAST] Allergy (Severe, Verified 07/05/23 11:19) ANAPHYLAXIS HPI HPI Comments History of Present Illness Details This is a 42-year-old female who has been referred to our office to reestablish care for hepatic lesion. Patient has previously been seen by Dr. Roca for the same. Currently reports no abdominal pain, nausea, vomiting, rash, abdominal distention. Recently had Mirena IUD put in for abnormal uterine bleeding. No family history of liver cancer in first-degree relatives. MRI liver protocol 11/2020: The liver is normal in size and smooth in contour. There is no significant signal loss on out of phase imaging to suggest hepatic steatosis. There are 3 stable hepatic parenchymal lesions as detailed below. There are no new hepatic parenchymal lesions. Gallbladder has a stone approximately 0.7 cm. No gallbladder wall thickening or pericholecystic inflammatory changes. No intrahepatic or extrahepatic biliary ductal dilatation. The 3 hepatic lesions are stable from prior MR 05/23/2020 as follows: -Simple cyst subcapsular segment 4A left lobe 1.2 x 1.0 cm. Prior measurement 1.0 cm; baseline measurement 2018, 0.8 cm. -Benign hepatic hemangioma, central segment 8 just posterior to the middle hepatic vein measuring 1.6 x 1.3 cm. Prior measurement 1.6 cm. Baseline measurement 2018 approximately 1.5 x 1.1 cm. This is geographic, circumscribed, high signal T2, with peripheral globular enhancement and centripetal hyperenhancement on subsequent phases. -Probable focal nodular hyperplasia, subcapsular segment 5 measuring 3.7 x 3.3 cm. Prior measurement 3.7 x 3.4 cm. Baseline measurement 2018 approximately 3.3 x 2.8 cm. The lesion is circumscribed, T1 iso/mild hypo, T2 iso/mild hyper, and with arterial phase hyperenhancement and later phase enhancement closer to background liver. There is a central scar low signal T1, high signal T2 and with scar enhancement which persists. No steatosis of lesion on out of phase imaging. US Abd 02/2023: LIVER: Increased hepatic parenchymal heterogeneity and echogenicity which could be associated with hepatic steatosis or hepatocellular disease and substantially limits visualization. Right hepatic 1.3 x 1.6 x 1.1 cm cyst is difficult to characterize due to limited visualization. Hypoechoic 3.1 x 2.9 x 3.3 cm lesion with internal vascularity and echogenic foci characteristic of calcifications in the right hepatic lobe, near the gallbladder measured 3.9 x 3.9 x 3.7 cm on ultrasound of 03/28/2020. MR abdomen of 11/19/2020 demonstrated a 3.7 x 3.3 cm area felt to probably represent focal nodular hyperplasia. The hemangioma identified on MRI is not clearly visualized today, likely due to technical limitations. [facility] Medical History Right hand pain Bilateral hand numbness Close exposure to COVID-19 virus Close exposure to 2019-nCoV COVID-19 vaccine series completed Hematuria Microscopic hematuria Allergy to contrast media (used for diagnostic x-rays) Left knee pain Abnormal abdominal MRI Left lateral epicondylitis SOB (shortness of breath) Precordial chest pain Breast nodule Patellofemoral disorder of left knee History of abnormal cervical Pap smear Breast pain, left Cyst of Bartholin's gland Bipolar 1 disorder Migraine with aura Anxiety Depression Fibromyalgia Arthritis Asthma Surgical History Status post insertion of nerve stimulator H/O colonoscopy Hx of arthroscopic knee surgery Hx of tubal ligation History of loop electrical excision procedure (LEEP) Hx of section Family History Mother Diabetes mellitus Asthma Depression Maternal Grandmother Asthma Breast cancer Maternal Aunt Diabetes mellitus HTN (hypertension) Breast cancer Social History (Updated 06/30/23 @ 11:30 by Anuel Johnson) Household Members: Children Household Members Other:: children: 19, 18, fraternal twins-15 and a 5 year old. Are you a primary home care associate to a significant other at home: Yes (child) Do you presently have visiting nurse or other home services: No Unable to assess alcohol history related to: Unknown Alcohol intake: current Alcohol intake frequency: holidays/special occasions only Patient Tobacco Use Status: Never used Tobacco Tobacco use type: Cigarette service: No Current occupational status: unemployed Current occupation: rt hand Gender identity: Female Female Reproductive History Menstrual Age of Menarche: 11 Review of Systems Const All systems reviewed & are unremarkable except as noted in HPI and below Physical Exam Vital Signs: BMI result Body Mass Index 35.1 NAD nonicteric no overt resp distress abd soft, nondistended A/Ox3 norm gait Assessment & Plan Assessment & Plan (1) Focal nodular hyperplasia of liver: Code(s): K76.89 - Other specified diseases of liver (2) Hemangioma: Code(s): D18.00 - Hemangioma unspecified site (3) Abnormal abdominal MRI: Code(s): R93.5 - Abnormal findings on diagnostic imaging of other abdominal regions, including retroperitoneum (4) Allergy to imaging contrast media: Code(s): Z91.041 - Radiographic dye allergy status Plan Patient has known hemangioma as well as FNH based on liver protocol imaging in the past. Discussed with the patient that small change in size is likely due to different modality of imaging that is ultrasound versus MRI. Patient is already set up to undergo a repeat liver protocol MRI through her PCP's office. Since she is gadolinium allergy, she requests premedication, tells me that she did well with it in 2020. Plan: -prednisone and Benadryl prescribed as per protocol for premedication -MRI already ordered but counseled the pt that neither the hemangioma nor the FNH require surveillance as benign lesions of small size Patient to call office for follow-up once MRI done Medications: New prednisone 50 mg orally; 13h before, 7h before and then 1h before the MRI 3 tabs 0RF Z91.041 - Radiographic dye allergy status diphenhydramine HCl (Benadryl Allergy) 1h before the MRI - may cause drowsiness, avoid driving. 50 mg PO ONCE 1 tab 0RF Z91.041 - Radiographic dye allergy status Coding Level of Care Code New Pt Level 4 (91968) Diagnoses Focal nodular hyperplasia of liver K76.89 Hemangioma D18.00 Abnormal abdominal MRI R93.5 Allergy to imaging contrast media Z91.041
[2023-07-05 11:12] VITALS: BP 135/75; PULSE 77; BMI 35.1
== END 2023-07-05 11:46 | disposition home or self-care (01) ==
PROVIDERS: PCP Family Medicine; Referring Provider Family Medicine; Visit Provider Internal Medicine
DX: K76.89 Other specified diseases of liver (principal); D18.00 Hemangioma unspecified site; R93.5 Abnormal findings on diagnostic imaging of other abdominal regions, including retroperitoneum; Z91.041 Radiographic dye allergy status
CPT/HCPCS: 99204

== ENCOUNTER 2023-07-28 11:48 | Outpatient (AMB) | payer MEDICAID, SELFPAY ==
--- NOTE | 2023-07-28 11:52 | MHC.OFFVIS ---
Vital Signs 07/28/23 11:57 Height 5 ft 6 in Weight 216 lb 0.848 oz BMI 34.9 BP 124/76 Intake Visit Reasons: IUD Check Animal Care Specialist Required: No Information Interpreted: non-clinical & clinical Bioinformatics Analyst: Bioinformatics Analyst Present (Heidi Jeffries PAULO) Accompanied by: Self / Same As Patient Allergies gadobutrol Allergy (Severe, Verified 07/05/23 11:19) Difficulty Breathing Iodinated Contrast Media [IV CONTRAST] Allergy (Severe, Verified 07/05/23 11:19) ANAPHYLAXIS HPI Comments Details: The patient is presenting for IUD check. 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 The patient has been getting iron transfusion weekly [facility] Medical History Right hand pain Bilateral hand numbness Close exposure to COVID-19 virus Close exposure to 2019-nCoV COVID-19 vaccine series completed Hematuria Microscopic hematuria Allergy to contrast media (used for diagnostic x-rays) Left knee pain Abnormal abdominal MRI Left lateral epicondylitis SOB (shortness of breath) Precordial chest pain Breast nodule Patellofemoral disorder of left knee History of abnormal cervical Pap smear Breast pain, left Cyst of Bartholin's gland Bipolar 1 disorder Migraine with aura Anxiety Depression Fibromyalgia Arthritis Asthma Surgical History Status post insertion of nerve stimulator H/O colonoscopy Hx of arthroscopic knee surgery Hx of tubal ligation History of loop electrical excision procedure (LEEP) Hx of section Family History Mother Diabetes mellitus Asthma Depression Maternal Grandmother Asthma Breast cancer Maternal Aunt Diabetes mellitus HTN (hypertension) Breast cancer Social History Household Members: Children Household Members Other:: children: 19, 18, fraternal twins-15 and a 5 year old. Are you a primary transitional care nurse to a significant other at home: Yes (child) Do you presently have visiting nurse or other home services: No Unable to assess alcohol history related to: Unknown Alcohol intake: current Alcohol intake frequency: holidays/special occasions only Patient Tobacco Use Status: Never used Tobacco Tobacco use type: Cigarette service: No Current occupational status: unemployed Current occupation: rt hand Gender identity: Female Female Reproductive History Menstrual Age of Menarche: 11 Review of Systems Const All systems reviewed & are unremarkable except as noted in HPI and below Physical Exam Vital Signs: BMI result Body Mass Index 34.9 General: Yes no CVA tenderness External Female Exam: normal external appearance and normal appearance of the urethra Speculum Exam - Vagina: normal appearance of the vagina, normal palpation, no lesions and no masses Speculum Exam - Cervix: normal appearance of the cervix, normal palpation, no lesions, no masses, nontender and Other cervical findings present (IUD string in place) Bimanual exam- vagina & uterus: normal bimanual exam, normal palpation, uterine size normal, normal palpation, uterine shape normal, No Cervical tenderness present and non-tender Bimanual Exam- Adnexa, other: normal adnexae Back/Spine/Pelvis Back: no CVA tenderness Results AMB Test Urine AMB Test Urine Negative Last Edit by Heidi Jeffries CMA on 07/28/23 12:06 Results Reviewed Results Reviewed: Laboratory Last Values [facility]st Clinic Negative 07/28/23 12:05 Assessment & Plan Assessment & Plan (1) IUD check up: Code(s): Z30.431 - Encounter for routine checking of intrauterine contraceptive device Category: Medical Plan: Will repeat CBC today, instructions given to patient to schedule a follow-up appointment in 3 months; if bleeding has not improved by then will consider different options of treatment. All questions answered the patient verbalized understand Orders: Orders AMB HCG Urine Test Today Z32.02 - Encounter for test, result negative Complete Blood Count no Diff Today N93.9 - Abnormal uterine and vaginal bleeding, unspecified Coding Level of Care Code Est Pt Level 3 (46262) Diagnoses IUD check up Z30.431
[2023-07-28 11:57] VITALS: BP 124/76; BMI 34.9
== END 2023-07-28 12:25 | disposition home or self-care (01) ==
LOC: HO.HWS 11:48
PROVIDERS: PCP Family Medicine; Visit Provider Obstetrics & Gynecology
DX: Z32.02 Encounter for pregnancy test, result negative (principal); Z30.431 Encounter for routine checking of intrauterine contraceptive device
CPT/HCPCS: 99213

== ENCOUNTER 2023-07-28 11:48 | Outpatient (REF) | payer MEDICAID, SELFPAY ==
[2023-07-28 13:01] LABS: Hematocrit 29.5 % (37.0-47.0); Hemoglobin 8.5 g/dl (12.0-16.0); Mean Corpuscular HGB Conc 28.8 g/dl (31.0-35.0); Mean Corpuscular Hemoglobin 22.3 pg (27.0-33.0); Mean Corpuscular Volume 77.2 fL (80.0-98.0); Mean Platelet Volume 10.3 fL (9.4-12.3); Platelet Count 322 X10*3/uL (160-400); Red Blood Count 3.82 X10*6/uL (4.20-5.50); White Blood Count 7.9 X10*3/uL (4.8-10.8)
== END 2023-07-28 11:49 | disposition home or self-care (01) ==
LOC: HO.LAB 11:48
PROVIDERS: PCP Family Medicine; Visit Provider Obstetrics & Gynecology
DX: Z30.431 Encounter for routine checking of intrauterine contraceptive device (principal); N93.9 Abnormal uterine and vaginal bleeding, unspecified
CPT/HCPCS: 36415; 81025; 85027; 99212

== ENCOUNTER 2023-08-03 11:17 | Outpatient (REF) | payer MEDICAID, SELFPAY | END 2023-08-03 11:18 | disposition home or self-care (01) | LOC: HO.MRI 11:17 | PROVIDERS: PCP Family Medicine; Visit Provider Family Medicine | DX: Z13.89 Encounter for screening for other disorder (principal) ==

== ENCOUNTER 2023-08-10 19:06 | Emergency (ER) | payer MEDICAID, SELFPAY ==
--- NOTE | ~2023-08-10 | XR_ITS ---
EXAMINATION: XR CHEST 2 VIEWS CLINICAL INFORMATION: Cough. COMPARISON: Prior chest radiographs, most recently 02/20/2023. TECHNIQUE: Frontal and lateral views of the chest were obtained. FINDINGS: The heart, great vessels, pulmonary vasculature and mediastinum are normal. The lungs show no focal infiltrate, effusion or pneumothorax. There is no acute osseous abnormality. XR/XR chest 2V IMPRESSION: No active cardiopulmonary disease.
[2023-08-10 19:47] VITALS: BP 141/71; PULSE 88; RESP 20; TEMP 37.4; O2SAT 99; BMI 33.9
--- NOTE | 2023-08-10 20:26 | ED_ITS ---
HPI - URI/Sore Throat General Chief Complaint: Upper Respiratory Symptoms Stated Complaint: sore throat Time Seen by Provider: 08/10/23 23:19 Source: patient Mode of arrival: ambulatory History of Present Illness HPI Narrative: 42-year-old female 2-3 days of nasal congestion, sore throat, cough and shortness of breath. Also reports subjective fevers and chills Related Data Home Medications ?Medication ?Instructions ?Recorded ?Confirmed zolpidem 10 mg tablet (Ambien) 10 mg PO BEDTIME PRN Insomnia 04/16/20 06/30/23 omeprazole 20 mg capsule,delayed 1 cap PO DAILY 10/25/20 06/30/23 release baclofen 10 mg tablet 10 mg PO BID PRN muscle spasm 03/03/22 06/30/23 clonazepam 1 mg tablet 1 mg PO BID 07/05/23 docusate sodium 100 mg capsule 100 mg PO 07/05/23 ferrous sulfate 325 mg (65 mg 325 mg PO 07/05/23 iron) tablet (FeroSul) gabapentin 400 mg capsule 400 mg PO TID 07/05/23 mometasone 100 mcg/actuation HFA 1 puff inhalation BID 07/05/23 aerosol inhaler (Asmanex HFA) Previous Rx's ?Medication ?Instructions ?Recorded acetaminophen 500 mg tablet 1,000 mg (2 x 500 mg) PO QID PRN 08/11/21 (Tylenol Extra Strength) fever or pain #14 tabs tramadol 50 mg tablet 50 mg PO Q6H PRN pain #20 tabs 05/06/22 ibuprofen 600 mg tablet 600 mg PO Q6H PRN pain #20 tabs 02/21/23 diphenhydramine HCl 50 mg tablet 50 mg PO ONCE #1 tab 07/05/23 (Benadryl Allergy) prednisone 50 mg tablet 50 mg PO .COMPLEX #3 tabs 07/05/23 azithromycin 250 mg tablet 250 mg PO DAILY 4 days #4 tabs 08/10/23 Allergies Allergy/AdvReac Type Severity Reaction Status Date / Time gadobutrol Allergy Severe Difficulty Verified 08/10/23 19:50 Breathing Iodinated Contrast Media Allergy Severe ANAPHYLAXIS Verified 08/10/23 19:50 [IV CONTRAST] Review of Systems Review of Systems: Pertinent positives and negatives as stated in HPI [facility] Past Medical History Source: nursing notes reviewed Medical History Right hand pain Bilateral hand numbness Close exposure to COVID-19 virus Close exposure to 2019-nCoV COVID-19 vaccine series completed Hematuria Microscopic hematuria Allergy to contrast media (used for diagnostic x-rays) Left knee pain Abnormal abdominal MRI Left lateral epicondylitis SOB (shortness of breath) Precordial chest pain Breast nodule Patellofemoral disorder of left knee History of abnormal cervical Pap smear Breast pain, left Cyst of Bartholin's gland Bipolar 1 disorder Migraine with aura Anxiety Depression Fibromyalgia Arthritis Asthma Surgical History Status post insertion of nerve stimulator H/O colonoscopy Hx of arthroscopic knee surgery Hx of tubal ligation History of loop electrical excision procedure (LEEP) Hx of section Family History Family History Mother Diabetes mellitus Asthma Depression Maternal Grandmother Asthma Breast cancer Maternal Aunt Diabetes mellitus HTN (hypertension) Breast cancer Social History Social History Household Members: Children Household Members Other:: children: 19, 18, fraternal twins-15 and a 5 year old. Are you a primary post acute care nurse practitioner to a significant other at home: Yes (child) Do you presently have visiting nurse or other home services: No Unable to assess alcohol history related to: Unknown Alcohol intake: current Alcohol intake frequency: holidays/special occasions only Patient Tobacco Use Status: Never used Tobacco Tobacco use type: Cigarette Smoked in Last 30 Days: No Use of substances other than those prescribed or required for medical reasons: No Advance Directives: No Advance Directives Information Provided: Yes Do you have a plan to hurt others: No Plan Patient : No service: No Current occupational status: unemployed Current occupation: rt hand Gender identity: Female Physical Exam Vital Signs: Vital Signs: Last Vital Signs Temp 98.8 F 08/10/23 23:58 Pulse 87 08/10/23 23:58 Resp 18 08/10/23 23:58 BP 113/63 08/10/23 23:58 Pulse Ox 100 08/10/23 23:58 O2 Del Method Room Air 08/10/23 23:58 BMI result Body Mass Index 33.9 VITAL SIGNS: Reviewed. GENERAL: Well developed, well nourished, in no acute distress. HEAD: Normocephalic/atraumatic EYES: PERRLA, EOMI EARS: Ext canals without abnormality, TMs non-bulging and non-erythematous NOSE: Nares patent bilateral OROPHARYNX: no oral lesions noted, posterior pharynx clear and non-erythematous without noted tonsillar enlargement/erythema/exudates NECK: Supple, no adenopathy LUNGS: Normal breath sounds. No adventitious sounds or accessory muscle use. SpO2<100> CARDIOVASCULAR: Regular rate and rhythm without noted murmurs ABDOMEN: Soft, non-tender, non-distended with bowel sounds. MUSCULOSKELETAL: No tenderness, deformities, or effusions noted on gross inspection. EXTREMITIES: No cyanosis, clubbing or edema. SKIN: Inspection of the skin reveals no rashes NEUROLOGIC: Alert and oriented x 4. Strength and sensation to light touch were grossly intact x 4. Course Course Course Narrative: This is a Rapid Medical Examination (RME) performed by Justin Asif PA-C in triage. Full HPI, ROS, assessment and treatment plan per primary provider in the Main ED. 42 y/o female presents to the ER for evaluation of sore throat, coughing, runny nose, chest discomfort for the last several days. No known sick contacts. She does have asthma and has been using her inhaler with improvement. She appears unwell in triage although nontoxic. Her lungs are clear to auscultation without any wheezing or rhonchi. CV w/ RRR, no murmur. Plan: Chest x-ray, viral swabs Medications Administered Discontinued Medications Generic Name Dose Route Start Last Admin Trade Name Darrellq PRN Reason Stop Dose Admin Azithromycin 500 mg 08/10/23 23:43 08/10/23 23:47 Azithromycin 500 Mg Tablet PO 08/10/23 23:44 500 mg ONCE ONE Administration Ibuprofen 400 mg 08/10/23 23:53 08/10/23 23:56 Ibuprofen 400 Mg Tablet PO 08/10/23 23:54 400 mg ONCE ONE Administration Medical Decision Making Medical Decision Making [facility] Narrative: 42-year-old female with history and clinical presentation, DDX: Seasonal allergies, viral illness, bronchitis, pneumonia I reviewed all investigations and viral testing is negative for strep pharyngitis/influenza/COVID-19/RSV. Chest x-ray does not demonstrate an infiltrate or venous congestion otherwise my interpretation is in agreement with radiology's impression. I discussed all results and findings with the patient at bedside, and she understands she will be discharged with presumptive diagnosis of bronchitis and seasonal allergies Differential Diagnosis Differential Diagnoses: The differential diagnosis associated with the pr esentation includes Please see the discussion above Admission/Observation Consideration of admission/observation: Escalation of care including admission/observation considered Please see the discussion above Lab Data MDM Lab Attestation statement: I reviewed the patient's lab results. Please see the discussion above Labs: Lab Results 08/10/23 Range/Units 21:16 Influenza Type A (PCR) NEGATIVE (Negative) Influenza Type B (PCR) NEGATIVE (Negative) RSV RNA Qual (PCR) NEGATIVE (Negative) SARS-CoV-2 RNA (RT-PCR) NEGATIVE (Negative) S. pyogenes GrpA YESENIA Negative (Negative) Critical Care Time Critical Care Time Critical Care Time: Yes Total Critical Care Time: 30 Attestation: I personally attest to this time spent taking care of the patient. Discharge Plan Discharge Clinical Impression: Bronchitis, Pharyngitis, Seasonal allergies Patient Disposition: Home, Self-Care Instructions: Pharyngitis (ED), Acute Bronchitis (ED), Allergic Rhinitis (ED) Additional Instructions: 1. I recommend adding saline gargles (warm tap water and table salt) for 5 minutes, 3 to 4 times a day. In addition, you can try [id number] Cepacol for additional relief of throat pain. 2. Continue with [id number] Tylenol/ibuprofen. I also recommend starting seasonal allergy medication, Claritin/Flonase. 3. Follow-up with primary care doctor in the next 2-3 days. Return to the ER for any worsening symptoms. Prescriptions: New azithromycin 250 mg tablet 250 mg PO DAILY 4 Days Qty: 4 0RF Rx Instructions: start on day 2 of therapy No Action omeprazole 20 mg capsule,delayed release(DR/EC) 1 cap PO DAILY acetaminophen [Tylenol Extra Strength] 500 mg tablet 1,000 mg PO QID PRN (Reason: fever or pain) Qty: 14 0RF tramadol 50 mg tablet 50 mg PO Q6H PRN (Reason: pain) Qty: 20 0RF ibuprofen 600 mg tablet 600 mg PO Q6H PRN (Reason: pain) Qty: 20 0RF zolpidem [Ambien] 10 mg tablet 10 mg PO BEDTIME PRN (Reason: Insomnia) clonazepam 1 mg tablet 1 mg PO BID Rx Instructions: administer 30 minutes before bedtime baclofen 10 mg tablet 10 mg PO BID PRN (Reason: muscle spasm) gabapentin 400 mg capsule 400 mg PO TID docusate sodium 100 mg capsule 100 mg PO ferrous sulfate [FeroSul] 325 mg (65 mg iron) tablet 325 mg PO Asmanex HFA 100 mcg/actuation HFA aerosol inhaler 1 puff inhalation BID prednisone 50 mg tablet 50 mg PO .COMPLEX Qty: 3 0RF Rx Instructions: 50 mg orally; 13h before, 7h before and then 1h before the MRI Benadryl Allergy 50 mg tablet 50 mg PO ONCE Qty: 1 0RF Rx Instructions: 1h before the MRI - may cause drowsiness, avoid driving. Interventions: ED Discharge Assessment Last Done: 08/10/23 23:58 Discharge Date/Time: 08/10/23 23:59 Print Language: Portuguese
[2023-08-10 21:32] LABS: IDNOW Serial# 08D9AD1C; Strep A Nucleic Acid Negative (Negative)
[2023-08-10 22:07] LABS: Influenza A PCR NEGATIVE (Negative); Influenza B PCR NEGATIVE (Negative); Resp Syncy Virus RNA Qual PCR NEGATIVE (Negative); SARS COV2 PCR INHOUSE NEGATIVE (Negative)
[2023-08-10 23:18] VITALS: BP 113/63; PULSE 87; RESP 18; TEMP 37.1; O2SAT 100
[2023-08-10] MEDS: Azithromycin 500 MG TABLET PO (23:47)
[2023-08-10] MEDS: Ibuprofen 400 MG TABLET PO (23:56)
[2023-08-10 23:58] VITALS: BP 113/63; PULSE 87; RESP 18; TEMP 37.1; O2SAT 100
== END 2023-08-10 23:59 | disposition home or self-care (01) ==
LOC: HO.ED 23:46
PROVIDERS: Physician Assistant; Emergency Provider Student in an Organized Health Care Education/Training Program
DX: J40 Bronchitis, not specified as acute or chronic (principal); J02.9 Acute pharyngitis, unspecified; J30.2 Other seasonal allergic rhinitis
CPT/HCPCS: 0241U; 71046; 87651; 99283; 99284

== ENCOUNTER 2023-08-12 15:55 | Outpatient (REF) | payer MEDICAID, SELFPAY ==
[2023-08-16 12:06] LABS: Alphahydroxymidazolam,GCMS Ur NEGATIVE; Alphahydroxytriazolam, GCMS Ur NEGATIVE; Alprazolam, GCMS Urine NEGATIVE; Aminoclonazepam, GCMS Urine NEGATIVE; Flurazepam Metabolite,GCMS Ur NEGATIVE; Lorazepam GCMS Urine NEGATIVE; Nordiazepam, GCMS Urine NEGATIVE; Oxazepam, GCMS Urine NEGATIVE; Temazepam, GCMS Urine NEGATIVE
== END 2023-08-12 15:56 | disposition home or self-care (01) ==
LOC: HO.HHCLNP 15:55
PROVIDERS: Visit Provider Family Medicine
DX: F41.9 Anxiety disorder, unspecified (principal)
CPT/HCPCS: 80346

== ENCOUNTER 2023-08-25 12:40 | Emergency (ER) | payer MEDICAID, SELFPAY ==
--- NOTE | ~2023-08-25 | XR_ITS ---
EXAMINATION: XR CHEST CLINICAL INFORMATION: Chest pain COMPARISON: Chest x-ray August 10, 2023 TECHNIQUE: 2 views of the chest were obtained. 1305 hours FINDINGS: No significant abnormality is noted involving the heart, lungs, mediastinum, bony thorax or soft tissues. XR/XR chest 2V IMPRESSION: Unremarkable examination.
[2023-08-25 12:46] VITALS: BP 118/73; PULSE 80; RESP 16; TEMP 36.7; O2SAT 100; BMI 35.8
--- NOTE | 2023-08-25 12:46 | ED_ITS ---
HPI - General Adult General Chief complaint: Upper Respiratory Symptoms Stated complaint: Bronchitis-cough Time Seen by Provider: 08/25/23 13:58 Source: patient Mode of arrival: ambulatory Limitations: no limitations History of Present Illness ED Provider: Erika Lu PA-C HPI narrative: Patient is a 42 year old assigned female at with a history of anxiety, asthma, and bipolar disorder presenting to the emergency department today with a persistent cough. Patient states that on 08/10/2023 she was diagnosed with bronchitis and given an antibiotic. Patient states that the cough is persistent and she is having thoracic pain when she coughs. Patient denies any dizziness, lightheadedness, abdominal pain, nausea, vomiting, fever, chills, blurry vision, double vision, loss of vision, difficulty breathing, shortness of breath, back pain, night sweats, pain with urination, increased urinary frequency, increased urinary urgency, blood in her urine or stool, syncope or a near syncopal episode, recent trauma or falls, bowel incontinence, bladder incontinence, bowel retention, bladder retention, or any other complaints at this time. Onset (ago): week(s) (2) Severity: mild Relieving factors: none Exacerbating factors: none Associated symptoms: cough Treatments prior to arrival: other (antibiotic) Related Data Home Medications ?Medication ?Instructions ?Recorded ?Confirmed zolpidem 10 mg tablet (Ambien) 10 mg PO BEDTIME PRN Insomnia 04/16/20 08/20/23 omeprazole 20 mg capsule,delayed 1 cap PO DAILY 10/25/20 08/20/23 release baclofen 10 mg tablet 10 mg PO BID PRN muscle spasm 03/03/22 08/20/23 clonazepam 1 mg tablet 1 mg PO BID 07/05/23 08/20/23 docusate sodium 100 mg capsule 100 mg PO DAILY 07/05/23 08/20/23 ferrous sulfate 325 mg (65 mg 325 mg PO DAILY 07/05/23 08/20/23 iron) tablet (FeroSul) gabapentin 400 mg capsule 400 mg PO TID 07/05/23 08/20/23 mometasone 100 mcg/actuation HFA 1 puff inhalation BID 07/05/23 08/20/23 aerosol inhaler (Asmanex HFA) Previous Rx's ?Medication ?Instructions ?Recorded acetaminophen 500 mg tablet 1,000 mg (2 x 500 mg) PO QID PRN 08/11/21 (Tylenol Extra Strength) fever or pain #14 tabs tramadol 50 mg tablet 50 mg PO Q6H PRN pain #20 tabs 05/06/22 ibuprofen 600 mg tablet 600 mg PO Q6H PRN pain #20 tabs 02/21/23 diphenhydramine HCl 50 mg tablet 50 mg PO ONCE #1 tab 07/05/23 (Benadryl Allergy) prednisone 50 mg tablet 50 mg PO .COMPLEX #3 tabs 07/05/23 azithromycin 250 mg tablet 250 mg PO DAILY 4 days #4 tabs 08/10/23 benzonatate 100 mg capsule 100 mg PO BID PRN cough 7 days #14 08/25/23 caps Allergies Allergy/AdvReac Type Severity Reaction Status Date / Time gadobutrol Allergy Severe Difficulty Verified 08/25/23 12:47 Breathing Iodinated Contrast Media Allergy Severe ANAPHYLAXIS Verified 08/25/23 12:47 [IV CONTRAST] Review of Systems Constitutional: Constitutional: Reports no additional constitutional complaints, Denies chills, Denies fever(s) and Denies night sweats Eyes: Eyes: Reports no additional eye complaints, Denies blurry vision, Denies change in vision, Denies diplopia, Denies eye discharge, Denies loss of vision and Denies eye pain ENT: Denies dizziness Cardiovascular: Cardiovascular: Reports no additional cardiovascular complaints, Denies lightheadedness, Denies Loss of Consciousness and Denies dyspnea Respiratory: Respiratory: Reports no additional respiratory complaints, Reports cough and Denies dyspnea Gastrointestinal: Gastrointestinal: Reports no additional gastrointestinal complaints, Denies abdominal pain, Denies melena, Denies hematochezia, Denies change in bowel habits and Denies change in stool character Genitourinary: Genitourinary: Denies hematuria, Denies urinary frequency, Denies dysuria, Denies urinary incontinence, Denies urinary hesitancy and Denies urinary urgency Musculoskeletal: Musculoskeletal: Reports no additional musculoskeletal complaints, Denies numbness and Denies tingling Neurologic: Denies dizziness, Denies loss of vision, Denies numbness and Denies tingling Psychiatric: Psychiatric: Reports no additional psychiatric complaints Endocrine: Endocrine: Reports no additional endocrine complaints Hematologic/Lymphatic: Hematologic/Lymphatic: Reports no additional hematologic/lymphatic complaints Allergic/Immunologic: Allergic/Immunologic: Reports no additional allergic/immunologic complaints PMFSH Past Medical History Attestation statement: The following information was validated with the patient. Source: old records reviewed and nursing notes reviewed Medical History Right hand pain Bilateral hand numbness Close exposure to COVID-19 virus Close exposure to 2019-nCoV COVID-19 vaccine series completed Hematuria Microscopic hematuria Allergy to contrast media (used for diagnostic x-rays) Left knee pain Abnormal abdominal MRI Left lateral epicondylitis SOB (shortness of breath) Precordial chest pain Breast nodule Patellofemoral disorder of left knee History of abnormal cervical Pap smear Breast pain, left Cyst of Bartholin's gland Bipolar 1 disorder Migraine with aura Anxiety Depression Fibromyalgia Arthritis Asthma Surgical History Status post insertion of nerve stimulator H/O colonoscopy Hx of arthroscopic knee surgery Hx of tubal ligation History of loop electrical excision procedure (LEEP) Hx of section Family History Family History Mother Diabetes mellitus Asthma Depression Maternal Grandmother Asthma Breast cancer Maternal Aunt Diabetes mellitus HTN (hypertension) Breast cancer Social History Social History Household Members: Children Household Members Other:: children: 19, 18, fraternal twins-15 and a 5 year old. 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) Do you presently have visiting nurse or other home services: No Unable to assess alcohol history related to: Unknown Alcohol intake: current Alcohol intake frequency: holidays/special occasions only Patient Tobacco Use Status: Never used Tobacco Tobacco use type: Cigarette Advance Directives: No Advance Directives Information Provided: No service: No Current occupational status: unemployed Current occupation: rt hand Gender identity: Female Physical Exam ED Vital Signs: Vital Signs - 24 hr 08/25/23 12:46 08/25/23 16:33 Temperature 98.0 F 97.5 F Pulse Rate 80 77 Respiratory Rate 16 18 Blood Pressure 118/73 109/82 Pulse Oximetry 100 100 Oxygen Delivery Method Room Air Room Air BMI result Body Mass Index 35.8 Const General: cooperative, no acute distress, alert and awake Nutritional Appearance: well nourished Orientation/consciousness: patient oriented x3 Limitations: no limitations HENMT Head: Yes normal to inspection and Yes atraumatic Ears: hearing grossly normal bilaterally and external ears normal General nose exam: Normal external nose present, no nasal discharge noted and no epistaxis Face and sinus: Yes normal facial exam, No abrasion and No laceration Mouth: Normal oral and palatal mucosa present, no drooling and no muffled voice Eyes General: appearance normal, both eyes and all related structures Periorbital: periorbital findings normal Eyelids: Yes eyelids normal Conjunctivae: conjunctivae normal Pupils: Equal, round and reactive pupils present EOM: EOMs intact bilaterally Neck Neck: Yes normal visual inspection, Yes full ROM and Yes no lymphadenopathy Chest Chest palpation & inspection: normal inspection of the chest Resp Effort & Inspection: normal respiratory effort and able to speak in complete s entences GI Inspection: Yes normal to inspection Neuro General: patient oriented x3 and moves all extremities Cranial nerves: Yes Equal, round and reactive pupils present Cognition (Neuro): normal cognition Motor exam (neuro): 5/5 motor strength present throughout Sensory Exam: Normal double simultaneous stimulation for sensation Coordination: [id number] test normal Extrem General: Yes normal to inspection, Yes full ROM and Yes capillary refill normal Psych Appearance: grossly normal Mental Status: mental status grossly normal Affect: normal affect Attitude: cooperative Thought process: Normal thought process present Thought content: Normal thought content present Insight: Good insight present (Psych) Course Course Course Narrative: RME- 42 year old female presents for evaluation of cough for the last 3 weeks, She was seen here 08/10/23 and given Azithromycin for bronchitis. She reports her symptoms never improved. Her son is here with a fever and cough as well. Plan for viral swabs, chest x-ray Medications Administered Discontinued Medications Generic Name Dose Route Start Last Admin Trade Name Freq PRN Reason Stop Dose Admin Benzonatate 100 mg 08/25/23 14:08 08/25/23 14:49 Benzonatate 100 Mg Capsule PO 08/25/23 14:09 100 mg ONCE ONE Administration Ketorolac Tromethamine 15 mg 08/25/23 14:08 08/25/23 14:50 Ketorolac Tromethamine 15 Mg/Ml Vial IM 08/25/23 14:09 15 mg ONCE ONE Administration Medical Decision Making Medical Decision Making [facility] Narrative: Patient is a 42 year old assigned female at with a history of bipolar disorder, anxiety, and asthma presenting to the emergency department today with a persistent cough after a bronchitis diagnosis. Patient's physical exam was unremarkable. Patient's COVID-19, influenza, and RSV tests were all negative. Patient's chest x-ray showed no acute process. I explained my physical exam findings as well as all test results to the patient. I answered all questions asked by the patient. I stressed the importance of the patient taking her medication as prescribed. I stressed the importance of the patient following up with her primary care provider. I stressed the importance of the patient returning to the emergency department immediately if her symptoms were to worsen or if she were to develop any dizziness, shortness of breath, difficulty breathing, chest pain, blurry vision, loss of vision, nausea, vomiting, abdominal pain, fever, chills, back pain, or any other complaints. Patient verbalized agreement and understanding with this treatment plan and discharge. Differential Diagnosis Differential Diagnoses: The differential diagnosis associated with the presentation includes Persistent cough Post viral infection cough Cough COVID-19 Influenza RSV Admission/Observation Consideration of admission/observation: Escalation of care including admission/observation considered Patient would have been admitted to the hospital had her work up had any findings where hospital admission was appropriate and her clinical presentation warranted hospital admission. Lab Data MDM Lab Attestation statement: I reviewed the patient's lab results. My interpretation of these studies and their corresponding values is that they are grossly normal. Labs: Lab Results 08/25/23 Range/Units 12:55 Influenza Type A (PCR) NEGATIVE (Negative) Influenza Type B (PCR) NEGATIVE (Negative) RSV RNA Qual (PCR) NEGATIVE (Negative) SARS-CoV-2 RNA (RT-PCR) NEGATIVE (Negative) Independent Interpretation I performed an independent interpretation of an: Plain X-Ray Interpretation: My interpretation is in agreement with the radiologist's impression of this imaging study. ----- --------- EXAMINATION: XR CHEST CLINICAL INFORMATION: Chest pain COMPARISON: Chest x-ray August 10, 2023 TECHNIQUE: 2 views of the chest were obtained. 1305 hours FINDINGS: No significant abnormality is noted involving the heart, lungs, mediastinum, bony thorax or soft tissues. XR/XR chest 2V IMPRESSION: Unremarkable examination. Dictated By: Abner Vázquez MD Signed By: Electronically signed by Abner Vázquez MD 08/25/23 3937 Radiology Impression Discussion of test interpretation with radiology: I have reviewed the radiologist's reading. Discharge Plan Discharge Clinical Impression: Cough Patient Disposition: Home, Self-Care Instructions: Acute Cough (ED) Additional Instructions: Please keep the cough suppressant medication out of reach of small children. Follow up with your primary care provider. Return to the emergency department immediately if your symptoms worsen or if you develop any dizziness, shortness of breath, difficulty breathing, chest pain, blurry vision, loss of vision, nausea, vomiting, abdominal pain, fever, chills, back pain, or any other complaints. Prescriptions: New benzonatate 100 mg capsule 100 mg PO BID PRN (Reason: cough) 7 Days Qty: 14 0RF No Action omeprazole 20 mg capsule,delayed release(DR/EC) 1 cap PO DAILY acetaminophen [Tylenol Extra Strength] 500 mg tablet 1,000 mg PO QID PRN (Reason: fever or pain) Qty: 14 0RF tramadol 50 mg tablet 50 mg PO Q6H PRN (Reason: pain) Qty: 20 0RF ibuprofen 600 mg tablet 600 mg PO Q6H PRN (Reason: pain) Qty: 20 0RF azithromycin 250 mg tablet 250 mg PO DAILY 4 Days Qty: 4 0RF Rx Instructions: start on day 2 of therapy zolpidem [Ambien] 10 mg tablet 10 mg PO BEDTIME PRN (Reason: Insomnia) clonazepam 1 mg tablet 1 mg PO BID Rx Instructions: administer 30 minutes before bedtime baclofen 10 mg tablet 10 mg PO BID PRN (Reason: muscle spasm) gabapentin 400 mg capsule 400 mg PO TID docusate sodium 100 mg capsule 100 mg PO DAILY ferrous sulfate [FeroSul] 325 mg (65 mg iron) tablet 325 mg PO DAILY Asmanex HFA 100 mcg/actuation HFA aerosol inhaler 1 puff inhalation BID prednisone 50 mg tablet 50 mg PO .COMPLEX Qty: 3 0RF Rx Instructions: 50 mg orally; 13h before, 7h before and then 1h before the MRI Benadryl Allergy 50 mg tablet 50 mg PO ONCE Qty: 1 0RF Rx Instructions: 1h before the MRI - may cause drowsiness, avoid driving. Referrals: [place],[facility] [Primary Care Provider] - Stand Alone Forms: Work/School Release Discharge Date/Time: 08/25/23 16:57 Print Language: Emirati
[2023-08-25 13:43] LABS: Influenza A PCR NEGATIVE (Negative); Influenza B PCR NEGATIVE (Negative); Resp Syncy Virus RNA Qual PCR NEGATIVE (Negative); SARS COV2 PCR INHOUSE NEGATIVE (Negative)
[2023-08-25] MEDS: Benzonatate 100 MG CAPSULE PO (14:49)
[2023-08-25] MEDS: Ketorolac Tromethamine 15 MG/ML VIAL IM (14:50)
[2023-08-25 16:33] VITALS: BP 109/82; PULSE 77; RESP 18; TEMP 36.4; O2SAT 100
== END 2023-08-25 16:57 | disposition home or self-care (01) ==
PROVIDERS: Physician Assistant; Emergency Provider Emergency Medicine
DX: R05.9 Cough, unspecified (principal); Z79.899 Other long term (current) drug therapy; Z03.818 Encounter for observation for suspected exposure to other biological agents ruled out
CPT/HCPCS: 0241U; 71046; 96372; 99283; 99284; J1885

== ENCOUNTER 2023-08-27 09:15 | Outpatient (RCR) | payer MEDICAID, SELFPAY ==
[2023-07-05 09:43] VITALS: BP 115/69; PULSE 81; RESP 20; TEMP 36.6; O2SAT 98
[2023-07-05] MEDS: Iron Sucrose Complex 200 MG in 0.9 % Sodium Chloride 100 ML 440 MG IV (10:14)
[2023-07-05] MEDS: 0.9 % Sodium Chloride Flush 10 ML SYRINGE 5 ML IVFLUSH (10:33)
[2023-07-14] MEDS: Iron Sucrose Complex 200 MG in 0.9 % Sodium Chloride 100 ML 440 MG IV (10:34)
[2023-07-14 10:36] VITALS: BP 122/76; PULSE 70; RESP 16; TEMP 36.3; O2SAT 98
[2023-07-23 10:40] VITALS: BP 132/75; PULSE 74; RESP 16; TEMP 36.6; O2SAT 100
[2023-07-23] MEDS: Iron Sucrose Complex 200 MG in 0.9 % Sodium Chloride 100 ML 440 MG IV (10:49)
[2023-07-30 09:47] VITALS: BP 117/78; PULSE 81; RESP 16; TEMP 36.8; O2SAT 99
[2023-07-30] MEDS: Iron Sucrose Complex 200 MG in 0.9 % Sodium Chloride 100 ML 440 MG IV (09:59)
--- NOTE | 2023-07-30 10:06 | HO.INF ---
pt due for labs today after 4th venofer infusion; had recently drawn labs. dr bajwa office called and okay with recent lab results. no need for post venofer labs today.
[2023-08-06] MEDS: Iron Sucrose Complex 200 MG in 0.9 % Sodium Chloride 100 ML 440 MG IV (10:28)
[2023-08-06] MEDS: 0.9 % Sodium Chloride Flush 10 ML SYRINGE 5 ML IVFLUSH (10:29)
[2023-08-06 10:35] VITALS: BMI 33.9
[2023-08-06 10:37] VITALS: BP 144/88; PULSE 73; RESP 18; TEMP 36.9; O2SAT 98
[2023-08-13 09:46] VITALS: BP 113/74; PULSE 80; RESP 20; TEMP 36.6; O2SAT 98
[2023-08-13] MEDS: Iron Sucrose Complex 200 MG in 0.9 % Sodium Chloride 100 ML 440 MG IV (09:54)
[2023-08-20 09:15] VITALS: BP 119/80; PULSE 74; RESP 16; TEMP 37; O2SAT 98
[2023-08-20] MEDS: Iron Sucrose Complex 200 MG in 0.9 % Sodium Chloride 100 ML 440 MG IV (09:22)
[2023-08-27 09:21] VITALS: BP 105/75; PULSE 75; RESP 18
[2023-08-27] MEDS: Iron Sucrose Complex 200 MG in 0.9 % Sodium Chloride 100 ML 440 MG IV (09:36)
[2023-08-27 10:06] LABS: MANUAL DIFF FLAG NO
[2023-08-27 10:11] LABS: Basophils Percent Auto 0.4 % (0-2); Eosinophils Absolute Auto 0.2 X10*3/uL (0.0-0.4); Eosinophils Percent Auto 4.5 % (0-4); Hematocrit 34.9 % (37.0-47.0); Hemoglobin 10.6 g/dl (12.0-16.0); Imm Gran Abs Auto 0.02 X10*3/uL (0.00-0.03); Imm Gran Pct Auto 0.4 % (0.0-0.4); Lymphocytes Absolute Auto 1.9 X10*3/uL (1.2-4.9); Lymphocytes Percent Auto 38.8 % (20-40); Mean Corpuscular HGB Conc 30.4 g/dl (31.0-35.0); Mean Corpuscular Hemoglobin 24.2 pg (27.0-33.0); Mean Corpuscular Volume 79.7 fL (80.0-98.0); Monocytes Absolute Auto 0.4 X10*3/uL (0.1-1.2); Monocytes Percent Auto 7.1 % (2-11); Neutrophils Absolute Auto 2.4 x10*3/uL (2.0-8.3); Neutrophils Percent Auto 48.8 % (45-73); Platelet Count 257 X10*3/uL (160-400); Red Blood Count 4.38 X10*6/uL (4.20-5.50); Red Cell Distribution Width 23.3 % (11.0-16.0); White Blood Count 4.9 X10*3/uL (4.8-10.8)
[2023-08-27 10:44] LABS: Ferritin 170 ng/mL (10-250)
== END 2023-08-27 11:02 | disposition home or self-care (01) ==
LOC: HO.INF 09:15
PROVIDERS: Visit Provider Internal Medicine Medical Oncology
DX: D50.9 Iron deficiency anemia, unspecified (principal)
CPT/HCPCS: 36415; 82728; 85025; 96365; 96374; 99202; J1756

== ENCOUNTER 2023-10-13 13:10 | Outpatient (REF) | payer MEDICAID, SELFPAY ==
[2023-10-18 11:45] LABS: Alphahydroxymidazolam,GCMS Ur NEGATIVE; Alphahydroxytriazolam, GCMS Ur NEGATIVE; Alprazolam, GCMS Urine NEGATIVE; Lorazepam GCMS Urine NEGATIVE; Nordiazepam, GCMS Urine NEGATIVE; Oxazepam, GCMS Urine NEGATIVE; Temazepam, GCMS Urine NEGATIVE
[2023-10-18 11:46] LABS: Flurazepam Metabolite,GCMS Ur NEGATIVE
== END 2023-10-13 13:11 | disposition home or self-care (01) ==
LOC: HO.HHCLNP 13:10
PROVIDERS: Visit Provider Family Medicine
DX: M54.2 Cervicalgia (principal); M54.9 Dorsalgia, unspecified; G89.29 Other chronic pain
CPT/HCPCS: 80346

== ENCOUNTER → 2023-10-26 15:08 | Outpatient (BNVA) | payer MEDICAID, SELFPAY | PROVIDERS: Visit Provider Obstetrics & Gynecology ==

== ENCOUNTER 2023-12-07 17:22 | Outpatient (REF) | payer MEDICAID, SELFPAY ==
[2023-12-09 13:32] LABS: Alphahydroxymidazolam,GCMS Ur NEGATIVE; Alphahydroxytriazolam, GCMS Ur NEGATIVE; Alprazolam, GCMS Urine NEGATIVE; Flurazepam Metabolite,GCMS Ur NEGATIVE; Lorazepam GCMS Urine NEGATIVE; Nordiazepam, GCMS Urine NEGATIVE; Oxazepam, GCMS Urine NEGATIVE; Temazepam, GCMS Urine NEGATIVE
== END 2023-12-07 17:23 | disposition home or self-care (01) ==
LOC: HO.HHCLNP 17:22
PROVIDERS: Visit Provider Family Medicine
DX: M54.2 Cervicalgia (principal); M54.9 Dorsalgia, unspecified; G89.29 Other chronic pain
CPT/HCPCS: 80346

== ENCOUNTER → 2024-01-07 10:53 | Outpatient (REF) | payer MEDICAID, SELFPAY ==
--- NOTE | 2024-01-07 10:58 | CA_ITS ---
Transthoracic Echocardiogram Patient (Last, First, Middle): Susanne Milligan, Gender: Female Date of : 1980 Age: 43 Procedure Date: 01/07/2024 Procedure Type: Transthoracic Echocardiogram Location: OP Height: 167.64 cm Weight: 90.72 kg BSA: 2.00 m2 Heart Rate: bpm BP: 138 / 80 mmHg [place] Bobber: Referring MD: Lisa Wylie DO Symptoms: M79.89 Swelling of both Lower extremity, weight gain Study Quality: Adequate ECG Rhythm: Sinus Conclusions: - Normal left ventricular size, thickness, systolic function, and wall motion. The visually estimated ejection fraction is between 60-65%. Diastolic function is normal for age. - Normal right ventricular cavity size and systolic function. - No significant valvular or pericardial disease. Findings Left Ventricle Normal left ventricular size, thickness, systolic function, and wall motion. The visually estimated ejection fraction is between 60-65%. Diastolic function is normal for age. Right Ventricle Normal right ventricular cavity size and systolic function. Atria The left atrium is normal in size. Aortic Valve Normal aortic valve structure and function. There is no aortic valve stenosis. There is no aortic valve regurgitation. Mitral Valve Normal mitral valve structure and function. There is no mitral valve regurgitation. There is no mitral valve stenosis. Pulmonic Valve The pulmonic valve is likely normal. Tricuspid Valve Normal tricuspid valve structure and function. There is no tricuspid valve regurgitation. Normal right atrial pressure. There is no evidence of pulmonary hypertension. Great Vessels All visible segments of the aorta are normal in size. The visualized portions of the pulmonary artery and branches are normal. Venous The inferior vena cava is normal in size and collapses greater than 50% with inspiration. Pericardium/Pleural There is no evidence of pericardial effusion. Measurements 2D Linear Measurements IVSd: 0.84 0.6-0.9/0.6-1.0 cm LVIDd: 4.63 3.9-5.3/4.2-5.9 cm LVIDd Index: 2.32 2.4-3.2/2.2-3.1 cm/m2 LVIDs: 3.03 2.0-3.6 cm LVPWd: 0.82 0.7-1.1 cm Ao Root: 2.50 2.1-3.5 cm LA Diam: 3.30 2.7-3.8/3.0-4.0 cm LAIDs Index: 1.65 1.5-2.3 cm/m2 LV Mass: 154.97 67-162/88-224 g LV Mass Index: 77.49 43-95/49-115 g/m2 LVOT Diam: 2.10 3.0+(-)1.3 cm 2D Systolic Function EF 4C: 70.50 >55% EF 2C: 66.40 >55% EF BiP: 68.20 >55% Mitral Valve MV VTI: 0.39 MV Pk Ruddy: 1.09 MV Mn Ruddy: 0.60 MV Pk Grad: 5.00 MV Mn Grad: 2.00 MV Pk E: 0.95 MV PK A: 0.66 MV Decel Time: 195.00 E/A: 1.40 E'Lateral: 11.60 E'Medial: 10.30 E/E' Med: 9.20 E/E' Lat: 8.20 PHT: 57.00 MVA PHT: 3.86 MVA Continuity: 1.93 Decel Hawkins: 4.89 Aortic Valve AoV Pk Ruddy: 1.59 AoV Pk Grad: 10.00 LVOT LVOT Pk Ruddy: 0.98 LVOT Mn Ruddy: 0.64 LVOT VTI: 0.22 LVOT Pk Grad: 4.00 LVOT Mn Grad: 2.00 LVOT Diam: 2.10 LVOT Area: 3.46 Diastolic Function MV Pk E: 0.95 MV Pk A: 0.66 E/A: 1.40 E'Medial: 10.30 E/E' Med: 9.20 E' Laterial: 11.60 E/E' Lat: 8.20 Right Ventricle TAPSE (mm): 29.00 TVS' Ruddy: 12.00 Tricuspid Valve TR Pk Ruddy: 2.43 TR Pk Grad: 24.00 RA Press: 3.00 RVSP: 27.00 Great Vessels Aorta Ao Root-2D: 2.50 2.0-3.7 cm Ao Asc: 2.60 2.1-3.4 cm Pulmonary Valve PV Pk Ruddy: 0.96 Peak PV Grad: 4.00 Updated in Other Vendor System with Status of Final Eleazar Mast MD electronically signed on 01/09/2024 1:32:04 PM with status of Final
== END ==
LOC: HO.CARD 10:53
PROVIDERS: PCP Family Medicine; Visit Provider Family Medicine
DX: R60.0 Localized edema (principal)
CPT/HCPCS: 93306

== ENCOUNTER → 2024-01-07 10:58 | Outpatient (BNV) | payer MEDICAID, SELFPAY | PROVIDERS: PCP Family Medicine; Visit Provider Internal Medicine Cardiovascular Disease | DX: M79.89 Other specified soft tissue disorders (principal) | CPT/HCPCS: 93306 ==

== ENCOUNTER → 2024-01-19 11:13 | Outpatient (BNV) | payer MEDICAID, SELFPAY | PROVIDERS: PCP Family Medicine; Visit Provider Radiology Diagnostic Radiology | DX: K76.9 Liver disease, unspecified (principal) | CPT/HCPCS: 74183 ==

== ENCOUNTER 2024-01-19 11:23 | Outpatient (REF) | payer MEDICAID, SELFPAY ==
--- NOTE | ~2024-01-19 | MR_ITS ---
EXAMINATION: MR ABDOMEN WITHOUT AND WITH CONTRAST CLINICAL INFORMATION: Increased size of liver lesion. COMPARISON: MRI abdomen dated November 19, 2020. Correlated to ultrasound dated February 15, 2023. TECHNIQUE: MR abdomen was performed without and with use of 10 mL intravenous Gadavist gadolinium contrast. Postcontrast images are performed in multiphase dynamic sequences. Imaging was performed in 3 planes. Patient premedicated the secondary to mild contrast reaction. No reported immediate complications after this examination. FINDINGS: Submitted for interpretation on March 17, 2024. LIVER, GALLBLADDER, AND BILIARY TREE: Liver measures 18 cm. There is a well-defined, 1.6 cm nonenhancing fluid signal characteristic lesion in the right hepatic lobe. There is a 1.8 cm peripheral, discontinuous, centripetal enhancing lesion in the right hepatic lobe between the middle and right hepatic veins. The hepatic veins, intrahepatic portion of the IVC and portal veins are patent. There are few scattered less than 2 mm fluid signal characteristic lesions, right hepatic lobe too small to be fully characterized. There is a 1.1 cm intraluminal nonenhancing hypointense signal within the gallbladder. Gallbladder is contracted. No pericholecystic fluid collection or gallbladder wall thickening. No intrahepatic or extrahepatic biliary ductal dilatation. PANCREAS: No focal mass. No peripancreatic fluid collection. No main pancreatic ductal dilatation. SPLEEN: 7 cm. No focal mass. ADRENAL GLANDS: No nodular lesions. KIDNEYS AND URETERS: Right kidney: There is a 1.7 cm faint septated enhancing lesion at the corticomedullary junction upper pole. There are few scattered less than 0.3 cm fluid signal characteristic lesions in the upper pole and midportion. There is normal enhancement of the parenchyma. No hydronephrosis. The main renal vessels are patent Left kidney: Less than 0.5 cm fluid signal characteristic lesions in the upper pole. Normal enhancement pattern. No gross renal mass. No hydronephrosis. Normal enhancement within the main renal vessels.. GASTROINTESTINAL TRACT: Abundant stool. No intestinal obstruction. No ascites. ABDOMINAL WALL: Small tiny fat-containing umbilical hernia. LYMPH NODES: No lymphadenopathy. VASCULAR: No aneurysm or dissection, abdominal aorta. There is a 2.5 cm cystic lesion in the left adnexa. Heterogeneous nodular morphology of the fundus of the uterus. OSSEOUS STRUCTURES: No bone marrow signal abnormality or acute fracture or listhesis. MR/MR abdomen wo/w con IMPRESSION: 1.8 cm hemangioma, right hepatic lobe. 1.6 cm cyst, right hepatic lobe. Bosniak type I cysts, both kidneys. 2.5 cm cystic lesion left adnexa. Probable uterine fibroids.. Electronically signed by: Graeme Odom MD 03/17/2024 12:[address] [facility]
[2024-01-19] MEDS: gadobutroL 10 ML VIAL IVPUSH (13:23)
== END 2024-01-19 11:24 | disposition home or self-care (01) ==
LOC: HO.MRI 11:23
PROVIDERS: PCP Family Medicine; Visit Provider Family Medicine
DX: K76.9 Liver disease, unspecified (principal)
CPT/HCPCS: 74183; A9585

== ENCOUNTER 2024-01-19 20:41 | Emergency (ER) | payer MEDICAID, SELFPAY ==
--- NOTE | ~2024-01-19 | XR_ITS ---
EXAMINATION: XR CHEST CLINICAL INFORMATION: Chest pain. COMPARISON: August 25, 2023. TECHNIQUE: 2 views of the chest were obtained. FINDINGS: No significant abnormality is noted involving the heart, lungs, mediastinum, bony thorax or soft tissues. XR/XR chest 2V IMPRESSION: Unremarkable examination. Electronically signed by: Yasmani Carson MD 01/20/2024 12:04 AM EDT
--- NOTE | 2024-01-19 20:43 | ECG_ITS ---
Test Reason : chest pain Blood Pressure : / mmHG Vent. Rate : 077 BPM Atrial Rate : 077 BPM P-R Int : 142 ms QRS Dur : 090 ms QT Int : 376 ms P-R-T Axes : 041 036 028 degrees QTc Int : 425 ms Normal sinus rhythm with sinus arrhythmia Normal ECG When compared with ECG of 20-FEB-2023 23:13, No significant change was found Referred By: Tami Durand Electronically Signed By:DAVI HU
[2024-01-19 20:57] VITALS: BP 129/67; PULSE 71; RESP 19; TEMP 36.6; O2SAT 98; BMI 33.9
--- NOTE | 2024-01-19 21:51 | PC.NURSE ---
pt ambulatory with steady gait from wr to ed21. pt reports is allergic to contrast which was given during mri earlier today after medicated with benadryl/prednisone. pt reports feeling drow/dizzy/chest tightness since. pt is axox4 speaking full clear sentences. airway patent. lung sounds cta. sats 100% on RA. awaiting eval by primary provider. call rodriguez within reach.
[2024-01-19 21:56] VITALS: BP 117/48; PULSE 65; RESP 15; O2SAT 100
[2024-01-19 23:34] LABS: Basophils Percent Auto 0.2 % (0-2); Eosinophils Absolute Auto 0.4 X10*3/uL (0.0-0.4); Eosinophils Percent Auto 1.9 % (0-4); Hematocrit 35.8 % (37.0-47.0); Hemoglobin 12.4 g/dl (12.0-16.0); Imm Gran Abs Auto 0.13 X10*3/uL (0.00-0.03); Imm Gran Pct Auto 0.6 % (0.0-0.4); Lymphocytes Absolute Auto 2.3 X10*3/uL (1.2-4.9); Lymphocytes Percent Auto 10.4 % (20-40); MANUAL DIFF FLAG NO; Mean Corpuscular HGB Conc 34.6 g/dl (31.0-35.0); Mean Corpuscular Hemoglobin 30.1 pg (27.0-33.0); Mean Corpuscular Volume 86.9 fL (80.0-98.0); Mean Platelet Volume 11.9 fL (9.4-12.3); Monocytes Absolute Auto 1.1 X10*3/uL (0.1-1.2); Neutrophils Absolute Auto 17.7 x10*3/uL (2.0-8.3); Neutrophils Percent Auto 81.9 % (45-73); Platelet Count 273 X10*3/uL (160-400); Red Blood Count 4.12 X10*6/uL (4.20-5.50); Red Cell Distribution Width 13.4 % (11.0-16.0); WBC ABN SCTR 1; WBC ABN SCTR FOR CBC 1; White Blood Count 21.6 X10*3/uL (4.8-10.8)
[2024-01-19 23:51] LABS: Alanine Aminotransferase 9 U/L (0-31); Albumin Level 3.7 g/dL (3.5-5.0); Alkaline Phosphatase 83 U/L (39-117); Anion Gap 12 (12-20); Aspartate Amino Transferase 9 U/L (5-31); Bilirubin Direct 0.1 mg/dL (0.0-0.5); Bilirubin Total 0.3 mg/dL (0.0-1.0); Blood Urea Nitrogen 11 mg/dL (9-16); Calcium 8.6 mg/dL (8.4-10.2); Carbon Dioxide 21 mmol/L (22-29); Chloride 109 mmol/L (96-108); Creatinine Clr Calc Pharmacy 105.7; Estimated Glomerular Filt Rate > 60; Glucose Random 135 mg/dL (60-115); Magnesium 2.1 mg/dL (1.6-2.6); Potassium 3.7 mmol/L (3.3-5.1); Sodium 138 mmol/L (135-145)
[2024-01-19 23:54] LABS: Troponin-I High Sensitivity 7.1 ng/L (<3.5-17.0)
--- NOTE | 2024-01-19 23:57 | ED_ITS ---
HPI - General Adult General Chief complaint: General Medical Stated complaint: chest pain Time Seen by Provider: 01/19/24 23:56 History of Present Illness ED Provider: Jacy WILLINGHAM narrative: 43-year-old female with past medical history of asthma, contrast allergy, bipolar disorder, depression presenting for lightheadedness and shortness of breath, chest tightness. Patient had an MRI with contrast earlier in the day. Immediately after the MRI she felt a little lightheaded however recovered and went to work for the day. While at work patient states she felt ?off?. When she arrived home she began experiencing worsening symptoms of lightheadedness, chest tightness and shortness of breath. She also endorses experiencing a mild sensation of her throat closing. She did take Benadryl and prednisone prior to MRI Related Data Home Medications ?Medication ?Instructions ?Recorded ?Confirmed zolpidem 10 mg tablet (Ambien) 10 mg PO BEDTIME PRN Insomnia 04/16/20 08/20/23 omeprazole 20 mg capsule,delayed 1 cap PO DAILY 10/25/20 08/20/23 release baclofen 10 mg tablet 10 mg PO BID PRN muscle spasm 03/03/22 08/20/23 clonazepam 1 mg tablet 1 mg PO BID 07/05/23 08/20/23 docusate sodium 100 mg capsule 100 mg PO DAILY 07/05/23 08/20/23 ferrous sulfate 325 mg (65 mg 325 mg PO DAILY 07/05/23 08/20/23 iron) tablet (FeroSul) gabapentin 400 mg capsule 400 mg PO TID 07/05/23 08/20/23 mometasone 100 mcg/actuation HFA 1 puff inhalation BID 07/05/23 08/20/23 aerosol inhaler (Asmanex HFA) Previous Rx's ?Medication ?Instructions ?Recorded acetaminophen 500 mg tablet 1,000 mg (2 x 500 mg) PO QID PRN 08/11/21 (Tylenol Extra Strength) fever or pain #14 tabs tramadol 50 mg tablet 50 mg PO Q6H PRN pain #20 tabs 05/06/22 ibuprofen 600 mg tablet 600 mg PO Q6H PRN pain #20 tabs 02/21/23 diphenhydramine HCl 50 mg tablet 50 mg PO ONCE #1 tab 07/05/23 (Benadryl Allergy) prednisone 50 mg tablet 50 mg PO .COMPLEX #3 tabs 07/05/23 azithromycin 250 mg tablet 250 mg PO DAILY 4 days #4 tabs 08/10/23 benzonatate 100 mg capsule 100 mg PO BID PRN cough 7 days #14 08/25/23 caps Allergies Allergy/AdvReac Type Severity Reaction Status Date / Time gadobutrol Allergy Severe Difficulty Verified 01/19/24 20:59 Breathing Iodinated Contrast Media Allergy Severe ANAPHYLAXIS Verified 01/19/24 20:59 [IV CONTRAST] Review of Systems 2 Review of Systems: Patient endorses lightheadedness, chest tightness, throat closing, shortness of breath Yes all other systems are reviewed and are negative [facility] Past Medical History Medical History Right hand pain Bilateral hand numbness Close exposure to COVID-19 virus Close exposure to 2019-nCoV COVID-19 vaccine series completed Hematuria Microscopic hematuria Allergy to contrast media (used for diagnostic x-rays) Left knee pain Abnormal abdominal MRI Left lateral epicondylitis SOB (shortness of breath) Precordial chest pain Breast nodule Patellofemoral disorder of left knee History of abnormal cervical Pap smear Breast pain, left Cyst of Bartholin's gland Bipolar 1 disorder Migraine with aura Anxiety Depression Fibromyalgia Arthritis Asthma Surgical History Status post insertion of nerve stimulator H/O colonoscopy Hx of arthroscopic knee surgery Hx of tubal ligation History of loop electrical excision procedure (LEEP) Hx of section Family History Family History Mother Diabetes mellitus Asthma Depression Maternal Grandmother Asthma Breast cancer Maternal Aunt Diabetes mellitus HTN (hypertension) Breast cancer Social History Social History Household Members: Children Household Members Other:: children: 19, 18, fraternal twins-15 and a 5 year old. Are you a primary patient care specialist to a significant other at home: Yes (child) Do you presently have visiting nurse or other home services: No Unable to assess alcohol history related to: Unknown Alcohol intake: current Alcohol intake frequency: holidays/special occasions only Patient Tobacco Use Status: Never used Tobacco Tobacco use type: Cigarette Advance Directives: No Advance Directives Information Provided: No Do you have a plan to hurt others: No Plan service: No Current occupational status: unemployed Current occupation: rt hand Gender identity: Female Physical Exam ED Vital Signs: Vital Signs - 24 hr 01/19/24 20:57 01/19/24 21:56 01/20/24 00:08 Temperature 98 F Pulse Rate 71 65 72 Respiratory Rate 19 15 16 Blood Pressure 129/67 117/48 L 106/57 L Pulse Oximetry 98 100 98 Oxygen Delivery Method Room Air Room Air Room Air 01/20/24 00:49 01/20/24 02:14 Temperature Pulse Rate 70 Respiratory Rate 16 Blood Pressure Pulse Oximetry 96 Oxygen Delivery Method BMI result Body Mass Index 33.9 Well-appearing female in no acute distress Mild wheezing auscultated however good air movement with unlabored breathing Normal S1-S2 regular rate and rhythm Abdomen is soft nontender nondistended Nonpitting edema to bilateral lower extremity Medications Administered Generic Name Dose Route Start Last Admin Trade Name Freq PRN Reason Stop Dose Admin Magnesium Sulfate 2 gm in 50 mls @ 25 mls/hr 01/20/24 00:31 01/20/24 01:14 Magnesium Sulfate/H2o IV 01/20/24 02:30 25 mls/hr ONCE ONE Administration Discontinued Medications Generic Name Dose Route Start Last Admin Trade Name Freq PRN Reason Stop Dose Admin Albuterol/Ipratropium 6 ml 01/20/24 00:31 01/20/24 00:43 Albuterol/Iprat 2.5/0.5mg 3 Ml Ampul.Neb INHALE 01/20/24 00:32 6 ml ONCE ONE Administration Prednisone 60 mg 01/20/24 00:31 01/20/24 01:18 Prednisone 20 Mg Tablet PO 01/20/24 00:32 60 mg ONCE ONE Administration Medical Decision Making Medical Decision Making MDM Narrative: This is a 43-year-old female presenting for lightheadedness, shortness of breath and chest tightness in the setting of recent MRI with contrast. In light of patient's allergy I am concerned for an allergic reaction however I am also considering asthma exacerbation, pneumonia, COVID, flu, viral URI - labs and imaging studies ordered; duo nebs and magnesium ordered - no signs of ischemia seen on the patient's EKG - labs notable for elevated white count, stable H&H, 2 negative troponins, normal lactic - I do not see large consolidation or pneumo on patient's chest x-ray and the radiologist interpretation is negative for acute findings - patient is pending a UA. If she does not have a UTI suspect that her white count is likely in the setting of a contrast reaction. I do not think that she requires admission as she reports significant improvement in breathing on reassessment & lungs are clear - Pt had a walking sat of 96% however was tachycardic - Dimer ordered - Pt signed out to night provider Differential Diagnosis Differential Diagnoses: The differential diagnosis associated with the presentation includes Asthma exacerbation, PE, COVID, flu, viral URI, pneumonia Lab Data 01/19/24 23:29 01/19/24 23:29 Labs: Lab Results 01/19/24 01/20/24 01/20/24 Range/Units 23:29 00:48 01:44 WBC 21.6 H (4.8-10.8) X10*3/uL RBC 4.12 L (4.20-5.50) X10*6/uL Hgb 12.4 (12.0-16.0) g/dl Hct 35.8 L (37.0-47.0) % MCV 86.9 (80.0-98.0) fL MCH 30.1 (27.0-33.0) pg MCHC 34.6 (31.0-35.0) g/dl RDW 13.4 (11.0-16.0) % Plt Count 273 (160-400) X10*3/uL MPV 11.9 (9.4-12.3) fL Immature Gran % (Auto) 0.6 H (0.0-0.4) % Neut % (Auto) 81.9 H (45-73) % Lymph % (Auto) 10.4 L (20-40) % Crenshaw % (Auto) 5.0 (2-11) % Eos % (Auto) 1.9 (0-4) % Baso % (Auto) 0.2 (0-2) % Lymph # (Auto) 2.3 (1.2-4.9) X10*3/uL Crenshaw # (Auto) 1.1 (0.1-1.2) X10*3/uL Eos # (Auto) 0.4 (0.0-0.4) X10*3/uL Baso # (Auto) 0.0 (0.0-0.2) X10*3/uL Abs Immat Gran (auto) 0.13 H (0.00-0.03) X10*3/uL Absolute Neuts (auto) 17.7 H (2.0-8.3) x10*3/uL Absolute Nucleated RBC 0.000 (0.0-0.012) X10*3/uL Nucleated RBC % (auto) 0.0 (0.0-0.2) /100WBC PT 11.6 (10.9-12.4) SEC INR 1.0 (0.9-1.1) APTT 28.4 (26.0-36.8) SEC Sodium 138 (135-145) mmol/L Potassium 3.7 (3.3-5.1) mmol/L Chloride 109 H (96-108) mmol/L Carbon Dioxide 21 L (22-29) mmol/L Anion Gap 12 (12-20) BUN 11 (9-16) mg/dL Creatinine 0.79 (0.5-1.4) mg/dL Estim Creat Clear Calc 105.7 Estimated GFR > 60 Random Glucose 135 H (60-115) mg/dL Lactic Acid 2.0 (0.5-2.0) mmol/L Calcium 8.6 (8.4-10.2) mg/dL Magnesium 2.1 (1.6-2.6) mg/dL Total Bilirubin 0.3 (0.0-1.0) mg/dL Direct Bilirubin 0.1 (0.0-0.5) mg/dL AST 9 (5-31) U/L ALT 9 (0-31) U/L Alkaline Phosphatase 83 (39-117) U/L Troponin I High Sens 7.1 D 4.0 (<3.5-17.0) ng/L Total Protein 7.0 (6.5-8.0) g/dL Albumin 3.7 (3.5-5.0) g/dL Discharge Plan Discharge Clinical Impression: Asthma Additional Instructions: Please follow up with the primary care provider in the next 24-48 hours If you develop any new or worsening symptoms please return to the emergency department Prescriptions: No Action omeprazole 20 mg capsule,delayed release(DR/EC) 1 cap PO DAILY acetaminophen [Tylenol Extra Strength] 500 mg tablet 1,000 mg PO QID PRN (Reason: fever or pain) Qty: 14 0RF tramadol 50 mg tablet 50 mg PO Q6H PRN (Reason: pain) Qty: 20 0RF benzonatate 100 mg capsule 100 mg PO BID PRN (Reason: cough) 7 Days Qty: 14 0RF ibuprofen 600 mg tablet 600 mg PO Q6H PRN (Reason: pain) Qty: 20 0RF azithromycin 250 mg tablet 250 mg PO DAILY 4 Days Qty: 4 0RF Rx Instructions: start on day 2 of therapy zolpidem [Ambien] 10 mg tablet 10 mg PO BEDTIME PRN (Reason: Insomnia) clonazepam 1 mg tablet 1 mg PO BID Rx Instructions: administer 30 minutes before bedtime baclofen 10 mg tablet 10 mg PO BID PRN (Reason: muscle spasm) gabapentin 400 mg capsule 400 mg PO TID docusate sodium 100 mg capsule 100 mg PO DAILY ferrous sulfate [FeroSul] 325 mg (65 mg iron) tablet 325 mg PO DAILY Asmanex HFA 100 mcg/actuation HFA aerosol inhaler 1 puff inhalation BID prednisone 50 mg tablet 50 mg PO .COMPLEX Qty: 3 0RF Rx Instructions: 50 mg orally; 13h before, 7h before and then 1h before the MRI Benadryl Allergy 50 mg tablet 50 mg PO ONCE Qty: 1 0RF Rx Instructions: 1h before the MRI - may cause drowsiness, avoid driving. Print Language: Trinidadian
[2024-01-20 00:08] VITALS: BP 106/57; PULSE 72; RESP 16; O2SAT 98
[2024-01-20 00:12] LABS: Prothrombin Time 11.6 SEC (10.9-12.4)
[2024-01-20 00:15] LABS: Partial Thromboplastin Time 28.4 SEC (26.0-36.8)
[2024-01-20] MEDS: Albuterol/Iprat 2.5/0.5MG 3 ML AMPUL.NEB 6 ML INHALE (00:43)
[2024-01-20 00:49] VITALS: PULSE 70; RESP 16; O2SAT 98
[2024-01-20] MEDS: Magnesium Sulfate/H2O 2 GM/50 ML PIGGYBACK IV (01:14)
[2024-01-20] MEDS: predniSONE 20 MG TABLET 60 MG PO (01:18)
[2024-01-20 02:14] VITALS: O2SAT 96
[2024-01-20 02:24] LABS: Appearance Urine Clear; Color Urine Yellow; Glucose Urine UA Negative (Negative); Leukocyte Esterase Urine Negative (Negative); Nitrite Urine Negative (Negative); PH 6.5 (5.0-9.0); UMIC TRIGGER UACC YES; UPreg QC Valid YES; Urine Blood Moderate (2+) (Negative); Urine Ketones Negative (Negative); Urine Pregnancy NEGATIVE (NEGATIVE); Urine Protein Negative (Neg-Trace)
--- NOTE | 2024-01-20 02:27 | PC.NURSE ---
mag infused in 20 min per MD verbal order.
[2024-01-20 02:30] VITALS: BP 110/60; PULSE 97; RESP 16; O2SAT 95
[2024-01-20 02:34] LABS: Influenza A PCR NEGATIVE (Negative); Influenza B PCR NEGATIVE (Negative); Resp Syncy Virus RNA Qual PCR NEGATIVE (Negative); SARS COV2 PCR INHOUSE NEGATIVE (Negative)
[2024-01-20 02:36] LABS: D Dimer High Sensitivity < 150 NG/ML
[2024-01-20 02:59] LABS: Bacteria Urine 1+ (None Seen); Hyaline Casts Urine 0-2 /LPF (0-2); RBC Urine 0-2 /HPF (0-2); Squamous Epithelial Cell Urine 0-2 /HPF (0-2); WBC Urine 0-5 /HPF (0-5)
[2024-01-20 03:15] VITALS: BP 110/60; PULSE 97; RESP 16; TEMP 37; O2SAT 95
== END 2024-01-20 03:15 | disposition home or self-care (01) ==
PROVIDERS: Physician Assistant Medical; Student in an Organized Health Care Education/Training Program; Emergency Provider Emergency Medicine
DX: R06.02 Shortness of breath (principal); J45.909 Unspecified asthma, uncomplicated; R60.0 Localized edema; Z79.899 Other long term (current) drug therapy; Z03.818 Encounter for observation for suspected exposure to other biological agents ruled out
CPT/HCPCS: 0241U; 36415; 71046; 80048; 80076; 81001; 81025; 83605; 83735; 84484; 85025; 85379; 85610; 85730; 93005; 94640; 96365; 99284; J3475

== ENCOUNTER → 2024-01-19 20:43 | Outpatient (BNV) | payer MEDICAID, SELFPAY | PROVIDERS: Emergency Provider Emergency Medicine; Visit Provider Internal Medicine | DX: I49.9 Cardiac arrhythmia, unspecified (principal) | CPT/HCPCS: 93010 ==

== ENCOUNTER 2024-01-27 17:25 | Outpatient (REF) | payer MEDICAID, SELFPAY ==
[2024-01-31 09:41] LABS: Alphahydroxymidazolam,GCMS Ur NEGATIVE; Alphahydroxytriazolam, GCMS Ur NEGATIVE; Alprazolam, GCMS Urine NEGATIVE; Aminoclonazepam, GCMS Urine 179 (H); Flurazepam Metabolite,GCMS Ur NEGATIVE; Lorazepam GCMS Urine NEGATIVE; Nordiazepam, GCMS Urine NEGATIVE; Oxazepam, GCMS Urine NEGATIVE; Temazepam, GCMS Urine NEGATIVE
== END 2024-01-27 17:26 | disposition home or self-care (01) ==
LOC: HO.LNP 17:25
PROVIDERS: Visit Provider Family Medicine
DX: M54.2 Cervicalgia (principal); M54.9 Dorsalgia, unspecified; G89.29 Other chronic pain
CPT/HCPCS: 80346

== ENCOUNTER 2024-02-15 10:12 | Outpatient (AMB) | payer MEDICAID, SELFPAY ==
[2024-02-15 10:41] VITALS: BP 124/80; BMI 33.9
--- NOTE | 2024-02-15 10:41 | MHC.OFFVIS ---
Vital Signs 02/15/24 10:41 Height 5 ft 6 in Weight 210 lb BMI 33.9 BP 124/80 Blood Pressure Location Rt brachial Position Sitting Intake Visit Reasons: [facility] referral for LE swelling Intake Note: Susanne is a 43 year old female who presents to the office today for a new patient visit for leg sweeling. Pt states both of her legs are painful, and both legs and ankles are swollen. Pt states she does not wear compression socks. Pt states she gets cramping in both legs and states the pain is worse at night and when she wakes up in the morning. Allergies gadobutrol Allergy (Severe, Verified 02/15/24 10:44) Difficulty Breathing Iodinated Contrast Media [IV CONTRAST] Allergy (Severe, Verified 02/15/24 10:44) ANAPHYLAXIS HPI HPI [facility] referral for LE swelling: Details: Susanne, a pleasant 43-year-old female patient, is presenting today as a consult for bilateral lower extremity swelling. She states this has been going on for 2-3 years now. She states she has been elevating her legs but has not used compression stockings. Complaints include swelling of lower extremities, cramping, fatigue, pain with physical activity, and heaviness of the lower extremities. It has been affecting their daily activities including walking and standing. It is present bilaterally. She is a nonsmoker, and does not have diabetes. Patient denies any previous venous surgery or injections. Patient denies any history of DVT/ PE. Patient denies any history of phlebitis. Trial of compression includes - elevation, with little relief They now present for vascular evaluation regarding their varicose veins. [facility] Medical History Right hand pain Bilateral hand numbness Close exposure to COVID-19 virus Close exposure to 2019-nCoV COVID-19 vaccine series completed Hematuria Microscopic hematuria Allergy to contrast media (used for diagnostic x-rays) Left knee pain Abnormal abdominal MRI Left lateral epicondylitis SOB (shortness of breath) Precordial chest pain Breast nodule Patellofemoral disorder of left knee History of abnormal cervical Pap smear Breast pain, left Cyst of Bartholin's gland Bipolar 1 disorder Migraine with aura Anxiety Depression Fibromyalgia Arthritis Asthma Surgical History Status post insertion of nerve stimulator H/O colonoscopy Hx of arthroscopic knee surgery Hx of tubal ligation History of loop electrical excision procedure (LEEP) Hx of section Family History Mother Diabetes mellitus Asthma Depression Maternal Grandmother Asthma Breast cancer Maternal Aunt Diabetes mellitus HTN (hypertension) Breast cancer Social History Household Members: Children Household Members Other:: children: 19, 18, fraternal twins-15 and a 5 year old. Are you a primary care taker to a significant other at home: Yes (child) Do you presently have visiting nurse or other home services: No Unable to assess alcohol history related to: Unknown Alcohol intake: current Alcohol intake frequency: holidays/special occasions only Patient Tobacco Use Status: Never used Tobacco Tobacco use type: Cigarette service: No Current occupational status: unemployed Current occupation: rt hand Gender identity: Female Female Reproductive History Menstrual Age of Menarche: 11 Review of Systems Const Reports as per HPI and Denies weakness ENT Reports Normal hearing present and Denies dizziness Card Reports as per HPI, Denies chest pain, Denies chest pain at rest, Denies chest pain with activity, Denies dyspnea and Denies dyspnea on exertion Resp Reports as per HPI, Denies cough, Denies dyspnea and Denies dyspnea on exertion GI Reports as per HPI, Denies abdominal pain, Denies nausea and Denies vomiting Musc Denies numbness Skin/Breast Reports as per HPI, Denies erythema and Denies wounds Neuro Reports Normal hearing present, Denies dizziness, Denies numbness, Denies Sensory deficit (Neuro) and Denies weakness Psych Reports no additional complaints Endo Reports no additional complaints Physical Exam Vital Signs: Last Vital Signs BP 124/80 02/15/24 10:41 BMI result Body Mass Index 33.9 Const General: healthy appearing and no acute distress Orientation/consciousness: patient oriented x3 HEENT Head: Yes normal to inspection Ears: hearing grossly normal bilaterally Mouth: Normal oral and palatal mucosa present Resp Effort & Inspection: normal respiratory effort and able to speak in complete sentences Auscultation: clear to auscultation bilaterally Cardio Jugular venous distension: no JVD Rate: regular rate Rhythm: regular rhythm Heart sounds: S1 normal heart sound present and S2 normal heart sound present Bruits: no abdominal aortic bruits, no carotid bruits, no femoral bruits and no renal bruits Peripheral pulses: Peripheral pulses 2+ throughout GI Inspection: Yes normal to inspection Palpation (GI): No Abdominal aortic bruit present Skin General skin exam: no rashes or lesions noted Wounds: no wounds Hair: normal Neuro General: patient oriented x3 Cranial nerves: Yes Normal hearing present Cognition (Neuro): normal cognition Gait exam (Neuro): Normal gait present Motor exam (neuro): 5/5 motor strength present throughout Sensory Exam: No Sensory deficit (Neuro) Extrem Other: Bilateral lower extremities: +1 edema noted. Palpable DP pulses. CEAP: C- 4 E - primary A - superficial P - reflux General: Yes normal to inspection, Yes full ROM, Yes capillary refill normal and Yes normal gait Assessment & Plan Assessment & Plan (1) Varicose veins of both lower extremities with inflammation: Code(s): I83.11 - Varicose veins of right lower extremity with inflammation; I83.12 - Varicose veins of left lower extremity with inflammation Category: Medical Plan: Susanne is presenting today for bilateral lower extremity swelling for over 2 years. She states she has used elevation for conservative measures. In short, the patient has evidence of venous insufficiency. I have discussed the pathophysiology with the patient. In addition I have provided informational material regarding venous disease to the patient. We have discussed conservative measures including compression, elevation, and exercise. I have also provided a handout regarding appropriate use of compression stockings and where to purchase good compression stockings as well. I have taken the liberty of ordering venous insufficiency testing with the patient. They will follow up with me after testing. The patient had an opportunity to ask questions regarding the treatment plan. All questions were answered. No major barriers to understanding were identified. The patient expressed understanding and agreement with the above treatment plan. The patient is aware they should contact our office by phone for worsening of the current condition or the appearance of new symptoms. Thank you for allowing me to participate in the vascular care of this patient. If you have any questions or concerns regarding the treatment for the above condition please do not hesitate to contact me. The office telephone contact is [phone]. This note is constructed using voice recognition software. While every effort has been made to ensure accuracy, pipe crew foreman errors may have been included. Thank you for allowing me to participate in the care of your patient. Yours sincerely, IRMA Rivas Orders: Orders US venous duplex LE BI 1 Week I83.11 - Varicose veins of right lower extremity with inflammation, I83.12 - Varicose veins of left lower extremity with inflammation Coding Level of Care Code New Pt New Pt Level 4 (31267) Patient Type New Diagnoses Varicose veins of both lower extremities with inflammation I83.11; I83.12
== END 2024-02-15 10:59 | disposition home or self-care (01) ==
PROVIDERS: PCP Family Medicine; Visit Provider Physician Assistant Surgical
DX: I83.11 Varicose veins of right lower extremity with inflammation (principal); I83.12 Varicose veins of left lower extremity with inflammation
CPT/HCPCS: 99204

== ENCOUNTER → 2024-02-15 10:12 | Outpatient (BNVA) | payer MEDICAID, SELFPAY | PROVIDERS: PCP Family Medicine; Visit Provider Physician Assistant Surgical | DX: I83.11 Varicose veins of right lower extremity with inflammation (principal); I83.12 Varicose veins of left lower extremity with inflammation | CPT/HCPCS: 99212 ==

== ENCOUNTER 2024-03-08 09:57 | Outpatient (REF) | payer MEDICAID, SELFPAY | END 2024-03-08 09:58 | disposition home or self-care (01) | LOC: HO.US 09:57 | PROVIDERS: PCP Family Medicine; Visit Provider Physician Assistant Surgical | DX: I83.11 Varicose veins of right lower extremity with inflammation (principal); I83.12 Varicose veins of left lower extremity with inflammation | CPT/HCPCS: 93970 ==

== ENCOUNTER 2024-03-30 10:53 | Outpatient (AMB) | payer MEDICAID, SELFPAY ==
--- NOTE | 2024-03-30 10:57 | MHC.OFFVIS ---
Vital Signs 03/30/24 10:59 Height 5 ft 6 in Weight 240 lb BMI 38.7 Intake Visit Reasons: Follow up Intake Note: follow up US 03/08/24, pt states her main complaint is swelling on the bottom of her feet. States its starts first thing when she gets up in the morning. States she has pain in bilateral feet Accompanied by: Self / Same As Patient Allergies gadobutrol Allergy (Severe, Verified 03/30/24 11:01) Difficulty Breathing Iodinated Contrast Media [IV CONTRAST] Allergy (Severe, Verified 03/30/24 11:01) ANAPHYLAXIS HPI HPI Follow up: Details: Susanne is presenting today for a follow up to US performed on 03/08/24 for bilateral lower extremity swelling and pain. She states the pain now is mostly on the bottom of her feet and worse first thing in the morning. She does continue with lower extremity swelling. She is wearing compression stockings, which she states only helps a little. She is also elevating her legs often; however, she states she can only do it for 20 min or so before her feet start hurting. FORMERLY [facility], [facility] Medical History Right hand pain Bilateral hand numbness Close exposure to COVID-19 virus Close exposure to 2019-nCoV COVID-19 vaccine series completed Hematuria Microscopic hematuria Allergy to contrast media (used for diagnostic x-rays) Left knee pain Abnormal abdominal MRI Left lateral epicondylitis SOB (shortness of breath) Precordial chest pain Breast nodule Patellofemoral disorder of left knee History of abnormal cervical Pap smear Breast pain, left Cyst of Bartholin's gland Bipolar 1 disorder Migraine with aura Anxiety Depression Fibromyalgia Arthritis Asthma Surgical History Status post insertion of nerve stimulator H/O colonoscopy Hx of arthroscopic knee surgery Hx of tubal ligation History of loop electrical excision procedure (LEEP) Hx of section Family History Mother Diabetes mellitus Asthma Depression Maternal Grandmother Asthma Breast cancer Maternal Aunt Diabetes mellitus HTN (hypertension) Breast cancer Social History Household Members: Children Household Members Other:: children: 19, 18, fraternal twins-15 and a 5 year old. 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 (child) Do you presently have visiting nurse or other home services: No Unable to assess alcohol history related to: Unknown Alcohol intake: current Alcohol intake frequency: holidays/special occasions only Patient Tobacco Use Status: Never used Tobacco Tobacco use type: Cigarette service: No Current occupational status: unemployed Current occupation: rt hand Gender identity: Female Female Reproductive History Menstrual Age of Menarche: 11 Review of Systems Const Reports as per HPI and Denies weakness ENT Reports Normal hearing present and Denies dizziness Card Reports as per HPI, Denies chest pain, Denies chest pain at rest, Denies chest pain with activity, Denies dyspnea and Denies dyspnea on exertion Resp Reports as per HPI, Denies cough, Denies dyspnea and Denies dyspnea on exertion GI Reports as per HPI, Denies abdominal pain, Denies nausea and Denies vomiting Musc Denies numbness Skin/Breast Reports as per HPI, Denies erythema and Denies wounds Neuro Reports Normal hearing present, Denies dizziness, Denies numbness, Denies Sensory deficit (Neuro) and Denies weakness Psych Reports no additional complaints Endo Reports no additional complaints Physical Exam Vital Signs: BMI result Body Mass Index 38.7 Const General: healthy appearing and no acute distress Orientation/consciousness: patient oriented x3 HEENT Head: Yes normal to inspection Ears: hearing grossly normal bilaterally Mouth: Normal oral and palatal mucosa present Resp Effort & Inspection: normal respiratory effort and able to speak in complete sentences Auscultation: clear to auscultation bilaterally Cardio Jugular venous distension: no JVD Rate: regular rate Rhythm: regular rhythm Heart sounds: S1 normal heart sound present and S2 normal heart sound present Bruits: no abdominal aortic bruits, no carotid bruits, no femoral bruits and no renal bruits Peripheral pulses: Peripheral pulses 2+ throughout GI Inspection: Yes normal to inspection Palpation (GI): No Abdominal aortic bruit present Skin General skin exam: no rashes or lesions noted Wounds: no wounds Hair: normal Neuro General: patient oriented x3 Cranial nerves: Yes Normal hearing present Cognition (Neuro): normal cognition Gait exam (Neuro): Normal gait present Motor exam (neuro): 5/5 motor strength present throughout Sensory Exam: No Sensory deficit (Neuro) Extrem Other: Trace bilateral lower extremity peripheral edema noted. Feet warm. Palpable DP pulses. General: Yes normal to inspection, Yes full ROM, Yes capillary refill normal and Yes normal gait Results Reviewed Results Reviewed: Brief summary of venous insufficiency testing is as follows: right great saphenous vein: negative right small saphenous vein: negative right accessory vein: none present left great saphenous vein: negative left small saphenous vein: negative left accessory vein: none present Please note there is no evidence of any venous aneurysms or significant tortuosity Assessment & Plan Assessment & Plan (1) Varicose veins of both lower extremities with inflammation: Code(s): I83.11 - Varicose veins of right lower extremity with inflammation; I83.12 - Varicose veins of left lower extremity with inflammation Category: Medical Plan: Susanne is presenting today for a follow up to US performed on 03/08. She continues to endorse lower extremity swelling and pain localized to the bottom of her feet. Her US was negative for any venous insufficiency. She has been elevating her legs and has trialed compression stockings, but state they only work a little. We discussed continued use of elevation and compression stockings. We discussed physical activity and well balanced diet. We discussed that if anything changed she can reach back out to us. We discussed to follow up with her PCP for further evaluation and treatment of her symptoms as well. If there are any questions or concerns, please do not hesitate to reach out to us. Coding Level of Care Code Est Pt Level 4 (31893) Diagnoses Varicose veins of both lower extremities with inflammation I83.11; I83.12 Comment review of US
[2024-03-30 10:59] VITALS: BMI 38.7
== END 2024-03-30 11:09 | disposition home or self-care (01) ==
LOC: HO.HVS 10:53
PROVIDERS: PCP Family Medicine; Visit Provider Physician Assistant Surgical
DX: I83.11 Varicose veins of right lower extremity with inflammation (principal); I83.12 Varicose veins of left lower extremity with inflammation
CPT/HCPCS: 99214

== ENCOUNTER → 2024-03-30 10:53 | Outpatient (BNVA) | payer MEDICAID, SELFPAY | PROVIDERS: PCP Family Medicine; Visit Provider Physician Assistant Surgical | DX: I83.11 Varicose veins of right lower extremity with inflammation (principal); I83.12 Varicose veins of left lower extremity with inflammation | CPT/HCPCS: 99212 ==

== ENCOUNTER 2024-04-21 09:26 | Outpatient (REF) | payer MEDICAID, SELFPAY | END 2024-04-21 09:27 | disposition home or self-care (01) | LOC: HO.MAMMO 09:26 | PROVIDERS: PCP Family Medicine; Visit Provider Family Medicine | DX: Z12.31 Encounter for screening mammogram for malignant neoplasm of breast (principal) | CPT/HCPCS: 77063; 77067 ==

== ENCOUNTER 2024-05-09 19:47 | Outpatient (REF) | payer MEDICAID, SELFPAY ==
--- NOTE | ~2024-05-09 | XR_ITS ---
CLINICAL HISTORY: R rib pain and bruising s p fall 4 view, chest and right ribs Comparison: CR/SR - XR CHEST 2V - 01/19/24 23:14 EDT Findings: No fractures or dislocations. The visualized lungs are normal. IMPRESSION: 1. No acute fractures. This document has been electronically signed by: Marilee Liang MD on 05/11/2024 17:18:41
--- NOTE | ~2024-05-09 | XR_ITS ---
CLINICAL HISTORY: fall, ankle pain 3 view right ankle Comparison: X-rays of the right ankle from 07/24/2020 Findings: Sclerosis and remodeling of the old lateral malleolus fracture. No acute fracture. No dislocation. Mild soft tissue swelling with small to moderate effusion. No radiopaque retained foreign body. IMPRESSION: 1. Small old fracture of the lateral malleolus. 2. Soft tissue swelling with effusion present.. This document has been electronically signed by: River Rendon MD on 05/09/2024 21:33:30
--- NOTE | ~2024-05-09 | XR_ITS ---
CLINICAL HISTORY: R elbow pain and bruising s p fall 3 view right elbow Comparison: None Findings: No acute fractures or dislocations. No significant arthritic change or erosions. No joint effusion. No radiopaque foreign body. IMPRESSION: 1. No acute findings This document has been electronically signed by: Marilee Liang MD on 05/11/2024 17:19:56
--- NOTE | ~2024-05-09 | XR_ITS ---
CLINICAL HISTORY: b l plantar pain and swelling 3 view right foot Comparison: CR - XR FOOT RT MIN 3V - 05/09/24 20:37 EST Findings: Bones intact. No dislocations. No significant arthritic change or erosions. No calcaneal spurs. No ankle effusion. No radiopaque foreign body. IMPRESSION: 1. No acute findings. This document has been electronically signed by: Marilee Liang MD on 05/11/2024 17:28:07
--- NOTE | ~2024-05-09 | CT_ITS ---
CLINICAL HISTORY: fall head strike CT head without contrast Comparison: Head CT from 06/10/2023 Findings: No acute intracranial hemorrhage. No midline shift or hydrocephalus. No arterial territorial infarction by CT. Imaged orbits are unremarkable. Imaged paranasal sinuses and mastoid air cells are well aerated. No acute fracture. Scalp calcifications are nonspecific. IMPRESSION: No acute intracranial abnormality by CT. This document has been electronically signed by: River Rendon MD on 05/09/2024 21:28:32
--- NOTE | ~2024-05-09 | XR_ITS ---
CLINICAL HISTORY: fall right knee pain 4 view right knee Comparison: None Findings: [id number] effusion. No displaced fracture. No dislocation. Mild varus angulation. Proximal tibial periosteal thickening as can be seen with venous stasis and stress phenomenon. No radiopaque foreign body. IMPRESSION: 1. [id number] effusion of the right knee. 2. No acute fracture. This document has been electronically signed by: River Rendon MD on 05/09/2024 21:33:53
--- NOTE | ~2024-05-09 | CT_ITS ---
CLINICAL HISTORY: fall head strike CT cervical spine without contrast Comparison: X-rays of the cervical spine from 01/13/2021 Findings: No acute fracture of the cervical spine. Mild reversal of the cervical lordosis. No significant listhesis. Mild facet arthropathy. No osseous spinal stenosis by CT. Minimal streak artifacts. No paraspinal hematoma. Motion artifacts about imaged lung apices and trachea. IMPRESSION: 1. No acute fracture of the cervical spine. 2. Mild reversal of the cervical lordosis. This document has been electronically signed by: River Rendon MD on 05/09/2024 21:20:42
--- NOTE | ~2024-05-09 | CT_ITS ---
CLINICAL HISTORY: fall, chin strike CT maxillofacial without contrast Comparison: Head CT from same day. Findings: Dermal calcifications including bifrontal scalp. No displaced mandible fracture. Mild gas of the superficial soft tissues about anterior mandible with predominately anterior inferior soft tissue swelling and hematoma. Superficial adjacent skin calcifications are nonspecific and may reflect debris. Mild lucencies and/or nondisplaced fracture are periapical involving the left lateral incisor and left canine and left 2nd molar. Mild osteoarthritis of the temporomandibular joints with mild anterior positioning of the right. Small ossicle appears old. Metal and lucencies associated with multiple remaining teeth including imaged maxillary teeth. Imaged orbits are unremarkable for technique. No acute appearing or suspicious air-fluid levels of the paranasal sinuses. Imaged mastoid air cells are well aerated. IMPRESSION: 1. Small lucencies and/or nondisplaced fractures of the left mandibular teeth. 2. No displaced mandible fracture. 3. Osteoarthritis of the temporomandibular joints with small loose body and/or ossicle of the right temporomandibular joint. This document has been electronically signed by: River Rendon MD on 05/09/2024 21:22:30
--- NOTE | ~2024-05-09 | XR_ITS ---
CLINICAL HISTORY: fall foot pain swelling 3 view right foot Comparison: X-rays of the right foot from 07/25/2020 Findings: Mild angulation of the 1st metatarsophalangeal joint with early hallux valgus angulation and prominent adjacent soft tissue. Old lateral malleolus fracture in the field of view. No acute displaced fracture. No dislocation. No radiopaque retained foreign body in the [id number]. Mild distal soft tissue swelling is nonspecific.. IMPRESSION: 1. No acute foot fracture. 2. Mild distal soft tissue swelling. This document has been electronically signed by: River Rendon MD on 05/09/2024 21:33:39
--- NOTE | ~2024-05-09 | XR_ITS ---
CLINICAL HISTORY: b l plantar pain and swelling 3 view bilateral foot Comparison: CR - XR FOOT RT MIN 3V - 05/09/24 20:37 EST Findings: No fractures or dislocations. No significant arthritic change or erosions. Small bunion. No ankle effusion. No radiopaque foreign body. IMPRESSION: 1. No acute findings. This document has been electronically signed by: Marilee Liang MD on 05/11/2024 17:24:26
[2024-05-09 19:56] VITALS: BP 129/71; PULSE 76; RESP 16; TEMP 36.9; O2SAT 100; BMI 32.3
--- NOTE | 2024-05-09 20:14 | ED_ITS ---
HPI - Fall General Chief Complaint: Fall Stated Complaint: Fall Time Seen by Provider: 05/10/24 00:03 Source: patient Mode of arrival: ambulatory Limitations: no limitations History of Present Illness ED Provider: Dr. Mary Grace Sosa HPI Narrative: Patient comes to the emergency room after a fall. Patient states that she had already clock out of work, she was walking down the stairs, missed a step. Patient complaining of right ankle pain, right knee pain and right face pain. Patient denies losing consciousness, patient denies being on blood thinners Related Data Home Medications ?Medication ?Instructions ?Recorded ?Confirmed zolpidem 10 mg tablet (Ambien) 10 mg PO BEDTIME PRN Insomnia 04/16/20 02/21/24 omeprazole 20 mg capsule,delayed 1 cap PO DAILY 10/25/20 02/21/24 release baclofen 10 mg tablet 10 mg PO BID PRN muscle spasm 03/03/22 02/21/24 clonazepam 1 mg tablet 1 mg PO BID 07/05/23 02/21/24 gabapentin 400 mg capsule 400 mg PO TID 07/05/23 02/21/24 mometasone 100 mcg/actuation HFA 1 puff inhalation BID 07/05/23 02/21/24 aerosol inhaler (Asmanex HFA) Previous Rx's ?Medication ?Instructions ?Recorded acetaminophen 500 mg tablet 1,000 mg (2 x 500 mg) PO QID PRN 08/11/21 (Tylenol Extra Strength) fever or pain #14 tabs tramadol 50 mg tablet 50 mg PO Q6H PRN pain #20 tabs 05/06/22 ibuprofen 600 mg tablet 600 mg PO Q6H PRN pain #20 tabs 02/21/23 acetaminophen 500 mg tablet 500 mg PO Q6H PRN fever or pain 05/10/24 #20 tabs cyclobenzaprine 10 mg tablet 10 mg PO BID PRN muscle spasm #8 05/10/24 tabs ibuprofen 600 mg tablet 600 mg PO Q8H PRN fever or pain 05/10/24 #20 tabs Allergies Allergy/AdvReac Type Severity Reaction Status Date / Time gadobutrol Allergy Severe Difficulty Verified 05/09/24 19:59 Breathing Iodinated Contrast Media Allergy Severe ANAPHYLAXIS Verified 05/09/24 19:59 [IV CONTRAST] Review of Systems Review of Systems: Constitutional : No Weight loss, No Fever, No Chills, No Night Sweats, No Fatigue, No Malaise ENT/Mouth : No Hearing loss, No Ear Pain, No Nasal Congestion, No Sinus Pain, No Hoarseness, No sore throat, No Rhinorrhea, No Swallowing Difficulty Eyes: No Eye Pain, No Swelling, No Redness, No Foreign Body, No Discharge, No Vision Changes Cardiovascular : No Chest Pain, No SOB, No Dyspnea on Exertion, No Orthopnea, No Edema, No Palpitations Respiratory : No Cough, No Sputum, No Wheezing, No Smoke Exposure, No Dyspnea Gastrointestinal : No Nausea, No Vomiting, No Diarrhea, No Constipation, No abdominal Pain, No Hematochezia, No Melena Genitourinary : no irregular bleeding, No Dysuria, No Urinary Frequency, No Hematuria, No Urinary Incontinence, No Urgency, No Flank Pain, No Urinary Flow Changes, No Hesitancy Musculoskeletal : Complaining of right-sided body aches including knee ankle forearm, No Myalgias, No Joint Swelling Skin : No Skin Lesions, No rash Neuro : No Weakness, No Numbness, No Paresthesias, No Loss of Consciousness, No Dizziness, No Headache Psych : No Anxiety/Panic, No Depression, No SI/HI/AH/VH, No Social Issues, Heme/Lymph: No Bruising, No Bleeding,No Lymphadenopathy Endocrine : No Polyuria, No Polydipsia, No Temperature Intolerance PMFSH Past Medical History Medical History Right hand pain Bilateral hand numbness Close exposure to COVID-19 virus Close exposure to 2019-nCoV COVID-19 vaccine series completed Hematuria Microscopic hematuria Allergy to contrast media (used for diagnostic x-rays) Left knee pain Abnormal abdominal MRI Left lateral epicondylitis SOB (shortness of breath) Precordial chest pain Breast nodule Patellofemoral disorder of left knee History of abnormal cervical Pap smear Breast pain, left Cyst of Bartholin's gland Bipolar 1 disorder Migraine with aura Anxiety Depression Fibromyalgia Arthritis Asthma Surgical History Status post insertion of nerve stimulator H/O colonoscopy Hx of arthroscopic knee surgery Hx of tubal ligation History of loop electrical excision procedure (LEEP) Hx of section Family History Family History Mother Diabetes mellitus Asthma Depression Maternal Grandmother Asthma Breast cancer Maternal Aunt Diabetes mellitus HTN (hypertension) Breast cancer Social History Social History Household Members: Children Household Members Other:: children: 19, 18, fraternal twins-15 and a 5 year old. 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 home: Yes (child) Do you presently have visiting nurse or other home services: No Unable to assess alcohol history related to: Unknown Alcohol intake: current Alcohol intake frequency: holidays/special occasions only Patient Tobacco Use Status: Never used Tobacco Tobacco use type: Cigarette service: No Current occupational status: unemployed Current occupation: rt hand Gender identity: Female Physical Exam Vital Signs: Vital Signs: Last Vital Signs Temp 98.2 F 05/09/24 23:33 Pulse 74 05/09/24 23:33 Resp 20 05/09/24 23:33 BP 139/92 H 05/09/24 23:33 Pulse Ox 99 05/09/24 23:33 O2 Del Method Room Air 05/09/24 23:33 BMI result Body Mass Index 32.3 Const: Other: Appearance: Alert. Oriented X3. No acute distress. Well-appearing Eyes: Pupils equal, round and reactive to light. ENT: Pharynx normal. Neck: Normal inspection. Neck supple. No lymph nodes noted. No crepitus CVS: Normal heart rate and rhythm. Pulses normal. Normal S1 and S2 Respiratory: No respiratory distress. Breath sounds normal. No Wheezing. No rales Abdomen: Soft and nontender. No rigidity. No distention. Skin: Skin warm and dry. Normal skin color. Normal skin turgor. Extremities: No lower extremity edema. No Lacerations. No Rash, normal flexion- extension in no upper and lower extremities., pain knee mildly swollen. Neuro: Oriented X 3. No motor deficit. No sensory deficit. Moving all extremities. No slurred speech. CN 2 through 12 grossly intact Psych: calm, cooperative, normal affect Course Course Course Narrative: This is a Rapid Medical Examination (RME) performed by Zahira Durand PA-C in triage. Full HPI, ROS, assessment and treatment plan per primary provider in the Main ED. 43-year-old female here with right ankle and right knee pain/swelling and chin pain s/p trip and fall down 3 stairs. no loc. not on AC. Plan: imaging Medical Decision Making Medical Decision Making MDM Narrative: I discussed the radiology findings with the patient, no significant abnormalities in patient's head and cervical spine CT. The facial bone CT shows minor abnormalities including a small lucency in her nondisplaced fractures of the left mandibular teeth, possible TMJ X-rays of the knee foot and ankle do show mild swelling but no fracture. Patient was given p.o. ibuprofen and cyclobenzaprine. Differential Diagnosis Differential Diagnoses: The differential diagnosis associated with the presentat ion includes (Contusion, concussion, dislocations, fractures, effusion) Independent Interpretation I performed an independent interpretation of an: CT Scan Radiology Impression Discussion of test interpretation with radiology: I have reviewed the radiologist's reading. Radiologist Impression: No acute intracranial hemorrhage. No midline shift or hydrocephalus. No arterial territorial infarction by CT. Imaged orbits are unremarkable. Imaged paranasal sinuses and mastoid air cells are well aerated. No acute fracture. Scalp calcifications are nonspecific. Dermal calcifications including bifrontal scalp. No displaced mandible fracture. Mild gas of the superficial soft tissues about anterior mandible with predominately anterior inferior soft tissue swelling and hematoma. Superficial adjacent skin calcifications are nonspecific and may reflect debris. Mild lucencies and/or nondisplaced fracture are periapical involving the left lateral incisor and left canine and left 2nd molar. Mild osteoarthritis of the temporomandibular joints with mild anterior positioning of the right. Small ossicle appears old. Metal and lucencies associated with multiple remaining teeth including imaged maxillary teeth. Imaged orbits are unremarkable for technique. No acute appearing or suspicious air-fluid levels of the paranasal sinuses. Imaged mastoid air cells are well aerated. No acute fracture of the cervical spine. Mild reversal of the cervical lordosis. No significant listhesis. Mild facet arthropathy. No osseous spinal stenosis by CT. Minimal streak artifacts. No paraspinal hematoma. Motion artifacts about imaged lung apices and trachea. [id number] effusion. No displaced fracture. No dislocation. Mild varus angulation. Proximal tibial periosteal thickening as can be seen with venous stasis and stress phenomenon. No radiopaque foreign body. Mild angulation of the 1st metatarsophalangeal joint with early hallux valgus angulation and prominent adjacent soft tissue. Old lateral malleolus fracture in the field of view. No acute displaced fracture. No dislocation. No radiopaque retained foreign body in the [id number]. Mild distal soft tissue swelling is nonspecific.. Sclerosis and remodeling of the old lateral malleolus fracture. No acute fracture. No dislocation. Mild soft tissue swelling with small to moderate effusion. No radiopaque retained foreign body. Discharge Plan Discharge Clinical Impression: Fall, Contusion Patient Disposition: Home, Self-Care Instructions: Contusion in Adults (ED) Additional Instructions: Please follow-up with your primary care physician tomorrow. If you have any worsening or new symptoms, please return to the emergency room or call 911 Prescriptions: New cyclobenzaprine 10 mg tablet 10 mg PO BID PRN (Reason: muscle spasm) Qty: 8 0RF ibuprofen 600 mg tablet 600 mg PO Q8H PRN (Reason: fever or pain) Qty: 20 0RF acetaminophen 500 mg tablet 500 mg PO Q6H PRN (Reason: fever or pain) Qty: 20 0RF No Action omeprazole 20 mg capsule,delayed release(DR/EC) 1 cap PO DAILY acetaminophen [Tylenol Extra Strength] 500 mg tablet 1,000 mg PO QID PRN (Reason: fever or pain) Qty: 14 0RF tramadol 50 mg tablet 50 mg PO Q6H PRN (Reason: pain) Qty: 20 0RF ibuprofen 600 mg tablet 600 mg PO Q6H PRN (Reason: pain) Qty: 20 0RF zolpidem [Ambien] 10 mg tablet 10 mg PO BEDTIME PRN (Reason: Insomnia) clonazepam 1 mg tablet 1 mg PO BID Rx Instructions: administer 30 minutes before bedtime baclofen 10 mg tablet 10 mg PO BID PRN (Reason: muscle spasm) gabapentin 400 mg capsule 400 mg PO TID Asmanex HFA 100 mcg/actuation HFA aerosol inhaler 1 puff inhalation BID Print Language: Singaporean
[2024-05-09 23:33] VITALS: BP 139/92; PULSE 74; RESP 20; TEMP 36.8; O2SAT 99
[2024-05-10] MEDS: Cyclobenzaprine HCl 5 MG TABLET PO (00:38)
[2024-05-10] MEDS: Ibuprofen 600 MG TABLET PO (00:39)
[2024-05-10 00:48] VITALS: BP 139/92; PULSE 74; RESP 20; TEMP 36.8; O2SAT 99
== END 2024-05-11 16:08 | disposition home or self-care (01) ==
LOC: HO.XRAY 05-11 16:07
PROVIDERS: Emergency Provider Emergency Medicine; PCP Family Medicine; Visit Provider Family Medicine
DX: M25.571 Pain in right ankle and joints of right foot (principal); M25.471 Effusion, right ankle; M25.561 Pain in right knee; M25.461 Effusion, right knee; R51.9 Headache, unspecified; T14.8XXA Other injury of unspecified body region, initial encounter; W10.8XXA Fall (on) (from) other stairs and steps, initial encounter; Y93.89 Activity, other specified; Y92.89 Other specified places as the place of occurrence of the external cause; Y99.9 Unspecified external cause status
CPT/HCPCS: 70450; 70486; 71101; 72125; 73070; 73564; 73610; 73630; 99283; 99284

== ENCOUNTER → 2024-05-09 20:12 | Outpatient (BNV) | payer MEDICAID, SELFPAY | PROVIDERS: PCP Family Medicine; Visit Provider Radiology Neuroradiology | DX: R51.9 Headache, unspecified (principal); M25.461 Effusion, right knee; M25.571 Pain in right ankle and joints of right foot; M79.671 Pain in right foot; S09.93XA Unspecified injury of face, initial encounter | CPT/HCPCS: 70450; 70486; 72125; 73564; 73610; 73630 ==

== ENCOUNTER → 2024-05-11 16:12 | Outpatient (BNV) | payer MEDICAID, SELFPAY | PROVIDERS: Emergency Provider Emergency Medicine; PCP Family Medicine; Visit Provider Radiology Diagnostic Radiology | DX: R07.89 Other chest pain (principal); M25.572 Pain in left ankle and joints of left foot; M25.571 Pain in right ankle and joints of right foot; M25.521 Pain in right elbow | CPT/HCPCS: 71101; 73070; 73630 ==

== ENCOUNTER 2024-06-19 13:39 | Outpatient (REF) | payer MEDICAID, SELFPAY ==
[2024-06-27 10:38] LABS: Alphahydroxymidazolam,GCMS Ur NEGATIVE; Alphahydroxytriazolam, GCMS Ur NEGATIVE; Alprazolam, GCMS Urine NEGATIVE; Aminoclonazepam, GCMS Urine 641; Flurazepam Metabolite,GCMS Ur NEGATIVE; Lorazepam GCMS Urine NEGATIVE; Nordiazepam, GCMS Urine NEGATIVE; Oxazepam, GCMS Urine NEGATIVE; Temazepam, GCMS Urine NEGATIVE
== END 2024-06-19 13:40 | disposition home or self-care (01) ==
LOC: HO.HHCLNP 13:39
PROVIDERS: Visit Provider Family Medicine
DX: M54.50 Low back pain, unspecified (principal); G89.29 Other chronic pain
CPT/HCPCS: 80346

== ENCOUNTER 2024-10-03 13:11 | Outpatient (REF) | payer MEDICAID, SELFPAY ==
[2024-10-03 14:01] LABS: Hematocrit 39.6 % (37.0-47.0); Hemoglobin 12.9 g/dl (12.0-16.0); Mean Corpuscular HGB Conc 32.6 g/dl (31.0-35.0); Mean Corpuscular Hemoglobin 28.8 pg (27.0-33.0); Mean Corpuscular Volume 88.4 fL (80.0-98.0); NRBC Abs Auto 0.000 X10*3/uL (0.0-0.012); NRBC Pct Auto 0.0 /100WBC (0.0-0.2); Platelet Count 270 X10*3/uL (160-400); Red Blood Count 4.48 X10*6/uL (4.20-5.50); White Blood Count 10.0 X10*3/uL (4.8-10.8)
[2024-10-03 14:11] LABS: Hemoglobin A1C 124.6842 umol/L; Total Hemoglobin (HGBA1C) 3421.3605 umol/L
--- OUTSIDE RECORDS SUMMARY | 2024-10-03 14:17 | XMS_ITS | Encounter Summary ---
Author Organization [employer] Address [address] [place] [address] Care Team Providers Care Revenue Specialist Name Role Phone Lisa Wylie DO Primary Care Provider [phone] Reason for Visit * Reason Onset Date Comments Med Refill 03/09/2023 Encounter Details Date Type Department Care Team ([facility] st Contact Info) Description 03/09/2023 Refill [facility] [address] [place] [address] Lisa Wylie DO [address] [place] [address] Other chronic pain Social History Tobacco Use Types Packs/Day Years Used Date Smoking Tobacco: Never Smokeless Tobacco: Never Alcohol Use Standard Drinks/Week Comments Not Currently 0 (1 standard drink = 0.6 oz pur e alcohol) Occassional Depression Answer Date Recorded Patient Health Questionnaire-9 Score 12 01/12/2023 Housing Stability Answer Date Recorded What is your housing situation today? I have steffi kirk 01/25/[address] you li ve. Do you have problems with any of the following? None of the above 01/25/2023 Food Insecurity Answer Date Recorded Within the past 12 months, y ou worried that your food would run out before you got money to buy more: Never True 01/25/2023 Within the past 12 months,th e food you bought just didn't last and you didn't have enough money to get more: Never True Transportation Answer Date Recorded In the past 12 months, has l ack of transportation kept you from medical appts, meetings, work or from getting things needed for daily living? No 01/25/2023 Utilities Answer Date Recorded In the past 12 months, has t he electric, gas, oil or water company threatened to shut off services in your home? No 01/25/2023 Depression Answer Date Recorded Patient Health Questionnaire-2 Score 4 01/12/2023 Comments Unknown Sex and Gender Information Value Date Recorded Sex Assigned at Female 02/02/2022 10:20 AM EDT Legal Sex Female 10:20 AM EDT Gender Identity Female 02/02/2022 10:20 AM EDT Sexual Orientation Straight 02/02/2022 10 :20 AM EDT documented as of this encounter Plan of Treatment Upcoming Encounters Date Type Department Care Team (Late st Contact Info) Description 12/19/2024 9:30 AM EDT Clinical Support [facility] [address] [place] [address] Eli Ferguson RN documented as of this encounter Visit Diagnoses Diagnosis Other chronic pain documented in this encounter Additional Health Concerns Assessment Noted Time PHQ-9 Depression Total Score: 12 023 10:50 AM EDT documented as of this encounter Care Teams Revenue Specialist Relationship Specialty Start Date End Date Lisa Wylie DO [address] [place] [address] PCP - General Family Medicine 04/05/18 Eli Rivera Sewer And Drain Technician 06/18/23 10/15/23 Susan Richey Sewer And Drain TechnicianIn Store Marketer 12/23/23 documented as of this encounter
[2024-10-03 14:33] LABS: Alanine Aminotransferase 22 U/L (0-31); Albumin Level 4.2 g/dL (3.5-5.0); Alkaline Phosphatase 103 U/L (39-117); Anion Gap 8 (12-20); Aspartate Amino Transferase 17 U/L (5-31); Blood Urea Nitrogen 12 mg/dL (9-16); Calcium 8.5 mg/dL (8.4-10.2); Carbon Dioxide 21 mmol/L (22-29); Chloride 111 mmol/L (96-108); Cholesterol 185 mg/dL (<200); Estimated Glomerular Filt Rate > 60; HDL Cholesterol 40 mg/dL (>40); Iron 60 mcg/dL (30-160); Percent Iron Saturation 21 % (15-50); Potassium 3.9 mmol/L (3.3-5.1); Sodium 136 mmol/L (135-145); Total Iron Binding Capacity 281 mcg/dL (228-428); Total Protein 7.6 g/dL (6.5-8.0); Triglycerides 85 mg/dL (<150); Unsaturated Iron Binding 221 ug/dL
[2024-10-03 14:46] LABS: HBS Num1 845.90 mIU/mL (0-7.99); HBc Num1 0.06 S/CO (0.00-0.79); HBsAGNum1 0.32 S/CO (0.00-0.99); HIV Num 1 0.05 S/CO (0.00-0.99); Hepatitis B Surface Antigen Negative (Negative); ~HepC Num1 0.15 S/CO (0.00-0.79); ~Hepatitis B Surface Antibody REACTIVE (Nonreactive); ~Hepatitis C Antibody Nonreactive (Nonreactive)
[2024-10-03 14:53] LABS: Ferritin 64 ng/mL (10-250); Free T4 (Free Thyroxine) 0.83 ng/dL (0.71-1.85); Thyroid Stimulating Hormone 1.12 uIU/mL (0.32-4.0)
[2024-10-03 14:59] LABS: Folate 6.7 ng/mL (> or = 4.0); Vitamin B12 269 pg/mL (200-900)
[2024-10-05 08:44] LABS: ~Hepatitis A Antibody IgG 0.45 S/CO (0.00-0.99)
== END 2024-10-03 13:12 | disposition home or self-care (01) ==
LOC: HO.LAB 13:11
PROVIDERS: PCP Family Medicine; Visit Provider Family Medicine
DX: Z00.00 Encounter for general adult medical examination without abnormal findings (principal); F33.9 Major depressive disorder, recurrent, unspecified; J45.30 Mild persistent asthma, uncomplicated; G43.909 Migraine, unspecified, not intractable, without status migrainosus; M79.7 Fibromyalgia; M54.2 Cervicalgia; M54.9 Dorsalgia, unspecified; G89.29 Other chronic pain; M25.562 Pain in left knee; K76.9 Liver disease, unspecified; D64.9 Anemia, unspecified; N83.201 Unspecified ovarian cyst, right side; N83.202 Unspecified ovarian cyst, left side; M79.671 Pain in right foot; M79.672 Pain in left foot; M79.89 Other specified soft tissue disorders
CPT/HCPCS: 36415; 80048; 80061; 80076; 82306; 82607; 82728; 82746; 83036; 83540; 84439; 84443; 85027; 86592; 86704; 86706; 86708; 86803; 87340; 87389

== ENCOUNTER 2024-10-24 20:23 | Emergency (ER) | payer MEDICAID, SELFPAY ==
--- NOTE | ~2024-10-24 | XR_ITS ---
CLINICAL HISTORY: fall 3 view left ankle Comparison: None provided Findings: Subtle ossific densities inferior to the lateral malleolar tip, can not exclude subtle avulsion fracture. No significant loss of joint space, osteophytes, or erosions. No radiopaque foreign body. Lateral ankle soft tissue swelling. IMPRESSION: Question subtle lateral malleolus fracture. Consider follow-up radiographs in 7-[address] This document has been electronically signed by: James Monge MD on 10/24/2024 21:27:03
--- NOTE | ~2024-10-24 | XR_ITS ---
CLINICAL HISTORY: fall 3 view left foot Comparison: 05/11/2024 04:36 PM EST: CR: XR FOOT LT MIN 3V Findings: No fractures or dislocations. No significant arthritic change or erosions. No radiopaque foreign body. Diffuse soft tissue swelling, more so along the dorsum of the foot. Mildly prominent os trigonum. IMPRESSION: 1. No acute fracture. This document has been electronically signed by: James Monge MD on 10/24/2024 21:25:30
[2024-10-24 20:41] VITALS: BP 137/91; PULSE 86; RESP 16; TEMP 36.5; O2SAT 100; BMI 39.1
--- NOTE | 2024-10-24 20:49 | ED_ITS ---
HPI - General Adult General Chief complaint: Extremity Injury, Lower Stated complaint: Ankle swelling Time Seen by Provider: 10/24/24 22:38 Source: patient Mode of arrival: ambulatory Limitations: no limitations History of Present Illness ED Provider: Al SOLIS HPI narrative: Patient is a 44-year-old female presenting to the ED reporting on 10/17 while in [place] she suffered a mechanical fall down 2 steps resulting in a inversion injury of her left ankle. Patient reports she has been able to walk on the ankle but with increasing pain and limping. Patient returned to the [facility] 2 days ago and came to the ED today due to worsening pain. The patient denies head strike or other acute injury, denies previous injury to the affected extremity. The patient reports she has been attempting ibuprofen and ice without relief. Related Data Home Medications ?Medication ?Instructions ?Recorded ?Confirmed zolpidem 10 mg tablet (Ambien) 10 mg PO BEDTIME PRN In somnia 04/16/20 02/21/24 omeprazole 20 mg capsule,delayed 1 cap PO DAILY 02/21/24 release baclofen 10 mg tablet 10 mg PO BID PRN muscle spas m 03/03/22 02/21/24 clonazepam 1 mg tablet 1 mg PO BID 07/05/23 4 gabapentin 400 mg capsule 400 mg PO TID 07/05/2302/20 mometasone 100 mcg/actuation HFA 1 puff inhalation BID 07/05/23 02/21/24 aerosol inhaler (Asmanex HFA) Previous Rx's ?Medication ?Instructions ?Recorded acetaminophen 500 mg tablet 1,000 mg (2 x 500 mg) PO Q ID PRN 08/11/21 (Tylenol Extra Strength) fever or pain #14 tabs tramadol 50 mg tablet 50 mg PO Q6H PRN pain #20 ta bs 05/06/22 ibuprofen 600 mg tablet 600 mg PO Q6H PRN pain #20 t abs 02/21/23 acetaminophen 500 mg tablet 500 mg PO Q6H PRN fever or pain 05/10/24 #20 tabs cyclobenzaprine 10 mg tablet 10 mg PO BID PRN muscle s pasm #8 05/10/24 tabs ibuprofen 600 mg tablet 600 mg PO Q8H PRN fever or p ain 05/10/24 #20 tabs acetaminophen 500 mg capsule 1,000 mg (2 x 500 mg) PO .q8 PRN 10/24/24 fever or pain #30 caps ibuprofen 600 mg tablet 600 mg PO Q8H PRN fever or p ain 10/24/24 #30 tabs oxycodone 5 mg tablet 5 mg PO Q8H PRN pain, severe #14 10/24/24 tabs Allergies Allergy/AdvReac Type Severity Reaction Status Date / Time gadobutrol Allergy Severe Difficulty Verified 10/24/24 20:44 Breathing Iodinated Contrast Media (IV Allergy Severe ANAPHYLAXIS Verified 10/24/24 20:44 CONTRAST) Review of Systems Review of Systems: Yes all other systems are reviewed and are negative [facility] Past Medical History Medical History Right hand pain Bilateral hand numbness Close exposure to COVID-19 virus Close exposure to 2019-nCoV COVID-19 vaccine series completed Hematuria Microscopic hematuria Allergy to contrast media (used for diagnostic x-rays) Left knee pain Abnormal abdominal MRI Left lateral epicondylitis SOB (shortness of breath) Precordial chest pain Breast nodule Patellofemoral disorder of left knee History of abnormal cervical Pap smear Breast pain, left Cyst of Bartholin's gland Bipolar 1 disorder Migraine with aura Anxiety Depression Fibromyalgia Arthritis Asthma Surgical History Status post insertion of nerve stimulator H/O colonoscopy Hx of arthroscopic knee surgery Hx of tubal ligation History of loop electrical excision procedure (LEEP) Hx of section Family History Family History Mother Diabetes mellitus Asthma Depression Maternal Grandmother Asthma Breast cancer Maternal Aunt Diabetes mellitus HTN (hypertension) Breast cancer Social History Social History Household Members: Children Household Members Other:: children: 19, 18, fraternal twins-15 and a 5 year old. Are you a primary care partner to a significant other at home: Yes (child) Do you presently have visiting nurse or other home services: No Unable to assess alcohol history related to: Unknown Alcohol intake: current Alcohol intake frequency: holidays/special occasions only Patient Tobacco Use Status: Never used Tobacco Tobacco use type: Cigarette service: No Current occupational status: unemployed Current occupation: rt hand Gender identity: Female Physical Exam ED Vital Signs: Vital Signs - 24 hr 10/24/24 20:41 Temperature 97.7 F Pulse Rate 86 Respiratory Rate 16 Blood Pressure 137/91 H Pulse Oximetry 100 Oxygen Delivery Method Room Air BMI result Body Mass Index 39.1 CONSTITUTIONAL: The patient appears non-toxic, well nourished and in no acute distress. Vital signs as documented. HEAD: Atraumatic, normocephalic. EYES: EOMs grossly intact, pupils equal, conjunctiva clear, no exudate. ENT: Nares patent, no discharge. Airway patent, no audible stridor, visible mucosa is pink and moist without noted lesions. NECK: trachea is midline, no obvious masses or gross abnormalities. CHEST: Symmetric movement, normal appearance. LUNGS: Non-labored work of breathing. CARDIAC: No evidence of hypoperfusion. ABDOMEN: Nondistended, no obvious injury. : Deferred. EXTREMITIES: There is swelling and tenderness to palpation of the lateral left malleolus extending into the lateral aspect of the left foot. Distal CSM intact, 2+ DP/PT pulses, limited range of motion secondary to pain. Moves all other extremities spontaneously without reported pain. No other obvious injury or deformity noted. NEURO: Alert and oriented x3, CN II-XII appear grossly intact. Cerebellar Functioning grossly intact. Speech clear and appropriate. SKIN: Warm, dry, color appropriate. No rashes or lesions noted. Course Course Course Narrative: RME: 44-year-old female presents to ED for left ankle pain since falling life of and [place] but never had any imaging. Positive for ankle tenderness slight swelling on palpation. X-ray ordered Medications Administered Discontinued Medications Generic Name Dose Route Start Last Admin Trade Name Freq PRN Reason Stop Dose Admin Acetaminophen 975 mg 10/24/24 23:17 10/25/24 00:02 Acetaminophen 325 Mg Tablet PO 10/24/24 23:18 975 mg ONCE ONE Administration Ibuprofen 600 mg 10/24/24 23:17 10/25/24 00:02 Ibuprofen 600 Mg Tablet PO 10/24/24 23:18 600 mg ONCE ONE Administration Lidocaine 1 patch 10/24/24 23:17 10/25/24 00:03 Lidocaine 4 % Patch Adh..Patch TRANSDERMA 10/24/24 23:18 1 patch ONCE ONE Administration Protocol Oxycodone HCl 5 mg 10/24/24 23:17 10/25/24 00:02 Oxycodone Hcl Immed Release 5 Mg Tablet PO 10/24/24 23:18 5 mg ONCE ONE Administration Medical Decision Making Medical Decision Making [facility] Narrative: 11:18 PM 10/24/2024 (Zahira SOLIS): Patient is a 44-year-old female presenting to the ED reporting on 10/17 while in [place] she suffered a mechanical fall down 2 steps resulting in a inversion injury of her left ankle. Patient reports she has been able to walk on the ankle but with increasing pain and limping. Patient returned to the [facility] 2 days ago and came to the ED today due to worsening pain. The patient denies head strike or other acute injury, denies previous injury to the affected extremity. The patient reports she has been attempting ibuprofen and ice without relief. The patient's exam reveals swelling and tenderness of the left lateral malleolus with swelling extending into the foot. No open injury. The patient's plain films show question fracture of the distal fibula/lateral malleolus, which in this provider's opinion, based on timeline, may represent a healing fracture. The patient's foot x-ray is unremarkable. The patient will be placed in a walking boot but given crutches and non weight-bearing instructions, and we will discharge with outpatient orthopedic follow up. Discharge Plan Discharge Clinical Impression: Ankle fracture Patient Disposition: Home, Self-Care Instructions: Ankle Fracture (ED), Crutch Instructions (ED) Additional Instructions: Thank you for choosing [facility]'s Emergency Department for your care today. Unfortunately your x-ray today shows concern for a healing fracture of your lateral left ankle. Your foot x-ray shows no evidence of fracture. At this time there is no indication for admission to the hospital or continued ED observation, and it is safe to discharge you home. Please wear the boot provided and use the crutches to remain nonweightbearing. Please elevate your leg and apply ice over the boot whenever possible. You should take alternating (staggered) doses of ibuprofen 600mg and Tylenol 1000mg every 4 hours as needed for any additional pain. Please rest the injured area, and apply ice for 20 minutes every hour. As a part of your care plan, you have also been prescribed an opiate based pain medication called oxycodone. Please take this medication only for severe pain that is not relieved by ibuprofen and/or Tylenol. Opiate based medications have a high risk of unintentional addiction and abuse. Take this medication only as directed and only if absolutely necessary. This medicine can make you drowsy, you are not allowed to drive, operate heavy machinery, or be the sole care provider for children while taking this medication. We have treated you with a lidocaine patch, if you find this provides you signi ficant relief additional patches can be purchased at any local pharmacy without a prescription. Please follow up with our orthopedic office for re-evaluation and additional management of this injury. Please also follow up with your primary care physician for re-evaluation, additional management of your pain/symptoms, and continued preventative care. If you do not have a primary care physician, please call the [facility] at [phone] to establish a new primary care physician. While waiting to establish your new primary care physician, you can call our [facility] at [phone] for non-emergency needs. Please return to the emergency department if you develop a severe or sudden change in your symptoms, a fever over 100.4 that does not improve with Tylenol or Ibuprofen, recurrent vomiting, or any other new or worsening symptoms or concerns. Prescriptions: New ibuprofen 600 mg tablet 600 mg PO Q8H PRN (Reason: fever or pain) Qty: 30 0RF acetaminophen 500 mg capsule 1,000 mg PO .q8 PRN (Reason: fever or pain) Qty: 30 0RF oxycodone 5 mg tablet 5 mg PO Q8H PRN (Reason: pain, severe) Qty: 14 0RF Rx Instructions: Partial Fill upon patient request. No Action omeprazole 20 mg capsule,delayed release(DR/EC) 1 cap PO DAILY acetaminophen [Tylenol Extra Strength] 500 mg tablet 1,000 mg PO QID PRN (Reason: fever or pain) Qty: 14 0RF tramadol 50 mg tablet 50 mg PO Q6H PRN (Reason: pain) Qty: 20 0RF cyclobenzaprine 10 mg tablet 10 mg PO BID PRN (Reason: muscle spasm) Qty: 8 0RF ibuprofen 600 mg tablet 600 mg PO Q8H PRN (Reason: fever or pain) Qty: 20 0RF acetaminophen 500 mg tablet 500 mg PO Q6H PRN (Reason: fever or pain) Qty: 20 0RF ibuprofen 600 mg tablet 600 mg PO Q6H PRN (Reason: pain) Qty: 20 0RF zolpidem [Ambien] 10 mg tablet 10 mg PO BEDTIME PRN (Reason: Insomnia) clonazepam 1 mg tablet 1 mg PO BID Rx Instructions: administer 30 minutes before bedtime baclofen 10 mg tablet 10 mg PO BID PRN (Reason: muscle spasm) gabapentin 400 mg capsule 400 mg PO TID Asmanex HFA 100 mcg/actuation HFA aerosol inhaler 1 puff inhalation BID Referrals: [facility] Orthopedic Surgeons [Provider Group] Clinical Impression: Ankle fracture Lisa Wylie DO [Primary Care Provider, Internal Medicine] Clinical Impression: Ankle fracture Discharge Date/Time: 10/25/24 00:28 Print Language: Latvian
[2024-10-25] MEDS: oxyCODONE HCl Immed Release 5 MG TABLET PO (00:02)
[2024-10-25] MEDS: Lidocaine 4 % Patch ADH..PATCH 1 PATCH TRANSDERMA (00:03)
== END 2024-10-25 00:28 | disposition home or self-care (01) ==
PROVIDERS: Emergency Provider Emergency Medicine; PCP Family Medicine
DX: S82.892A Other fracture of left lower leg, initial encounter for closed fracture (principal); W10.8XXA Fall (on) (from) other stairs and steps, initial encounter; M25.572 Pain in left ankle and joints of left foot; Y93.9 Activity, unspecified; Y92.9 Unspecified place or not applicable; Y99.9 Unspecified external cause status
CPT/HCPCS: 73610; 73620; 99284

== ENCOUNTER → 2024-10-24 20:47 | Outpatient (BNV) | payer MEDICAID, SELFPAY | PROVIDERS: PCP Family Medicine; Visit Provider Radiology Diagnostic Radiology | DX: S99.912A Unspecified injury of left ankle, initial encounter (principal); W18.30XA Fall on same level, unspecified, initial encounter | CPT/HCPCS: 73610; 73620 ==

== ENCOUNTER 2024-11-17 13:04 | Outpatient (AMB) | payer MEDICAID, SELFPAY ==
--- OUTSIDE RECORDS SUMMARY | 2024-11-17 13:07 | XMS_ITS | Encounter Summary ---
Author Organization [employer] Address [address] [place] [address] Care Team Providers Care Canary Breeder Name Role Phone Lisa Wylie DO Primary Care Provider [phone] Carmen Soils RN Unavailable [phone] Kimmie Whiteside Unavailable Reason for Visit * Reason Onset Date Comments Med Refill 03/09/2023 Encounter Details Date Type Department Care Team (Late st Contact Info) Description 03/09/2023 Refill [facility] [address] [place], [place] [id number] Lisa Wylie DO [address] [place] [address] Other chronic pain Social History Tobacco Use [...] Description 12/19/2024 9:30 AM EDT Clinical Support [facility] [address] [place] [address] Eli Ferguson, RN documented as of this encounter Visit Diagnoses Diagnosis Other chronic pain documented in this encounter Additional Health Concerns Assessment Noted Time PHQ-9 Depression Total Score: 12 023 10:50 AM EDT documented as of this encounter Care Teams Canary Breeder Relationship Specialty Start Date End Date Lisa Wylie DO [address] [place] [address] PCP - General Family Medicine 04/05/18 Carmen Solis, [place] [address] [place] [id number] Registered Nurse Family Medicine 10/25/24 Kimmie Whiteside 10/25/24 Eli Rivera Shower Maid 06/18/23 10/15/23 Susan Richey Shower MaidClinical Documentation Clerk 12/23/23 documented as of this encounter
--- NOTE | 2024-11-17 13:20 | MHC.OFFVIS ---
Intake Visit Reasons: FC-LT ankle fx DOI: 10/17/24 Intake Note: Susanne is a 44 year old female who presents today for an ER follow up of left ankle fracture, DOI: 10/17/24. Patient had a mechanical fall down a step while in [place], resulting in a inversion injury of left ankle. Patient reports her pain wraps around her whole ankle and travels up her leg. She comlains of a tingling sensation, no numbness. States that she is now having pain in her right leg from overcompensation. Finds little to no relief with Tylenol or Motrin, as well as tramadol and gabapentin. Allergies gadobutrol Allergy (Severe, Verified 11/17/24 13:26) Difficulty Breathing Iodinated Contrast Media (IV CONTRAST) Allergy (Severe, Verified 11/17/24 13:26) ANAPHYLAXIS Medication List - Last Reconciled 11/17/24 by Yaneli Bee PA-C acetaminophen 1,000 mg (2 x 500 mg) PO .q8 PRN baclofen 10 mg PO BID PRN clonazepam 1 mg PO BID ferrous sulfate 325 mg PO gabapentin 400 mg PO TID ibuprofen 600 mg PO Q6H PRN ibuprofen 600 mg PO Q8H PRN ibuprofen 600 mg PO Q8H PRN mometasone 100 mcg/actuation (Asmanex HFA) 1 puff inhalation BID omeprazole 1 cap PO DAILY sumatriptan succinate mg PO topiramate 25 mg PO BEDTIME tramadol 50 mg PO Q6H PRN zolpidem (Ambien) 10 mg PO BEDTIME PRN HPI HPI FC-LT ankle fx DOI: 10/17/24: Details: 44-year-old female presents to the today for an injury she sustained to her left on 10/17/2024 She states she was in [place] when she twisted the ankle. She had immediate pain and difficulty with weight-bearing. When she returned home she went to the emergency department where x-rays were obtained and she was placed in a tall boot. She states the boot made it more comfortable to walk so she has not been using the boot. She does continue to have swelling in the ankle with discomfort with ambulation. [facility] Medical History Right hand pain Bilateral hand numbness Close exposure to COVID-19 virus Close exposure to 2019-nCoV COVID-19 vaccine series completed Hematuria Microscopic hematuria Allergy to contrast media (used for diagnostic x-rays) Left knee pain Abnormal abdominal MRI Left lateral epicondylitis SOB (shortness of breath) Precordial chest pain Breast nodule Patellofemoral disorder of left knee History of abnormal cervical Pap smear Breast pain, left Cyst of Bartholin's gland Bipolar 1 disorder Migraine with aura Anxiety Depression Fibromyalgia Arthritis Asthma Surgical History Status post insertion of nerve stimulator H/O colonoscopy Hx of arthroscopic knee surgery Hx of tubal ligation History of loop electrical excision procedure (LEEP) Hx of section Family History Mother Diabetes mellitus Asthma Depression Maternal Grandmother Asthma Breast cancer Maternal Aunt Diabetes mellitus HTN (hypertension) Breast cancer Social History Household Members: Children Household Members Other:: children: 19, 18, fraternal twins-15 and a 5 year old. Are you a primary day care provider to a significant other at home: Yes (child) Do you presently have visiting nurse or other home services: No Unable to assess alcohol history related to: Unknown Alcohol intake: current Alcohol intake frequency: holidays/special occasions only Patient Tobacco Use Status: Never used Tobacco Tobacco use type: Cigarette service: No Current occupational status: unemployed Current occupation: rt hand Gender identity: Female Female Reproductive History Menstrual Age of Menarche: 11 Review of Systems Const All systems reviewed & are unremarkable except as noted in HPI and below Physical Exam Const General: cooperative and no acute distress Orientation/consciousness: patient oriented x3 Resp Effort & Inspection: normal respiratory effort and able to speak in complete sentences Cardio Peripheral pulses: Peripheral pulses 2+ throughout Neuro General: patient oriented x3 Extrem Other: Left ankle is normal to inspection she has a moderate amount of swelling on the lateral malleolus with tenderness along the soft tissues. No pain over the syndesmosis. Full range of motion without laxity. Calf is supple and nontender neurovascularly intact. Results Reviewed Results Reviewed: X-rays in the emergency department are negative for any acute fractures or dislocations. Assessment & Plan Assessment & Plan (1) Left ankle sprain: Code(s): S93.402A - Sprain of unspecified ligament of left ankle, initial encounter Category: Medical Plan: The patient was given a lace-up ankle brace to use with weight-bearing activities. I also stressed the importance of working with physical therapy for range of motion, strength and proprioceptive training. I explained to the patient the swelling and discomfort can be intermittent for the next 3-6 months due to activity level and weight-bearing activity. I encouraged she rest, ice, anti-inflammatory use to aid in her recovery. She will continue working without limitations as she states her job is pretty basic. She will see me back as needed if symptoms persist otherwise follow up as needed Coding Level of Care Code New Pt Level 3 (70354) Complex EM visit Add On G2211 Diagnoses Left ankle sprain S93.402A
== END 2024-11-17 14:34 | disposition home or self-care (01) ==
LOC: HO.HOS 13:05
PROVIDERS: PCP Family Medicine; Visit Provider Physician Assistant
DX: S93.402A Sprain of unspecified ligament of left ankle, initial encounter (principal)
CPT/HCPCS: 99203

== ENCOUNTER → 2024-11-17 13:04 | Outpatient (BNVA) | payer MEDICAID, SELFPAY | PROVIDERS: PCP Family Medicine; Visit Provider Physician Assistant | DX: S93.402A Sprain of unspecified ligament of left ankle, initial encounter (principal) | CPT/HCPCS: 99212 ==

== ENCOUNTER 2025-01-09 11:06 | Outpatient (REF) | payer MEDICAID, SELFPAY ==
[2025-01-10 04:58] LABS: Rubeola IgG (Measles) 59.10 AU/mL
== END 2025-01-09 11:07 | disposition home or self-care (01) ==
LOC: HO.LAB 11:06
PROVIDERS: Visit Provider Family Medicine
DX: Z00.00 Encounter for general adult medical examination without abnormal findings (principal)
CPT/HCPCS: 36415; 86735; 86762; 86765

== ENCOUNTER 2025-01-11 10:00 | Outpatient (RCR) | payer MEDICAID, SELFPAY ==
--- NOTE | 2024-12-13 12:41 | MHC.PT.EP ---
[facility] [place] Office [place] Office [place] Office [address] Rachel Singh [address] [phone] F: [phone] F: [phone] F: [phone] F: [phone] Physical Therapy Plan of Care Date of Evaluation: 12/13/24 Date of Surgery: Diagnosis: LEFT ANKLE SPRAIN; physical therapy for range of motion, strength and proprioceptive training Assessment: 44 YO FEMALE REF TO PT FOR Lt ANKLE SPRAIN SUSTAINED IN A FALL ON [facility] WHILE ON VACATION IN [place] ON -10/17/24; SHE DELAYED [facility] UNTIL SHE RETURNED HOME (-> [facility]). THE Pt WORKS IN A [employer] OFFICE AND IS CURRENTLY WEARING A LEFT LACEUP ANKLE SUPPORT. OBJECTIVE FINDINGS: HYPERSENTIVITY TO Lt PALP Lt LATERAL FOOT AD ANTEROLAT MALL, LIMITED ROM Lt ANKLE/ FOOT, ALTERED GAIT AND DECR FUNCT MOB TJ, DECR PROPRIOCEPTION Lt LE (PRIOR INJURIES Lt KNEE), AND GENERALIZED STRENGTH DEFICITS. WE DISCUSSED PT POC AND THE Pt WISHES TO PROCEED. Frequency and Duration: The patient will be seen 2 x WK x 5 WKS Short Term Goals: DECR Lt ANKLE PAIN TO 2-3/10 INITIATE HEP IMPROVE ROM Lt ANKLE/ FOOT DECR SWELLING Manager Of Corporate Communications Goals: Pt INDEP W HEP AND SELF SX MGMT TECHN IMPROVED LEFI, AT EVAL 18/80 Pt DEMON RETURN TO REG ADLs, EFFICIENT GAIT AND SQUAT MECH SLS x 20 SEC EACH WFL STRENGTH Lt DISTAL LE Treatment Plan: Modalities to reduce pain, spasms and effusion. Manual therapy to restore motion and function. Therapeutic exercise to improve strength and flexibility. Neuromuscular re-education for posture and balance. Therapeutic activities to return to functional activities of daily living. Electronically signed by: LEEANN FLORES,PT Please sign and return to therapist. Thank you for your referral.
[2024-12-22 08:11] LABS: Oxazepam, GCMS Urine NEGATIVE
[2024-12-22 08:12] LABS: Alphahydroxymidazolam,GCMS Ur NEGATIVE; Alphahydroxytriazolam, GCMS Ur NEGATIVE; Alprazolam, GCMS Urine NEGATIVE; Lorazepam GCMS Urine NEGATIVE; Temazepam, GCMS Urine NEGATIVE
[2024-12-22 08:13] LABS: Aminoclonazepam, GCMS Urine 275; Flurazepam Metabolite,GCMS Ur NEGATIVE; Nordiazepam, GCMS Urine NEGATIVE
--- NOTE | 2025-01-11 11:35 | MHC.PT.DC ---
[facility] [place] Office [place] Office [place] Office [address] Rachel Singh [address] [phone] F: [phone] F: [phone] F: [phone] F: [phone] Physical Therapy Discharge Report Diagnosis: LEFT ANKLE SPRAIN; physical therapy for range of motion, strength and proprioceptive training Date of Surgery: Date of Evaluation: 12/13/24 Date of Discharge: 01/11/25 Treatments to Date: 6 Cancellations to Date: No Shows to Date: Discharge Status: Achieved Goals Improved Function Independent with HEP Discharge Summary: TIANA HAS MADE SIGNIF PROGRESS IN PT FOR HER Lt ANKLE SPRAIN- SHE HAS RESUMED REG ADLs AND ADV W RECIPROCAL TECHN W STAIRS- SHE HAS A THOROUGH HEP AND WE HAVE REINFORCED IMPORTANCE OF COMPLIANCY FOR OPTIMAL RESULTS, ESPEC TO HELP HER Lt LE- SHE HAS MET HER PT GOALS EXCEPT FOR SLS , HOWEVER, SHE HAS NOT BEEN PERF HER HEP CONSISTENTLY OR TO REPS PRESCRIBED- SHE IS READY FOR D/C FROM PT THIS DATE- [facility] TODAY US , (AT [place] ). Electronically signed by: LEEANN FLORES,PT Please sign and return to therapist. Thank you for your referral.
== END 2025-01-11 11:36 | disposition home or self-care (01) ==
LOC: HO.PT 10:00
PROVIDERS: PCP Family Medicine; Visit Provider Physician Assistant
DX: S93.402D Sprain of unspecified ligament of left ankle, subsequent encounter (principal)
CPT/HCPCS: 80346; 97110; 97162; 97530

== ENCOUNTER 2025-03-19 10:00 | Outpatient (REF) | payer MEDICAID, SELFPAY ==
--- OUTSIDE RECORDS SUMMARY | 2025-03-20 15:17 | XMS_ITS | Clinical Summary ---
Author Organization [address] [facility] Address [address] [place] [address] Phone Care Team Providers Care Compliance Advisor Name Role Phone HieuLisa ca Primary Care Provider [phone]- [phone] Allergies No known active allergies Medications No known medications Encounters Date Type Department Care Team Description 02/22/2025 10:30 AM EST Office Visit [facility] [address] [phone] Nestor Reagan DPM Bilateral foot pain (Primary Dx); Disorder of ligament of ankle, left; Lumbosacral radiculopathy; Peroneal tendinitis of left lower extremity 02/01/2025 10:15 AM EDT Office Visit [facility] [address] [phone] Nestor Reagan DPM Bilateral foot pain (Primary Dx); Disorder of ligament of ankle, left; Lumbosacral radiculopathy; Peroneal tendinitis of left lower extremity from Last 3 Months Social History Tobacco Use Types Packs/Day Years Used Date Smoking Tobacco: Never Assessed Comments Unknown Sex and Gender Information Value Date Recorded Sex Assigned at Not on file Legal Sex Female 4:38 AM EST Gender Identity Not on file Sexual Orientation Not on file Plan of Treatment Health Maintenance Due Date Last Done Comments Breast Cancer Screening 1979 Colorectal Cancer Screening: Colonoscopy 1980 Hepatitis A Vaccines (1 of 2 - Risk 2-dose series) 10/13/1998 HPV Vaccines (1 - 3-dose SCD M series) 10/13/2006 Hepatitis B Vaccines (3 of 3 - 19+ 3-dose series) 07/22/2022 05/27/2022, 11/04/2004 DTaP,Tdap,and Td Vaccines (3 - Td or Tdap) 08/05/2022 08/05/2012, 03/02/2012 Depression Screening 04/05/2024 Social Influencers of Health Screening 09/27/2024 COVID-19 Vaccine (3 - 2024-2 6 season) 2024 12/03/2020, 11/12/2020 Influenza Vaccine (#1) 2024 03/02/2012 Cervical Cancer Screening: P ap Smear 02/22/2026 02/22/2023 Cholesterol Screening (Lipid Panel) 10/03/2029 10/03/2024 RSV Immunization Adult Patients (1 - 1-dose 75+ series) 10/13/2054 Pneumococcal Vaccine: Pediatrics (0 to 5 Years) and At-Risk Patients (6 to 49 Years) Completed 05/27/2022, 03/02/2012 HIV Screening Completed 10/03/2024 Hepatitis C Screening Completed 10/03/2024 HIB Vaccines Aged Out No longer eligi ble based on patient's age to complete this topic IPV Vaccines Aged Out No longer eligi ble based on patient's age to complete this topic MMR Vaccines Aged Out No longer eligi ble based on patient's age to complete this topic Meningococcal ACWY Vaccine Aged Out N o longer eligible based on patient's age to complete this topic Meningococcal B Vaccine Aged Out No l onger eligible based on patient's age to complete this topic RSV Immunization Patients Under 20 months Aged Out No longer eligible b ased on patient's age to complete this topic Varicella Vaccines Aged Out No longer eligible based on patient's age to complete this topic Insurance [place] - [place] Care Teams Compliance Advisor Relationship Specialty Start Date End Date Lisa Wyile DO [address] [place] [address] PCP - General Family Medicine 09/26/24
[2025-03-23 09:15] LABS: Aminoclonazepam, GCMS Urine 574
[2025-03-23 09:16] LABS: Alphahydroxymidazolam,GCMS Ur NEGATIVE; Alphahydroxytriazolam, GCMS Ur NEGATIVE; Alprazolam, GCMS Urine NEGATIVE; Flurazepam Metabolite,GCMS Ur NEGATIVE; Lorazepam GCMS Urine NEGATIVE; Nordiazepam, GCMS Urine NEGATIVE; Oxazepam, GCMS Urine NEGATIVE; Temazepam, GCMS Urine NEGATIVE
== END 2025-03-19 10:01 | disposition home or self-care (01) ==
LOC: HO.HHCLNP 10:00
PROVIDERS: Visit Provider Family Medicine
DX: Z79.899 Other long term (current) drug therapy (principal)
CPT/HCPCS: 80346